=== PATIENT | male | born 1945 | race African-American/Black ===

== ENCOUNTER → 2016-12-20 | Outpatient (CLI) | payer MEDICARE, OTHER ==
[2016-12-20 14:48] LABS: HEMATOCRIT 40.3 % (37.9-51.0); HEMOGLOBIN 13.6 g/dL (13.5-17.0); HGB HCT DIFFERENCE 0.5; MEAN CORPUSCULAR HEMOGLOBIN 31.9 pg (27.0-33.4); MEAN CORPUSCULAR HGB CONC 33.6 g/dL (32.0-36.0); MEAN CORPUSCULAR VOLUME 95 fl (80-97); RED BLOOD COUNT 4.25 10^6/uL (4.35-5.55); WHITE BLOOD COUNT 4.2 10^3/uL (4.0-10.5)
[2016-12-20 15:02] LABS: APPEARANCE,URINE SLIGHTLY-CLOUDY; BILIRUBIN,URINE NEGATIVE (NEGATIVE); GLUCOSE, URINE >=500 mg/dL (NEGATIVE); KETONES,URINE NEGATIVE (NEGATIVE); LEUKOCYTE ESTERASE,URINE NEGATIVE (NEGATIVE); NITRITE,URINE NEGATIVE (NEGATIVE); PROTEIN,URINE 30 mg/dL (NEGATIVE); URINE SPECIFIC GRAVITY 1.016; UROBILINOGEN,URINE NEGATIVE mg/dL (<2.0)
[2016-12-20 15:08] LABS: URINE CREATININE 132.8 mg/dL (22-328); URINE PROTEIN 25.2 mg/dL (<12)
[2016-12-20 15:39] LABS: ANION GAP 11 (5-19); BLOOD UREA NITROGEN 21 mg/dL (7-20); CALCIUM 9.4 mg/dL (8.4-10.2); CARBON DIOXIDE 24 mmol/L (22-30); CHLORIDE 101 mmol/L (98-107); GLUCOSE 283 mg/dL (75-110); POTASSIUM 4.7 mmol/L (3.6-5.0); SODIUM 135.9 mmol/L (137-145)
== END ==
LOC: OD 14:06
PROVIDERS: ATTEND Internal Medicine Nephrology
DX: E11.22 Type 2 diabetes mellitus with diabetic chronic kidney disease (principal); I12.9 Hypertensive chronic kidney disease with stage 1 through stage 4 chronic kidney disease, or unspecified chronic kidney disease; N18.2 Chronic kidney disease, stage 2 (mild); E87.5 Hyperkalemia; R80.9 Proteinuria, unspecified
CPT/HCPCS: 36415; 80048; 81001; 82570; 84156; 85027

== ENCOUNTER → 2017-02-07 | Outpatient (CLI) | payer MEDICARE, OTHER ==
[2017-02-07 09:28] LABS: ABSOLUTE EOSINOPHILS # (AUTO) 0.2 10^3/uL (0.0-0.6); ABSOLUTE LYMPHOCYTES (AUTO) 0.8 10^3/uL (0.5-4.7); ABSOLUTE MONOCYTES (AUTO) 0.3 10^3/uL (0.1-1.4); ABSOLUTE NEUT (AUTO) 1.3 10^3/uL (1.7-8.2); BASOPHILS % (AUTO) 1.2 % (0-2); EOSINOPHILS % (AUTO) 7.6 % (0-6); HEMATOCRIT 39.8 % (37.9-51.0); HEMOGLOBIN 13.3 g/dL (13.5-17.0); HGB HCT DIFFERENCE 0.1; LYMPHOCYTES % (AUTO) 30.7 % (13-45); MEAN CORPUSCULAR HEMOGLOBIN 32.5 pg (27.0-33.4); MEAN CORPUSCULAR HGB CONC 33.4 g/dL (32.0-36.0); MEAN CORPUSCULAR VOLUME 98 fl (80-97); MONOCYTES % (AUTO) 10.3 % (3-13); RED BLOOD COUNT 4.08 10^6/uL (4.35-5.55); RED CELL DISTRIBUTION WIDTH 13.1 % (11.5-14.0); SEGMENTED NEUTROPHILS % (AUTO) 50.2 % (42-78); WHITE BLOOD COUNT 2.6 10^3/uL (4.0-10.5)
[2017-02-07 10:06] LABS: ALANINE AMINOTRANSFERASE 26 U/L (21-72); ALBUMIN 3.6 g/dL (3.5-5.0); ALKALINE PHOSPHATASE 97 U/L (38-126); ANION GAP 9 (5-19); ASPARTATE AMINO TRANSFERASE 20 U/L (17-59); BILIRUBIN,DIRECT 0.3 mg/dL (0.0-0.4); BILIRUBIN,TOTAL 0.7 mg/dL (0.2-1.3); BLOOD UREA NITROGEN 13 mg/dL (7-20); CALCIUM 8.8 mg/dL (8.4-10.2); CARBON DIOXIDE 23 mmol/L (22-30); CHLORIDE 107 mmol/L (98-107); CHOLESTEROL 129.28 mg/dL (0-200); CREATININE RESULT 1.32 mg/dL (0.52-1.25); Direct HDL 49 mg/dL (>40); GLUCOSE 171 mg/dL (75-110); POTASSIUM 4.6 mmol/L (3.6-5.0); SODIUM 139.1 mmol/L (137-145); TOTAL PROTEIN 6.9 g/dL (6.3-8.2); TRIGLYCERIDES 50 mg/dL (<150)
[2017-02-07 10:18] LABS: DIRECT LDL 61 mg/dL (<100)
== END ==
LOC: OD 08:40
PROVIDERS: ATTEND Internal Medicine
DX: E11.9 Type 2 diabetes mellitus without complications (principal); E78.5 Hyperlipidemia, unspecified; I25.10 Atherosclerotic heart disease of native coronary artery without angina pectoris; I10 Essential (primary) hypertension; R35.1 Nocturia
CPT/HCPCS: 36415; 80053; 80061; 82043; 83036; 84153; 84443; 85025

== ENCOUNTER → 2017-06-18 | Outpatient (CLI) | payer MEDICARE, OTHER ==
[2017-06-18 10:29] LABS: HEMATOCRIT 38.5 % (37.9-51.0); HEMOGLOBIN 13.2 g/dL (13.5-17.0); HGB HCT DIFFERENCE 1.1; MEAN CORPUSCULAR HEMOGLOBIN 32.6 pg (27.0-33.4); MEAN CORPUSCULAR HGB CONC 34.4 g/dL (32.0-36.0); MEAN CORPUSCULAR VOLUME 95 fl (80-97); RED BLOOD COUNT 4.06 10^6/uL (4.35-5.55); RED CELL DISTRIBUTION WIDTH 13.6 % (11.5-14.0); WHITE BLOOD COUNT 2.9 10^3/uL (4.0-10.5)
[2017-06-18 10:35] LABS: APPEARANCE,URINE CLEAR; BILIRUBIN,URINE NEGATIVE (NEGATIVE); GLUCOSE, URINE NEGATIVE (NEGATIVE); KETONES,URINE NEGATIVE (NEGATIVE); LEUKOCYTE ESTERASE,URINE NEGATIVE (NEGATIVE); NITRITE,URINE NEGATIVE (NEGATIVE); PROTEIN,URINE 30 mg/dL (NEGATIVE); URINE SPECIFIC GRAVITY 1.016; UROBILINOGEN,URINE NEGATIVE mg/dL (<2.0)
[2017-06-18 10:57] LABS: ANION GAP 9 (5-19); BLOOD UREA NITROGEN 15 mg/dL (7-20); CALCIUM 8.8 mg/dL (8.4-10.2); CARBON DIOXIDE 24 mmol/L (22-30); CHLORIDE 106 mmol/L (98-107); GLUCOSE 134 mg/dL (75-110); POTASSIUM 4.5 mmol/L (3.6-5.0); SODIUM 138.5 mmol/L (137-145)
[2017-06-18 11:01] LABS: BACTERIA,URINE TRACE /HPF; WBC,URINE RARE /HPF
== END ==
LOC: OD 09:07
PROVIDERS: ATTEND Internal Medicine Nephrology
DX: N18.2 Chronic kidney disease, stage 2 (mild) (principal); R80.9 Proteinuria, unspecified; E87.5 Hyperkalemia; E11.9 Type 2 diabetes mellitus without complications
CPT/HCPCS: 36415; 80048; 81001; 85027

== ENCOUNTER → 2017-08-30 | Outpatient (CLI) | payer MEDICARE, OTHER ==
[2017-08-30 10:48] LABS: ABSOLUTE BASOPHILS # (AUTO) 0.1 10^3/uL (0.0-0.2); ABSOLUTE EOSINOPHILS # (AUTO) 0.2 10^3/uL (0.0-0.6); ABSOLUTE LYMPHOCYTES (AUTO) 1.2 10^3/uL (0.5-4.7); ABSOLUTE MONOCYTES (AUTO) 0.3 10^3/uL (0.1-1.4); BASOPHILS % (AUTO) 1.8 % (0-2); EOSINOPHILS % (AUTO) 4.3 % (0-6); HEMATOCRIT 40.5 % (37.9-51.0); HEMOGLOBIN 13.7 g/dL (13.5-17.0); LYMPHOCYTES % (AUTO) 31.7 % (13-45); MEAN CORPUSCULAR HEMOGLOBIN 31.7 pg (27.0-33.4); MEAN CORPUSCULAR HGB CONC 33.8 g/dL (32.0-36.0); MEAN CORPUSCULAR VOLUME 94 fl (80-97); MONOCYTES % (AUTO) 8.3 % (3-13); PLATELET COUNT 196 10^3/uL (150-450); RED BLOOD COUNT 4.32 10^6/uL (4.35-5.55); RED CELL DISTRIBUTION WIDTH 13.7 % (11.5-14.0); SEGMENTED NEUTROPHILS % (AUTO) 53.9 % (42-78); TOTAL CELLS COUNTED % (AUTO) 100 %; WHITE BLOOD COUNT 3.7 10^3/uL (4.0-10.5)
[2017-08-30 11:20] LABS: ALANINE AMINOTRANSFERASE 24 U/L (21-72); ALKALINE PHOSPHATASE 99 U/L (38-126); ANION GAP 10 (5-19); ASPARTATE AMINO TRANSFERASE 21 U/L (17-59); BILIRUBIN,DIRECT 0.4 mg/dL (0.0-0.4); BILIRUBIN,TOTAL 0.4 mg/dL (0.2-1.3); BLOOD UREA NITROGEN 16 mg/dL (7-20); CALCIUM 9.5 mg/dL (8.4-10.2); CARBON DIOXIDE 25 mmol/L (22-30); CHLORIDE 101 mmol/L (98-107); CHOLESTEROL 143.04 mg/dL (0-200); GLUCOSE 243 mg/dL (75-110); POTASSIUM 4.9 mmol/L (3.6-5.0); SODIUM 135.9 mmol/L (137-145); TOTAL PROTEIN 7.3 g/dL (6.3-8.2); TRIGLYCERIDES 78 mg/dL (<150)
[2017-08-30 11:31] LABS: DIRECT LDL 71 mg/dL (<100)
== END ==
LOC: OD 09:12
PROVIDERS: ATTEND Internal Medicine
DX: E11.9 Type 2 diabetes mellitus without complications (principal); I25.10 Atherosclerotic heart disease of native coronary artery without angina pectoris; E78.5 Hyperlipidemia, unspecified
CPT/HCPCS: 36415; 80053; 80061; 83036; 85025

== ENCOUNTER → 2017-12-18 | Outpatient (CLI) | payer MEDICARE, OTHER ==
[2017-12-18 10:42] LABS: HEMATOCRIT 36.1 % (37.9-51.0); HEMOGLOBIN 12.3 g/dL (13.5-17.0); MEAN CORPUSCULAR HEMOGLOBIN 31.2 pg (27.0-33.4); MEAN CORPUSCULAR VOLUME 92 fl (80-97); PLATELET COUNT 198 10^3/uL (150-450); RED BLOOD COUNT 3.95 10^6/uL (4.35-5.55); RED CELL DISTRIBUTION WIDTH 14.8 % (11.5-14.0)
[2017-12-18 11:14] LABS: ANION GAP 11 (5-19); BLOOD UREA NITROGEN 14 mg/dL (7-20); CALCIUM 9.4 mg/dL (8.4-10.2); CARBON DIOXIDE 25 mmol/L (22-30); CHLORIDE 108 mmol/L (98-107); GLUCOSE 62 mg/dL (75-110); POTASSIUM 4.1 mmol/L (3.6-5.0); SODIUM 143.8 mmol/L (137-145)
[2017-12-18 13:09] LABS: APPEARANCE,URINE CLEAR; BILIRUBIN,URINE NEGATIVE (NEGATIVE); COLOR,URINE YELLOW; GLUCOSE, URINE NEGATIVE (NEGATIVE); KETONES,URINE NEGATIVE (NEGATIVE); LEUKOCYTE ESTERASE,URINE NEGATIVE (NEGATIVE); NITRITE,URINE NEGATIVE (NEGATIVE); PROTEIN,URINE 30 mg/dL (NEGATIVE)
[2017-12-18 13:25] LABS: UR PRO/CREAT RATIO RESULT 0.1 mg/mg (0.0-0.2); URINE CREATININE 246.8 mg/dL (22-328); URINE PROTEIN 36.2 mg/dL (<12)
== END ==
LOC: OD 09:42
PROVIDERS: ATTEND Internal Medicine Nephrology
DX: I12.9 Hypertensive chronic kidney disease with stage 1 through stage 4 chronic kidney disease, or unspecified chronic kidney disease (principal); E11.22 Type 2 diabetes mellitus with diabetic chronic kidney disease; N18.2 Chronic kidney disease, stage 2 (mild); E87.5 Hyperkalemia
CPT/HCPCS: 36415; 80048; 81001; 82570; 84156; 85027

== ENCOUNTER → 2018-06-01 | Outpatient (CLI) | payer MEDICARE, OTHER ==
--- NOTE | 2018-06-01 15:01 | RADIOLOGY REPORT (SQ) ---
EXAM DESCRIPTION: CHEST 2 VIEWS COMPLETED DATE/TIME: 06/01/2018 2:47 pm REASON FOR STUDY: ACUTE BRONCHIOLITIS, UNSPECIFIED COMPARISON: January 2010 EXAM PARAMETERS: NUMBER OF VIEWS: two views TECHNIQUE: Digital Frontal and Lateral radiographic views of the chest acquired. RADIATION DOSE: NA LIMITATIONS: none FINDINGS: LUNGS AND PLEURA: No opacities, masses or pneumothorax. No pleural effusion. There is a m ild nonspecific prominence of interstitial markings. MEDIASTINUM AND HILAR STRUCTURES: No masses or contour abnormalities. HEART AND VASCULAR STRUCTURES: Heart normal size. No evidence for failure. BONES: No acute findings. HARDWARE: Patient is status post median sternotomy with coronary bypass surgery. OTHER: No other significant finding. IMPRESSION: NO ACUTE RADIOGRAPHIC FINDING IN THE CHEST. TECHNICAL DOCUMENTATION: JOB ID: [id number] [employer]- All Rights Reserved Reading location - IP/workstation name: [email or web address]
== END ==
LOC: RAD 14:22
PROVIDERS: ATTEND Internal Medicine
DX: J21.9 Acute bronchiolitis, unspecified (principal)
CPT/HCPCS: 71046

== ENCOUNTER → 2018-07-04 | Outpatient (CLI) | payer MEDICARE, OTHER ==
[2018-07-04 10:10] LABS: APPEARANCE,URINE CLEAR; BILIRUBIN,URINE NEGATIVE (NEGATIVE); COLOR,URINE YELLOW; GLUCOSE, URINE NEGATIVE (NEGATIVE); KETONES,URINE NEGATIVE (NEGATIVE); LEUKOCYTE ESTERASE,URINE NEGATIVE (NEGATIVE); NITRITE,URINE NEGATIVE (NEGATIVE); PROTEIN,URINE 30 mg/dL (NEGATIVE); URINE SPECIFIC GRAVITY 1.015; UROBILINOGEN,URINE NEGATIVE mg/dL (<2.0)
[2018-07-04 10:10] LABS: ABSOLUTE EOSINOPHILS # (AUTO) 0.1 10^3/uL (0.0-0.6); ABSOLUTE MONOCYTES (AUTO) 0.3 10^3/uL (0.1-1.4); ABSOLUTE NEUT (AUTO) 1.4 10^3/uL (1.7-8.2); BASOPHILS % (AUTO) 0.8 % (0-2); EOSINOPHILS % (AUTO) 4.8 % (0-6); HEMATOCRIT 37.3 % (37.9-51.0); HEMOGLOBIN 12.6 g/dL (13.5-17.0); LYMPHOCYTES % (AUTO) 33.1 % (13-45); MEAN CORPUSCULAR HEMOGLOBIN 31.9 pg (27.0-33.4); MEAN CORPUSCULAR HGB CONC 33.9 g/dL (32.0-36.0); MEAN CORPUSCULAR VOLUME 94 fl (80-97); MONOCYTES % (AUTO) 11.6 % (3-13); PLATELET COUNT 187 10^3/uL (150-450); RED BLOOD COUNT 3.95 10^6/uL (4.35-5.55); RED CELL DISTRIBUTION WIDTH 14.6 % (11.5-14.0); SEGMENTED NEUTROPHILS % (AUTO) 49.7 % (42-78); TOTAL CELLS COUNTED % (AUTO) 100 %; WHITE BLOOD COUNT 2.9 10^3/uL (4.0-10.5)
[2018-07-04 10:14] LABS: ALANINE AMINOTRANSFERASE 14 U/L (21-72); ALBUMIN 3.6 g/dL (3.5-5.0); ALKALINE PHOSPHATASE 96 U/L (38-126); ANION GAP 8 (5-19); ASPARTATE AMINO TRANSFERASE 21 U/L (17-59); BILIRUBIN,DIRECT 0.3 mg/dL (0.0-0.4); BILIRUBIN,TOTAL 0.5 mg/dL (0.2-1.3); BLOOD UREA NITROGEN 20 mg/dL (7-20); CARBON DIOXIDE 26 mmol/L (22-30); CHLORIDE 105 mmol/L (98-107); CHOLESTEROL 211.35 mg/dL (0-200); GLUCOSE 161 mg/dL (75-110); POTASSIUM 4.8 mmol/L (3.6-5.0); SODIUM 139.3 mmol/L (137-145); TOTAL PROTEIN 7.1 g/dL (6.3-8.2); TRIGLYCERIDES 85 mg/dL (<150)
[2018-07-04 10:15] LABS: HEMATOCRIT 37.3 % (37.9-51.0); HEMOGLOBIN 12.6 g/dL (13.5-17.0); MEAN CORPUSCULAR HEMOGLOBIN 31.9 pg (27.0-33.4); MEAN CORPUSCULAR HGB CONC 33.9 g/dL (32.0-36.0); MEAN CORPUSCULAR VOLUME 94 fl (80-97); PLATELET COUNT 187 10^3/uL (150-450); RED BLOOD COUNT 3.95 10^6/uL (4.35-5.55); RED CELL DISTRIBUTION WIDTH 14.6 % (11.5-14.0); WHITE BLOOD COUNT 2.9 10^3/uL (4.0-10.5)
[2018-07-04 10:21] LABS: UR PRO/CREAT RATIO RESULT 0.4 mg/mg (0.0-0.2); URINE CREATININE 111.8 mg/dL (22-328)
[2018-07-04 10:25] LABS: DIRECT LDL 128 mg/dL (<100)
[2018-07-04 10:39] LABS: ANION GAP 8 (5-19); BLOOD UREA NITROGEN 20 mg/dL (7-20); CARBON DIOXIDE 26 mmol/L (22-30); CHLORIDE 105 mmol/L (98-107); GLUCOSE 161 mg/dL (75-110); POTASSIUM 4.8 mmol/L (3.6-5.0); SODIUM 139.3 mmol/L (137-145)
[2018-07-06 12:37] LABS: CREATININE URINE 112.2 mg/dL (Not Estab.); MICROALBUMIN URINE 177.3 ug/mL (Not Estab.)
== END ==
LOC: OD 08:25
PROVIDERS: ATTEND Internal Medicine Nephrology
DX: E11.22 Type 2 diabetes mellitus with diabetic chronic kidney disease (principal); I12.9 Hypertensive chronic kidney disease with stage 1 through stage 4 chronic kidney disease, or unspecified chronic kidney disease; N18.2 Chronic kidney disease, stage 2 (mild); E78.5 Hyperlipidemia, unspecified; Z79.899 Other long term (current) drug therapy
CPT/HCPCS: 36415; 80048; 80053; 80061; 81001; 82043; 82570; 83036; 83735; 84156; 85025; 85027

== ENCOUNTER 2018-10-20 16:52 | Inpatient (IN) | payer MEDICARE, OTHER ==
[2018-10-20 18:47] LABS: HEMATOCRIT 30.7 % (37.9-51.0); MEAN CORPUSCULAR HEMOGLOBIN 28.2 pg (27.0-33.4); MEAN CORPUSCULAR HGB CONC 32.5 g/dL (32.0-36.0); MEAN CORPUSCULAR VOLUME 87 fl (80-97); PLATELET COUNT 227 10^3/uL (150-450); RED BLOOD COUNT 3.54 10^6/uL (4.35-5.55); RED CELL DISTRIBUTION WIDTH 16.6 % (11.5-14.0); WHITE BLOOD COUNT 6.2 10^3/uL (4.0-10.5)
[2018-10-20 19:04] LABS: ALANINE AMINOTRANSFERASE 45 U/L (21-72); ALBUMIN 3.4 g/dL (3.5-5.0); ALKALINE PHOSPHATASE 128 U/L (38-126); ANION GAP 7 (5-19); ASPARTATE AMINO TRANSFERASE 39 U/L (17-59); BILIRUBIN,DIRECT 0.2 mg/dL (0.0-0.4); BILIRUBIN,TOTAL 0.4 mg/dL (0.2-1.3); BLOOD UREA NITROGEN 27 mg/dL (7-20); CALCIUM 9.2 mg/dL (8.4-10.2); CARBON DIOXIDE 25 mmol/L (22-30); CHLORIDE 107 mmol/L (98-107); CREATINE KINASE 160 U/L (55-170); GLUCOSE 162 mg/dL (75-110); POTASSIUM 4.5 mmol/L (3.6-5.0); SODIUM 139.1 mmol/L (137-145); TOTAL PROTEIN 6.8 g/dL (6.3-8.2)
[2018-10-20 19:15] LABS: CREATINE KINASE MB 2.07 ng/mL (<4.55)
[2018-10-20 19:18] LABS: TROPONIN I 0.539 ng/mL
[2018-10-20] MEDS ORDERED: NITROGLYCERIN/D5W 50 MG/250 ML RTUINJ IV PRN (19:25)
[2018-10-20] MEDS ORDERED: GLUCAGON,HUMAN RECOMB 1 MG INJ IM PRN (19:37)
[2018-10-20] MEDS ORDERED: DEXTROSE 50%-WATER 25 GM/50 ML DISP.SYRIN IV PRN ×2 (19:37)
[2018-10-20] MEDS ORDERED: DEXTROSE 40% GEL 15 GM TUBE PO PRN ×2 (19:37)
--- NOTE | 2018-10-20 19:54 | PDOC H&P ---
History of Present Illness Admission Date/PCP: 10/20/18 16:52 Denzel SANCHEZ MD Patient complains of: Shortness of breath. Weight gain. Leg swelling History of Present Illness: BUDDY TREJO is a 73 year old male Past Medical History Cardiac Medical History: Reports: Coronary Artery Disease, Hyperlipidema, Hypertension Pulmonary Medical History: Reports: Chronic Obstructive Pulmonary Disease (COPD) Endocrine Medical History: Reports: Diabetes Mellitus Type 2 Renal/ Medical History: Reports: Chronic Kidney Disease Musculoskeltal Medical History: Reports: Arthritis Past Surgical History Past Surgical History: Reports: None Social History Smoking Status: Current Every Day Smoker Cigarettes Packs Per Day: 2 Number of Years Smokin Last Time Smoked: 10/19/18 Frequency of Alcohol Use: None Hx Recreational Drug Use: No Drugs: None Hx Prescription Drug Abuse: No Family History Family History: CAD Parental Family History Reviewed: Yes Children Family History Reviewed: Yes Sibling(s) Family History Reviewed.: Yes Medication/Allergy Home Medications: Aspirin [Ecotrin 325 mg EC Tablet] 325 mg PO DAILY 10/20/18 Clopidogrel Bisulfate [Plavix 75 mg Tablet] 75 mg PO DAILY 10/20/18 Fluticasone Propionate [Flonase Nasal [place] 50 Mcg/[place] 16 gm] 1 spray NASL BID 10/20/18 Insulin Aspart [Novolog Flexpen] 20 units SQ MEALS 10/20/18 Insulin Glargine,Hum.rec.anlog [Lantus Insulin 100 Unit/1 ml 10 ml] 80 units SQ QHS 10/20/18 Nifedipine [Nifedipine ER] 60 mg PO Q12 10/20/18 Nitroglycerin [Nitromist] 1 spray SL Q5MP PRN 10/20/18 Temazepam [Restoril 15 mg Capsule] 15 mg PO QHS 10/20/18 Allergies/Adverse Reactions: No Known Allergies Allergy (Unverified 10/20/18 17:30) Review of Systems All systems: as per PMH Physical Exam Vital Signs: Temp Pulse Resp BP Pulse Ox 98.3 F 97 26 H 120/72 98 10/20/18 19:30 10/20/18 19:30 10/20/18 19:30 10/20/18 19:30 10/20/18 19:30 Intake & Output 10/19/18 10/20/18 10/21/18 06:59 06:59 06:59 Weight 90 kg General appearance: PRESENT: severe distress Eye exam: PRESENT: conjunctival injection Mouth exam: PRESENT: moist Neck exam: PRESENT: carotid bruit, JVD Respiratory exam: PRESENT: rales, rhonchi Cardiovascular exam: PRESENT: RRR, +S1, +S2 GI/Abdominal exam: PRESENT: normal bowel sounds, soft Extremities exam: PRESENT: full ROM, pedal edema Musculoskeletal exam: PRESENT: ambulatory Neurological exam: PRESENT: alert, awake Results Laboratory Results: 10/20/18 18:35 10/20/18 18:35 10/20/18 10/20/18 18:35 18:35 WBC 6.2 RBC 3.54 L Hgb 10.0 L Hct 30.7 L MCV 87 MCH 28.2 MCHC 32.5 RDW 16.6 H Plt Count 227 Sodium 139.1 Potassium 4.5 Chloride 107 Carbon Dioxide 25 Anion Gap 7 BUN 27 H Creatinine 1.77 H Est GFR ( Amer) 46 L Est GFR (Non-Af Amer) 38 L Glucose 162 H Calcium 9.2 Total Bilirubin 0.4 AST 39 ALT 45 Alkaline Phosphatase 128 H Total Protein 6.8 Albumin 3.4 L 10/20/18 10/20/18 18:35 18:35 Creatine Kinase 160 CK-MB (CK-2) 2.07 Troponin I 0.539 Assessment & Plan - Diagnosis (1) Acute on chronic systolic (congestive) heart failure Is this a current diagnosis for this admission?: Yes Plan: We will start diuretics IV nitroglycerin echocardiogram cardiology consultation and Lovenox and beta-blockers (2) Orthopnea Is this a current diagnosis for this admission?: Yes Plan: Bedrest with leg elevation and head elevation and diuretics (3) Coronary artery disease Qualifiers: Coronary Disease-Associated Artery/Lesion type: [place] artery Is this a current diagnosis for this admission?: Yes Plan: Will obtain EKG and cardiac enzymes (4) Hypertension Qualifiers: Hypertension type: essential hypertension Qualified Code(s): I10 - Essential (primary) hypertension Is this a current diagnosis for this admission?: Yes Plan: Continue current medications (5) COPD (chronic obstructive pulmonary disease) Qualifiers: COPD type: emphysema Is this a current diagnosis for this admission?: Yes Plan: Nebulization treatments (6) Diabetes mellitus Qualifiers: Diabetes mellitus type: type 2 Chronic kidney disease stage: stage 3 (moderate) Is this a current diagnosis for this admission?: Yes Plan: Continue with insulin and sliding scale (7) Chronic kidney disease, stage 3 (moderate) Is this a current diagnosis for this admission?: Yes Plan: Nephrology consultation
--- NOTE | 2018-10-20 20:30 | RADIOLOGY REPORT (SQ) ---
EXAM DESCRIPTION: [facility]: XR CHEST 2 VIEWS Views: 2 CLINICAL HISTORY: 73 years Male, chf COMPARISON: 06/01/2018 FINDINGS: There is moderate bilateral interstitial edema. No pneumothorax or pleural effusion. Sternal wires are again noted. Heart is slightly enlarged. Bony structures are unremarkable for age. IMPRESSION: 1. Moderate pulmonary edema 2. Previous sternotomy.
[2018-10-20] MEDS ORDERED: FUROSEMIDE INJ/PF 40 MG/4 ML SDV ONE (20:52)
[2018-10-20] MEDS: FUROSEMIDE INJ/PF 40 MG/4 ML SDV IV SCH (21:16)
[2018-10-20 22:00] LABS: ARTERIAL BLOOD BASE EXCESS -0.2 mmol/L; ARTERIAL BLOOD H2CO3 1.02 mmol/L (1.05-1.35); ARTERIAL BLOOD HCO3 23.3 mmol/L (20-24); ARTERIAL BLOOD O2 SATURATION 94.9 % (94-98); ARTERIAL BLOOD PCO2 33.9 mmHg (35-45); ARTERIAL BLOOD PH 7.46 (7.35-7.45); ARTERIAL BLOOD PO2 69.7 mmHg (80-100); ARTERIAL BLOOD TOTAL CO2 24.3 mmol/L (23-27)
[2018-10-20 22:01] LABS: ARTERIAL BLOOD FIO2 ROOM AIR
[2018-10-20] MEDS: ALBUTEROL SULFATE 0.042% NEB (1.25 MG/3 ML) AMPUL NEB SCH (22:21)
[2018-10-20] MEDS: METOPROLOL TARTRATE 50 MG TABLET PO SCH (22:40)
[2018-10-20] MEDS: INSULIN GLARGINE,HUM.REC.ANLOG 1,000 UNIT/10 ML VIAL SUBCUT SCH (22:41)
[2018-10-20] MEDS: ENOXAPARIN SODIUM INJ 100 MG/1 ML DISP.SYRIN SUBCUT SCH (22:42)
[2018-10-20] MEDS: DOCUSATE SODIUM 100 MG CAPSULE PO SCH (22:44)
--- NOTE | 2018-10-21 00:02 | EKG REPORT ---
SEVERITY:- ABNORMAL ECG - SINUS TACHYCARDIA PROBABLE LEFT ATRIAL ABNORMALITY PROBABLE LVH WITH SECONDARY REPOL ABNRM : Confirmed by: Alonzo Douglas 21-Oct-2018 00:01:35
[2018-10-21 00:36] LABS: CREATINE KINASE MB 1.6 ng/mL (<4.55); TROPONIN I 0.417 ng/mL
[2018-10-21 06:30] LABS: ABSOLUTE EOSINOPHILS # (AUTO) 0.1 10^3/uL (0.0-0.6); ABSOLUTE LYMPHOCYTES (AUTO) 1.2 10^3/uL (0.5-4.7); ABSOLUTE MONOCYTES (AUTO) 0.6 10^3/uL (0.1-1.4); BASOPHILS % (AUTO) 0.9 % (0-2); EOSINOPHILS % (AUTO) 2.7 % (0-6); HEMATOCRIT 29.1 % (37.9-51.0); HEMOGLOBIN 9.7 g/dL (13.5-17.0); LYMPHOCYTES % (AUTO) 23.7 % (13-45); MEAN CORPUSCULAR HEMOGLOBIN 28.8 pg (27.0-33.4); MEAN CORPUSCULAR HGB CONC 33.3 g/dL (32.0-36.0); MEAN CORPUSCULAR VOLUME 87 fl (80-97); MONOCYTES % (AUTO) 12.5 % (3-13); PLATELET COUNT 200 10^3/uL (150-450); RED BLOOD COUNT 3.35 10^6/uL (4.35-5.55); RED CELL DISTRIBUTION WIDTH 16.3 % (11.5-14.0); SEGMENTED NEUTROPHILS % (AUTO) 60.2 % (42-78); TOTAL CELLS COUNTED % (AUTO) 100 %
[2018-10-21 06:51] LABS: ANION GAP 6 (5-19); BLOOD UREA NITROGEN 27 mg/dL (7-20); CALCIUM 8.7 mg/dL (8.4-10.2); CARBON DIOXIDE 28 mmol/L (22-30); CHLORIDE 104 mmol/L (98-107); CREATINE KINASE 133 U/L (55-170); GLUCOSE 140 mg/dL (75-110); POTASSIUM 4.6 mmol/L (3.6-5.0); SODIUM 137.9 mmol/L (137-145)
[2018-10-21 07:07] LABS: CREATINE KINASE MB 1.32 ng/mL (<4.55); TROPONIN I 0.389 ng/mL
[2018-10-21] MEDS ORDERED: (PENDING PHARMACY ID) (Insulin Aspart [Novolog Flexpen] 20 UNITS) SQ SCH (08:00)
[2018-10-21] MEDS: ALBUTEROL SULFATE 0.042% NEB (1.25 MG/3 ML) AMPUL NEB SCH ×4 (08:35→21:02)
--- NOTE | 2018-10-21 08:53 | PDOC PROGRESS REPORT ---
Subjective Progress Note for:: 10/21/18 Subjective:: The patient states to feel much better. He had significant amount of diureses. He is still short of breath but it has improved. Reason For Visit: HEART FAILURE, CORONARY ARTERY DISEASE, RULE OUT Physical Exam Vital Signs: Temp Pulse Resp BP Pulse Ox 98.2 F 73 24 H 107/69 94 10/21/18 08:00 10/21/18 08:00 10/21/18 08:00 10/21/18 08:00 10/21/18 08:00 Intake & Output 10/20/18 10/21/18 10/22/18 06:59 06:59 06:59 Intake Total 355 Output Total 4 Balance 351 Weight 89.2 kg General appearance: PRESENT: mild distress Head exam: PRESENT: atraumatic Eye exam: PRESENT: conjunctiva pink Mouth exam: PRESENT: moist Respiratory exam: PRESENT: crackles, rhonchi Cardiovascular exam: PRESENT: RRR, +S1, +S2 GI/Abdominal exam: PRESENT: normal bowel sounds, soft Extremities exam: PRESENT: full ROM, pedal edema Musculoskeletal exam: PRESENT: ambulatory Neurological exam: PRESENT: alert, awake Results Laboratory Results: 10/21/18 05:52 10/21/18 05:52 10/20/18 10/20/18 10/20/18 18:35 18:35 21:45 WBC 6.2 RBC 3.54 L Hgb 10.0 L Hct 30.7 L MCV 87 MCH 28.2 MCHC 32.5 RDW 16.6 H Plt Count 227 Seg Neutrophils % Lymphocytes % Monocytes % Eosinophils % Basophils % Absolute Neutrophils Absolute Lymphocytes Absolute Monocytes Absolute Eosinophils Absolute Basophils Carbonic Acid 1.02 L HCO3/H2CO3 Ratio 22:1 ABG pH 7.46 H ABG pCO2 33.9 L ABG pO2 69.7 L ABG HCO3 23.3 ABG O2 Saturation 94.9 ABG Base Excess -0.2 FiO2 ROOM AIR Sodium 139.1 Potassium 4.5 Chloride 107 Carbon Dioxide 25 Anion Gap 7 BUN 27 H Creatinine 1.77 H Est GFR ( Amer) 46 L Est GFR (Non-Af Amer) 38 L Glucose 162 H Calcium 9.2 Total Bilirubin 0.4 AST 39 ALT 45 Alkaline Phosphatase 128 H Total Protein 6.8 Albumin 3.4 L TSH 10/21/18 10/21/18 10/21/18 05:52 05:52 05:52 WBC 5.0 RBC 3.35 L Hgb 9.7 L Hct 29.1 L MCV 87 MCH 28.8 MCHC 33.3 RDW 16.3 H Plt Count 200 Seg Neutrophils % 60.2 Lymphocytes % 23.7 Monocytes % 12.5 Eosinophils % 2.7 Basophils % 0.9 Absolute Neutrophils 3.0 Absolute Lymphocytes 1.2 Absolute Monocytes 0.6 Absolute Eosinophils 0.1 Absolute Basophils 0.0 Carbonic Acid HCO3/H2CO3 Ratio ABG pH ABG pCO2 ABG pO2 ABG HCO3 ABG O2 Saturation ABG Base Excess FiO2 Sodium 137.9 Potassium 4.6 Chloride 104 Carbon Dioxide 28 Anion Gap 6 BUN 27 H Creatinine 1.48 H Est GFR ( Amer) 57 L Est GFR (Non-Af Amer) 47 L Glucose 140 H Calcium 8.7 Total Bilirubin AST ALT Alkaline Phosphatase Total Protein Albumin TSH 1.73 10/20/18 10/20/18 10/20/18 18:35 18:35 23:50 Creatine Kinase 160 131 CK-MB (CK-2) 2.07 Troponin I 0.539 NT-Pro-B Natriuret Pep 10/20/18 10/21/18 10/21/18 23:50 05:52 05:52 Creatine Kinase 133 CK-MB (CK-2) 1.60 1.32 Troponin I 0.417 0.389 NT-Pro-B Natriuret Pep 2710 H Impressions: Chest X-Ray 10/20/18 19:31 IMPRESSION: 1. Moderate pulmonary edema 2. Previous sternotomy. Assessment & Plan - Diagnosis (1) Acute on chronic systolic (congestive) heart failure Is this a current diagnosis for this admission?: Yes Plan: Significant improvement with nitroglycerin and Lasix (2) Orthopnea Is this a current diagnosis for this admission?: Yes Plan: Improved continue current treatment (3) Coronary artery disease Qualifiers: Coronary Disease-Associated Artery/Lesion type: [place] artery Is this a current diagnosis for this admission?: Yes Plan: Positive troponins most probably a non-Q wave prior to hospitalization (4) Hypertension Qualifiers: Hypertension type: essential hypertension Qualified Code(s): I10 - Essential (primary) hypertension Is this a current diagnosis for this admission?: Yes Plan: Continue current medications (5) COPD (chronic obstructive pulmonary disease) Qualifiers: COPD type: emphysema Is this a current diagnosis for this admission?: Yes Plan: Improved we will add steroids and antibiotics (6) Diabetes mellitus Qualifiers: Diabetes mellitus type: type 2 Chronic kidney disease stage: stage 3 (moderate) Is this a current diagnosis for this admission?: Yes Plan: Continue with insulin and sliding scale (7) Chronic kidney disease, stage 3 (moderate) Is this a current diagnosis for this admission?: Yes Plan: Nephrology consultation (8) Non Q wave myocardial infarction Is this a current diagnosis for this admission?: Yes Plan: The patient's admission troponin was elevated without any EKG changes. He was started on nitroglycerin Lovenox aspirin and diuretics with metoprolol. His troponins are trending down. Awaiting cardiology consultation and an echocardiogram
[2018-10-21] MEDS: INSULIN LISPRO 100 UNIT/ML 3 ML VIAL SUBCUT SCH ×3 (09:05→17:59)
[2018-10-21] MEDS ORDERED: ENOXAPARIN SODIUM INJ 40 MG/0.4 ML DISP.SYRIN SUBCUT SCH (10:00)
[2018-10-21] MEDS ORDERED: ASPIRIN 325 MG TABLET, ENT COATED PO SCH (10:00)
[2018-10-21] MEDS: ACETAMINOPHEN 325 MG TABLET PO PRN ×2 (10:30→18:09)
[2018-10-21] MEDS: LEVOFLOXACIN 500 MG TABLET PO SCH (10:30)
[2018-10-21] MEDS: METOPROLOL TARTRATE 50 MG TABLET PO SCH ×2 (10:31→23:06)
[2018-10-21] MEDS: LISINOPRIL 5 MG TABLET PO SCH (10:31)
[2018-10-21] MEDS: CLOPIDOGREL BISULFATE 75 MG TABLET PO SCH (10:31)
[2018-10-21] MEDS: POLYETHYLENE GLYCOL 3350 POWDER 17 GM/1 PACKET PO SCH (10:32)
[2018-10-21] MEDS: FUROSEMIDE INJ/PF 40 MG/4 ML SDV IV SCH ×2 (10:32→23:06)
[2018-10-21] MEDS: DOCUSATE SODIUM 100 MG CAPSULE PO SCH ×2 (10:32→18:00)
[2018-10-21] MEDS: ASPIRIN 81 MG TABLET, ENT COATED PO SCH (10:32)
[2018-10-21] MEDS: ENOXAPARIN SODIUM INJ 100 MG/1 ML DISP.SYRIN SUBCUT SCH ×2 (10:32→23:07)
[2018-10-21 12:31] LABS: CREATINE KINASE MB 1.12 ng/mL (<4.55); TROPONIN I 0.347 ng/mL
[2018-10-21] MEDS: METHYLPREDNISOLONE INJ 40 MG/1 ML SDV IV SCH ×3 (13:30→23:16)
--- NOTE | 2018-10-21 16:37 | PDOC CONSULTATION ---
Consultation Consult Date: 10/21/18 Consult reason:: CKD stage III/IV. History of Present Illness Admission Date/PCP: 10/20/18 16:52 Denzel SANCHEZ MD History of Present Illness: BUDDY TREJO is a 73 year old male with a history of long-standing diabetes mellitus, hypertension, CKD stage III/IV with a base creatinine of around 1.5 was admitted with history of progressive shortness of breath and pedal edema. Admits to indiscretions with diet. He denies noncompliance. No history of being on any NSAIDs. Since he has been in the hospital he has been put on IV diuretics and nitroglycerin and currently feeling a whole lot better. His pedal edema is almost completely gone. Labs and medications were reviewed with the patient. Past Medical History Cardiac Medical History: Reports: Coronary Artery Disease, Hyperlipidemia, Hypertension-primary Pulmonary Medical History: Reports: Chronic Obstructive Pulmonary Disease (COPD) Endocrine Medical History: Reports: Diabetes Mellitus Type 2 Renal/ Medical History: Reports: Chronic Kidney Disease Stage III Musculoskeltal Medical History: Reports: Arthritis Past Surgical History Past Surgical History: Reports: None Social History Smoking Status: Current Every Day Smoker Cigarettes Packs Per Day: 2 Number of Years Smokin Last Time Smoked: 10/19/18 Frequency of Alcohol Use: None Hx Recreational Drug Use: No Drugs: None Hx Prescription Drug Abuse: No Family History Parental Family History Reviewed: Yes - Negative for ESRD. Children Family History Reviewed: No Sibling(s) Family History Reviewed.: No Medication/Allergy Home Medications: Aspirin [Ecotrin 325 mg EC Tablet] 325 mg PO DAILY 10/20/18 Clopidogrel Bisulfate [Plavix 75 mg Tablet] 75 mg PO DAILY 10/20/18 Fluticasone Propionate [Flonase Nasal [place] 50 Mcg/[place] 16 gm] 1 spray NASL BID 10/20/18 Insulin Aspart [Novolog Flexpen] 20 units SQ MEALS 10/20/18 Insulin Glargine,Hum.rec.anlog [Lantus Insulin 100 Unit/1 ml 10 ml] 80 units SQ QHS 10/20/18 Nifedipine [Nifedipine ER] 60 mg PO Q12 10/20/18 Nitroglycerin [Nitromist] 1 spray SL Q5MP PRN 10/20/18 Temazepam [Restoril 15 mg Capsule] 15 mg PO QHS 10/20/18 Allergies/Adverse Reactions: No Known Allergies Allergy (Unverified 10/20/18 17:30) Review of Systems Constitutional: PRESENT: weakness. ABSENT: fever(s), headache(s), night sweats Nose, Mouth, and Throat: ABSENT: mouth pain, sore throat Cardiovascular: PRESENT: chest pain - Vague., dyspnea on exertion, edema. ABSENT: orthropnea, palpitations Respiratory: PRESENT: dyspnea. ABSENT: cough, hemoptysis Gastrointestinal: ABSENT: abdominal pain, bloating, constipation, diarrhea, dysphagia, heartburn, hematemesis Genitourinary: ABSENT: difficulty urinating, dysuria, hematuria Neurological: ABSENT: abnormal speech, confusion, convulsions, focal weakness, frequent falls Hematologic/Lymphatic: ABSENT: easy bruising, lymphadenopathy Physical Exam Vital Signs: Temp Pulse Resp BP Pulse Ox 98.5 F 82 21 H 101/60 97 10/21/18 15:29 10/21/18 15:29 10/21/18 15:29 10/21/18 15:29 10/21/18 15:29 Intake & Output 10/20/18 10/21/18 10/22/18 06:59 06:59 06:59 Intake Total 355 15 Output Total 4 2 Balance 351 13 Weight 89.2 kg General appearance: PRESENT: no acute distress Eye exam: PRESENT: EOMI, PERRLA Ear exam: PRESENT: normal external ear exam Mouth exam: PRESENT: moist, neck supple Neck exam: ABSENT: lymphadenopathy, meningismus, tenderness, thyromegaly, trach eal deviation Respiratory exam: PRESENT: clear to auscultation tracey. ABSENT: crackles Cardiovascular exam: PRESENT: +S1, +S2 GI/Abdominal exam: PRESENT: normal bowel sounds, soft. ABSENT: organomegaly, tenderness Extremities exam: ABSENT: pedal edema Neurological exam: PRESENT: alert, awake, oriented to person, oriented to place Psychiatric exam: PRESENT: appropriate affect Skin exam: ABSENT: erythema, mottled, rash Results Laboratory Results: 10/21/18 05:52 10/21/18 05:52 10/20/18 10/20/18 10/20/18 18:35 18:35 21:45 WBC 6.2 RBC 3.54 L Hgb 10.0 L Hct 30.7 L MCV 87 MCH 28.2 MCHC 32.5 RDW 16.6 H Plt Count 227 Seg Neutrophils % Lymphocytes % Monocytes % Eosinophils % Basophils % Absolute Neutrophils Absolute Lymphocytes Absolute Monocytes Absolute Eosinophils Absolute Basophils Carbonic Acid 1.02 L HCO3/H2CO3 Ratio 22:1 ABG pH 7.46 H ABG pCO2 33.9 L ABG pO2 69.7 L ABG HCO3 23.3 ABG O2 Saturation 94.9 ABG Base Excess -0.2 FiO2 ROOM AIR Sodium 139.1 Potassium 4.5 Chloride 107 Carbon Dioxide 25 Anion Gap 7 BUN 27 H Creatinine 1.77 H Est GFR ( Amer) 46 L Est GFR (Non-Af Amer) 38 L Glucose 162 H Calcium 9.2 Total Bilirubin 0.4 AST 39 ALT 45 Alkaline Phosphatase 128 H Total Protein 6.8 Albumin 3.4 L TSH 10/21/18 10/21/18 10/21/18 05:52 05:52 05:52 WBC 5.0 RBC 3.35 L Hgb 9.7 L Hct 29.1 L MCV 87 MCH 28.8 MCHC 33.3 RDW 16.3 H Plt Count 200 Seg Neutrophils % 60.2 Lymphocytes % 23.7 Monocytes % 12.5 Eosinophils % 2.7 Basophils % 0.9 Absolute Neutrophils 3.0 Absolute Lymphocytes 1.2 Absolute Monocytes 0.6 Absolute Eosinophils 0.1 Absolute Basophils 0.0 Carbonic Acid HCO3/H2CO3 Ratio ABG pH ABG pCO2 ABG pO2 ABG HCO3 ABG O2 Saturation ABG Base Excess FiO2 Sodium 137.9 Potassium 4.6 Chloride 104 Carbon Dioxide 28 Anion Gap 6 BUN 27 H Creatinine 1.48 H Est GFR ( Amer) 57 L Est GFR (Non-Af Amer) 47 L Glucose 140 H Calcium 8.7 Total Bilirubin AST ALT Alkaline Phosphatase Total Protein Albumin TSH 1.73 10/20/18 10/20/18 10/20/18 18:35 18:35 23:50 Creatine Kinase 160 131 CK-MB (CK-2) 2.07 Troponin I 0.539 NT-Pro-B Natriuret Pep 10/20/18 10/21/18 10/21/18 23:50 05:52 05:52 Creatine Kinase 133 CK-MB (CK-2) 1.60 1.32 Troponin I 0.417 0.389 NT-Pro-B Natriuret Pep 2710 H 10/21/18 10/21/18 11:45 11:45 Creatine Kinase 131 CK-MB (CK-2) 1.12 Troponin I 0.347 NT-Pro-B Natriuret Pep Impressions: Chest X-Ray 10/20/18 19:31 IMPRESSION: 1. Moderate pulmonary edema 2. Previous sternotomy. Assessment & Plan - Diagnosis (1) Acute on chronic systolic (congestive) heart failure Is this a current diagnosis for this admission?: Yes Plan: Patient obviously had acute on chronic congestive heart failure that has now responded to current management in the hospital. Blood pressure is currently getting on the low side and therefore titrate medications accordingly. I would suggest a nitroglycerin drip to be tapered off as patient is asymptomatic. (2) Chronic kidney disease, stage 3 (moderate) Is this a current diagnosis for this admission?: Yes Plan: Patient is got underlying diabetic nephropathy with base creatinine of 1.5. Admission creatinine was 1.7 and presently down to 1.4 . Continue present lines of management. Down titrate antihypertensives given the fact that his nitroglycerin drip was dropping his blood pressures. Stable from a renal point of view. (3) Coronary artery disease Qualifiers: Coronary Disease-Associated Artery/Lesion type: [place] artery Is this a current diagnosis for this admission?: Yes Plan: As per Dr. Dwyer and cardiology. (4) Diabetes mellitus Qualifiers: Diabetes mellitus type: type 2 Chronic kidney disease stage: stage 3 (moderate) Is this a current diagnosis for this admission?: Yes Plan: Advised tight control. (5) Hypertension Qualifiers: Hypertension type: essential hypertension Qualified Code(s): I10 - [place] l (primary) hypertension Is this a current diagnosis for this admission?: Yes Plan: Presently well controlled to low normal. Down titrate antihypertensives until patient is off nitroglycerin and then possibly can be sent back on his regular m edications.
[2018-10-21] MEDS: NITROGLYCERIN 2% OINTMENT 1 GM PACKET TP SCH ×2 (18:48→23:16)
[2018-10-21] MEDS: TEMAZEPAM 15 MG CAPSULE PO SCH (23:06)
[2018-10-21] MEDS: INSULIN GLARGINE,HUM.REC.ANLOG 1,000 UNIT/10 ML VIAL SUBCUT SCH (23:08)
[2018-10-22] MEDS ORDERED: INSULIN LISPRO 100 UNIT/ML 3 ML VIAL ONE (01:35)
[2018-10-22] MEDS ORDERED: INSULIN LISPRO 100 UNIT/ML 3 ML VIAL SUBCUT ONE (02:00)
[2018-10-22] MEDS: METHYLPREDNISOLONE INJ 40 MG/1 ML SDV IV SCH (05:34)
[2018-10-22] MEDS: NITROGLYCERIN 2% OINTMENT 1 GM PACKET TP SCH ×3 (05:35→17:23)
[2018-10-22 06:19] LABS: ABSOLUTE LYMPHOCYTES (AUTO) 0.5 10^3/uL (0.5-4.7); ABSOLUTE MONOCYTES (AUTO) 0.2 10^3/uL (0.1-1.4); BASOPHILS % (AUTO) 0.4 % (0-2); HEMOGLOBIN 10.9 g/dL (13.5-17.0); LYMPHOCYTES % (AUTO) 8.3 % (13-45); MEAN CORPUSCULAR HEMOGLOBIN 28.7 pg (27.0-33.4); MEAN CORPUSCULAR VOLUME 87 fl (80-97); MONOCYTES % (AUTO) 4.2 % (3-13); PLATELET COUNT 230 10^3/uL (150-450); RED CELL DISTRIBUTION WIDTH 16.5 % (11.5-14.0); SEGMENTED NEUTROPHILS % (AUTO) 87.1 % (42-78); TOTAL CELLS COUNTED % (AUTO) 100 %; WHITE BLOOD COUNT 5.8 10^3/uL (4.0-10.5)
[2018-10-22 06:42] LABS: ANION GAP 10 (5-19); BLOOD UREA NITROGEN 28 mg/dL (7-20); CARBON DIOXIDE 26 mmol/L (22-30); CHLORIDE 102 mmol/L (98-107); GLUCOSE 158 mg/dL (75-110); SODIUM 137.7 mmol/L (137-145)
--- NOTE | 2018-10-22 08:34 | PDOC PROGRESS REPORT ---
Subjective Progress Note for:: 10/22/18 Subjective:: The patient states to feel much better. His breathing has improved. His blood sugars are better controlled. Cardiology and nephrology consultations appreciated. Reason For Visit: HEART FAILURE, CORONARY ARTERY DISEASE, RULE OUT Physical Exam Vital Signs: Temp Pulse Resp BP Pulse Ox 98.0 F 76 20 120/79 100 10/22/18 05:55 10/22/18 07:00 10/22/18 05:55 10/22/18 05:55 10/22/18 05:55 Intake & Output 10/21/18 10/22/18 10/23/18 06:59 06:59 06:59 Intake Total 389 1083 Output Total 4 2902 Balance 385 -1819 Weight 89.2 kg 89.7 kg General appearance: PRESENT: mild distress Head exam: PRESENT: atraumatic Eye exam: PRESENT: conjunctiva pink Mouth exam: PRESENT: moist Respiratory exam: PRESENT: crackles. ABSENT: rales, wheezes Cardiovascular exam: PRESENT: RRR, +S1, +S2 GI/Abdominal exam: PRESENT: normal bowel sounds, soft Extremities exam: ABSENT: pedal edema Musculoskeletal exam: PRESENT: ambulatory Neurological exam: PRESENT: alert, awake Results Laboratory Results: 10/22/18 05:48 10/22/18 05:48 10/22/18 10/22/18 05:48 05:48 WBC 5.8 RBC 3.80 L Hgb 10.9 L Hct 33.0 L MCV 87 MCH 28.7 MCHC 33.0 RDW 16.5 H Plt Count 230 Seg Neutrophils % 87.1 H Lymphocytes % 8.3 L Monocytes % 4.2 Eosinophils % 0.0 Basophils % 0.4 Absolute Neutrophils 5.0 Absolute Lymphocytes 0.5 Absolute Monocytes 0.2 Absolute Eosinophils 0.0 Absolute Basophils 0.0 Sodium 137.7 Potassium 5.0 Chloride 102 Carbon Dioxide 26 Anion Gap 10 BUN 28 H Creatinine 1.68 H Est GFR ( Amer) 49 L Est GFR (Non-Af Amer) 40 L Glucose 158 H Calcium 10.0 Magnesium 2.1 10/20/18 10/20/18 10/20/18 18:35 18:35 23:50 Creatine Kinase 160 131 CK-MB (CK-2) 2.07 Troponin I 0.539 NT-Pro-B Natriuret Pep 10/20/18 10/21/1819 23:50 05:52 05:52 Creatine Kinase 133 CK-MB (CK-2) 1.60 1.32 Troponin I 0.417 0.389 NT-Pro-B Natriuret Pep 2710 H 10/21/18 10/21/18 11:45 11:45 Creatine Kinase 131 CK-MB (CK-2) 1.12 Troponin I 0.347 NT-Pro-B Natriuret Pep Impressions: Chest X-Ray 10/20/18 19:31 IMPRESSION: 1. Moderate pulmonary edema 2. Previous sternotomy. Assessment & Plan - Diagnosis (1) Acute on chronic systolic (congestive) heart failure Is this a current diagnosis for this admission?: Yes Plan: Improved with diuresis. Negative balance of almost 2 L (2) Orthopnea Is this a current diagnosis for this admission?: Yes Plan: Resolved continue current treatment (3) Coronary artery disease Qualifiers: Coronary Disease-Associated Artery/Lesion type: [place] artery Is this a current diagnosis for this admission?: Yes Plan: Positive troponins most probably a non-Q wave prior to hospitalization (4) Hypertension Qualifiers: Hypertension type: essential hypertension Qualified Code(s): I10 - Essential (primary) hypertension Is this a current diagnosis for this admission?: Yes Plan: Continue current medications (5) COPD (chronic obstructive pulmonary disease) Qualifiers: COPD type: emphysema Is this a current diagnosis for this admission?: Yes Plan: Improved we will add steroids and antibiotics (6) Diabetes mellitus Qualifiers: Diabetes mellitus type: type 2 Chronic kidney disease stage: stage 3 (moderate) Is this a current diagnosis for this admission?: Yes Plan: Blood sugars are not well controlled due to noncompliance. We will add sliding scale insulin (7) Chronic kidney disease, stage 3 (moderate) Is this a current diagnosis for this admission?: Yes Plan: Creatinine increased so will stop the IV Lasix and place him on p.o. (8) Non Q wave myocardial infarction Is this a current diagnosis for this admission?: Yes Plan: Resolved continue current treatment
[2018-10-22] MEDS: ALBUTEROL SULFATE 0.042% NEB (1.25 MG/3 ML) AMPUL NEB SCH ×4 (08:36→20:34)
[2018-10-22] MEDS ORDERED: ENOXAPARIN SODIUM INJ 40 MG/0.4 ML DISP.SYRIN SUBCUT SCH (10:00)
[2018-10-22] MEDS: POLYETHYLENE GLYCOL 3350 POWDER 17 GM/1 PACKET PO SCH (10:54)
[2018-10-22] MEDS: DOCUSATE SODIUM 100 MG CAPSULE PO SCH ×2 (10:54→17:17)
[2018-10-22] MEDS: FUROSEMIDE 40 MG TABLET PO SCH (10:54)
[2018-10-22] MEDS: INSULIN LISPRO 100 UNIT/ML 3 ML VIAL SUBCUT SCH ×4 (10:54→22:34)
[2018-10-22] MEDS: ASPIRIN 81 MG TABLET, ENT COATED PO SCH (10:55)
[2018-10-22] MEDS: PREDNISONE 10 MG TABLET PO SCH ×2 (10:55→17:19)
[2018-10-22] MEDS: LEVOFLOXACIN 500 MG TABLET PO SCH (10:55)
[2018-10-22] MEDS: CLOPIDOGREL BISULFATE 75 MG TABLET PO SCH (10:55)
[2018-10-22] MEDS: LISINOPRIL 5 MG TABLET PO SCH (10:55)
[2018-10-22] MEDS: METOPROLOL TARTRATE 50 MG TABLET PO SCH ×2 (10:55→22:34)
--- NOTE | 2018-10-22 11:02 | EKG REPORT ---
SEVERITY:- ABNORMAL ECG - SINUS RHYTHM LEFT ATRIAL ABNORMALITY PROBABLE LVH WITH SECONDARY REPOL ABNRM : Confirmed by: Alonzo Douglas 22-Oct-2018 11:02:27
--- NOTE | 2018-10-22 11:02 | EKG REPORT ---
SEVERITY:- ABNORMAL ECG - SINUS RHYTHM PROBABLE LVH WITH SECONDARY REPOL ABNRM : Confirmed by: Alonzo Douglas 22-Oct-2018 11:02:35
--- NOTE | 2018-10-22 22:15 | XCELERA REPORT ---
[address] [address] Transthoracic Echocardiogram Report Name: BUDDY TREOJ Age: 73 yrs Gender: Male : 1945 Patient Status: Inpatient Patient Location: [address] [place] [address] Study Date: 10/20/2018 08:23 PM Height: 71 in Weight: 198 lb BSA: 2.1 m2 Procedure: A two-dimensional transthoracic echocardiogram with color flow and Doppler was performed. The study was technically limited with all images being suboptimal in quality. Reason For Study: HF History: CHF. Ordering Physician: KENDRA VARELA Performed By: Ynes Beatty Interpretation Summary CHF The left ventricle is mildly dilated. There is normal left ventricular wall thickness. LV EF is 45% t0 50% Left ventricular systolic function is mild to moderately reduced. There is mild to moderate global hypokinesis of the left ventricle. There is no thrombus. There is no ASD ,VSD ,or PFO seen. The right ventricle is normal in size and function. The right atrium is normal. The left atrium is mildly dilated. There is no evidence of mitral valve prolapse. There is no vegetation seen on the mitral valve. There is no mitral valve stenosis. There is a moderate amount of mitral regurgitation There is no aortic valvular vegetation. There is no aortic valve stenosis There is aortic sclerosis without aortic stenosis. There is no LVOT obstruction. No aortic regurgitation is present. There is no tricuspid stenosis. There is a moderate amount of tricuspid regurgitation There is moderate to severe pulmonary hypertension by echo RVSP is 58 to 63 mm of Hg , with RA mean of 15 to 20. There is no pulmonic valvular stenosis. There is a trace amount of pulmonic regurgitation The aortic root is normal size. The inferior vena cava appeared dilated and decreased < 50% with respiration (RAP 15-20 mmHg) There is no pericardial effusion. MMode/2D Measurements & Calculations RVDd: 2.5 cm LVIDd: 5.6 cm FS: 11.0 % Ao root diam: 2.9 cm IVSd: 1.1 cm LVIDs: 5.0 cm EDV(Teich): 156.0 ml Ao root area: 6.6 cm2 LVPWd: 0.92 cm ESV(Teich): 119.2 ml LA dimension: 4.0 cm EF(Teich): 23.6 % Doppler Measurements & Calculations MV E max june: MV P1/2t max june: Ao V2 max: LV V1 max P.8 cm/sec 173.4 cm/sec 170.4 cm/sec 4.6 mmHg MV A max june: MV P1/2t: 51.4 msec Ao max PG: LV V1 max: 54.9 cm/sec MVA(P1/2t): 4.3 cm2 11.6 mmHg 106.9 cm/sec MV E/A: 2.6 MV dec slope: 987.8 cm/sec2 MV dec time: 0.12 sec PA V2 max: PI end-d june: TR max june: MV P1/2t-pr_phl: 96.4 cm/sec 158.8 cm/sec 324.3 cm/sec 51.4 msec PA max P.7 mmHg TR max P.1 mmHg Left Ventricle The left ventricle is mildly dilated. There is normal left ventricular wall thickness. LV EF is 45% t0 50%. Left ventricular systolic function is mild to moderately reduced. There is mild to moderate global hypokinesis of the left ventricle. There is no thrombus. There is no ASD ,VSD ,or PFO seen. Right Ventricle The right ventricle is normal in size and function. Atria The right atrium is normal. The left atrium is mildly dilated. Mitral Valve There is no evidence of mitral valve prolapse. There is no vegetation seen on the mitral valve. There is no mitral valve stenosis. There is a moderate amount of mitral regurgitation. Aortic Valve There is no aortic valvular vegetation. There is no aortic valve stenosis. There is aortic sclerosis without aortic stenosis. There is no LVOT obstruction. No aortic regurgitation is present. Tricuspid Valve There is no tricuspid stenosis. There is a moderate amount of tricuspid regurgitation. There is moderate to severe pulmonary hypertension by echo. RVSP is 58 to 63 mm of Hg , with RA mean of 15 to 20. Pulmonic Valve There is no pulmonic valvular stenosis. There is a trace amount of pulmonic regurgitation. Great Vessels The aortic root is normal size. The inferior vena cava appeared dilated and decreased < 50% with respiration (RAP 15-20 mmHg). Effusions There is no pericardial effusion. : KENDRA VARELA > Jazmin Valencia
[2018-10-22] MEDS: INSULIN GLARGINE,HUM.REC.ANLOG 1,000 UNIT/10 ML VIAL SUBCUT SCH (22:34)
[2018-10-22] MEDS: TEMAZEPAM 15 MG CAPSULE PO SCH (22:34)
[2018-10-22] MEDS: ACETAMINOPHEN 325 MG TABLET PO PRN (22:44)
[2018-10-23] MEDS: NITROGLYCERIN 2% OINTMENT 1 GM PACKET TP SCH ×2 (00:14→05:38)
[2018-10-23 06:11] LABS: HEMATOCRIT 29.3 % (37.9-51.0); HEMOGLOBIN 9.6 g/dL (13.5-17.0); MEAN CORPUSCULAR HEMOGLOBIN 28.8 pg (27.0-33.4); MEAN CORPUSCULAR HGB CONC 32.8 g/dL (32.0-36.0); MEAN CORPUSCULAR VOLUME 88 fl (80-97); PLATELET COUNT 194 10^3/uL (150-450); RED BLOOD COUNT 3.33 10^6/uL (4.35-5.55); RED CELL DISTRIBUTION WIDTH 16.3 % (11.5-14.0); WHITE BLOOD COUNT 9.1 10^3/uL (4.0-10.5)
[2018-10-23] MEDS: INSULIN LISPRO 100 UNIT/ML 3 ML VIAL SUBCUT SCH (08:42)
[2018-10-23] MEDS: ALBUTEROL SULFATE 0.042% NEB (1.25 MG/3 ML) AMPUL NEB SCH (08:56)
--- NOTE | 2018-10-23 09:43 | PDOC DISCHARGE SUMMARY ---
General - Admit/Disc Date/PCP Admission Date/Primary Care Provider: 10/20/18 16:52 K Prashant SANCHEZ MD Discharge Date: 10/23/18 - Discharge Diagnosis (1) Acute on chronic systolic (congestive) heart failure Is this a current diagnosis for this admission?: Yes (2) COPD (chronic obstructive pulmonary disease) Is this a current diagnosis for this admission?: Yes (3) Non Q wave myocardial infarction Is this a current diagnosis for this admission?: Yes (4) Chronic kidney disease, stage 3 (moderate) Is this a current diagnosis for this admission?: Yes (5) Diabetes mellitus Is this a current diagnosis for this admission?: Yes - Additional Information Discharge Diet: Cardiac, Diabetic Discharge Activity: Activity As Tolerated, Balance Activity w/Rest, Weigh Daily Prescriptions: Furosemide [Lasix 40 mg Tablet] 40 mg PO DAILY #30 tablet Insulin Glargine,Hum.rec.anlog [Lantus Insulin 100 Unit/1 ml 10 ml] 80 unit SUBCUT QHS #90 unit Levofloxacin [Levaquin 500 mg Tablet] 500 mg PO DAILY #7 tablet Lisinopril [Prinivil 5 mg Tablet] 5 mg PO DAILY #30 tablet Metoprolol Tartrate [Lopressor 50 mg Tablet] 50 mg PO Q12 #60 tablet Nitroglycerin [Nitrol 2% Ointment 1Gm Packet] 1 gm TP Q6 #60 oint..gm. Prednisone [Deltasone 10 mg Tablet] 10 mg PO BID #30 tablet Home Medications: Clopidogrel Bisulfate [Plavix 75 mg Tablet] 75 mg PO DAILY 10/20/18 Fluticasone Propionate [Flonase Nasal [place] 50 Mcg/[place] 16 gm] 1 spray NASL BID 10/20/18 Insulin Aspart [Novolog Flexpen] 20 units SQ MEALS 10/20/18 Nitroglycerin [Nitromist] 1 spray SL Q5MP PRN 10/20/18 Temazepam [Restoril 15 mg Capsule] 15 mg PO QHS 10/20/18 Albuterol Sulfate [Ventolin 0.042% Neb 1.25 mg/3 mL Ampul] 1.25 mg NEB HHA3CQM vial.neb 10/23/18 Aspirin [Ecotrin 81 mg EC Tablet] 81 mg PO DAILY tabec 10/23/18 Clopidogrel Bisulfate [Plavix 75 mg Tablet] 75 mg PO DAILY tablet 10/23/18 Furosemide [Lasix 40 mg Tablet] 40 mg PO DAILY #30 tablet 10/23/18 Insulin Glargine,Hum.rec.anlog [Lantus Insulin 100 Unit/1 ml 10 ml] 80 unit SUBCUT QHS #90 unit 10/23/18 Levofloxacin [Levaquin 500 mg Tablet] 500 mg PO DAILY #7 tablet 10/23/18 Lisinopril [Prinivil 5 mg Tablet] 5 mg PO DAILY #30 tablet 10/23/18 Metoprolol Tartrate [Lopressor 50 mg Tablet] 50 mg PO Q12 #60 tablet 10/23/18 Nitroglycerin [Nitrol 2% Ointment 1Gm Packet] 1 gm TP Q6 #60 oint..gm. 10/23/18 Prednisone [Deltasone 10 mg Tablet] 10 mg PO BID #30 tablet 10/23/18 Temazepam [Restoril 15 mg Capsule] 15 mg PO QHS capsule 10/23/18 History of Present Illness History of Present Illness: BUDDY TREJO is a 73 year old male Hospital Course Hospital Course: Patient was admitted to the hospital serial cardiac enzymes showed a down trending intermediate troponin level with some mild EKG changes he was felt the patient had had a small non-Q wave NE is VANCE II score showed no evidence to require further intervention as he cardiac catheterization he was put on aspirin, statin, beta-jarrell, CHRISTEL inhibitor and nitroglycerin throughout his hospital course he denied any chest pain shortness any palpitations. With regards to his other clinical presentation he showed congestive heart failure he was started on Lasix 40 daily he diuresed well with achieving daily negative balance is. Prior to discharge he was able to walk over 200 feet without any shortness of breath chest pain cough orthopnea. Was also treated for his diabetes he is a poorly compliant patient while in the hospital his medications were adjusted prior to discharge he will be sent home on Lantus 80 and NovoLog FlexPen 20 prior to meals his blood sugars were running in the 180s-200 and that will be an ongoing project by his doctor Yuliya upon discharge in 1 week. Patient suffers from chronic kidney disease 3 A throughout his hospital course medications and fluid tests were adjusted and there was no significant deteri oration in kidney function prior to discharge. After acute care was given through his hospital course patient was totally asymptomatic fully ambulatory and he was felt stable for discharge he will follow-up with cardiology as an outpatient and his hris administrator as an outpatient. Physical Exam Vital Signs: Temp Pulse Resp BP Pulse Ox 98.2 F 66 18 112/82 98 10/23/18 07:47 10/23/18 07:47 10/23/18 07:47 10/23/18 07:47 10/23/18 07:47 Intake & Output 10/22/18 10/23/18 10/24/18 06:59 06:59 06:59 Intake Total 1083 2948 Output Total 2902 2900 Balance -1819 48 Weight 89.7 kg 88.5 kg General appearance: PRESENT: no acute distress Head exam: PRESENT: atraumatic, normocephalic Eye exam: PRESENT: conjunctiva pink, EOMI, PERRLA. ABSENT: scleral icterus Ear exam: PRESENT: normal external ear exam Mouth exam: PRESENT: moist, tongue midline Neck exam: PRESENT: full ROM. ABSENT: carotid bruit, JVD, lymphadenopathy, thyromegaly Respiratory exam: PRESENT: decreased breath sounds Cardiovascular exam: PRESENT: RRR. ABSENT: diastolic murmur, rubs, systolic murmur Pulses: PRESENT: normal dorsalis pedis pul, +2 pedal pulses bilateral Vascular exam: PRESENT: normal capillary refill GI/Abdominal exam: PRESENT: normal bowel sounds, soft. ABSENT: distended, guarding, mass, organolmegaly, rebound, tenderness Rectal exam: PRESENT: deferred Extremities exam: PRESENT: full ROM Musculoskeletal exam: PRESENT: ambulatory Neurological exam: PRESENT: alert, awake, oriented to person, oriented to place, oriented to time, oriented to situation, CN II-XII grossly intact. ABSENT: motor sensory deficit Psychiatric exam: PRESENT: appropriate affect, normal mood. ABSENT: homicidal ideation, suicidal ideation Results Laboratory Results: 10/23/18 05:33 10/22/18 05:48 10/22/18 10/23/18 16:30 05:33 WBC 9.1 RBC 3.33 L Hgb 9.6 L Hct 29.3 L MCV 88 MCH 28.8 MCHC 32.8 RDW 16.3 H Plt Count 194 Stool Occult Blood NEGATIVE 10/20/18 10/20/18 10/20/18 18:35 18:35 23:50 Creatine Kinase 160 131 CK-MB (CK-2) 2.07 Troponin I 0.539 NT-Pro-B Natriuret Pep 10/20/18 10/21/18 10/21/18 23:50 05:52 05:52 Creatine Kinase 133 CK-MB (CK-2) 1.60 1.32 Troponin I 0.417 0.389 NT-Pro-B Natriuret Pep 2710 H 10/21/18 10/21/18 11:45 11:45 Creatine Kinase 131 CK-MB (CK-2) 1.12 Troponin I 0.347 NT-Pro-B Natriuret Pep Impressions: Chest X-Ray 10/20/18 19:31 IMPRESSION: 1. Moderate pulmonary edema 2. Previous sternotomy. Qualifiers - * PATIENT BEING DISCHARGED WITH ANY OF THE FOLLOWING DIAGNOSIS: Heart Failure VTE patient discharged on overlapping Therapy?: Yes NE Pt being discharged on Aspirin therapy?: Yes NE Pt being discharged on Statins?: Yes NE Pt discharged ACEI/ARBS?: Yes HF Pt being discharged on ACEI for LVEF less than 40%?: Yes HF Pt being discharged on ARBS for LVEF less than 40%?: Yes HF Pt with Afib discharged with Warfarin?: Yes HF Pt discharged on evidence-based Beta Jarrell:: Yes
--- NOTE | 2018-10-23 09:50 | EKG REPORT ---
SEVERITY:- ABNORMAL ECG - SINUS RHYTHM PROBABLE LEFT ATRIAL ABNORMALITY PROBABLE LVH WITH SECONDARY REPOL ABNRM : Confirmed by: Alonzo Douglas 23-Oct-2018 09:50:16
[2018-10-23] MEDS: DOCUSATE SODIUM 100 MG CAPSULE PO SCH (10:36)
[2018-10-23] MEDS: LISINOPRIL 5 MG TABLET PO SCH (10:47)
[2018-10-23] MEDS: CLOPIDOGREL BISULFATE 75 MG TABLET PO SCH (10:47)
[2018-10-23] MEDS: METOPROLOL TARTRATE 50 MG TABLET PO SCH (10:47)
[2018-10-23] MEDS: ASPIRIN 81 MG TABLET, ENT COATED PO SCH (10:47)
[2018-10-23] MEDS: FUROSEMIDE 40 MG TABLET PO SCH (10:47)
[2018-10-23] MEDS: PREDNISONE 10 MG TABLET PO SCH (10:47)
[2018-10-23] MEDS: LEVOFLOXACIN 500 MG TABLET PO SCH (10:47)
[2018-10-23] MEDS: POLYETHYLENE GLYCOL 3350 POWDER 17 GM/1 PACKET PO SCH (10:48)
[2018-10-23 11:09] VITALS: BP 120/72
== END 2018-10-23 11:48 | disposition home or self-care (01) | DRG 280 ==
LOC: 3S 16:52
PROVIDERS: ADMIT Internal Medicine; ATTEND Internal Medicine
PROC: 3E0F73Z Introduction of Anti-inflammatory into Respiratory Tract, Via Natural or Artificial Opening (ICD-10-PCS; principal; 2018-10-20)
DX: I25.10 Atherosclerotic heart disease of native coronary artery without angina pectoris (principal); I50.23 Acute on chronic systolic (congestive) heart failure; I21.4 Non-ST elevation (NSTEMI) myocardial infarction; I13.0 Hypertensive heart and chronic kidney disease with heart failure and stage 1 through stage 4 chronic kidney disease, or unspecified chronic kidney disease; E11.22 Type 2 diabetes mellitus with diabetic chronic kidney disease; E78.5 Hyperlipidemia, unspecified; N18.3 Chronic kidney disease, stage 3 (moderate); F17.210 Nicotine dependence, cigarettes, uncomplicated; J43.9 Emphysema, unspecified; R06.01 Orthopnea; Z79.899 Other long term (current) drug therapy; Z79.4 Long term (current) use of insulin; Z79.82 Long term (current) use of aspirin; Z79.02 Long term (current) use of antithrombotics/antiplatelets; Z82.49 Family history of ischemic heart disease and other diseases of the circulatory system
CPT/HCPCS: 36415; 71046; 80048; 80053; 82272; 82550; 82553; 82803; 82962; 83735; 83880; 84443; 84484; 85025; 85027; 93005; 93010; 93306; 94640; J1650; J1815; J1940; J2920; J3490; J7512

== ENCOUNTER → 2018-11-12 | Outpatient (CLI) | payer MEDICARE, OTHER ==
[2018-11-12 16:10] LABS: HEMATOCRIT 35.7 % (37.9-51.0); HEMOGLOBIN 11.6 g/dL (13.5-17.0); MEAN CORPUSCULAR HEMOGLOBIN 27.8 pg (27.0-33.4); MEAN CORPUSCULAR HGB CONC 32.5 g/dL (32.0-36.0); MEAN CORPUSCULAR VOLUME 85 fl (80-97); PLATELET COUNT 217 10^3/uL (150-450); RED BLOOD COUNT 4.18 10^6/uL (4.35-5.55); RED CELL DISTRIBUTION WIDTH 18.2 % (11.5-14.0); WHITE BLOOD COUNT 5.1 10^3/uL (4.0-10.5)
[2018-11-12 16:31] LABS: ANION GAP 11 (5-19); BLOOD UREA NITROGEN 29 mg/dL (7-20); CALCIUM 9.4 mg/dL (8.4-10.2); CARBON DIOXIDE 27 mmol/L (22-30); CHLORIDE 96 mmol/L (98-107); GLUCOSE 368 mg/dL (75-110); POTASSIUM 4.8 mmol/L (3.6-5.0); SODIUM 134.4 mmol/L (137-145)
== END ==
LOC: OD 15:33
PROVIDERS: ATTEND Internal Medicine Nephrology
DX: N18.2 Chronic kidney disease, stage 2 (mild) (principal); I12.9 Hypertensive chronic kidney disease with stage 1 through stage 4 chronic kidney disease, or unspecified chronic kidney disease; E11.9 Type 2 diabetes mellitus without complications; R80.9 Proteinuria, unspecified; I50.9 Heart failure, unspecified
CPT/HCPCS: 36415; 80048; 85027

== ENCOUNTER → 2019-01-19 | Outpatient (CLI) | payer MEDICARE, OTHER ==
[2019-01-19 10:49] LABS: HEMATOCRIT 37.7 % (37.9-51.0); HEMOGLOBIN 12.4 g/dL (13.5-17.0); MEAN CORPUSCULAR HEMOGLOBIN 28.3 pg (27.0-33.4); MEAN CORPUSCULAR HGB CONC 32.8 g/dL (32.0-36.0); MEAN CORPUSCULAR VOLUME 86 fl (80-97); PLATELET COUNT 214 10^3/uL (150-450); RED BLOOD COUNT 4.37 10^6/uL (4.35-5.55); RED CELL DISTRIBUTION WIDTH 18.3 % (11.5-14.0); WHITE BLOOD COUNT 3.5 10^3/uL (4.0-10.5)
[2019-01-19 11:16] LABS: ANION GAP 9 (5-19); BLOOD UREA NITROGEN 14 mg/dL (7-20); CALCIUM 9.5 mg/dL (8.4-10.2); CARBON DIOXIDE 29 mmol/L (22-30); CHLORIDE 98 mmol/L (98-107); GLUCOSE 363 mg/dL (75-110); POTASSIUM 5.1 mmol/L (3.6-5.0); SODIUM 135.7 mmol/L (137-145)
[2019-01-19 11:26] LABS: APPEARANCE,URINE CLEAR; BILIRUBIN,URINE NEGATIVE (NEGATIVE); COLOR,URINE STRAW; GLUCOSE, URINE >=1000 mg/dL (NEGATIVE); KETONES,URINE NEGATIVE (NEGATIVE)
[2019-01-19 11:27] LABS: LEUKOCYTE ESTERASE,URINE NEGATIVE (NEGATIVE); NITRITE,URINE NEGATIVE (NEGATIVE); PROTEIN,URINE NEGATIVE (NEGATIVE); URINE SPECIFIC GRAVITY 1.012; UROBILINOGEN,URINE NEGATIVE mg/dL (<2.0)
[2019-01-19 11:41] LABS: UR PRO/CREAT RATIO RESULT 0.2 mg/mg (0.0-0.2); URINE CREATININE 82.1 mg/dL (22-328); URINE PROTEIN 20.3 mg/dL (<12)
== END ==
LOC: OD 09:50
PROVIDERS: ATTEND Internal Medicine Nephrology
DX: I12.9 Hypertensive chronic kidney disease with stage 1 through stage 4 chronic kidney disease, or unspecified chronic kidney disease (principal); N18.3 Chronic kidney disease, stage 3 (moderate); E11.22 Type 2 diabetes mellitus with diabetic chronic kidney disease; E87.5 Hyperkalemia
CPT/HCPCS: 36415; 80048; 81001; 82570; 84156; 85027

== ENCOUNTER → 2019-04-19 | Outpatient (CLI) | payer MEDICARE, OTHER ==
[2019-04-19 10:23] LABS: APPEARANCE,URINE CLEAR; BILIRUBIN,URINE NEGATIVE (NEGATIVE); COLOR,URINE YELLOW; GLUCOSE, URINE 150 mg/dL (NEGATIVE); KETONES,URINE NEGATIVE (NEGATIVE); LEUKOCYTE ESTERASE,URINE NEGATIVE (NEGATIVE); NITRITE,URINE NEGATIVE (NEGATIVE); PROTEIN,URINE 30 mg/dL (NEGATIVE); URINE SPECIFIC GRAVITY 1.019
[2019-04-19 10:28] LABS: HEMOGLOBIN 12.8 g/dL (13.5-17.0); MEAN CORPUSCULAR HEMOGLOBIN 29.8 pg (27.0-33.4); MEAN CORPUSCULAR HGB CONC 32.8 g/dL (32.0-36.0); MEAN CORPUSCULAR VOLUME 91 fl (80-97); PLATELET COUNT 197 10^3/uL (150-450); RED CELL DISTRIBUTION WIDTH 16.7 % (11.5-14.0); WHITE BLOOD COUNT 3.2 10^3/uL (4.0-10.5)
[2019-04-19 11:07] LABS: UR PRO/CREAT RATIO RESULT 0.2 mg/mg (0.0-0.2); URINE CREATININE 196.6 mg/dL (22-328); URINE PROTEIN 44.2 mg/dL (<12)
[2019-04-19 11:32] LABS: ANION GAP 10 (5-19); BLOOD UREA NITROGEN 16 mg/dL (7-20); CALCIUM 9.4 mg/dL (8.4-10.2); CARBON DIOXIDE 27 mmol/L (22-30); CHLORIDE 100 mmol/L (98-107); GLUCOSE 255 mg/dL (75-110)
== END ==
LOC: OD 09:10
PROVIDERS: ATTEND Internal Medicine Nephrology
DX: I13.0 Hypertensive heart and chronic kidney disease with heart failure and stage 1 through stage 4 chronic kidney disease, or unspecified chronic kidney disease (principal); N18.2 Chronic kidney disease, stage 2 (mild); E11.22 Type 2 diabetes mellitus with diabetic chronic kidney disease; R80.9 Proteinuria, unspecified
CPT/HCPCS: 36415; 80048; 81001; 82570; 84156; 85027

== ENCOUNTER → 2019-06-21 | Outpatient (CLI) | payer MEDICARE, OTHER ==
[2019-06-21 09:20] LABS: ABSOLUTE BASOPHILS # (AUTO) 0.1 10^3/uL (0.0-0.2); ABSOLUTE EOSINOPHILS # (AUTO) 0.1 10^3/uL (0.0-0.6); ABSOLUTE MONOCYTES (AUTO) 0.3 10^3/uL (0.1-1.4); ABSOLUTE NEUT (AUTO) 1.6 10^3/uL (1.7-8.2); BASOPHILS % (AUTO) 1.8 % (0-2); EOSINOPHILS % (AUTO) 4.4 % (0-6); HEMATOCRIT 35.8 % (37.9-51.0); LYMPHOCYTES % (AUTO) 32.3 % (13-45); MEAN CORPUSCULAR HEMOGLOBIN 30.8 pg (27.0-33.4); MEAN CORPUSCULAR HGB CONC 33.6 g/dL (32.0-36.0); MEAN CORPUSCULAR VOLUME 92 fl (80-97); MONOCYTES % (AUTO) 9.3 % (3-13); PLATELET COUNT 197 10^3/uL (150-450); RED BLOOD COUNT 3.91 10^6/uL (4.35-5.55); RED CELL DISTRIBUTION WIDTH 15.3 % (11.5-14.0); SEGMENTED NEUTROPHILS % (AUTO) 52.2 % (42-78); TOTAL CELLS COUNTED % (AUTO) 100 %
[2019-06-21 09:39] LABS: ALBUMIN 3.5 g/dL (3.5-5.0); ALKALINE PHOSPHATASE 92 U/L (38-126); ANION GAP 7 (5-19); ASPARTATE AMINO TRANSFERASE 20 U/L (17-59); BILIRUBIN,DIRECT 0.1 mg/dL (0.0-0.4); BILIRUBIN,TOTAL 0.4 mg/dL (0.2-1.3); BLOOD UREA NITROGEN 15 mg/dL (7-20); CALCIUM 8.9 mg/dL (8.4-10.2); CARBON DIOXIDE 27 mmol/L (22-30); CHLORIDE 103 mmol/L (98-107); GLUCOSE 225 mg/dL (75-110); POTASSIUM 4.9 mmol/L (3.6-5.0); TOTAL PROTEIN 6.7 g/dL (6.3-8.2); TRIGLYCERIDES 80 mg/dL (<150)
[2019-06-21 09:50] LABS: DIRECT LDL 125 mg/dL (<100)
== END ==
LOC: OD 08:17
PROVIDERS: ATTEND Internal Medicine
DX: E11.9 Type 2 diabetes mellitus without complications (principal); I10 Essential (primary) hypertension; I25.9 Chronic ischemic heart disease, unspecified; E78.5 Hyperlipidemia, unspecified; R35.1 Nocturia
CPT/HCPCS: 36415; 80053; 80061; 83036; 84153; 84443; 85025

== ENCOUNTER 2019-07-26 14:48 | Emergency (ER) | payer MEDICARE, OTHER ==
[2019-07-26 15:32] LABS: ALBUMIN 3.7 g/dL (3.5-5.0); ALKALINE PHOSPHATASE 119 U/L (38-126); ANION GAP 12 (5-19); ASPARTATE AMINO TRANSFERASE 56 U/L (17-59); BILIRUBIN,DIRECT 0.3 mg/dL (0.0-0.4); BILIRUBIN,TOTAL 0.6 mg/dL (0.2-1.3); BLOOD UREA NITROGEN 23 mg/dL (7-20); CALCIUM 9.3 mg/dL (8.4-10.2); CARBON DIOXIDE 24 mmol/L (22-30); CHLORIDE 96 mmol/L (98-107); CREATINE KINASE 150 U/L (55-170); POTASSIUM 4.9 mmol/L (3.6-5.0); TOTAL PROTEIN 7.1 g/dL (6.3-8.2)
[2019-07-26 15:38] LABS: ABSOLUTE EOSINOPHILS # (AUTO) 0.1 10^3/uL (0.0-0.6); ABSOLUTE LYMPHOCYTES (AUTO) 0.9 10^3/uL (0.5-4.7); ABSOLUTE MONOCYTES (AUTO) 0.5 10^3/uL (0.1-1.4); ABSOLUTE NEUT (AUTO) 3.4 10^3/uL (1.7-8.2); BASOPHILS % (AUTO) 0.8 % (0-2); EOSINOPHILS % (AUTO) 1.9 % (0-6); HEMATOCRIT 34.3 % (37.9-51.0); HEMOGLOBIN 11.3 g/dL (13.5-17.0); LYMPHOCYTES % (AUTO) 18.3 % (13-45); MEAN CORPUSCULAR HEMOGLOBIN 30.3 pg (27.0-33.4); MEAN CORPUSCULAR HGB CONC 32.8 g/dL (32.0-36.0); MEAN CORPUSCULAR VOLUME 92 fl (80-97); MONOCYTES % (AUTO) 9.5 % (3-13); PLATELET COUNT 195 10^3/uL (150-450); RED BLOOD COUNT 3.71 10^6/uL (4.35-5.55); RED CELL DISTRIBUTION WIDTH 15.8 % (11.5-14.0); SEGMENTED NEUTROPHILS % (AUTO) 69.5 % (42-78); TOTAL CELLS COUNTED % (AUTO) 100 %; WHITE BLOOD COUNT 4.9 10^3/uL (4.0-10.5)
[2019-07-26 15:41] LABS: INTERNATIONAL RATION (INR) 1.07; PROTHROMBIN TIME 13.9 SEC (11.4-15.4)
[2019-07-26 15:44] LABS: APPEARANCE,URINE CLEAR; BILIRUBIN,URINE NEGATIVE (NEGATIVE); COLOR,URINE YELLOW; GLUCOSE, URINE >=500 mg/dL (NEGATIVE); KETONES,URINE NEGATIVE (NEGATIVE); LEUKOCYTE ESTERASE,URINE NEGATIVE (NEGATIVE); NITRITE,URINE NEGATIVE (NEGATIVE); PROTEIN,URINE NEGATIVE (NEGATIVE); URINE SPECIFIC GRAVITY 1.012; UROBILINOGEN,URINE NEGATIVE mg/dL (<2.0)
[2019-07-26 15:55] LABS: GLUCOSE 476 mg/dL (75-110)
[2019-07-26 15:57] LABS: TROPONIN I 5.56 ng/mL
--- NOTE | 2019-07-26 16:01 | RADIOLOGY REPORT (SQ) ---
EXAM DESCRIPTION: CHEST SINGLE VIEW COMPLETED DATE/TIME: 07/26/2019 3:48 pm REASON FOR STUDY: SOB, CHF COMPARISON: 10/20/2018 EXAM PARAMETERS: NUMBER OF VIEWS: One view. TECHNIQUE: Single frontal radiographic view of the chest acquired. RADIATION DOSE: NA LIMITATIONS: None. FINDINGS: LUNGS AND PLEURA: There is bilateral interstitial airspace disease. Possible small effusi ons. MEDIASTINUM AND HILAR STRUCTURES: No masses. Contour normal. HEART AND VASCULAR STRUCTURES: Heart is enlarged with central vascular prominence. BONES: No acute findings. HARDWARE: Sternotomy wires are in place. OTHER: No other significant finding. IMPRESSION: Cardiomegaly and vascular congestion consistent with congestive heart failure. TECHNICAL DOCUMENTATION: JOB ID: [id number] [employer]- All Rights Reserved Reading location - IP/workstation name: [email or web address]
[2019-07-26] MEDS ORDERED: ASPIRIN 81 MG TABLET, CHEWABLE PO ONE (16:03)
[2019-07-26] MEDS ORDERED: ENOXAPARIN SODIUM INJ 100 MG/1 ML DISP.SYRIN SUBCUT ONE (16:09)
[2019-07-26] MEDS ORDERED: FUROSEMIDE INJ/PF 40 MG/4 ML SDV IV ONE (16:11)
[2019-07-26] MEDS ORDERED: INSULIN REG, HUMAN 100 UNIT/ML 3 ML VIAL (PYX) IV ONE (16:11)
[2019-07-26] MEDS ORDERED: ONDANSETRON HCL INJ/PF 4 MG/2 ML SDV IV ONE (16:15)
[2019-07-26] MEDS ORDERED: MORPHINE SULFATE 10 MG/ML INJ IV ONE ×3 (16:15→21:26)
[2019-07-26] MEDS ORDERED: NITROGLYCERIN 2% OINTMENT 1 GM PACKET TP ONE ×2 (16:41→19:14)
--- NOTE | 2019-07-26 17:18 | EKG REPORT ---
SEVERITY:- ABNORMAL ECG - SINUS RHYTHM PROBABLE LEFT ATRIAL ABNORMALITY NONSPECIFIC INTRAVENTRICULAR CONDUCTION DELAY ST DEPRESSION, CONSIDER ISCHEMIA, ANT-LAT LDS : Confirmed by: Jazmin Valencia MD 26-Jul-2019 17:17:57
--- NOTE | 2019-07-26 17:40 | ER Document Report ---
Entered by JOEL VIDAL SCRIBE 07/26/19 1507 Acting as scribe for:LEONARDA ROME MD ED Cardiac - General Chief Complaint: Chest Pain Stated Complaint: CHEST PAIN/HEART PROBLEMS Time Seen by Provider: 07/26/19 15:05 Primary Care Provider: KENDRA VARELA MD [Primary Care Provider] - Follow up as needed Mode of Arrival: Medic Information source: Patient Notes: This 73 year old male patient brought in by EMS presents to the ED today with complaints of intermittent shortness of breath for the past x1.5 weeks. Patient states that his symptoms worsened x4 days ago and is exacerbated by walking. Patient states that his current symptoms are similar to what he experienced in the past. The patient states that he has not been having any chest pain. He has not had any URI symptoms. Patient notes that he wears a NTG patch and that he took it off while in the doctor's office. Patient did go to his primary care provider's office today where he was found to be short of breath with an EKG showing new ST depression in the lateral leads. TRAVEL OUTSIDE OF THE [place] IN LAST 30 DAYS: No - Related Data Allergies/Adverse Reactions: No Known Allergies Allergy (Verified 07/26/19 15:26) Past Medical History - General Information source: Patient - Social History Smoking Status: Unknown if Ever Smoked Cigarette use (# per day): No Chew tobacco use (# tins/day): No Smoking Education Provided: No Family History: Reviewed & Not Pertinent, CAD - Past Medical History Cardiac Medical History: Reports: Hx Congestive Heart Failure, Hx Coronary Artery Disease, Hx Hypercholesterolemia, Hx Hypertension Pulmonary Medical History: Reports: Hx COPD Endocrine Medical History: Reports: Hx Diabetes Mellitus Type 2 Musculoskeletal Medical History: Reports Hx Arthritis Review of Systems - Review of Systems Constitutional: No symptoms reported EENT: No symptoms reported Cardiovascular: See HPI. denies: Chest pain Respiratory: See HPI, Short of breath. denies: Cough Gastrointestinal: No symptoms reported Genitourinary: No symptoms reported Male Genitourinary: No symptoms reported Musculoskeletal: No symptoms reported Skin: No symptoms reported Hematologic/Lymphatic: No symptoms reported Neurological/Psychological: No symptoms reported -: Yes All other systems reviewed and negative Physical Exam - Vital signs Vitals: Temp Resp Pulse Ox 98.0 F 16 98 07/26/19 14:54 07/26/19 14:54 07/26/19 14:54 - General General appearance: Alert - HEENT Head: Normocephalic, Atraumatic Eyes: Normal Pupils: PERRL - Respiratory Respiratory status: Tachypnea, Other - Dyspnea Chest status: Nontender Breath sounds: Rales. No: Rhonchi Chest palpation: Normal - Cardiovascular Rhythm: Regular Heart sounds: Normal auscultation Murmur: No - Abdominal Inspection: Normal Distension: No distension Bowel sounds: Normal Tenderness: Nontender - Abdomen soft Organomegaly: No organomegaly - Back Back: Normal, Nontender - Extremities General upper extremity: Normal inspection General lower extremity: Edema - Trace edema to LE - Neurological Neuro grossly intact: Yes - Psychological Associated symptoms: Normal affect, Normal mood - Skin Skin Temperature: Warm Skin Moisture: Dry Skin Color: Normal Course - Re-evaluation Re-evalutation: 07/26/19 16:40 Patient systolic blood pressure now at 124, he states the pain is gone after the morphine 2 mg IV. We will put nitroglycerin paste on him at this time as he has a better systolic pressure. 07/26/19 19:03 At this time the patient is laughing and joking with his brother. He would like to eat but we have asked him to hold off on that for now. He had been complaining of some chest pain earlier and an additional 2 mg morphine dose was ordered. It was being administered as I entered the room. He states that his breathing does feel much better now than when he first came in. He has urinated about 500 mL's so far. 07/26/19 19:15 The patient's blood pressure decreased to about 92/64, although he was sitting up, laughing, joking and quite animated. Decision was made to remove the 1 inch Nitropaste, and replace it with 1/2 inch for now. - Vital Signs Vital signs: Temp Pulse Resp BP Pulse Ox 98.0 F 33 H 92/60 L 98 07/26/19 14:54 07/26/19 19:04 07/26/19 19:04 07/26/19 19:04 - Laboratory Result Diagrams: 07/26/19 14:55 07/26/19 14:55 Laboratory results interpreted by me: 01/13/20 01/13/20 01/13/20 14:55 14:55 14:55 RBC 3.71 L Hgb 11.3 L Hct 34.3 L RDW 15.8 H Sodium 131.5 L Chloride 96 L BUN 23 H Creatinine 1.65 H Est GFR ( Amer) 50 L Est GFR (MDRD) Non-Af 41 L Glucose 476 H* NT-Pro-B Natriuret Pep 3530 H Urine Glucose (UA) 07/26/19 15:20 RBC Hgb Hct RDW Sodium Chloride BUN Creatinine Est GFR ( Amer) Est GFR (MDRD) Non-Af Glucose NT-Pro-B Natriuret Pep Urine Glucose (UA) >=500 H - Diagnostic Test Radiology reviewed: Image reviewed, Reports reviewed - Chest x-ray shows cardiomegaly with pulmonary vascular congestion. - EKG Interpretation by Wi EKG shows normal: Sinus rhythm, [place], Intervals, QRS Complexes. abnormal: ST-T Waves - Anterolateral ST depression Rate: Normal - 86 Rhythm: NSR [place]/QRS: IVCD P Waves: LAE When compared to previous EKG there are: Changes noted - Compared to an EKG in October of this year when the patient had a non-STEMI, the T wave inversions in the anterolateral leads are a little bit deeper, and there is some new ST depression noted. - Consults Dr. Henning Time consulted: 16:45 Consulted provider: other - Will accept at [facility] - Transfer of Care Care transferred to following provider: Dr. Hale Notes: 07/26/19 19:05 Patient is pending transfer to [facility]. Patient has had a non-STEMI with some anterolateral ischemic changes on the EKG. He is pain-free at this time and states his breathing is much better after some diuresis and morphine sulfate 2 mg IV. 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 I personally performed the services described in the documentation, reviewed and edited the documentation which was dictated to the scribe in my presence, and it accurately records my words and actions.
[2019-07-26 21:21] VITALS: BP 92/71
== END 2019-07-26 21:54 | disposition short-term general hospital (02) ==
LOC: ER 14:48
DX: I21.4 Non-ST elevation (NSTEMI) myocardial infarction (principal); I50.9 Heart failure, unspecified; I11.0 Hypertensive heart disease with heart failure; E11.65 Type 2 diabetes mellitus with hyperglycemia; Z79.4 Long term (current) use of insulin; R94.31 Abnormal electrocardiogram [ECG] [EKG]; R07.9 Chest pain, unspecified; I25.10 Atherosclerotic heart disease of native coronary artery without angina pectoris; R06.02 Shortness of breath; J44.9 Chronic obstructive pulmonary disease, unspecified
CPT/HCPCS: 93005; 96376; 99291; 96372; 96374; 96375; 36415; 82553; 82962; 82550; 83735; 85025; 85610; 80053; 81001; 84484; 83880; 71045; 93010; A9270 ×2; J1940; J2270; J2405; J1650; J1815

== ENCOUNTER 2019-08-07 14:28 | Emergency (ER) | payer MEDICARE, OTHER ==
[~2019-08-07 14:28] MED LIST: CALCIUM GLUCONATE 1000 MG/10 ML INJ IV ONE; EPINEPHRINE INJ 1 MG/10 ML DISP.SYRIN ONE; SODIUM BICARBONATE 8.4% INJ 50 MEQ/50 ML DISP.SYRIN ONE
[2019-08-07] MEDS ORDERED: NORMAL SALINE 1000 ML 1,000 ML IV PRN (14:34)
[2019-08-07] MEDS ORDERED: ALBUTEROL SULFATE 0.083% NEB 2.5 MG/3 ML AMPUL NEB ONE ×4 (14:39→15:33)
[2019-08-07] MEDS ORDERED: METHYLPREDNISOLONE INJ 125 MG/2 ML SDV IV ONE (14:46)
[2019-08-07] MEDS ORDERED: NOREPINEPHRINE BITARTRATE INJ/PF 4 MG/4 ML SDV IV ONE ×2 (14:52→16:38)
[2019-08-07] MEDS ORDERED: CALCIUM GLUCONATE 1000 MG/10 ML INJ IV ONE (14:52)
[2019-08-07] MEDS ORDERED: SODIUM BICARBONATE 8.4% INJ 50 MEQ/50 ML DISP.SYRIN ONE ×2 (14:52→17:58)
--- NOTE | 2019-08-07 15:03 | EKG REPORT ---
SEVERITY:- ABNORMAL ECG - SINUS RHYTHM NONSPECIFIC IVCD WITH LAD PROBABLE ANTEROSEPTAL INFARCT, AGE INDETERM LVH WITH SECONDARY ST-T CHANGES : Confirmed by: Omar Luu MD 07-Aug-2019 15:03:13
[2019-08-07 15:04] LABS: ABSOLUTE BASOPHILS # (AUTO) 0.1 10^3/uL (0.0-0.2); ABSOLUTE EOSINOPHILS # (AUTO) 0.1 10^3/uL (0.0-0.6); ABSOLUTE LYMPHOCYTES (AUTO) 0.9 10^3/uL (0.5-4.7); ABSOLUTE MONOCYTES (AUTO) 0.5 10^3/uL (0.1-1.4); ABSOLUTE NEUT (AUTO) 3.6 10^3/uL (1.7-8.2); EOSINOPHILS % (AUTO) 1.3 % (0-6); HEMATOCRIT 30.8 % (37.9-51.0); LYMPHOCYTES % (AUTO) 17.1 % (13-45); MEAN CORPUSCULAR HEMOGLOBIN 30.2 pg (27.0-33.4); MEAN CORPUSCULAR HGB CONC 32.5 g/dL (32.0-36.0); MEAN CORPUSCULAR VOLUME 93 fl (80-97); MONOCYTES % (AUTO) 9.3 % (3-13); PLATELET COUNT 209 10^3/uL (150-450); RED BLOOD COUNT 3.32 10^6/uL (4.35-5.55); RED CELL DISTRIBUTION WIDTH 16.5 % (11.5-14.0); SEGMENTED NEUTROPHILS % (AUTO) 71.3 % (42-78); TOTAL CELLS COUNTED % (AUTO) 100 %
--- NOTE | 2019-08-07 15:22 | RADIOLOGY REPORT (SQ) ---
EXAM DESCRIPTION: CHEST SINGLE VIEW COMPLETED DATE/TIME: 08/07/2019 3:07 pm REASON FOR STUDY: SOB, wheezing, syncope COMPARISON: 06/01/2018, 07/16/2019 chest films EXAM PARAMETERS: NUMBER OF VIEWS: One view. TECHNIQUE: Single frontal radiographic view of the chest acquired. RADIATION DOSE: NA LIMITATIONS: Lordotic portable film FINDINGS: LUNGS AND PLEURA: No opacities, masses or pneumothorax. No pleural effusion. MEDIASTINUM AND HILAR STRUCTURES: No masses. Contour normal. HEART AND VASCULAR STRUCTURES: Marked cardiomegaly BONES: No acute findings. HARDWARE: Old sternotomy for CABG. Left-sided single lead pacemaker OTHER: No other significant finding. IMPRESSION: Marked cardiomegaly. 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 No acute infiltrates TECHNICAL DOCUMENTATION: JOB ID: [id number] [employer]- All Rights Reserved Reading location - IP/workstation name: BC
[2019-08-07 15:35] LABS: ALBUMIN 3.1 g/dL (3.5-5.0); ALKALINE PHOSPHATASE 325 U/L (38-126); ANION GAP 9 (5-19); ASPARTATE AMINO TRANSFERASE 91 U/L (17-59); BILIRUBIN,DIRECT 0.1 mg/dL (0.0-0.4); BILIRUBIN,TOTAL 0.8 mg/dL (0.2-1.3); BLOOD UREA NITROGEN 25 mg/dL (7-20); CALCIUM 8.6 mg/dL (8.4-10.2); CARBON DIOXIDE 22 mmol/L (22-30); CHLORIDE 102 mmol/L (98-107); CREATINE KINASE 106 U/L (55-170); GLUCOSE 345 mg/dL (75-110); TOTAL PROTEIN 6.2 g/dL (6.3-8.2)
[2019-08-07 15:43] LABS: CREATINE KINASE MB 0.93 ng/mL (<4.55)
[2019-08-07 15:49] LABS: INTERNATIONAL RATION (INR) 1.17
[2019-08-07] MEDS ORDERED: RINGERS SOLUTION,LACTATED 1,000 ML IV ONE (15:52)
--- NOTE | 2019-08-07 15:56 | RADIOLOGY REPORT (SQ) ---
EXAM DESCRIPTION: CT HEAD WITHOUT COMPLETED DATE/TIME: 08/07/2019 3:38 pm REASON FOR STUDY: syncope, s/p stroke with TPA within past week COMPARISON: No prior brain imaging TECHNIQUE: Axial images acquired through the brain without intravenous contrast. Images reviewed wi th bone, brain and subdural windows. Additional sagittal and coronal reconstructions were generated. Images stored on PACS. All CT scanners at this facility use dose modulation, iterative reconstruction, and/or weight based d osing when appropriate to reduce radiation dose to as low as reasonably achievable (ALARA). [facility]: Dose Right [facility]: CareDose [facility]: Dose Right [facility]: Teradose 4D [facility]: [employer] RADIATION DOSE: CT Rad equipment meets quality standard of care and radiation dose reduction techniq ues were employed. CTDIvol: 53.2 mGy. DLP: 1981 mGy-cm. mGy. LIMITATIONS: Motion artifact, patient scanned twice FINDINGS: VENTRICLES: Normal size and contour. CEREBRUM: There is low attenuation in the left frontal perisylvian brain which could represent an ear ly subacute infarct on axial images 19-24. No CT evidence of acute large territory ischemic change, acute intracranial hemorrhage, mass effect, or midline shift. CEREBELLUM: No masses. No hemorrhage. No alteration of density. No evidence for acute infarction. EXTRAAXIAL SPACES: No fluid collections. No masses. ORBITS AND GLOBE: No intra- or extraconal masses. Normal contour of globe without masses. CALVARIUM: No fracture. PARANASAL SINUSES: There is hyperdense material in the left maxillary sinus which could be hemorrhage . Air-fluid level is present. No displaced left facial fractures are identified. SOFT TISSUES: No mass or hematoma. OTHER: No other significant finding. IMPRESSION: Low attenuation in the left frontal perisylvian brain which could represent an early sub acute infarct. Probable blood in the left maxillary sinus with air-fluid level. No displaced orbital floor or maxil pepito sinus wall fracture is identified on these limited images EVIDENCE OF ACUTE STROKE: NO. COMMENT: Quality ID # [id number]: Final reports with documentation of one or more dose reduction techniques (e.g., Automated exposure control, adjustment of the mA and/or kV according to patient size, use of iterative reconstruction technique) TECHNICAL DOCUMENTATION: JOB ID: [id number] [employer]- All Rights Reserved Reading location - IP/workstation name: [facility]
[2019-08-07 15:59] LABS: TROPONIN I 0.542 ng/mL
[2019-08-07] MEDS ORDERED: CEFTRIAXONE 1 GM/D5W RTU 1 GM/50 ML RTUPB IV ONE (16:21)
--- NOTE | 2019-08-07 16:23 | ER Document Report ---
ED General - General Chief Complaint: Syncope Stated Complaint: POSSIBLE SYNCOPE Time Seen by Provider: 08/07/19 14:44 Primary Care Provider: KENDRA VARELA MD [Primary Care Provider] - Follow up as needed Notes: 73-year-old male brought to the emergency department by EMS for syncopal episode in the driveway. Patient was apparently discharged from [facility] yesterday. Per EMS he was supposed to be having a heart catheterization for a non-STEMI when he had a stroke while he was laying on the table so he was treated with TPA. Patient and significant other state that he actually had a stroke on Friday or Friday, was not treated with TPA, had residual expressive aphasia but no other deficits, had a pacemaker inserted on Friday and was discharged from [facility] on Friday. Patient states that his last heart attack was a year ago. Girlfriend confirms this. Today while getting out of the car he had a syncopal episode. No seizure activity was reported during this time. Denies any headac he. Denies any new neurologic symptoms since waking up. Girlfriend states that the patient has been feeling a little bit woozy since this morning and was slightly confused after he fell to the ground. She states he did not hit his head and she does not think he truly lost consciousness. Takes a daily aspirin. TRAVEL OUTSIDE OF THE [place] IN LAST 30 DAYS: No - Related Data Allergies/Adverse Reactions: No Known Allergies Allergy (Verified 08/07/19 15:05) Past Medical History - General Information source: Patient, Friend, Emergency Med Personnel - Social History Smoking Status: Current Every Day Smoker Frequency of alcohol use: None Drug Abuse: Cocaine - Girlfriend states he last used prior to his hospitalization. Family History: CAD Patient has suicidal ideation: No Patient has homicidal ideation: No - Past Medical History Cardiac Medical History: Reports: Hx Congestive Heart Failure, Hx Coronary Artery Disease, Hx Heart Attack, Hx Hypercholesterolemia, Hx Hypertension Pulmonary Medical History: Reports: Hx COPD Endocrine Medical History: Reports: Hx Diabetes Mellitus Type 2 Musculoskeletal Medical History: Reports Hx Arthritis Past Surgical History: Reports: Hx Cardiac Surgery Review of Systems - Review of Systems Constitutional: See HPI, Weakness. denies: Chills, Diaphoresis, Fever EENT: No symptoms reported Cardiovascular: Syncope, Dizziness, Lightheaded. denies: Chest pain, Palpitations, Heart racing Respiratory: No symptoms reported. denies: Cough, Short of breath Gastrointestinal: No symptoms reported Musculoskeletal: No symptoms reported Neurological/Psychological: See HPI, Loss of power, Speech impairment. denies: Numbness, Tingling -: Yes All other systems reviewed and negative Physical Exam - Vital signs Vitals: Resp BP Pulse Ox 27 H 72/48 L 98 08/07/19 14:35 08/07/19 14:35 08/07/19 14:35 Interpretation: Hypotensive, Tachypneic - Notes Notes: GENERAL: Alert, interacts well. Somewhat fidgety. HEAD: Normocephalic, atraumatic EYES: Pupils equal, round and reactive to light, extraocular movements intact. ENT: Oral mucosa moist, tongue midline. NECK: Full range of motion, supple, trachea midline. LUNGS: Hypoxic, tachypneic, diffuse expiratory wheezing, no crackles. HEART: Regular rate and rhythm, no murmurs, gallops, rubs. ABDOMEN: Soft, nontender, nondistended, bowel sounds present in all 4 quadrants. EXTREMITIES: Moves all 4 extremities spontaneously, no edema, radial and dorsalis pedis pulses 2/4 bilaterally. No cyanosis. NEUROLOGICAL: Alert, knows he is in the hospital, cannot tell me the date, knows who his family member is, speech is mildly slurred, no facial droop, biceps and patellar DTRs 2+ bilaterally. PSYCH: Appears slightly agitated. SKIN: Warm, Dry, normal turgor, no rashes or lesions noted. Course - Re-evaluation Re-evalutation: 08/07/19 19:39 Given his recent stroke he was sent for CT scan of the head to rule out acute bleed causing syncope. CT scan did not show any bleeding. It did show the subacute stroke that he appears to have had several days ago. EKG shows T wave inversions but is actually improved from prior EKG. Patient had wheezes and was hypoxic and tachypneic so he was given an albuterol breathing treatment, this improved his wheezes but he now had some crackles and rails, he was still hypoxic so we did give him 2 more breathing treatments and started him on BiPAP. Initially patient improved on BiPAP but then he became more hypotensive and appeared more uncomfortable and fidgety. CBC shows anemia with hemoglobin 10.0, no leukocytosis, no shift, INR slightly prolonged at 1.17, CMP shows pseudohyponatremia with a sodium of 133.0 but a glucose of 345, potassium elevated at 6.0. No widening of the QRS on EKG so this was not initially treated. BUN and creatinine are both acutely elevated on top of his chronic renal failure, lactic acid initially mildly elevated at 3.0, given the hypotension I did go ahead and start empiric antibiotics in the form of Rocephin. Troponin is positive at 0.542, proBNP elevated at 8440. Given the patient's hypoxia that did not improve with breathing treatments and his hypotension as well as syncopal episode I am actually concerned for possibility of a pulmonary embolism that had caused him to pass out. Patient was sent for CT angiogram of the chest while nursing was getting his Levophed drip prepared. Patient suffered a cardiac arrest while in the CT scanner. CPR was initially added and ACLS protocols were followed, after 4 mg of epinephrine the patient had Kemi. It was an asystolic arrest. Of note his pacemaker did not turn on as far as we can tell from the strips. We then intubated the patient using a glide scope and a 7.5 ET tube without any complications. We then attempted to repeat the CT angiogram of the chest because the bolus was not distributed through his lungs appropriately, just as the IV dye was about to be injected the patient again arrested. Patient has no signs of anaphylactic reaction to the IV dye as he was already hypotensive before we gave this and he did not develop any skin changes, no vomiting, no diarrhea, no return of wheezing to his breath sounds. After 1 round of CPR with epinephrine as well as bicarb patient had [place]. Again this was an asystolic arrest without the pacemaker turning on. At this point Levophed had been started, we increased it from 2-10, patient was placed on a bicarb drip after getting a bolus of sodium bicarb, patient was also given an insulin bolus, an amp of D50 and an amp of calcium gluconate. Patient continued to be hypotensive and his hypotension worsened, we eventually titrated the Levophed drip from 10-30 and started an epinephrine drip, this was titrated up to 10. Patient was given Versed for sedation, initially on the vent the patient had continuing hypoxic episodes as it was difficult to synchronize the ventilator to his breaths. Patient was given another dose of vecuronium as well as increasing his Versed, since giving that vecuronium almost 2 hours ago patient has remained relatively stable, no further titration of the pressors has been required. He is no longer hypoxic. I did start a heparin drip in order to empirically treat a suspected PE. I cannot use TPA in this patient due to recent surgery and recent stroke. Discussed the case with Dr. Lee the commercial floor covering installer at [facility], he agrees to accept the patient to his service. 08/07/19 20:01 Helicopter crew was at bedside at this time. Patient has been transitioned over to their ventilator and is being transitioned to their pumps. Patient is stable for transport to [facility] via helicopter at this time. Family is aware that he could rearrest in route, family has indicated that he is to remain a full code. 08/07/19 20:04 See nursing notes for exact times and quantities of medications that were given. 08/07/19 20:09 The pacer rep did come and interrogate the patient's pacemaker. She tells me that the pacemaker is working the way it should, it has not turned on and he has not had any episodes of asystole. I did discuss with the patient that I alicia escamilla was in the room when the patient's monitor was reading asystole, he stopped breathing, stopped moving and had no pulse. We did look at strips together that showed asystole and she agreed that she did not see any pacemaker spikes but states that the device that she interrogated was working well. - Vital Signs Vital signs: Temp Pulse Resp BP Pulse Ox 97.6 F 55 L 16 122/58 L 98 08/07/19 15:06 08/07/19 14:57 08/07/19 19:46 08/07/19 19:46 08/07/19 19:46 - Laboratory Result Diagrams: 08/07/19 18:35 08/07/19 15:35 Laboratory results interpreted by me: 08/07/19 08/07/19 08/07/19 14:43 14:43 14:43 RBC 3.32 L Hgb 10.0 L Hct 30.8 L MCHC RDW 16.5 H Plt Count Seg Neuts % (Manual) Band Neutrophils % Lymphocytes % (Manual) ABG pH ABG pO2 ABG HCO3 ABG Total CO2 ABG O2 Saturation Sodium 133.0 L Potassium 6.0 H* Carbon Dioxide BUN 25 H Creatinine 2.19 H Est GFR ( Amer) 36 L Est GFR (MDRD) Non-Af 30 L Glucose 345 H POC Glucose Lactic Acid 3.0 H Calcium AST 91 H Alkaline Phosphatase 325 H NT-Pro-B Natriuret Pep Total Protein 6.2 L Albumin 3.1 L Urine Protein Urine Glucose (UA) Urine Ascorbic Acid 08/07/19 08/07/19 08/07/19 14:43 15:35 15:35 RBC Hgb Hct MCHC RDW Plt Count Seg Neuts % (Manual) Band Neutrophils % Lymphocytes % (Manual) ABG pH ABG pO2 ABG HCO3 ABG Total CO2 ABG O2 Saturation Sodium 134.7 L Potassium 5.3 H Carbon Dioxide 19 L BUN 24 H Creatinine 2.28 H Est GFR ( Amer) 34 L Est GFR (MDRD) Non-Af 28 L Glucose 317 H POC Glucose Lactic Acid 7.2 H Calcium 8.1 L AST 159 H Alkaline Phosphatase 319 H NT-Pro-B Natriuret Pep 8440 H Total Protein 6.0 L Albumin 2.8 L Urine Protein Urine Glucose (UA) Urine Ascorbic Acid 08/07/19 08/07/19 08/07/19 17:43 18:03 18:35 RBC 3.29 L Hgb 9.9 L Hct 31.2 L MCHC 31.9 L RDW 17.1 H Plt Count 141 L Seg Neuts % (Manual) 80 H Band Neutrophils % 2 L Lymphocytes % (Manual) 12 L ABG pH ABG pO2 ABG HCO3 ABG Total CO2 ABG O2 Saturation Sodium Potassium Carbon Dioxide BUN Creatinine Est GFR ( Amer) Est GFR (MDRD) Non-Af Glucose POC Glucose 398 H Lactic Acid Calcium AST Alkaline Phosphatase NT-Pro-B Natriuret Pep Total Protein Albumin Urine Protein >=500 H Urine Glucose (UA) >=500 H Urine Ascorbic Acid 20 H 08/07/19 18:35 RBC Hgb Hct MCHC RDW Plt Count Seg Neuts % (Manual) Band Neutrophils % Lymphocytes % (Manual) ABG pH 7.18 L* ABG pO2 42.0 L ABG HCO3 16.2 L ABG Total CO2 17.6 L ABG O2 Saturation 65.2 L Sodium Potassium Carbon Dioxide BUN Creatinine Est GFR ( Amer) Est GFR (MDRD) Non-Af Glucose POC Glucose Lactic Acid Calcium AST Alkaline Phosphatase NT-Pro-B Natriuret Pep Total Protein Albumin Urine Protein Urine Glucose (UA) Urine Ascorbic Acid - EKG Interpretation by Me Additional EKG results interpreted by me: 08/07/19 20:07 Initial EKG shows sinus bradycardia at a rate of 55, first-degree A-V block, left axis deviation, interventricular conduction delay, T wave inversions noted in 1, aVL, V2 2 through V6, actually not as depressed as they were on his prior EKG per my interpretation. Repeat EKG after ROSC shows sinus rhythm at a rate of 63, left axis deviation, T wave inversions in 1 and aVL, T wave inversions in V2, persistent T wave inversions in V3 through V6 but significantly worsened ST segment depressions V3 through V6 per my interpretation. Given the far lateral ST segment depressions I did order a posterior EKG on this patient, posterior EKG shows sinus rhythm at a rate of 77, first-degree AV block, no ST segment elevations in the posterior leads, 1 PVC per my interpretation. Procedures - Intubation Orotracheal Airway evaluation: Copious secretions, Large tongue Mallampati Classification: Class 2 Medications: Ketamine, Vecuronium Intubation method: Orotracheal Blade type: Matthew Blade size: 3 Equipment used: Glidescope ETT size: 7.5 ETT secured at: Teeth ETT secured at (cm): 22 Breath Sounds after Intubation: Equal End tidal CO2 confirmed: Yes Ventilator settings: SIMV Tidal volume: 500 FiO2: 100 Respirations: 16 Pressure support: 10 PEEP: 5 Post Intubation Xray: Yes - ET tube in good position. Intubation Complications: Oral-unsuccessful attempt - Initial unsuccessful attempt with direct laryngoscopy. Critical Care Note - Critical Care Note Total time excluding time spent on procedures (mins): 89 Discharge - Discharge Clinical Impression: Syncope and collapse, Cardiac arrest, Non-STEMI (non-ST elevated myocardial infarction), Acute kidney injury superimposed on chronic kidney disease, Hyperkalemia, diminished renal excretion, SIRS (systemic inflammatory response syndrome), Acute respiratory failure with hypoxia, Cocaine use CVA (cerebral vascular accident) Qualifiers: CVA mechanism: unspecified Qualified Code(s): I63.9 - Cerebral infarction, unspecified Congestive heart failure Qualifiers: Heart failure type: unspecified Heart failure chronicity: acute on chronic Qualified Code(s): I50.9 - Heart failure, unspecified Condition: Critical [facility]: [facility] Referrals: KENDRA VARELA MD [Primary Care Provider] - Follow up as needed
[2019-08-07] MEDS ORDERED: DEXTROSE 5%-WATER 250 ML with NOREPINEPHRINE BITARTRATE 4 MG IV PRN ×2 (16:37)
[2019-08-07] MEDS ORDERED: ETOMIDATE INJ/PF 20 MG/10 ML SDV IV ONE (16:56)
[2019-08-07] MEDS ORDERED: VECURONIUM BROMIDE INJ 10 MG VIAL IV ONE (17:00)
[2019-08-07] MEDS ORDERED: KETAMINE HCL INJ 500 MG/10 ML VIAL ONE (17:00)
[2019-08-07] MEDS ORDERED: MIDAZOLAM HCL 50 MG/100 ML RTUINJ IV PRN (17:04)
[2019-08-07] MEDS ORDERED: KETAMINE HCL INJ 500 MG/10 ML VIAL IV ONE (17:17)
--- NOTE | 2019-08-07 17:25 | RADIOLOGY REPORT (SQ) ---
EXAM DESCRIPTION: CTA CHEST COMPLETED DATE/TIME: 08/07/2019 5:01 pm REASON FOR STUDY: syncope, hypoxia, r/o PE COMPARISON: Earlier radiograph TECHNIQUE: CT scan of the chest performed using helical scanning technique with dynamic intravenous contrast injection. Images reviewed with lung, soft tissue and bone windows. Reconstructed coronal and sagittal MPR images reviewed. Additional 3 dimensional post-processing performed to develop Maximal Intensity Projection images (ND P). All images stored on PACS. All CT scanners at this facility use dose modulation, iterative reconstruction, and/or weight based d osing when appropriate to reduce radiation dose to as low as reasonably achievable (ALARA). [facility]: Dose Right [facility]: CareDose [facility]: Dose Right [facility]: Teradose 4D [facility]: L[employer]Invest CONTRAST TYPE AND DOSE: contrast/concentration: Isovue 350.00 mg/ml; Total Contrast Delivered: 63.0 ml; Total Saline Delivered: 66.0 ml Contrast bolus not diagnostic for the pulmonary arteries. RENAL FUNCTION: BUN 25 creatinine 2.19 RADIATION DOSE: CT Rad equipment meets quality standard of care and radiation dose reduction techniq ues were employed. CTDIvol: 6.6 - 105.8 mGy. DLP: 514 mGy-cm. . LIMITATIONS: None. FINDINGS: LUNGS AND PLEURA: No pneumothorax. Bilateral pleural effusions, moderate right and small er on the left. Scattered parenchymal atelectasis-airspace opacities in the right lower lobe. Inter stitial thickening bilaterally. Scattered areas of emphysema and subpleural fibrosis. AORTA AND GREAT VESSELS: No aneurysm. Contrast bolus not optimized for the aorta. HEART: No pericardial effusion. Prior CABG. PULMONARY ARTERIES: Contrast bolus not diagnostic for the pulmonary arteries. HILAR AND MEDIASTINAL STRUCTURES: Multiple abnormal nodes, largest in the AP window measuring 2.8 cm. HARDWARE: CABG. Cardiac defibrillator. UPPER ABDOMEN: No significant findings. Limited exam. THYROID AND OTHER SOFT TISSUES: No masses. No adenopathy. BONES: No acute or significant finding. 3D MIPS: Confirm above findings. OTHER: No other significant finding. IMPRESSION: Contrast bolus not diagnostic for the pulmonary arteries. Bilateral pleural effusions, moderate right and smaller on the left. Scattered parenchymal atelectas is-airspace opacities in the right lower lobe. Interstitial thickening bilaterally. Scattered areas of emphysema and subpleural fibrosis. Mediastinal lymphadenopathy. COMMENT: Quality ID # [id number]: Final reports with documentation of one or more dose reduction techniques (e.g., Automated exposure control, adjustment of the mA and/or kV according to patient size, use of iterative reconstruction technique) TECHNICAL DOCUMENTATION: JOB ID: [id number] [place]-72 2010 [employer]- All Rights Reserved Reading location - IP/workstation name: [email or web address]
--- NOTE | 2019-08-07 17:28 | RADIOLOGY REPORT (SQ) ---
EXAM DESCRIPTION: CHEST SINGLE VIEW COMPLETED DATE/TIME: 08/07/2019 5:13 pm REASON FOR STUDY: POST INTUBATION COMPARISON: Earlier exam at 1500 hours NUMBER OF VIEWS: One view. TECHNIQUE: Single frontal radiographic image of the chest acquired. LIMITATIONS: None. FINDINGS: ENDOTRACHEAL TUBE: Endotracheal tube Tip overlies the lower trachea approximately 2 cm abo ve the level of the jaylen. OTHER SUPPORT DEVICES: Cardiac defibrillator. CHANGES IN RADIOGRAPHIC FINDINGS: Increased interstitial and alveolar opacities throughout both lungs . HARDWARE: CABG. OTHER: No other significant finding. IMPRESSION: Endotracheal tube Tip overlies the lower trachea approximately 2 cm above the level of t he jaylen.Increased interstitial and alveolar opacities throughout both lungs. TECHNICAL DOCUMENTATION: JOB ID: [id number] [place]-72 2010 [employer]- All Rights Reserved Reading location - IP/workstation name: [email or web address]
[2019-08-07] MEDS ORDERED: DEXTROSE 50%-WATER 25 GM/50 ML DISP.SYRIN IV ONE (17:32)
[2019-08-07] MEDS ORDERED: INSULIN REG, HUMAN 100 UNIT/ML 3 ML VIAL (PYX) ONE (17:33)
[2019-08-07] MEDS ORDERED: EPINEPHRINE INJ/PF 1 MG/1 ML AMPULE ONE (17:39)
[2019-08-07] MEDS ORDERED: DEXTROSE 5%-WATER 1000 ML 1,000 ML with SODIUM BICARBONATE 150 MEQ IV PRN ×2 (17:52)
[2019-08-07] MEDS ORDERED: DEXTROSE 5%-WATER 250 ML with EPINEPHRINE/PF 1 MG IV PRN ×2 (17:55)
[2019-08-07 18:03] LABS: ALBUMIN 2.8 g/dL (3.5-5.0); ALKALINE PHOSPHATASE 319 U/L (38-126); ANION GAP 15 (5-19); ASPARTATE AMINO TRANSFERASE 159 U/L (17-59); BILIRUBIN,DIRECT 0.4 mg/dL (0.0-0.4); BLOOD UREA NITROGEN 24 mg/dL (7-20); CALCIUM 8.1 mg/dL (8.4-10.2); CARBON DIOXIDE 19 mmol/L (22-30); CHLORIDE 101 mmol/L (98-107); GLUCOSE 317 mg/dL (75-110); POTASSIUM 5.3 mmol/L (3.6-5.0)
[2019-08-07] MEDS ORDERED: FUROSEMIDE INJ/PF 40 MG/4 ML SDV ONE (18:05)
[2019-08-07 18:44] LABS: HEMATOCRIT 31.2 % (37.9-51.0); HEMOGLOBIN 9.9 g/dL (13.5-17.0); MEAN CORPUSCULAR HEMOGLOBIN 30.3 pg (27.0-33.4); MEAN CORPUSCULAR HGB CONC 31.9 g/dL (32.0-36.0); MEAN CORPUSCULAR VOLUME 95 fl (80-97); PLATELET COUNT 141 10^3/uL (150-450); RED BLOOD COUNT 3.29 10^6/uL (4.35-5.55); RED CELL DISTRIBUTION WIDTH 17.1 % (11.5-14.0); WHITE BLOOD COUNT 5.9 10^3/uL (4.0-10.5)
[2019-08-07 18:59] LABS: APPEARANCE,URINE SLIGHTLY-CLOUDY; BILIRUBIN,URINE NEGATIVE (NEGATIVE); COLOR,URINE YELLOW; GLUCOSE, URINE >=500 mg/dL (NEGATIVE); KETONES,URINE NEGATIVE (NEGATIVE); PROTEIN,URINE >=500 mg/dL (NEGATIVE); URINE SPECIFIC GRAVITY 1.015; UROBILINOGEN,URINE NEGATIVE mg/dL (<2.0)
[2019-08-07 19:00] LABS: ARTERIAL BLOOD BASE EXCESS -11.6 mmol/L; ARTERIAL BLOOD H2CO3 1.35 mmol/L (1.05-1.35); ARTERIAL BLOOD HCO3 16.2 mmol/L (20-24); ARTERIAL BLOOD O2 SATURATION 65.2 % (94-98); ARTERIAL BLOOD TOTAL CO2 17.6 mmol/L (23-27)
[2019-08-07 19:15] LABS: ABSOLUTE LYMPHOCYTES# (MANUAL) 0.7 10^3/uL (0.5-4.7); ABSOLUTE MONOCYTES # (MANUAL) 0.3 10^3/uL (0.1-1.4); ANISOCYTOSIS 1+; BAND NEUTROPHILS % (MANUAL) 2 % (3-5); BASOPHILS % (MANUAL) 0 % (0-2); EOSINOPHILS % (MANUAL) 1 % (0-6); LYMPHOCYTES % (MANUAL) 12 % (13-45); MONOCYTES % (MANUAL) 5 % (3-13); PLATELET COMMENT DECREASED; SEGMENTED NEUTROPHILS % (MAN) 80 % (42-78); TOTAL CELLS COUNTED 100
[2019-08-07 19:31] LABS: ARTERIAL BLOOD FIO2 100%; ARTERIAL BLOOD PH 7.18 (7.35-7.45)
[2019-08-07 20:38] VITALS: BP 93/66
--- NOTE | 2019-08-07 22:56 | EKG REPORT ---
SEVERITY:- ABNORMAL ECG - SINUS RHYTHM RIGHT BUNDLE BRANCH BLOCK NONSPECIFIC ST-T CHANGES- INFERIOR LEADS : Confirmed by: Omar Luu MD 07-Aug-2019 22:55:37
--- NOTE | 2019-08-07 22:58 | EKG REPORT ---
SEVERITY:- ABNORMAL ECG - SINUS RHYTHM PROBABLE LEFT ATRIAL ABNORMALITY NONSPECIFIC IVCD WITH LAD SEVERE ST-T INVERSION IN ANTEROLATERAL LEADS, CLINICAL CORRELATION NEEDED : Confirmed by: Omar Luu MD 07-Aug-2019 22:57:20
== END 2019-08-07 20:19 | disposition short-term general hospital (02) ==
LOC: ER 14:28
DX: I21.4 Non-ST elevation (NSTEMI) myocardial infarction (principal); I46.9 Cardiac arrest, cause unspecified; N17.9 Acute kidney failure, unspecified; J96.01 Acute respiratory failure with hypoxia; R65.11 Systemic inflammatory response syndrome (SIRS) of non-infectious origin with acute organ dysfunction; I63.9 Cerebral infarction, unspecified; E87.5 Hyperkalemia; F14.90 Cocaine use, unspecified, uncomplicated; Z98.890 Other specified postprocedural states; R55 Syncope and collapse; R42 Dizziness and giddiness; R53.1 Weakness; F17.200 Nicotine dependence, unspecified, uncomplicated; I50.9 Heart failure, unspecified; I25.10 Atherosclerotic heart disease of native coronary artery without angina pectoris; E78.00 Pure hypercholesterolemia, unspecified; I11.0 Hypertensive heart disease with heart failure; E11.9 Type 2 diabetes mellitus without complications; J44.9 Chronic obstructive pulmonary disease, unspecified; Z86.73 Personal history of transient ischemic attack (TIA), and cerebral infarction without residual deficits; Z95.0 Presence of cardiac pacemaker; I25.2 Old myocardial infarction
CPT/HCPCS: 93005; 96376; 94640 ×2; 99291; 99292; 96361; 96375; 96365; 96366; 96367; 36415; 87040; 82553; 82962; 82803; 82550; 83605; 85025; 85610; 87070; 80053; 81001; 84484; 83880; 71045; 70450; 71275; 94660; 93010; 31500; J0610; J0171; J3490 ×3; J2930; J7060; J7030; J7120; J0696; A9270

== ENCOUNTER 2019-08-26 11:46 | Emergency (ER) | payer MEDICARE, OTHER ==
[2019-08-26 12:44] LABS: ABSOLUTE BASOPHILS # (AUTO) 0.1 10^3/uL (0.0-0.2); ABSOLUTE EOSINOPHILS # (AUTO) 0.1 10^3/uL (0.0-0.6); ABSOLUTE MONOCYTES (AUTO) 0.4 10^3/uL (0.1-1.4); ABSOLUTE NEUT (AUTO) 2.7 10^3/uL (1.7-8.2); BASOPHILS % (AUTO) 2.1 % (0-2); EOSINOPHILS % (AUTO) 2.9 % (0-6); HEMATOCRIT 28.3 % (37.9-51.0); HEMOGLOBIN 9.3 g/dL (13.5-17.0); LYMPHOCYTES % (AUTO) 23.1 % (13-45); MEAN CORPUSCULAR HEMOGLOBIN 29.4 pg (27.0-33.4); MEAN CORPUSCULAR HGB CONC 32.7 g/dL (32.0-36.0); MONOCYTES % (AUTO) 9.9 % (3-13); PLATELET COUNT 258 10^3/uL (150-450); RED BLOOD COUNT 3.16 10^6/uL (4.35-5.55); RED CELL DISTRIBUTION WIDTH 17.5 % (11.5-14.0); TOTAL CELLS COUNTED % (AUTO) 100 %; WHITE BLOOD COUNT 4.4 10^3/uL (4.0-10.5)
[2019-08-26 13:05] LABS: ALBUMIN 3.4 g/dL (3.5-5.0); ALKALINE PHOSPHATASE 207 U/L (38-126); ANION GAP 9 (5-19); ASPARTATE AMINO TRANSFERASE 23 U/L (17-59); BILIRUBIN,DIRECT 0.1 mg/dL (0.0-0.4); BILIRUBIN,TOTAL 0.5 mg/dL (0.2-1.3); BLOOD UREA NITROGEN 16 mg/dL (7-20); CARBON DIOXIDE 27 mmol/L (22-30); CHLORIDE 97 mmol/L (98-107); CREATINE KINASE 35 U/L (55-170); GLUCOSE 370 mg/dL (75-110); TOTAL PROTEIN 6.6 g/dL (6.3-8.2)
[2019-08-26 13:17] LABS: CREATINE KINASE MB 0.36 ng/mL (<4.55); TROPONIN I 0.018 ng/mL
--- NOTE | 2019-08-26 13:30 | EKG REPORT ---
SEVERITY:- ABNORMAL ECG - SINUS RHYTHM PROBABLE LEFT ATRIAL ABNORMALITY NONSPECIFIC INTRAVENTRICULAR CONDUCTION DELAY MINIMAL ST DEPRESSION, ANTEROLATERAL LEADS : Confirmed by: Omar Luu MD 26-Aug-2019 13:30:20
[2019-08-26 13:39] LABS: MEAN CORPUSCULAR VOLUME 90 fl (80-97)
[2019-08-26] MEDS ORDERED: FUROSEMIDE INJ/PF 20 MG/2 ML SDV IV ONE (13:47)
--- NOTE | 2019-08-26 14:31 | RADIOLOGY REPORT (SQ) ---
EXAM DESCRIPTION: CHEST SINGLE VIEW COMPLETED DATE/TIME: 08/26/2019 2:05 pm REASON FOR STUDY: chest pain COMPARISON: 08/07/2019. NUMBER OF VIEWS: One view. TECHNIQUE: Single frontal radiographic view of the chest acquired. LIMITATIONS: None. FINDINGS: LUNGS AND PLEURA: No opacities, masses or pneumothorax. No pleural effusion. MEDIASTINUM AND HILAR STRUCTURES: No masses or contour abnormality. HEART AND VASCULATURE: Cardiac enlargement. Vascular congestion. BONES: No acute findings. HARDWARE: Defibrillator. Sternotomy wires and coronary bypass markers. OTHER: No other significant finding. IMPRESSION: CARDIAC ENLARGEMENT. VASCULAR CONGESTION. TECHNICAL DOCUMENTATION: JOB ID: [id number] 2010 [employer]- All Rights Reserved Reading location - IP/workstation name: [email or web address]
[2019-08-26 16:41] LABS: TROPONIN I 0.017 ng/mL
--- NOTE | 2019-08-26 18:26 | ER Document Report ---
ED General - General Chief Complaint: Chest Pain Stated Complaint: CHEST PAIN Time Seen by Provider: 08/26/19 13:30 Primary Care Provider: KENDRA VARELA MD [Primary Care Provider] - Follow up as needed TRAVEL OUTSIDE OF THE [place] IN LAST 30 DAYS: No - HPI Notes: 73-year-old male with a chief complaint of dyspnea, bilateral ankle swelling and intermittent chest pain. This gentleman has a history of known multivessel CAD and was previously treated at [facility] within the last 3 weeks for an acute CVA and a non-STEMI. Presents today via EMS with hypoxemia, increased peripheral edema and some intermittent tightness in his chest. He is currently free of any chest pain. - Related Data Allergies/Adverse Reactions: No Known Allergies Allergy (Verified 08/07/19 15:05) Home Medications: Tramadol, Glucose, Albuterol, Lisinopril, Metoprolol, Aspirin, Pipitos, Plavix Past Medical History - General Information source: Patient - Social History Smoking Status: Unknown if Ever Smoked Family History: CAD Patient has suicidal ideation: No Patient has homicidal ideation: No - Past Medical History Cardiac Medical History: Reports: Hx Congestive Heart Failure, Hx Coronary Artery Disease, Hx Heart Attack, Hx Hypercholesterolemia, Hx Hypertension Pulmonary Medical History: Reports: Hx COPD Neurological Medical History: Reports: Hx Cerebrovascular Accident Endocrine Medical History: Reports: Hx Diabetes Mellitus Type 2 Musculoskeletal Medical History: Reports Hx Arthritis Past Surgical History: Reports: Hx Cardiac Surgery Review of Systems - Review of Systems Notes: Constitutional: Negative for fever. HENT: Negative for sore throat. Eyes: Negative for visual changes. Cardiovascular: As per HPI. Respiratory: As per HPI. Gastrointestinal: Negative for abdominal pain, vomiting or diarrhea. Genitourinary: Negative for dysuria. Musculoskeletal: Negative for back pain. Skin: Negative for rash. Neurological: Negative for headaches, weakness or numbness. 10 point ROS negative except as marked above and in HPI. Physical Exam - Vital signs Vitals: BP 102/72 08/26/19 11:56 - Notes Notes: GENERAL: Elderly man who appears mildly dyspneic on nasal O2. SKIN: Good turgor no rashes. HEAD: Normocephalic atraumatic. EYES: PERRLA. EOMI. Conjunctivae and sclerae clear. EARS: CANALS AND TMS CLEAR. NOSE: CLEAR. MOUTH: Moist mucosa. Good dentition. No stridor or edema. No drooling. NECK: Supple. No masses or thyromegaly. No adenopathy. Carotids 2+ without bruits. No JVD. BACK: Symmetrical without tenderness. CHEST: Mild tachypnea. Scattered rales both bases. HEART: Regular rhythm. No murmur gallop or rub. ABDOMEN: Soft nontender without masses, organomegaly or rebound. Bowel sounds normally active. No bruits. GENITALIA: Deferred. EXTREMITIES: 2+ pedal edema bilaterally. No calf tenderness. Cap refill less than 1.5 seconds. Dorsalis pedis and posterior tibial pulses 3+ and symmetrical. NEUROLOGICAL: GCS 15. Alert and oriented x3. Fluent speech. Cranial nerves II through XII intact. Sensorimotor and cerebellar normal. Normal tone. PSYCHIATRIC: Appropriate affect. Course - Re-evaluation Re-evalutation: 08/26/19 18:26 Elevated BNP. Normal troponin. Patient has been stabilized with IV Lasix administration and supplemental O2. I have spoken with the family practitioner at [facility] where this man was recently treated. They have accepted him for transfer noting that he will probably require cardiac catheterization after his heart papo lure has been stabilized. EMTALA form completed. 08/26/19 18:27 - Vital Signs Vital signs: Temp Pulse Resp BP Pulse Ox 71 17 122/84 99 08/26/19 11:59 08/26/19 17:01 08/26/19 17:00 08/26/19 17:01 - Laboratory Result Diagrams: 08/26/19 12:24 08/26/19 12:24 Laboratory results interpreted by me: 08/26/19 08/26/19 08/26/19 12:24 12:24 15:55 RBC 3.16 L Hgb 9.3 L Hct 28.3 L RDW 17.5 H Baso % (Auto) 2.1 H Sodium 132.5 L Chloride 97 L Est GFR (MDRD) Non-Af 57 L Glucose 370 H Alkaline Phosphatase 207 H Creatine Kinase 35 L NT-Pro-B Natriuret Pep 5340 H Albumin 3.4 L Discharge - Discharge Clinical Impression: Acute decompensated heart failure Condition: Fair Disposition: [facility] Referrals: KENDRA VARELA MD [Primary Care Provider] - Follow up as needed
[2019-08-26] MEDS: FUROSEMIDE INJ/PF 20 MG/2 ML SDV IV SCH (18:58)
[2019-08-27] MEDS ORDERED: METRONIDAZOLE 250 MG TABLET PO ONE (00:14)
[2019-08-27] MEDS: FUROSEMIDE INJ/PF 20 MG/2 ML SDV IV SCH (00:19)
--- NOTE | 2019-08-27 01:52 | ER Document Report ---
Doctor's Note Notes: 08/27/19 01:51 Transport has arrived to take patient to [facility]. This MD went to the room and saw the patient prior to transport. Patient is awake and alert, pleasant and in no acute distress at time of transfer.
[2019-08-27 02:01] VITALS: BP 115/75
== END 2019-08-27 02:01 | disposition short-term general hospital (02) ==
LOC: ER 11:46
DX: I11.0 Hypertensive heart disease with heart failure (principal); I50.9 Heart failure, unspecified; I25.10 Atherosclerotic heart disease of native coronary artery without angina pectoris; R07.89 Other chest pain; R09.02 Hypoxemia; I25.2 Old myocardial infarction; E11.9 Type 2 diabetes mellitus without complications; Z79.899 Other long term (current) drug therapy; Z79.82 Long term (current) use of aspirin; Z79.02 Long term (current) use of antithrombotics/antiplatelets; Z86.73 Personal history of transient ischemic attack (TIA), and cerebral infarction without residual deficits
CPT/HCPCS: 36415; 71045; 80053; 82550; 82553; 83880; 84484; 85025; 93005; 93010; 96374; 96376; 99285; J1940

== ENCOUNTER 2019-10-08 11:18 | Inpatient (IN) | payer MEDICARE, OTHER ==
[2019-10-08 11:36] LABS: ABSOLUTE BASOPHILS # (AUTO) 0.1 10^3/uL (0.0-0.2); ABSOLUTE LYMPHOCYTES (AUTO) 0.6 10^3/uL (0.5-4.7); ABSOLUTE MONOCYTES (AUTO) 0.3 10^3/uL (0.1-1.4); ABSOLUTE NEUT (AUTO) 3.4 10^3/uL (1.7-8.2); BASOPHILS % (AUTO) 1.3 % (0-2); EOSINOPHILS % (AUTO) 0.4 % (0-6); HEMATOCRIT 42.8 % (37.9-51.0); HEMOGLOBIN 14.2 g/dL (13.5-17.0); LYMPHOCYTES % (AUTO) 14.6 % (13-45); MEAN CORPUSCULAR HEMOGLOBIN 30.9 pg (27.0-33.4); MEAN CORPUSCULAR HGB CONC 33.2 g/dL (32.0-36.0); MEAN CORPUSCULAR VOLUME 93 fl (80-97); MONOCYTES % (AUTO) 6.7 % (3-13); PLATELET COUNT 185 10^3/uL (150-450); RED BLOOD COUNT 4.59 10^6/uL (4.35-5.55); RED CELL DISTRIBUTION WIDTH 18.4 % (11.5-14.0); TOTAL CELLS COUNTED % (AUTO) 100 %; WHITE BLOOD COUNT 4.4 10^3/uL (4.0-10.5)
[2019-10-08 11:56] LABS: ALBUMIN 4.1 g/dL (3.5-5.0); ALKALINE PHOSPHATASE 131 U/L (38-126); ANION GAP 15 (5-19); ASPARTATE AMINO TRANSFERASE 20 U/L (17-59); BILIRUBIN,DIRECT 0.3 mg/dL (0.0-0.4); BILIRUBIN,TOTAL 0.8 mg/dL (0.2-1.3); BLOOD UREA NITROGEN 50 mg/dL (7-20); CALCIUM 9.6 mg/dL (8.4-10.2); CARBON DIOXIDE 26 mmol/L (22-30); CHLORIDE 85 mmol/L (98-107); CREATINE KINASE 38 U/L (55-170); TOTAL PROTEIN 7.9 g/dL (6.3-8.2)
--- NOTE | 2019-10-08 12:04 | ER Document Report ---
ED Medical Screen (RME) - General Chief Complaint: Syncope Stated Complaint: POSSIBLE SYNCOPE Time Seen by Provider: 10/08/19 11:57 Primary Care Provider: KENDRA VARELA MD [Primary Care Provider] - Follow up as needed Information source: Patient Notes: Patient presents complaining of multiple falls over the past week. Patient states that he had 3 falls today. Patient states 1 of the episodes was a result of a syncopal episode. Patient denies any injuries with the falls. Patient denies any chest discomfort or shortness of breath. Patient states that he did vomit one time although denies any nausea. hx: Hypertension, diabetes, CVA, ID, CHF I have greeted and performed a rapid initial assessment of this patient. A comprehensive ED assessment and evaluation of the patient, analysis of test results and completion of the medical decision making process will be conducted by additional ED providers. TRAVEL OUTSIDE OF THE [place] IN LAST 30 DAYS: No - Related Data Allergies/Adverse Reactions: No Known Allergies Allergy (Verified 10/08/19 11:45) Home Medications: acetaminophen, aspirin, atorovastatin, carvidilol, diovan, famotidine, ferrous sulfate, fish oil, flluoxetine, gabapentin, nitro, plavix, ranexa, tramadol, B-12, fluticasone, furosemide, lantus, novolog, temazepam. Past Medical History - Social History Chew tobacco use (# tins/day): No Frequency of alcohol use: None Drug Abuse: None - Past Medical History Cardiac Medical History: Reports: Hx Congestive Heart Failure, Hx Coronary Artery Disease, Hx Heart Attack, Hx Hypercholesterolemia, Hx Hypertension Pulmonary Medical History: Reports: Hx COPD Neurological Medical History: Reports: Hx Cerebrovascular Accident Endocrine Medical History: Reports: Hx Diabetes Mellitus Type 2 Musculoskeltal Medical History: Reports Hx Arthritis Past Surgical History: Reports: Hx Cardiac Surgery Physical Exam - Vital signs Vitals: Resp Pulse Ox 20 100 10/08/19 11:22 10/08/19 11:22 - General General appearance: Appears well, Alert - Cardiovascular Rhythm: Regular Heart sounds: S1 appreciated, S2 appreciated Course - Vital Signs Vital signs: Temp Pulse Resp BP Pulse Ox 98.2 F 23 H 102/72 100 10/08/19 11:26 10/08/19 11:26 10/08/19 11:26 10/08/19 11:25 - Laboratory Result Diagrams: 10/08/19 11:26 10/08/19 11:26 Laboratory results interpreted by me: 10/08/19 11:26 RDW 18.4 H Doctor's Discharge - Discharge Referrals: KENDRA VARELA MD [Primary Care Provider] - Follow up as needed
[2019-10-08 12:08] LABS: CREATINE KINASE MB 1.1 ng/mL (<4.55); TROPONIN I 0.02 ng/mL
--- NOTE | 2019-10-08 12:09 | EKG REPORT ---
SEVERITY:- ABNORMAL ECG - SINUS RHYTHM LEFT ATRIAL ABNORMALITY NONSPECIFIC INTRAVENTRICULAR CONDUCTION DELAY LVH WITH SECONDARY REPOLARIZATION ABNORMALITY FIRST DEGREE AVB QTC PROLONGATION. : Confirmed by: Omar Luu MD 08-Oct-2019 12:09:10
[2019-10-08 12:17] LABS: GLUCOSE 674 mg/dL (75-110)
[2019-10-08 12:18] LABS: POTASSIUM 6.2 mmol/L (3.6-5.0)
[2019-10-08] MEDS ORDERED: INSULIN REG, HUMAN 100 UNIT/ML 3 ML VIAL (PYX) IV ONE (12:23)
[2019-10-08] MEDS ORDERED: CALCIUM GLUC IN NACL, ISO-OSM 1 GM/50 ML RTUPB IV ONE (12:23)
[2019-10-08] MEDS ORDERED: SODIUM POLYSTYRENE SULFONATE 15 GM/60 ML PO ONE (12:24)
[2019-10-08] MEDS ORDERED: NORMAL SALINE 1000 ML 1,000 ML IV ONE ×2 (12:25→15:24)
--- NOTE | 2019-10-08 12:34 | RADIOLOGY REPORT (SQ) ---
EXAM DESCRIPTION: CHEST 2 VIEWS COMPLETED DATE/TIME: 10/08/2019 12:23 pm REASON FOR STUDY: fall COMPARISON: 08/26/2019 EXAM PARAMETERS: NUMBER OF VIEWS: two views TECHNIQUE: Digital Frontal and Lateral radiographic views of the chest acquired. RADIATION DOSE: NA LIMITATIONS: none FINDINGS: LUNGS AND PLEURA: No opacities, masses or pneumothorax. No pleural effusion. MEDIASTINUM AND HILAR STRUCTURES: No masses or contour abnormalities. HEART AND VASCULAR STRUCTURES: Heart remains enlarged. No failure. BONES: No acute findings. HARDWARE: Unchanged. Battery pack and leads are in place along with sternotomy wires. OTHER: No other significant finding. IMPRESSION: Cardiomegaly. No failure. No acute findings. TECHNICAL DOCUMENTATION: JOB ID: [id number] 2010 [employer]- All Rights Reserved Reading location - IP/workstation name: [email or web address]
--- NOTE | 2019-10-08 12:37 | ER Document Report ---
ED General - General Chief Complaint: Syncope Stated Complaint: POSSIBLE SYNCOPE Time Seen by Provider: 10/08/19 11:57 Primary Care Provider: KENDRA VARELA MD [Primary Care Provider] - Follow up as needed Notes: Patient is a 74-year-old -[place] male with a past medical history of diabetes, CAD, prior PA, CVA who presents to the emergency department the chief complaint of syncopal episode today. He states since Friday he has had several falls. He states today preceding his fall was a syncopal episode. He is somewhat of a poor historian. He admits to a type of prolongation with urination and states that every time he falls he has a bowel movement. He states the bowel movements are mostly normal sometimes loose. He denies any abdominal pain chest pain shortness of breath scrotal pain or swelling dysuria fevers or nausea or vomiting or diarrhea. He states he feels like his sugar is high. TRAVEL OUTSIDE OF THE [place] IN LAST 30 DAYS: No - Related Data Allergies/Adverse Reactions: No Known Allergies Allergy (Verified 10/08/19 11:45) Home Medications: acetaminophen, aspirin, atorovastatin, carvidilol, diovan, famotidine, ferrous sulfate, fish oil, flluoxetine, gabapentin, nitro, plavix, ranexa, tramadol, B-12, fluticasone, furosemide, lantus, novolog, temazepam. Past Medical History - General Information source: Patient - Social History Smoking Status: Former Smoker Chew tobacco use (# tins/day): No Frequency of alcohol use: None Drug Abuse: None Family History: CAD Patient has suicidal ideation: No Patient has homicidal ideation: No - Past Medical History Cardiac Medical History: Reports: Hx Congestive Heart Failure, Hx Coronary Artery Disease, Hx Heart Attack, Hx Hypercholesterolemia, Hx Hypertension Pulmonary Medical History: Reports: Hx COPD Neurological Medical History: Reports: Hx Cerebrovascular Accident Endocrine Medical History: Reports: Hx Diabetes Mellitus Type 2 Musculoskeletal Medical History: Reports Hx Arthritis Past Surgical History: Reports: Hx Cardiac Surgery Review of Systems - Review of Systems Cardiovascular: Syncope -: Yes All other systems reviewed and negative Physical Exam - Vital signs Vitals: Resp Pulse Ox 20 100 10/08/19 11:22 10/08/19 11:22 - General General appearance: Appears well, Alert In distress: None - HEENT Head: Normocephalic, Atraumatic Eyes: Normal Extraocular movements intact: Yes Eyelashes: Normal Pupils: PERRL Ears: Normal External canal: Normal Tympanic membrane: Normal Sinus: Normal Nasal: Normal Mouth/Lips: Normal Mucous membranes: Normal Pharynx: Normal Neck: Normal - Respiratory Respiratory status: No respiratory distress Chest status: Nontender Breath sounds: Normal Chest palpation: Normal - Cardiovascular Rhythm: Regular Heart sounds: Normal auscultation - Abdominal Inspection: Normal Distension: No distension Bowel sounds: Normal Tenderness: Nontender Organomegaly: No organomegaly - Extremities General upper extremity: Normal inspection, Nontender, Normal color, Normal ROM, Normal temperature General lower extremity: Normal inspection, Nontender, Normal color, Normal ROM, Normal temperature, Normal weight bearing. No: Robbie's sign - Neurological Neuro grossly intact: Yes Cognition: Normal Orientation: AAOx4 [place] Coma Scale Eye Opening: Spontaneous Erica Coma Scale Verbal: Oriented Erica Coma Scale Motor: Obeys Commands Erica Coma Scale Total: 15 Speech: Normal Motor strength normal: LUE, RUE, LLE, RLE Sensory: Normal - Psychological Associated symptoms: Normal affect, Normal mood - Skin Skin Temperature: Warm Skin Moisture: Dry Skin Color: Normal Course - Re-evaluation Re-evalutation: 10/08/19 14:13 EKG at 1124: Sinus rhythm at 67 bpm. Prolonged ID interval, otherwise normal intervals. LVH criteria. Worsening T wave inversion in the lateral leads as compared with prior EKG from August 26, 2019. No STEMI. 10/08/19 16:47 Spoke with the hospitalist Dr. Kevin who advised this patient requires ICU care. I called the mantel craftsman Dr. Bowen who agreed to evaluate the patient for ICU admission. Patient blood pressure has improved. He is stable at this time - Vital Signs Vital signs: Temp Pulse Resp BP Pulse Ox 98.2 F 21 H 94/66 L 100 10/08/19 11:26 10/08/19 14:01 10/08/19 14:00 10/08/19 14:01 - Laboratory Result Diagrams: 10/08/19 11:26 10/08/19 11:26 Laboratory results interpreted by me: 10/08/19 10/08/19 10/08/19 11:26 11:26 11:26 RDW 18.4 H Sodium 125.8 L Potassium 6.2 H* Chloride 85 L BUN 50 H Creatinine 2.09 H Est GFR ( Amer) 38 L Est GFR (MDRD) Non-Af 31 L Glucose 674 H* Magnesium 2.5 H Alkaline Phosphatase 131 H Creatine Kinase 38 L Urine Glucose (UA) Urine Ketones 10/08/19 14:49 RDW Sodium Potassium Chloride BUN Creatinine Est GFR ( Amer) Est GFR (MDRD) Non-Af Glucose Magnesium Alkaline Phosphatase Creatine Kinase Urine Glucose (UA) >=500 H Urine Ketones TRACE H Discharge - Discharge Clinical Impression: Frequent falls, Hyperkalemia, CHANELL (acute kidney injury), Elevated troponin Episode of syncope Qualifiers: Syncope type: unspecified Qualified Code(s): R55 - Syncope and collapse Hyperglycemia due to type 2 diabetes mellitus Qualifiers: Diabetes mellitus shelter insulin use: unspecified predatory animal exterminator insulin use status Qualified Code(s): E11.65 - Type 2 diabetes mellitus with hyperglycemia Condition: Serious Disposition: ADMITTED INPATIENT Admitting Provider: Jessi (Director [employer]) Unit Admitted: ICU Referrals: KENDRA VARELA MD [Primary Care Provider] - Follow up as needed
--- NOTE | 2019-10-08 12:42 | RADIOLOGY REPORT (SQ) ---
EXAM DESCRIPTION: CT HEAD WITHOUT COMPLETED DATE/TIME: 10/08/2019 12:32 pm REASON FOR STUDY: fall COMPARISON: None. TECHNIQUE: Axial images acquired through the brain without intravenous contrast. Images reviewed wi th bone, brain and subdural windows. Additional sagittal and coronal reconstructions were generated. Images stored on PACS. All CT scanners at this facility use dose modulation, iterative reconstruction, and/or weight based d osing when appropriate to reduce radiation dose to as low as reasonably achievable (ALARA). [facility]: Dose Right [facility]: CareDose [facility]: Dose Right [facility]: Teradose 4D [facility]: MyLife RADIATION DOSE: CT Rad equipment meets quality standard of care and radiation dose reduction techniq ues were employed. CTDIvol: 53.2 mGy. DLP: 991 mGy-cm. mGy. LIMITATIONS: None. FINDINGS: VENTRICLES: Normal size and contour. CEREBRUM: No masses. No hemorrhage. No midline shift. No evidence for acute infarction. Normal gra y/white matter differentiation. No areas of low density in the white matter. CEREBELLUM: No masses. No hemorrhage. No alteration of density. No evidence for acute infarction. EXTRAAXIAL SPACES: No fluid collections. No masses. ORBITS AND GLOBE: No intra- or extraconal masses. Normal contour of globe without masses. CALVARIUM: No fracture. PARANASAL SINUSES: Chronic left maxillary sinusitis. Small retention cyst or polyp in the right maxi llary sinus. SOFT TISSUES: No mass or hematoma. OTHER: No other significant finding. IMPRESSION: No acute intracranial event. Chronic left-sided maxillary sinusitis. EVIDENCE OF ACUTE STROKE: NO. COMMENT: Quality ID # [id number]: Final reports with documentation of one or more dose reduction techniques (e.g., Automated exposure control, adjustment of the mA and/or kV according to patient size, use of iterative reconstruction technique) TECHNICAL DOCUMENTATION: JOB ID: [id number] 2010 [employer]- All Rights Reserved Reading location - IP/workstation name: [email or web address]
[2019-10-08 16:34] LABS: APPEARANCE,URINE CLEAR; BILIRUBIN,URINE NEGATIVE (NEGATIVE); COLOR,URINE YELLOW; GLUCOSE, URINE >=500 mg/dL (NEGATIVE); KETONES,URINE TRACE mg/dL (NEGATIVE); LEUKOCYTE ESTERASE,URINE NEGATIVE (NEGATIVE); NITRITE,URINE NEGATIVE (NEGATIVE); PROTEIN,URINE NEGATIVE (NEGATIVE); URINE SPECIFIC GRAVITY 1.024; UROBILINOGEN,URINE NEGATIVE mg/dL (<2.0)
[2019-10-08] MEDS ORDERED: GLUCAGON,HUMAN RECOMB 1 MG INJ IM PRN (17:59)
[2019-10-08] MEDS ORDERED: DEXTROSE 40% GEL 15 GM TUBE PO PRN ×2 (17:59)
[2019-10-08] MEDS ORDERED: DEXTROSE 50%-WATER 25 GM/50 ML DISP.SYRIN IV PRN ×2 (17:59)
--- NOTE | 2019-10-08 18:12 | PDOC H&P ---
History of Present Illness Admission Date/PCP: 10/08/19 17:00 KENDRA VARELA MD Patient complains of: falls History of Present Illness: BUDDY TREJO is a 74 year old male who has history of hypertension, diabetes insulin-dependent, systolic CHF, coronary artery disease, chronic kidney disease stage III. Patient presents the emergency room due to multiple falls at home. The emergency room he was severely hyperglycemic with blood glucose on 700. He was also hyperkalemic. His EF is last known to be 45-50%. He received fluid boluses in the ER and he feels better. He denies dizziness or lightheadedness. He does start breath or chest pain. Past Medical History Cardiac Medical History: Reports: Congestive Heart Failure, Coronary Artery Disease, Myocardial Infarction, Hyperlipidema, Hypertension Pulmonary Medical History: Reports: Chronic Obstructive Pulmonary Disease (COPD) Endocrine Medical History: Reports: Diabetes Mellitus Type 2 Musculoskeltal Medical History: Reports: Arthritis Social History Smoking Status: Former Smoker Electronic Cigarette use?: No Frequency of Alcohol Use: None Hx Recreational Drug Use: No Drugs: None Hx Prescription Drug Abuse: No Family History Family History: CAD Parental Family History Reviewed: Yes Children Family History Reviewed: Yes Sibling(s) Family History Reviewed.: Yes Medication/Allergy Home Medications: Clopidogrel Bisulfate [Plavix 75 mg Tablet] 75 mg PO DAILY 10/20/18 Fluticasone Propionate [Flonase Nasal [place] 50 Mcg/[place] 16 gm] 1 spray NASL BID 10/20/18 Insulin Aspart [Novolog Flexpen] 20 units SQ MEALS 10/20/18 Nitroglycerin [Nitromist] 1 spray SL Q5MP PRN 10/20/18 Temazepam [Restoril 15 mg Capsule] 15 mg PO QHS 10/20/18 Albuterol Sulfate [Ventolin 0.042% Neb 1.25 mg/3 mL Ampul] 1.25 mg NEB [id number] vial.neb 10/23/18 Aspirin [Ecotrin 81 mg EC Tablet] 81 mg PO DAILY tabec 10/23/18 Clopidogrel Bisulfate [Plavix 75 mg Tablet] 75 mg PO DAILY tablet 10/23/18 Furosemide [Lasix 40 mg Tablet] 40 mg PO DAILY #30 tablet 10/23/18 Insulin Glargine,Hum.rec.anlog [Lantus Insulin 100 Unit/1 ml 10 ml] 80 unit SUBCUT QHS #90 unit 10/23/18 Levofloxacin [Levaquin 500 mg Tablet] 500 mg PO DAILY #7 tablet 10/23/18 Lisinopril [Prinivil 5 mg Tablet] 5 mg PO DAILY #30 tablet 10/23/18 Metoprolol Tartrate [Lopressor 50 mg Tablet] 50 mg PO Q12 #60 tablet 10/23/18 Nitroglycerin [Nitrol 2% Ointment 1Gm Packet] 1 gm TP Q6 #60 oint..gm. 10/23/18 Prednisone [Deltasone 10 mg Tablet] 10 mg PO BID #30 tablet 10/23/18 Temazepam [Restoril 15 mg Capsule] 15 mg PO QHS capsule 10/23/18 Allergies/Adverse Reactions: No Known Allergies Allergy (Verified 10/08/19 11:45) Review of Systems All systems: reviewed and no additional remarkable complaints except as stated Physical Exam Vital Signs: Temp Pulse Resp BP Pulse Ox 98.2 F 21 H 94/66 L 100 10/08/19 11:26 10/08/19 14:01 10/08/19 14:00 10/08/19 14:01 Intake & Output 10/07/19 10/08/19 10/09/19 06:59 06:59 06:59 Intake Total 1999 Balance 1999 Weight 44 lb 1.479 oz General appearance: PRESENT: no acute distress, cooperative Head exam: PRESENT: atraumatic, normocephalic Eye exam: PRESENT: EOMI, PERRLA Ear exam: ABSENT: bleeding, drainage Mouth exam: PRESENT: moist, neck supple Neck exam: ABSENT: carotid bruit, meningismus, tenderness Respiratory exam: PRESENT: clear to auscultation tracey. ABSENT: accessory muscle use, tachypnea Cardiovascular exam: PRESENT: RRR. ABSENT: diastolic murmur, systolic murmur Pulses: PRESENT: normal carotid pulses, normal radial pulses GI/Abdominal exam: PRESENT: normal bowel sounds, soft. ABSENT: distended Rectal exam: PRESENT: deferred Extremities exam: ABSENT: joint swelling, pedal edema Musculoskeletal exam: PRESENT: ambulatory. ABSENT: deformity Neurological exam: PRESENT: alert, awake, oriented to person, oriented to place, oriented to time, oriented to situation, CN II-XII grossly intact. ABSENT: mot or sensory deficit Psychiatric exam: PRESENT: appropriate affect, normal mood. ABSENT: homicidal ideation, suicidal ideation Results Laboratory Results: 10/08/19 11:26 10/08/19 11:26 10/08/19 10/08/19 10/08/19 11:26 11:26 11:26 WBC 4.4 RBC 4.59 Hgb 14.2 Hct 42.8 MCV 93 MCH 30.9 MCHC 33.2 RDW 18.4 H Plt Count 185 Seg Neutrophils % 77.0 Sodium 125.8 L Potassium 6.2 H* Chloride 85 L Carbon Dioxide 26 Anion Gap 15 BUN 50 H Creatinine 2.09 H Est GFR ( Amer) 38 L Glucose 674 H* Calcium 9.6 Magnesium 2.5 H Total Bilirubin 0.8 AST 20 Alkaline Phosphatase 131 H Total Protein 7.9 Albumin 4.1 Urine Color Urine Appearance Urine pH Ur Specific [place] Urine Protein Urine Glucose (UA) Urine Ketones Urine Blood Urine Nitrite Ur Leukocyte Esterase Urine WBC (Auto) Urine RBC (Auto) 10/08/19 14:49 WBC RBC Hgb Hct MCV MCH MCHC RDW Plt Count Seg Neutrophils % Sodium Potassium Chloride Carbon Dioxide Anion Gap BUN Creatinine Est GFR ( Amer) Glucose Calcium Magnesium Total Bilirubin AST Alkaline Phosphatase Total Protein Albumin Urine Color YELLOW Urine Appearance CLEAR Urine pH 6.0 Ur Specific [place] 1.024 Urine Protein NEGATIVE Urine Glucose (UA) >=500 H Urine Ketones TRACE H Urine Blood NEGATIVE Urine Nitrite NEGATIVE Ur Leukocyte Esterase NEGATIVE Urine WBC (Auto) 0 Urine RBC (Auto) 1 10/08/19 10/08/19 11:26 11:26 Creatine Kinase 38 L CK-MB (CK-2) 1.10 Troponin I 0.020 Impressions: Chest X-Ray 10/08/19 12:02 IMPRESSION: Cardiomegaly. No failure. No acute findings. Head CT 10/08/19 12:02 IMPRESSION: No acute intracranial event. Chronic left-sided maxillary sinusitis. EVIDENCE OF ACUTE STROKE: NO. Assessment and Plan - Diagnosis (1) Frequent falls Is this a current diagnosis for this admission?: Yes Plan: Fall precautions. Check MRI. PT and OT evaluation. (2) Hyperglycemia due to type 2 diabetes mellitus Qualifiers: Diabetes mellitus correction insulin use: unspecified correction insulin use status Qualified Code(s): E11.65 - Type 2 diabetes mellitus with hyperglycemia Is this a current diagnosis for this admission?: Yes Plan: Patient is volume depleted. Check hemoglobin A1c. Start normal saline. Monitor volume status very closely since he has history of CHF. Monitor glucose levels. Start insulin sliding scale. (3) Chronic systolic CHF (congestive heart failure) Is this a current diagnosis for this admission?: Yes Plan: Currently volume depleted. Received fluid boluses in the ER. Start IV fluids as above. Monitor volume status very carefully. (4) Hyperkalemia Is this a current diagnosis for this admission?: Yes Plan: Due to insulin deficiency and dehydration. IV fluids and insulin as above. Monitor on telemetry. Monitor potassium levels. (5) Chronic kidney disease, stage 3 (moderate) Is this a current diagnosis for this admission?: Yes Plan: Continue to monitor renal function. (6) Coronary artery disease Qualifiers: Coronary Disease-Associated Artery/Lesion type: redding artery Is this a current diagnosis for this admission?: Yes Plan: No chest pain or shortness of breath. Continue cardiac home medications.
[2019-10-08 18:37] LABS: ALBUMIN 3.6 g/dL (3.5-5.0); ALKALINE PHOSPHATASE 118 U/L (38-126); ANION GAP 9 (5-19); ASPARTATE AMINO TRANSFERASE 21 U/L (17-59); BILIRUBIN,TOTAL 0.7 mg/dL (0.2-1.3); BLOOD UREA NITROGEN 45 mg/dL (7-20); CARBON DIOXIDE 26 mmol/L (22-30); CHLORIDE 93 mmol/L (98-107); POTASSIUM 5.3 mmol/L (3.6-5.0)
[2019-10-08 18:50] LABS: GLUCOSE 632 mg/dL (75-110)
[2019-10-08] MEDS: INSULIN LISPRO 100 UNIT/ML 3 ML VIAL SUBCUT SCH (22:11)
[2019-10-08] MEDS ORDERED: INSULIN REG, HUMAN 100 UNIT/ML 3 ML VIAL (PYX) ONE (22:59)
[2019-10-09] MEDS ORDERED: INSULIN REG, HUMAN 100 UNIT/ML 3 ML VIAL (PYX) IV ONE (00:15)
[2019-10-09] MEDS: NORMAL SALINE 1000 ML 1,000 ML IV PRN ×3 (02:57→21:51)
[2019-10-09 06:25] LABS: ABSOLUTE EOSINOPHILS # (AUTO) 0.1 10^3/uL (0.0-0.6); ABSOLUTE LYMPHOCYTES (AUTO) 1.1 10^3/uL (0.5-4.7); ABSOLUTE MONOCYTES (AUTO) 0.4 10^3/uL (0.1-1.4); ABSOLUTE NEUT (AUTO) 3.3 10^3/uL (1.7-8.2); BASOPHILS % (AUTO) 0.7 % (0-2); EOSINOPHILS % (AUTO) 1.5 % (0-6); HEMOGLOBIN 12.3 g/dL (13.5-17.0); LYMPHOCYTES % (AUTO) 23.2 % (13-45); MEAN CORPUSCULAR HEMOGLOBIN 31.1 pg (27.0-33.4); MEAN CORPUSCULAR HGB CONC 34.1 g/dL (32.0-36.0); MEAN CORPUSCULAR VOLUME 91 fl (80-97); PLATELET COUNT 156 10^3/uL (150-450); RED BLOOD COUNT 3.95 10^6/uL (4.35-5.55); SEGMENTED NEUTROPHILS % (AUTO) 65.6 % (42-78); TOTAL CELLS COUNTED % (AUTO) 100 %
[2019-10-09 06:43] LABS: ALBUMIN 3.2 g/dL (3.5-5.0); ALKALINE PHOSPHATASE 104 U/L (38-126); ANION GAP 10 (5-19); ASPARTATE AMINO TRANSFERASE 18 U/L (17-59); BILIRUBIN,TOTAL 0.3 mg/dL (0.2-1.3); BLOOD UREA NITROGEN 42 mg/dL (7-20); CALCIUM 8.8 mg/dL (8.4-10.2); CARBON DIOXIDE 21 mmol/L (22-30); CHLORIDE 98 mmol/L (98-107); GLUCOSE 373 mg/dL (75-110); POTASSIUM 4.7 mmol/L (3.6-5.0); TOTAL PROTEIN 6.2 g/dL (6.3-8.2)
[2019-10-09] MEDS ORDERED: TRAMADOL HCL 50 MG TABLET PO PRN (07:44)
[2019-10-09] MEDS ORDERED: TEMAZEPAM 15 MG CAPSULE PO PRN (07:44)
[2019-10-09] MEDS: INSULIN LISPRO 100 UNIT/ML 3 ML VIAL SUBCUT SCH ×7 (07:45→21:44)
[2019-10-09] MEDS: CYANOCOBALAMIN (VITAMIN B-12) 1,000 MCG TABLET PO SCH (09:44)
[2019-10-09] MEDS: CLOPIDOGREL BISULFATE 75 MG TABLET PO SCH (09:45)
[2019-10-09] MEDS: RANOLAZINE 500 MG TAB.SR.12H PO SCH ×2 (09:45→21:44)
[2019-10-09] MEDS: FERROUS SULFATE 325 MG TABLET PO SCH (09:45)
[2019-10-09] MEDS: ASPIRIN 81 MG TABLET, ENT COATED PO SCH (09:45)
[2019-10-09] MEDS: OMEGA-3 ACID ETHYL ESTERS 1 GM CAPSULE PO SCH (09:45)
[2019-10-09] MEDS: METOPROLOL TARTRATE 50 MG TABLET PO SCH ×2 (09:45→21:47)
[2019-10-09] MEDS: AMIODARONE HCL 200 MG TABLET PO SCH (09:46)
[2019-10-09] MEDS: CHOLECALCIFEROL (D3) 1,000 UNIT (25 MCG) TABLET PO SCH (09:46)
[2019-10-09] MEDS: FUROSEMIDE 40 MG TABLET PO SCH (09:47)
[2019-10-09] MEDS: FLUOXETINE HCL 20 MG CAPSULE PO SCH (09:47)
[2019-10-09] MEDS ORDERED: (PENDING PHARMACY ID) (Omega-3/Dha/Epa/Fish Oil [Fish Oil 1,000 Mg Softgel] 1,000 MG) PO SCH (10:00)
--- NOTE | 2019-10-09 11:38 | PDOC PROGRESS REPORT ---
Subjective Progress Note for:: 10/09/19 Subjective:: Patient complains of: falls History of Present Illness: BUDDY TREJO is a 74 year old male who has history of hypertension, diabetes insulin-dependent, systolic CHF, coronary artery disease, chronic kidney disease stage III. Patient presents the emergency room due to multiple falls at home. The emergency room he was severely hyperglycemic with blood glucose on 700. He was also hyperkalemic. His EF is last known to be 45-50%. He received fluid boluses in the ER and he feels better. He denies dizziness or lightheadedness. He does start breath or chest pain. Interval history: 10/01/2019: Patient seen and examined. I spoke with Dr. Mccall last night and his updated EF is about 20%. Patient is feeling much better today. His glucose levels are improved. His A1c is more than 14. No signs of chest pain or shortness of breath. Review of Systems All systems: reviewed and no additional remarkable complaints except as stated Reason For Visit: FALLS Physical Exam Vital Signs: Temp Pulse Resp BP Pulse Ox 98.2 F 78 16 139/85 H 98 10/09/19 07:41 10/09/19 07:41 10/09/19 07:41 10/09/19 07:41 10/09/19 07:41 Intake & Output 10/08/19 10/09/19 10/10/19 06:59 06:59 06:59 Intake Total 2972 Output Total 850 Balance 2122 Weight 169 lb 1.513 oz Exam: Physical Exam General appearance: PRESENT: no acute distress, cooperative Head exam: PRESENT: atraumatic, normocephalic Eye exam: PRESENT: EOMI, PERRLA Ear exam: ABSENT: bleeding, drainage Mouth exam: PRESENT: moist, neck supple Neck exam: ABSENT: carotid bruit, meningismus, tenderness Respiratory exam: PRESENT: clear to auscultation rtacey. ABSENT: accessory muscle use, tachypnea Cardiovascular exam: PRESENT: RRR. ABSENT: diastolic murmur, systolic murmur Pulses: PRESENT: normal carotid pulses, normal radial pulses GI/Abdominal exam: PRESENT: normal bowel sounds, soft. ABSENT: distended Rectal exam: PRESENT: deferred Extremities exam: ABSENT: joint swelling, pedal edema Musculoskeletal exam: PRESENT: ambulatory. ABSENT: deformity Neurological exam: PRESENT: alert, awake, oriented to person, oriented to place, oriented to time, oriented to situation, CN II-XII grossly intact. ABSENT: motor sensory deficit Psychiatric exam: PRESENT: appropriate affect, normal mood. ABSENT: homicidal ideation, suicidal ideation Results Laboratory Results: 10/09/19 05:22 10/09/19 05:22 10/08/19 10/08/19 10/08/19 11:26 11:26 11:26 WBC 4.4 RBC 4.59 Hgb 14.2 Hct 42.8 MCV 93 MCH 30.9 MCHC 33.2 RDW 18.4 H Plt Count 185 Seg Neutrophils % 77.0 Sodium 125.8 L Potassium 6.2 H* Chloride 85 L Carbon Dioxide 26 Anion Gap 15 BUN 50 H Creatinine 2.09 H Est GFR ( Amer) 38 L Glucose 674 H* Calcium 9.6 Magnesium 2.5 H Total Bilirubin 0.8 AST 20 Alkaline Phosphatase 131 H Total Protein 7.9 Albumin 4.1 Urine Color Urine Appearance Urine pH Ur Specific [place] Urine Protein Urine Glucose (UA) Urine Ketones Urine Blood Urine Nitrite Ur Leukocyte Esterase Urine WBC (Auto) Urine RBC (Auto) 10/08/19 10/08/19 10/09/19 14:49 17:54 05:22 WBC 5.0 RBC 3.95 L Hgb 12.3 L Hct 36.0 L MCV 91 MCH 31.1 MCHC 34.1 RDW 18.0 H Plt Count 156 Seg Neutrophils % 65.6 Sodium 128.0 L Potassium 5.3 H Chloride 93 L Carbon Dioxide 26 Anion Gap 9 BUN 45 H Creatinine 1.80 H Est GFR ( Amer) 45 L Glucose 632 H* Calcium 9.0 Magnesium Total Bilirubin 0.7 AST 21 Alkaline Phosphatase 118 Total Protein 7.0 Albumin 3.6 Urine Color YELLOW Urine Appearance CLEAR Urine pH 6.0 Ur Specific [place] 1.024 Urine Protein NEGATIVE Urine Glucose (UA) >=500 H Urine Ketones TRACE H Urine Blood NEGATIVE Urine Nitrite NEGATIVE Ur Leukocyte Esterase NEGATIVE Urine WBC (Auto) 0 Urine RBC (Auto) 1 10/09/19 05:22 WBC RBC Hgb Hct MCV MCH MCHC RDW Plt Count Seg Neutrophils % Sodium 128.6 L Potassium 4.7 Chloride 98 Carbon Dioxide 21 L Anion Gap 10 BUN 42 H Creatinine 1.50 H Est GFR ( Amer) 56 L Glucose 373 H Calcium 8.8 Magnesium 2.1 Total Bilirubin 0.3 AST 18 Alkaline Phosphatase 104 Total Protein 6.2 L Albumin 3.2 L Urine Color Urine Appearance Urine pH Ur Specific [place] Urine Protein Urine Glucose (UA) Urine Ketones Urine Blood Urine Nitrite Ur Leukocyte Esterase Urine WBC (Auto) Urine RBC (Auto) 10/08/19 10/08/19 11:26 11:26 Creatine Kinase 38 L CK-MB (CK-2) 1.10 Troponin I 0.020 Impressions: Chest X-Ray 10/08/19 12:02 IMPRESSION: Cardiomegaly. No failure. No acute findings. Head CT 10/08/19 12:02 IMPRESSION: No acute intracranial event. Chronic left-sided maxillary sinus itis. EVIDENCE OF ACUTE STROKE: NO. Assessment and Plan - Diagnosis (1) Frequent falls Is this a current diagnosis for this admission?: Yes (2) Hyperglycemia due to type 2 diabetes mellitus Qualifiers: Diabetes mellitus exterminator helper insulin use: unspecified exterminator helper insulin use status Qualified Code(s): E11.65 - Type 2 diabetes mellitus with hyperglycemia Is this a current diagnosis for this admission?: Yes (3) Chronic systolic CHF (congestive heart failure) Is this a current diagnosis for this admission?: Yes (4) Hyperkalemia Is this a current diagnosis for this admission?: Yes (5) Chronic kidney disease, stage 3 (moderate) Is this a current diagnosis for this admission?: Yes (6) Coronary artery disease Qualifiers: Coronary Disease-Associated Artery/Lesion type: burns [place] artery Is this a current diagnosis for this admission?: Yes - Plan Summary Summary: Assessment and Plan (1) Frequent falls Is this a current diagnosis for this admission?: Yes Plan: Continue fall precautions. We could not get MRI with the patient has pacemaker. PT and OT evaluation. (2) Hyperglycemia due to type 2 diabetes mellitus Qualifiers: Diabetes mellitus exterminator helper insulin use: unspecified care home insulin use status Qualified Code(s): E11.65 - Type 2 diabetes mellitus with hyperglycemia Is this a current diagnosis for this admission?: Yes Plan: Patient is volume depleted. A1c >14. Continue current rate of normal saline. Monitor volume status very closely since he has history of CHF. Monitor glucose levels. Continue insulin sliding scale. Continue long-acting insulin. (3) Chronic systolic CHF (congestive heart failure) Is this a current diagnosis for this admission?: Yes Plan: Currently volume depleted. Received fluid boluses in the ER. Continue IV fluids as above. Monitor volume status very carefully. (4) Hyperkalemia Is this a current diagnosis for this admission?: Yes Plan: Due to insulin deficiency and dehydration. Continue IV fluids and insulin as above. Monitor on telemetry. Currently resolved. (5) Chronic kidney disease, stage 3 (moderate) Is this a current diagnosis for this admission?: Yes Plan: Continue to monitor renal function. Improved. (6) Coronary artery disease Qualifiers: Coronary Disease-Associated Artery/Lesion type: burns [place] artery Is this a current diagnosis for this admission?: Yes Plan: No chest pain or shortness of breath. Continue cardiac home medications.
[2019-10-09] MEDS: FUROSEMIDE 20 MG TABLET PO SCH (13:50)
[2019-10-09] MEDS: FAMOTIDINE 20 MG TABLET PO SCH (14:17)
[2019-10-09 14:32] LABS: ANION GAP 11 (5-19); BLOOD UREA NITROGEN 35 mg/dL (7-20); CALCIUM 8.6 mg/dL (8.4-10.2); CARBON DIOXIDE 25 mmol/L (22-30); CHLORIDE 95 mmol/L (98-107); GLUCOSE 336 mg/dL (75-110); POTASSIUM 4.6 mmol/L (3.6-5.0)
[2019-10-09] MEDS: ATORVASTATIN CALCIUM 40 MG TABLET PO SCH (21:44)
[2019-10-09] MEDS: GABAPENTIN 100 MG CAPSULE PO SCH (21:45)
[2019-10-09] MEDS ORDERED: INSULIN GLARGINE,HUM.REC.ANLOG 1,000 UNIT/10 ML VIAL SUBCUT SCH (22:00)
--- NOTE | 2019-10-09 22:47 | PDOC CONSULTATION ---
Consultation-Blank Consultation: CARDIOLOGY CONSULTATION by Dr. Jazmin Valencia on 10/09/2019. Patient seen at 11 AM. 60 minutes spent on this patient with more than 50% of time spent direct direct patient care. REASON FOR CONSULTATION: Patient with multiple cysts falls and multiple syncopal episodes. CONSULT REQUESTING PHYSICIAN: Dr. Reece [address] [place], [place] [id number] physician group. HISTORY OF PRESENT ILLNESS: Patient is 74-year-old Afro-Grenadian male with known history of coronary artery disease, ischemic and dilated cardiomyopathy, history of AICD placement admitted with at least 2-week history of frequent falls and with some episodes of syncope. There is no chest pain palpitations or shortness of breath prior to or after the falls or syncope. He has had some episodes of dizziness when he suddenly gets up. And some other episodes of falls are preceded by symptoms of dizziness. There is no firing of his AICD. He states t hat with some episodes of syncope he has had a bowel movement. There is no witnessed seizure activity. He denies any chest pain or discomfort. There is no PND orthopnea. There is no palpitations. There is no leg edema. The patient has no anginal symptoms. He is blood sugar was very high and his potassium was high. The patient actually was seen by me in my office lobby but a full examination was not done due to the patient's complaints of syncope and frequent falls. Initial blood pressure was 80 systolic and with the patient leg propped up in the chair blood pressure did come up to 100. In spite of his complaints he looks clinically stable without any symptoms of unstable angina or congestive heart failure or in any distress. EMT was called via 911 and the patient was transported to the ER. Where he was found to have a hyperosmolar state with hyperglycemia which is severe and hyperkalemia and these be treated in the ER. He was also found to be very dehydrated although there is no documentation of postural blood pressure changes. His initial troponin I was elevated at 0.542. This is secondary to type II myocardial infarction due to supply demand mismatch. No evidence of non-ST elevation [place]. Troponins have trended down. Initial elevated troponin I secondary to hypotension, dehydration, hyperglycemia and also acute on chronic renal failure. He has been hydrated with saline and at present seems to be well compensated. In view of the patient's severe LV dysfunction I would recommend that the patient's IV be decreased to 50 mL/h. PAST MEDICAL HISTORY: History of coronary artery disease. Prior history of [place]. History of ischemic and dilated cardiomyopathy. Prior history of congestive heart failure none recently. History of AICD placement no firing of the AICD. History of coronary artery bypass Surgery. Prior history of ventricular tachycardia. No recurrence. Patient on amiodarone. History of COPD. Patient is ex-smoker. History of CVA with almost fully recovered with very minimal residual subtle weakness. History of diabetes mellitus. No history of thyroid disease. There is a history of hyperlipidemia. History of chronic kidney disease. No history of anxiety, but has a history of depression. Past SURGICAL HISTORY: Cardiac catheterization. History of coronary bypass graft surgery. History of AICD placement. FAMILY HISTORY: Positive for coronary artery disease. And hypertension. ALLERGY: Patient has no known allergies. Clopidogrel Bisulfate [Plavix 75 mg Tablet] 75 mg PO DAILY 10/20/18 Temazepam [Restoril 15 mg Capsule] 15 mg PO HSP PRN 10/20/18 Amiodarone HCl [Cordarone 200 mg Tablet] 400 mg PO DAILY 10/08/19 Atorvastatin Calcium [Lipitor 40 mg Tablet] 40 mg PO QHS 10/08/19 Carvedilol [Coreg 6.25 mg Tablet] 6.25 mg PO Q12 10/08/19 Cholecalciferol (Vitamin D3) [Vitamin D3 1000 Unit Tablet] 2,000 unit PO DAILY 10/08/19 Cyanocobalamin (Vitamin B-12) [Vitamin B-12 1000 Mcg Tablet] 1,000 mcg PO DAILY 10/08/19 Famotidine [Pepcid 20 mg Tablet] 20 mg PO QAM 10/08/19 Ferrous Sulfate [Feosol 325 mg Tablet] 325 mg PO DAILY 10/08/19 Fluoxetine HCl 20 mg PO DAILY 10/08/19 Furosemide [Lasix 20 mg Tablet] 20 mg PO Q2PM 10/08/19 Gabapentin [Neurontin 100 mg Capsule] 100 mg PO QHS 10/08/19 Insulin Glargine,Hum.rec.anlog [Lantus Insulin 100 Unit/1 ml 10 ml] 10 unit SUBCUT QHS 10/08/19 Insulin Lispro [Humalog Insulin 100 Unit/1 ml 3 ml Vial] 5 unit SUBCUT MEALS 10/08/19 Nitroglycerin [Nitro-Dur 5 mg (0.2 mg/Hr) Transdermal Patch] 1 patch TD QAM 10/08/19 [place]-3/Dha/Epa/Fish Oil [Fish Oil 1,000 mg Softgel] 1,000 mg PO DAILY 10/08/19 Ranolazine [Ranexa 500 mg Tab.sr] 500 mg PO Q12 10/08/19 Tramadol HCl [Ultram 50 mg Tablet] 50 mg PO Q6HP PRN 10/08/19 Valsartan 20 mg PO Q12 10/08/19 RESUSCITATION STATUS: The patient is a full code. His son is a surrogate healthcare decision maker. Current Medications Generic Name Dose Route Start Last Admin Trade Name Freq PRN Reason Stop Dose Admin Amiodarone HCl 400 mg 10/09/19 10:00 10/09/19 09:46 Cordarone 200 Mg Tablet PO 11/08/19 09:59 400 mg DAILY [place] Administration Aspirin 81 mg 10/09/19 10:00 10/09/19 09:45 Ecotrin 81 Mg Ec Tablet PO 11/08/19 09:59 81 mg DAILY [place] Administration Atorvastatin Calcium 40 mg 10/09/19 22:00 10/09/19 21:44 Lipitor 40 Mg Tablet PO 11/08/19 21:59 40 mg QHS [place] Administration Cholecalciferol 2,000 unit 10/09/19 10:00 10/09/19 09:46 Vitamin D3 1000 Unit Tablet PO 11/08/19 09:59 2,000 unit DAILY [place] Administration Clopidogrel Bisulfate 75 mg 10/09/19 10:00 10/09/19 09:45 Plavix 75 Mg Tablet PO 11/08/19 09:59 75 mg DAILY [place] Administration Cyanocobalamin 1,000 mcg 10/09/19 10:00 10/09/19 09:44 Vitamin B-12 1000 Mcg Tablet PO 11/08/19 09:59 1,000 mcg DAILY [place] Administration Dextrose 12.5 gm 10/08/19 17:59 Dextrose Inj 50% Syringe (25 Gm/50 Ml) IV 11/07/19 17:58 PRN PRN FOR BG 50-69 IN ALERT PATIENT Protocol Dextrose 25 gm 10/08/19 17:59 Dextrose Inj 50% Syringe (25 Gm/50 Ml) IV 11/07/19 17:58 PRN PRN PER PROTOCOL Protocol Famotidine 20 mg 10/09/19 08:00 10/09/19 14:17 Pepcid 20 Mg Tablet PO 11/08/19 07:59 Not Given QAM PARIS Ferrous Sulfate 325 mg 10/09/19 10:00 10/09/19 09:45 Feosol 325 Mg Tablet PO 11/08/19 09:59 325 mg DAILY [place] Administration Fluoxetine HCl 20 mg 10/09/19 10:00 10/09/19 09:47 Prozac 20 Mg Capsule PO 11/08/19 09:59 20 mg DAILY [place] Administration Furosemide 40 mg 10/09/19 10:00 10/09/19 09:47 Lasix 40 Mg Tablet PO 11/08/19 09:59 40 mg DAILY [place] Administration Furosemide 20 mg 10/09/19 14:00 10/09/19 13:50 Lasix 20 Mg Tablet PO 11/08/19 13:59 20 mg Q2PM [place] Administration Gabapentin 100 mg 10/09/19 22:00 10/09/19 21:45 Neurontin 100 Mg Capsule PO 11/08/19 21:59 100 mg QHS [place]IS Administration Glucagon 1 mg 10/08/19 17:59 Glucagen Inj 1 Mg Vial IM 11/07/19 17:58 PRN PRN Evaluate for BG < 70 Protocol Glucose 15 gm 10/08/19 17:59 Glutose 40% Gel 15 Gm Tube PO 11/07/19 17:58 PRN PRN FOR BG 50-69 IN ALERT PATIENT Protocol Glucose 30 gm 10/08/19 17:59 Glutose 40% Gel 15 Gm Tube PO 11/07/19 17:58 PRN PRN FOR BG < 50 IN ALERT PATIENT Protocol Sodium Chloride 1,000 mls @ 50 mls/hr 10/09/19 15:09 10/09/19 21:51 Nacl 0.9% 1000 Ml Iv Soln IV 11/08/19 15:08 50 mls/hr CONTINUOUS PRN Administration THIS MED IS NOT "PRN" Insulin Glargine 10 unit 10/09/19 22:00 10/09/19 21:42 Lantus Insulin 100 Unit/1 Ml 10 Ml SUBCUT 11/08/19 21:59 10 unit QHS PARIS Administration Insulin Human Lispro 0 - 12 unit 10/08/19 22:00 10/09/19 21:44 Humalog Insulin 100 Unit/1 Ml 3 Ml Vial SUBCUT 11/07/19 21:59 2 unit ACHS [place] Administration Protocol Insulin Human Lispro 5 unit 10/09/19 08:00 10/09/19 16:08 Humalog Insulin 100 Unit/1 Ml 3 Ml Vial SUBCUT 11/08/19 07:59 5 unit MEALS [place] Administration Metoprolol Tartrate 50 mg 10/09/19 10:00 10/09/19 21:47 Lopressor 50 Mg Tablet PO 11/08/19 09:59 50 mg Q12 [place]IS Administration [id number]-[id number] Ethyl Esters 1 gm 10/09/19 10:00 10/09/19 09:45 Lovaza 1 Gm Capsule PO 11/08/19 09:59 1 gm DAILY [place] Administration Ranolazine 500 mg 10/09/19 10:00 10/09/19 21:44 Ranexa 500 Mg Tab.Sr PO 11/08/19 09:59 500 mg Q12 [place]IS Administration Temazepam 15 mg 10/09/19 07:44 Restoril 15 Mg Capsule PO 10/16/19 07:43 HSP PRN SLEEP OR INSOMNIA Tramadol HCl 50 mg 10/09/19 07:44 Ultram 50 Mg Tablet PO 10/16/19 07:43 Q6HP PRN FOR PAIN Discontinued Medications Generic Name Dose Route Start Last Admin Trade Name Freq PRN Reason Stop Dose Admin Calcium Gluconate 1 gm in 50 mls @ 50 mls/hr 10/08/19 12:23 10/08/19 12:43 Calcium Gluconate Rtu 1 Gm/50 Ml IV 10/08/19 13:22 50 mls/hr NOW ONE Administration Sodium Chloride 1,000 mls @ 0 mls/hr 10/08/19 12:25 10/08/19 13:48 Nacl 0.9% 1000 Ml Iv Soln IV 10/08/19 12:26 Infused BOLUS ONE Infusion Wide Open Sodium Chloride 1,000 mls @ 0 mls/hr 10/08/19 15:24 10/08/19 16:54 Nacl 0.9% 1000 Ml Iv Soln IV 10/08/19 15:25 Infused BOLUS ONE Infusion Wide Open Sodium Chloride 1,000 mls @ 100 mls/hr 10/08/19 17:52 10/09/19 14:33 Nacl 0.9% 1000 Ml Iv Soln IV 11/07/19 17:51 50 mls/hr CONTINUOUS PRN Infusion THIS MED IS NOT "PRN" Insulin Human Regular 10 unit 10/08/19 12:23 10/08/19 12:42 Humulin R (Pyxis) Insulin 100 Unit/Ml 3ml IV 10/08/19 12:24 10 unit NOW ONE Administration Insulin Human Regular Confirm 10/08/19 22:59 10/09/19 00:35 Humulin R (Pyxis) Insulin 100 Unit/Ml 3ml Administered 10/08/19 23:00 Not Given Dose 1 unit .ROUTE .STK-MED ONE Insulin Human Regular 6 unit 10/09/19 00:15 10/08/19 23:13 Humulin R (Pyxis) Insulin 100 Unit/Ml 3ml IV 10/09/19 00:16 6 unit NOW ONE Administration Sodium Polystyrene Sulfonate 15 gm 10/08/19 12:24 10/08/19 12:42 Kayexalate 15 Gm/60 Ml Susp 60 Ml PO 10/08/19 12:25 15 gm NOW ONE Administration REVIEW of SYSTEMS: CONSTITUTIONAL: Complains of generalized fatigue. No history of fever chills or Reiger's. HEAD: No severe headaches or head injury. EYES: Pupils with no history of amblyopia diplopia. No history of amaurosis fugax. EARS: No severe hearing loss. No tinnitus. NOSE: No history of hayfever. No history of nosebleeds. MOUTH: No altered taste sensation. No bleeding from the gums. THROAT: No history of odynophagia dysphagia no recurrent sore throats. SKIN: No pruritus. No yellowish discoloration of the skin. NECK: No history of neck pain. No swelling in the neck. LUNGS: History of COPD the patient is a smoker no symptoms of acute exacerbation COPD. No history of normal embolism. No history of sleep apnea. No history of symptoms suggestive of upper or lower respiratory tract infections. CARDIAC: History of coronary artery disease. Hi story of [place]. History of coronary artery bypass graft surgery. History of dilated and ischemic cardiomyopathy with severely reduced LV ejection fraction. History of AICD. No recent firing of the AICD. Denies any palpitations. Denies shortness of breath PND orthopnea or chest pain suggestive of angina. History of syncope most likely secondary to the patient's dehydrated state due to hyper osmolar state with hyperglycemia. ABDOMEN: Denies abdominal pain. No history of GI bleed. No history of altered bowel movements, but the patient states with his syncope he has a bowel movement which is loose. There is no GI bleed. There is no history hematemesis or HEMATOCHEZIA OR MELENA. NO HISTORY OF FATTY FOOD INTOLERANCE. Endocrine: History of diabetes mellitus. No history of thyroid disease. No history the patient does have recent polydipsia and polyuria. The patient is very noncompliant with his diet and medication for his diabetes. No heat or cold intolerance. Patient admitted with a hyperosmolar state with hyperglycemia. METABOLIC: Denies obesity. No history of gout. History of hyperlipidemia. RENAL: History of chronic kidney disease stage III. Patient recently with hyper kalemia. Also musculoskeletal: No history of arthritis or collagen vascular disease. 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 With no recurrence. No history of headaches migraines or seizures. Denies gait imbal ance. History of frequent falls and syncopal episodes. PSYCHIATRIC: No history of suicidal ideation or homicidal ideation. No history of anxiety or depression. HEMATOLOGICAL: No history of bleeding diathesis or blood dyscrasias. NO HISTORY OF CLOTTING DISORDERS. VASCULAR: No history of DVT. No calf or buttock claudication. PHYSICAL EXAMINATION: The patient is well-built and well-nourished. At present no acute distress. Selected Entries 10/09/19 10/09/19 11:37 12:00 Temperature 98.0 F Temperature Oral Source Pulse Rate 65 Respiratory 16 Rate Blood Pressure 112/66 Blood Pressure 81 Mean BP Location Right Arm BP Position Sitting O2 Sat by Pulse 98 Oximetry Oxygen Delivery Room Air Method Premature 16 Ventricular Counted Beats HEAD: Is atraumatic normocephalic. EYES: Pupils are equal round regular reactive to light accommodation. External ocular movements are normal. There is no conjunctival pallor. There is no scleral icterus. EARS: Tympanic membranes are intact. External auditory canals are clear. NOSE: There is no deviated nasal septum. There is no inflammation of the nasal mucous membrane. MOUTH: Mucous membranes of the mouth are moist. Tongue is moist. There is no ulcers. There is no bleeding from the gums. THROAT: There is no redness of the oropharynx. There is no exudates. SKIN: There is no skin rashes. There is no skin lesions. There is no petechia or ecchymosis. NECK: Supple. There is no JVD. Carotids are equal there is no bruits. There is no lymphadenopathy. There is no goiter. There is no accessory muscle respiration use. Trachea central. LUNGS: Clear to auscultation percussion. There is no rhonchi rales or wheezing. There is no chest wall tenderness. HEART: S1-S2 is heard. There is no S3 gallop. There is no S4 gallop. Systolic murmur left sternal border and the apex there is no rub. ABDOMEN: Is soft. There is no hepatosplenomegaly. Bowel sounds well heard. There is no tender areas masses. EXTREMITIES: There is no femoral bruits. Femorals are well felt. Leg pulses are well felt. There is no pedal edema. There is no DVT or cellulitis. There is no cyanosis or clubbing. CONTACT LENS BLOCKER AND CUTTER: The patient is conscious he does have problems with memory and his speech suggest slow mentation. There is mild subtle weakness of the right side. PSYCHIATRIC. The patient judgment and insight appear to be normal. Labs- Entire Visit 10/08/19 10/08/19 10/08/19 11:26 11:26 11:26 WBC 4.4 RBC 4.59 Hgb 14.2 Hct 42.8 MCV 93 MCH 30.9 MCHC 33.2 RDW 18.4 H Plt Count 185 Lymph % (Auto) 14.6 Coos % (Auto) 6.7 Eos % (Auto) 0.4 Baso % (Auto) 1.3 Absolute Neuts (auto) 3.4 Absolute Lymphs (auto) 0.6 Absolute Monos (auto) 0.3 Absolute Eos (auto) 0.0 Absolute Basos (auto) 0.1 Seg Neutrophils % 77.0 Sodium 125.8 L Potassium 6.2 H* Chloride 85 L Carbon Dioxide 26 Anion Gap 15 BUN 50 H Creatinine 2.09 H Est GFR ( Amer) 38 L Est GFR (MDRD) Non-Af 31 L Glucose 674 H* POC Glucose Hemoglobin A1c % Calcium 9.6 Magnesium Total Bilirubin 0.8 Direct Bilirubin 0.3 Neonat Total Bilirubin Not Reportable Neonat Direct Bilirubin Not Reportable Neonat Indirect Bili Not Reportable AST 20 ALT 14 Alkaline Phosphatase 131 H Creatine Kinase 38 L CK-MB (CK-2) 1.10 Troponin I 0.020 Total Protein 7.9 Albumin 4.1 Urine Color Urine Appearance Urine pH Ur Specific [place] Urine Protein Urine Glucose (UA) Urine Ketones Urine Blood Urine Nitrite Urine Bilirubin Urine Urobilinogen Ur Leukocyte Esterase Urine WBC (Auto) Urine RBC (Auto) U Hyaline Cast (Auto) Urine Mucus (Auto) Urine Ascorbic Acid 10/08/19 10/08/19 10/08/19 11:26 11:26 14:49 WBC RBC Hgb Hct MCV MCH MCHC RDW Plt Count Lymph % (Auto) [place] % (Auto) Eos % (Auto) Baso % (Auto) Absolute Neuts (auto) Absolute Lymphs (auto) Absolute Monos (auto) Absolute Eos (auto) Absolute Basos (auto) Seg Neutrophils % Sodium Potassium Chloride Carbon Dioxide Anion Gap BUN Creatinine Est GFR ( Amer) Est GFR (MDRD) Non-Af Glucose POC Glucose Hemoglobin A1c % > 14.0 H Calcium Magnesium 2.5 H Total Bilirubin Direct Bilirubin Neonat Total Bilirubin Neonat Direct Bilirubin Neonat Indirect Bili AST ALT Alkaline Phosphatase Creatine Kinase CK-MB (CK-2) Troponin I Total Protein Albumin Urine Color YELLOW Urine Appearance CLEAR Urine pH 6.0 Ur Specific [place] 1.024 Urine Protein NEGATIVE Urine Glucose (UA) >=500 H Urine Ketones TRACE H Urine Blood NEGATIVE Urine Nitrite NEGATIVE Urine Bilirubin NEGATIVE Urine Urobilinogen NEGATIVE Ur Leukocyte Esterase NEGATIVE Urine WBC (Auto) 0 Urine RBC (Auto) 1 U Hyaline Cast (Auto) 1 Urine Mucus (Auto) RARE Urine Ascorbic Acid NEGATIVE 10/08/19 10/08/19 10/09/19 17:54 21:34 00:06 WBC RBC Hgb Hct MCV MCH MCHC RDW Plt Count Lymph % (Auto) Co[place] % (Auto) Eos % (Auto) Baso % (Auto) Absolute Neuts (auto) Absolute Lymphs (auto) Absolute Monos (auto) Absolute Eos (auto) Absolute Basos (auto) Seg Neutrophils % Sodium 128.0 L Potassium 5.3 H Chloride 93 L Carbon Dioxide 26 Anion Gap 9 BUN 45 H Creatinine 1.80 H Est GFR ( Amer) 45 L Est GFR (MDRD) Non-Af 37 L Glucose 632 H* POC Glucose > 550 H* 421 H* Hemoglobin A1c % Calcium 9.0 Magnesium Total Bilirubin 0.7 Direct Bilirubin 0.0 Neonat Total Bilirubin Not Reportable Neonat Direct Bilirubin Not Reportable Neonat Indirect Bili Not Reportable AST 21 ALT 12 Alkaline Phosphatase 118 Creatine Kinase CK-MB (CK-2) Troponin I Total Protein 7.0 Albumin 3.6 Urine Color Urine Appearance Urine pH Ur Specific [place] Urine Protein Urine Glucose (UA) Urine Ketones Urine Blood Urine Nitrite Urine Bilirubin Urine Urobilinogen Ur Leukocyte Esterase Urine WBC (Auto) Urine RBC (Auto) U Hyaline Cast (Auto) Urine Mucus (Auto) Urine Ascorbic Acid 10/09/19 10/09/19 10/09/19 05:22 05:22 07:42 WBC 5.0 RBC 3.95 L Hgb 12.3 L Hct 36.0 L MCV 91 MCH 31.1 MCHC 34.1 RDW 18.0 H Plt Count 156 Lymph % (Auto) 23.2 Co[place] % (Auto) 9.0 Eos % (Auto) 1.5 Baso % (Auto) 0.7 Absolute Neuts (auto) 3.3 Absolute Lymphs (auto) 1.1 Absolute Monos (auto) 0.4 Absolute Eos (auto) 0.1 Absolute Basos (auto) 0.0 Seg Neutrophils % 65.6 Sodium 128.6 L Potassium 4.7 Chloride 98 Carbon Dioxide 21 L Anion Gap 10 BUN 42 H Creatinine 1.50 H Est GFR ( Amer) 56 L Est GFR (MDRD) Non-Af 46 L Glucose 373 H POC Glucose 383 H Hemoglobin A1c % Calcium 8.8 Magnesium 2.1 Total Bilirubin 0.3 Direct Bilirubin 0.0 Neonat Total Bilirubin Not Reportable Neonat Direct Bilirubin Not Reportable Neonat Indirect Bili Not Reportable AST 18 ALT 11 Alkaline Phosphatase 104 Creatine Kinase CK-MB (CK-2) Troponin I Total Protein 6.2 L Albumin 3.2 L Urine Color Urine Appearance Urine pH Ur Specific [place] Urine Protein Urine Glucose (UA) Urine Ketones Urine Blood Urine Nitrite Urine Bilirubin Urine Urobilinogen Ur Leukocyte Esterase Urine WBC (Auto) Urine RBC (Auto) U Hyaline Cast (Auto) Urine Mucus (Auto) Urine Ascorbic Acid 10/09/19 10/09/19 10/09/19 11:38 13:12 15:56 WBC RBC Hgb Hct MCV MCH MCHC RDW Plt Count Lymph % (Auto) Co[place] % (Auto) Eos % (Auto) Baso % (Auto) Absolute Neuts (auto) Absolute Lymphs (auto) Absolute Monos (auto) Absolute Eos (auto) Absolute Basos (auto) Seg Neutrophils % Sodium 131.4 L Potassium 4.6 Chloride 95 L Carbon Dioxide 25 Anion Gap 11 BUN 35 H Creatinine 1.35 H Est GFR ( Amer) > 60 Est GFR (MDRD) Non-Af 52 L Glucose 336 H POC Glucose 285 H 193 H Hemoglobin A1c % Calcium 8.6 Magnesium Total Bilirubin Direct Bilirubin Neonat Total Bilirubin Neonat Direct Bilirubin Neonat Indirect Bili AST ALT Alkaline Phosphatase Creatine Kinase CK-MB (CK-2) Troponin I Total Protein Albumin Urine Color Urine Appearance Urine pH Ur Specific [place] Urine Protein Urine Glucose (UA) Urine Ketones Urine Blood Urine Nitrite Urine Bilirubin Urine Urobilinogen Ur Leukocyte Esterase Urine WBC (Auto) Urine RBC (Auto) U Hyaline Cast (Auto) Urine Mucus (Auto) Urine Ascorbic Acid 10/09/19 21:12 WBC RBC Hgb Hct MCV MCH MCHC RDW Plt Count Lymph % (Auto) [place] % (Auto) Eos % (Auto) Baso % (Auto) Absolute Neuts (auto) Absolute Lymphs (auto) Absolute Monos (auto) Absolute Eos (auto) Absolute Basos (auto) Seg Neutrophils % Sodium Potassium Chloride Carbon Dioxide Anion Gap BUN Creatinine Est GFR ( Amer) Est GFR (MDRD) Non-Af Glucose POC Glucose 199 H Hemoglobin A1c % Calcium Magnesium Total Bilirubin Direct Bilirubin Neonat Total Bilirubin Neonat Direct Bilirubin Neonat Indirect Bili AST ALT Alkaline Phosphatase Creatine Kinase CK-MB (CK-2) Troponin I Total Protein Albumin Urine Color Urine Appearance Urine pH Ur Specific [place] Urine Protein Urine Glucose (UA) Urine Ketones Urine Blood Urine Nitrite Urine Bilirubin Urine Urobilinogen Ur Leukocyte Esterase Urine WBC (Auto) Urine RBC (Auto) U Hyaline Cast (Auto) Urine Mucus (Auto) Urine Ascorbic Acid Chest X-Ray 10/08/19 12:02 IMPRESSION: Cardiomegaly. No failure. No acute findings. Head CT 10/08/19 12:02 IMPRESSION: No acute intracranial event. Chronic left-sided maxillary sinusitis. EVIDENCE OF ACUTE STROKE: NO. EKG:. SINUS RHYTHM [NATHAN] . LEFT ATRIAL ABNORMALITY [NIVCD] . NONSPECIFIC INTRAVENTRICULAR CONDUCTION DELAY [LVHREP] . LVH WITH SECONDARY REPOLARIZATION ABNORMALITY - STMT - * FIRST DEGREE AVB - STMT - * QTC PROLONGATION. IMPRESSION/RECOMMENDATION: 1. FREQUENT FALLS AND SYNCOPE THIS IS MOST LIKELY SECONDARY TO HYPEROSMOLAR STATE, WITH HYPERGLYCEMIA AND DEHYDRATION. NO FIRING OF AICD. NO PALPITATIONS OR SYMPTOMS SUGGESTIVE OF CARDIAC ARRHYTHMIA. 2. Hyperosmolar state with hyperglycemia continue insulin and slow IV fluid replacement as being done. The patient appears to be well rehydrated. With no further falls or syncope. Hence in view of the patient's LV dysfunction will decrease IV fluids to 50 mL/h for another liter and then discontinue. 3. Coronary artery disease: History of coronary bypass Surgery patient with no anginal symptoms. 4. Ischemic and dilated cardiomyopathy with severely reduced ejection fraction of 15 to 20% as per echocardiogram done in [facility] in July 2019. 5. Hyperkalemia: Treated with Kayexalate. This is symptoms resolved. 6. Chronic kidney disease stage III: Avoid nephrotoxic drugs with hydration his GFR is improved. 7. Diabetes mellitus: Patient noncompliant with diet and medications. 8. COPD: No evidence of acute exacerbation. 9. AICD placement: No firing of AICD. Would recommend getting the AICD checked. 10. History of hypertension: Blood pressure well controlled 11. Prior history of CVA with no recurrence. The patient almost fully recovered from his CVA except his speech is slightly slurred and he does have a slow mentation. 12. Prior history of polysubstance abuse. The patient is a ex-smoker. The patient in the past has had a history of street drug abuse. But none recently. 13. Elevated troponin I most likely secondary to type II myocardial supply demand mismatch in the patient with dehydration acute on chronic renal failure hyperglycemia and hypotension. No evidence of non-ST elevation [place]. Troponins have trended back down to normal limits. Medications reviewed. IV fluids adjusted. Medical decision making is of high complexity. 60 minutes spent as patient with more than 50% of time spent in direct patient care. The patient appears to be stable. Most likely can be discharged home tomorrow. He will follow-up with me in the office.
[2019-10-10 06:37] LABS: HEMATOCRIT 35.6 % (37.9-51.0); HEMOGLOBIN 12.3 g/dL (13.5-17.0); MEAN CORPUSCULAR HEMOGLOBIN 31.4 pg (27.0-33.4); MEAN CORPUSCULAR HGB CONC 34.4 g/dL (32.0-36.0); MEAN CORPUSCULAR VOLUME 91 fl (80-97); PLATELET COUNT 161 10^3/uL (150-450); RED BLOOD COUNT 3.91 10^6/uL (4.35-5.55); RED CELL DISTRIBUTION WIDTH 18.2 % (11.5-14.0)
[2019-10-10 08:17] LABS: ANION GAP 8 (5-19); BLOOD UREA NITROGEN 30 mg/dL (7-20); CALCIUM 8.7 mg/dL (8.4-10.2); CARBON DIOXIDE 25 mmol/L (22-30); CHLORIDE 98 mmol/L (98-107); GLUCOSE 256 mg/dL (75-110); POTASSIUM 4.5 mmol/L (3.6-5.0)
[2019-10-10] MEDS: INSULIN LISPRO 100 UNIT/ML 3 ML VIAL SUBCUT SCH ×3 (08:41→16:39)
[2019-10-10] MEDS: FAMOTIDINE 20 MG TABLET PO SCH (09:30)
[2019-10-10] MEDS: AMIODARONE HCL 200 MG TABLET PO SCH (09:32)
[2019-10-10] MEDS: CHOLECALCIFEROL (D3) 1,000 UNIT (25 MCG) TABLET PO SCH (09:32)
[2019-10-10] MEDS: FERROUS SULFATE 325 MG TABLET PO SCH (09:33)
[2019-10-10] MEDS: CYANOCOBALAMIN (VITAMIN B-12) 1,000 MCG TABLET PO SCH (09:33)
[2019-10-10] MEDS: METOPROLOL TARTRATE 50 MG TABLET PO SCH ×2 (09:33→21:46)
[2019-10-10] MEDS: RANOLAZINE 500 MG TAB.SR.12H PO SCH ×2 (09:33→21:46)
[2019-10-10] MEDS: OMEGA-3 ACID ETHYL ESTERS 1 GM CAPSULE PO SCH (09:33)
[2019-10-10] MEDS: CLOPIDOGREL BISULFATE 75 MG TABLET PO SCH (09:33)
[2019-10-10] MEDS: FUROSEMIDE 40 MG TABLET PO SCH (09:33)
[2019-10-10] MEDS: FLUOXETINE HCL 20 MG CAPSULE PO SCH (09:33)
[2019-10-10] MEDS: ASPIRIN 81 MG TABLET, ENT COATED PO SCH (09:33)
--- NOTE | 2019-10-10 10:06 | PDOC PROGRESS REPORT ---
Subjective Progress Note for:: 10/10/19 Subjective:: Patient complains of: falls History of Present Illness: BUDDY TREJO is a 74 year old male who has history of hypertension, diabetes insulin-dependent, systolic CHF, coronary artery disease, chronic kidney disease stage III. Patient presents the emergency room due to multiple falls at home. The emergency room he was severely hyperglycemic with blood glucose on 700. He was also hyperkalemic. His EF is last known to be 45-50%. He received fluid boluses in the ER and he feels better. He denies dizziness or lightheadedness. He does start breath or chest pain. Interval history: 10/09/2019: Patient seen and examined. I spoke with Dr. Mccall last night and his updated EF is about 20%. Patient is feeling much better today. His glucose levels are improved. His A1c is more than 14. No signs of chest pain or shortness of breath. 10/10/2019: Patient was seen and examined. He feels a lot better. Glucose levels still elevated. Pending PT evaluation. Review of Systems All systems: reviewed and no additional remarkable complaints except as stated Reason For Visit: FALLS Physical Exam Vital Signs: Temp Pulse Resp BP Pulse Ox 97.9 F 61 16 122/82 96 10/10/19 08:02 10/10/19 08:02 10/10/19 08:02 10/10/19 08:02 10/10/19 08:02 Intake & Output 10/09/19 10/10/19 10/11/19 06:59 06:59 06:59 Intake Total 2972 2940 Output Total 850 2525 Balance 2122 415 Weight 169 lb 1.513 oz 168 lb 13.985 oz Exam: Physical Exam General appearance: PRESENT: no acute distress, cooperative Head exam: PRESENT: atraumatic, normocephalic Eye exam: PRESENT: EOMI, PERRLA Ear exam: ABSENT: bleeding, drainage Mouth exam: PRESENT: moist, neck supple Neck exam: ABSENT: carotid bruit, meningismus, tenderness Respiratory exam: PRESENT: clear to auscultation tracey. ABSENT: accessory muscle use, tachypnea Cardiovascular exam: PRESENT: RRR. ABSENT: diastolic murmur, systolic murmur Pulses: PRESENT: normal carotid pulses, normal radial pulses GI/Abdominal exam: PRESENT: normal bowel sounds, soft. ABSENT: distended Rectal exam: PRESENT: deferred Extremities exam: ABSENT: joint swelling, pedal edema Musculoskeletal exam: PRESENT: ambulatory. ABSENT: deformity Neurological exam: PRESENT: alert, awake, oriented to person, oriented to place, oriented to time, oriented to situation, CN II-XII grossly intact. ABSENT: motor sensory deficit Psychiatric exam: PRESENT: appropriate affect, normal mood. ABSENT: homicidal ideation, suicidal ideation Results Laboratory Results: 10/10/19 05:22 10/10/19 05:22 10/09/19 10/10/19 10/10/19 13:12 05:22 05:22 WBC 5.0 RBC 3.91 L Hgb 12.3 L Hct 35.6 L MCV 91 MCH 31.4 MCHC 34.4 RDW 18.2 H Plt Count 161 Sodium 131.4 L 130.5 L Potassium 4.6 4.5 Chloride 95 L 98 Carbon Dioxide 25 25 Anion Gap 11 8 BUN 35 H 30 H Creatinine 1.35 H 1.44 H Est GFR ( Amer) > 60 58 L Glucose 336 H 256 H Calcium 8.6 8.7 10/08/19 10/08/19 11:26 11:26 Creatine Kinase 38 L CK-MB (CK-2) 1.10 Troponin I 0.020 Impressions: Chest X-Ray 10/08/19 12:02 IMPRESSION: Cardiomegaly. No failure. No acute findings. Head CT 10/08/19 12:02 IMPRESSION: No acute intracranial event. Chronic left-sided maxillary sinusitis. EVIDENCE OF ACUTE STROKE: NO. Assessment and Plan - Diagnosis (1) Frequent falls Is this a current diagnosis for this admission?: Yes (2) Hyperglycemia due to type 2 diabetes mellitus Qualifiers: Diabetes mellitus termite inspector insulin use: unspecified senior living insulin use status Qualified Code(s): E11.65 - Type 2 diabetes mellitus with hyperglycemia Is this a current diagnosis for this admission?: Yes (3) Chronic systolic CHF (congestive heart failure) Is this a current diagnosis for this admission?: Yes (4) Hyperkalemia Is this a current diagnosis for this admission?: Yes (5) Chronic kidney disease, stage 3 (moderate) Is this a current diagnosis for this admission?: Yes (6) Coronary artery disease Qualifiers: Coronary Disease-Associated Artery/Lesion type: [place] artery Is this a current diagnosis for this admission?: Yes - Plan Summary Summary: Assessment and Plan (1) Frequent falls Is this a current diagnosis for this admission?: Yes Plan: Continue fall precautions. We could not get MRI with the patient has pacemaker. PT and OT evaluation. (2) Hyperglycemia due to type 2 diabetes mellitus Qualifiers: Diabetes mellitus senior living insulin use: unspecified senior living insulin use status Qualified Code(s): E11.65 - Type 2 diabetes mellitus with hyperglycemia Is this a current diagnosis for this admission?: Yes Plan: Patient is volume depleted. A1c >14. Continue current rate of normal saline. Monitor volume status very closely since he has history of CHF. Monitor glucose levels. Increase Lantus to 20 units at bedtime and Humalog to 10 units before meals. (3) Chronic systolic CHF (congestive heart failure) Is this a current diagnosis for this admission?: Yes Plan: Currently volume depleted. Received fluid boluses in the ER. Continue IV fluids as above. Monitor volume status very carefully. (4) Hyperkalemia Is this a current diagnosis for this admission?: Yes Plan: Due to insulin deficiency and dehydration. Continue IV fluids and insulin as above. Monitor on telemetry. Currently resolved. (5) Chronic kidney disease, stage 3 (moderate) Is this a current diagnosis for this admission?: Yes Plan: Continue to monitor renal function. Improved. (6) Coronary artery disease Qualifiers: Coronary Disease-Associated Artery/Lesion type: [place] artery Is this a current diagnosis for this admission?: Yes Plan: No chest pain or shortness of breath. Continue cardiac home medications.
[2019-10-10] MEDS ORDERED: ONDANSETRON HCL INJ/PF 4 MG/2 ML SDV ONE (11:36)
[2019-10-10] MEDS ORDERED: ONDANSETRON HCL INJ/PF 4 MG/2 ML SDV IV PRN (11:41)
[2019-10-10] MEDS: MIDODRINE HCL 5 MG TABLET PO SCH ×2 (11:58→18:35)
[2019-10-10 15:05] LABS: POTASSIUM 4.6 mmol/L (3.6-5.0)
[2019-10-10] MEDS: FUROSEMIDE 20 MG TABLET PO SCH (15:27)
[2019-10-10] MEDS: NORMAL SALINE 1000 ML 1,000 ML IV PRN (18:36)
--- NOTE | 2019-10-10 18:57 | EKG REPORT ---
SEVERITY:- ABNORMAL ECG - VENTRICULAR-PACED COMPLEXES FIRST DEGREE AV BLOCK PROBABLE LEFT ATRIAL ABNORMALITY NONSPECIFIC INTRAVENTRICULAR CONDUCTION DELAY BORDERLINE ST DEPRESSION, LATERAL LEADS OLD ANTEROSEPTAL UT : Confirmed by: Omar Luu MD 10-Oct-2019 18:56:12
[2019-10-10] MEDS: GABAPENTIN 100 MG CAPSULE PO SCH (21:46)
[2019-10-10] MEDS: ATORVASTATIN CALCIUM 40 MG TABLET PO SCH (21:46)
[2019-10-10] MEDS ORDERED: INSULIN GLARGINE,HUM.REC.ANLOG 1,000 UNIT/10 ML VIAL SUBCUT SCH (22:00)
[2019-10-11 06:01] LABS: HEMATOCRIT 36.7 % (37.9-51.0); HEMOGLOBIN 12.3 g/dL (13.5-17.0); MEAN CORPUSCULAR HEMOGLOBIN 30.8 pg (27.0-33.4); MEAN CORPUSCULAR HGB CONC 33.4 g/dL (32.0-36.0); MEAN CORPUSCULAR VOLUME 92 fl (80-97); PLATELET COUNT 157 10^3/uL (150-450); RED BLOOD COUNT 3.98 10^6/uL (4.35-5.55); RED CELL DISTRIBUTION WIDTH 18.7 % (11.5-14.0); WHITE BLOOD COUNT 5.1 10^3/uL (4.0-10.5)
[2019-10-11 06:23] LABS: ANION GAP 9 (5-19); BLOOD UREA NITROGEN 24 mg/dL (7-20); CALCIUM 8.6 mg/dL (8.4-10.2); CARBON DIOXIDE 25 mmol/L (22-30); CHLORIDE 96 mmol/L (98-107); GLUCOSE 306 mg/dL (75-110); POTASSIUM 4.8 mmol/L (3.6-5.0)
[2019-10-11] MEDS: FAMOTIDINE 20 MG TABLET PO SCH (09:17)
[2019-10-11] MEDS: FLUOXETINE HCL 20 MG CAPSULE PO SCH (09:18)
[2019-10-11] MEDS: OMEGA-3 ACID ETHYL ESTERS 1 GM CAPSULE PO SCH (09:19)
[2019-10-11] MEDS: RANOLAZINE 500 MG TAB.SR.12H PO SCH ×2 (09:19→22:09)
[2019-10-11] MEDS: CYANOCOBALAMIN (VITAMIN B-12) 1,000 MCG TABLET PO SCH (09:19)
[2019-10-11] MEDS: CLOPIDOGREL BISULFATE 75 MG TABLET PO SCH (09:19)
[2019-10-11] MEDS: CHOLECALCIFEROL (D3) 1,000 UNIT (25 MCG) TABLET PO SCH (09:20)
[2019-10-11] MEDS: ASPIRIN 81 MG TABLET, ENT COATED PO SCH (09:20)
[2019-10-11] MEDS: FERROUS SULFATE 325 MG TABLET PO SCH (09:20)
[2019-10-11] MEDS: INSULIN LISPRO 100 UNIT/ML 3 ML VIAL SUBCUT SCH ×3 (09:20→18:11)
[2019-10-11] MEDS ORDERED: MIDODRINE HCL 5 MG TABLET PO ONE (10:30)
[2019-10-11] MEDS: MIDODRINE HCL 5 MG TABLET PO SCH ×4 (11:08→18:03)
[2019-10-11] MEDS: METOPROLOL TARTRATE 50 MG TABLET PO SCH ×2 (11:45→22:09)
[2019-10-11] MEDS: FUROSEMIDE 40 MG TABLET PO SCH (11:45)
[2019-10-11] MEDS: AMIODARONE HCL 200 MG TABLET PO SCH (11:45)
[2019-10-11] MEDS ORDERED: INSULIN LISPRO 100 UNIT/ML 3 ML VIAL SUBCUT ONE ×2 (11:56→12:00)
--- NOTE | 2019-10-11 13:58 | PDOC PROGRESS REPORT ---
Subjective Progress Note for:: 10/11/19 Subjective:: BUDDY TREJO is a 74 year old male who has history of hypertension, diabetes insulin-dependent, systolic CHF, coronary artery disease, chronic kidney disease stage III who was admitted 10/08/19 for frequent falls. Patient was seen on morning rounds. He was found to be resting comfortably on room air. He states that he is feeling well today and is asking to be d ischarged to home; however, BP is rather low and blood sugars remain relatively uncontrolled. He denies dizziness, chest pain, palpitations, dyspnea, orthopnea, abdominal pain, nausea and vomiting. He has no other questions or concerns today. No concerns per nursing. Reason For Visit: FALLS Physical Exam Vital Signs: Temp Pulse Resp BP Pulse Ox 98.1 F 61 16 98/52 L 99 10/11/19 03:28 10/11/19 07:00 10/11/19 03:28 10/11/19 04:00 10/11/19 03:28 Intake & Output 10/10/19 10/11/19 10/12/19 06:59 06:59 06:59 Intake Total 2940 3229 Output Total 2525 1950 Balance 415 1279 Weight 76.6 kg 79.2 kg General appearance: PRESENT: no acute distress, cooperative, well-developed, well-nourished Head exam: PRESENT: atraumatic, normocephalic Eye exam: PRESENT: conjunctiva pink, EOMI, PERRLA. ABSENT: scleral icterus Mouth exam: PRESENT: moist, tongue midline Neck exam: ABSENT: carotid bruit, JVD, lymphadenopathy, thyromegaly Respiratory exam: PRESENT: clear to auscultation tracey, symmetrical, unlabored. ABSENT: rales, rhonchi, wheezes Cardiovascular exam: PRESENT: RRR, +S1, +S2. ABSENT: diastolic murmur, rubs, systolic murmur Pulses: PRESENT: normal dorsalis pedis pul Vascular exam: PRESENT: normal capillary refill Extremities exam: PRESENT: full ROM, pedal edema - trace bilaterally. ABSENT: calf tenderness, clubbing Musculoskeletal exam: PRESENT: ambulatory Neurological exam: PRESENT: alert, awake, oriented to person, oriented to place, oriented to time, oriented to situation, CN II-XII grossly intact. ABSENT: motor sensory deficit Psychiatric exam: PRESENT: appropriate affect, normal mood. ABSENT: homicidal ideation, suicidal ideation Skin exam: PRESENT: dry, intact, warm. ABSENT: cyanosis, rash Results Laboratory Results: 10/11/19 05:05 10/11/19 05:05 10/10/19 10/11/19 10/11/19 14:25 05:05 05:05 WBC 5.1 RBC 3.98 L Hgb 12.3 L Hct 36.7 L MCV 92 MCH 30.8 MCHC 33.4 RDW 18.7 H Plt Count 157 Sodium 129.5 L Potassium 4.6 4.8 Chloride 96 L Carbon Dioxide 25 Anion Gap 9 BUN 24 H Creatinine 1.33 H Est GFR ( Amer) > 60 Glucose 306 H Calcium 8.6 Magnesium 1.7 10/08/19 10/08/19 11:26 11:26 Creatine Kinase 38 L CK-MB (CK-2) 1.10 Troponin I 0.020 Impressions: Chest X-Ray 10/08/19 12:02 IMPRESSION: Cardiomegaly. No failure. No acute findings. Head CT 10/08/19 12:02 IMPRESSION: No acute intracranial event. Chronic left-sided maxillary sinusitis. EVIDENCE OF ACUTE STROKE: NO. Assessment and Plan - Diagnosis (1) Hyperglycemia due to type 2 diabetes mellitus Qualifiers: Diabetes mellitus long-term insulin use: unspecified long-term insulin use s tatus Qualified Code(s): E11.65 - Type 2 diabetes mellitus with hyperglycemia Is this a current diagnosis for this admission?: Yes Plan: Holding oral medications while admitted. Hemoglobin A1c >14 Patient is placed on a consistent carb diet. Patient continues to have blood sugars mid 300s to 400s. Will increase Lantus from 20 to 24 units nightly Continue Humalog 10 units before meals. Accu-Cheks before meals and at bedtime Hypoglycemia protocol in place. Registered dietitian assistant health educator consulted. (2) Chronic systolic CHF (congestive heart failure) Is this a current diagnosis for this admission?: Yes Plan: Cardiology is consulted. Medication management per Dr. vang. Currently on Midodrine for blood pressure support. Receiving Toprol, furosemide, ASA and Statin therapy. Cardiac diet. Daily weights, string I&Os (3) Hyperkalemia Is this a current diagnosis for this admission?: Yes Plan: Resolved. Due to insulin deficiency and dehydration. Monitored on telemetry. Follow up chemistry (4) Chronic kidney disease, stage 3 (moderate) Is this a current diagnosis for this admission?: Yes Plan: Stable, at baseline. Cr 1.33 Avoid nephrotoxic medications. Continue to monitor renal function. (5) Coronary artery disease Qualifiers: Coronary Disease-Associated Artery/Lesion type: [place] artery Is this a current diagnosis for this admission?: Yes Plan: No chest pain or shortness of breath. Continue antihypertensives per cardiology. Continue home dose Ranexa Continue Aspirin, Plavix, and Statin therapy. (6) Frequent falls Is this a current diagnosis for this admission?: Yes Plan: Fall precautions. PT and OT evaluation; have signed off. - Time Time Spent with patient: 25-34 minutes Medications reviewed and adjusted accordingly: Yes Anticipated discharge: Home Within: within 24 hours - pending improved glucose control and cardiology clearance.
[2019-10-11] MEDS: FUROSEMIDE 20 MG TABLET PO SCH (14:33)
--- NOTE | 2019-10-11 18:27 | CDI QUERY ---
CDI Query CDI Review: Dear Provider: To better reflect your patients severity of illness, morbidity, and resource utilization Please specify and document in the Progress Notes and Discharge Summary if you are monitoring / treating / evaluating any of the following conditions: Query Clinical indicators Please include in your documentation in the Progress Note and Discharge summary if you agree with this diagnosis. Ischemic and dilated cardiomyopathy with severely reduced ejection fraction of 15 to 20% Hyponatremia due to dehydration Hyponatremia Hypo-osmolality Unable to determine Other Per Cardiology Note: Ischemic and dilated cardiomyopathy with severely reduced ejection fraction of 15 to 20% as per echocardiogram done in [facility] in July 2019. Per Progress Note: Currently volume depleted. Received fluid boluses in the ER. Continue IV fluids as above. Monitor volume status very carefully. Labs: Sodium 125.8 The terms probable, suspected, likely, possible or still to be ruled out may be used if you are unable to determine the exact nature of a condition. Thank you for your consideration, Clinical Documentation Physician Advisors EDDA Fernando RN, BSN RN Office [phone] Office [phone]
--- NOTE | 2019-10-11 20:18 | Progress Note ---
Provider Note Provider Note: CARDIOLOGY PROGRESS NOTE by Dr. Jazmin Valencia on 10/11/2019. SUBJECTIVE: The patient denies any chest pain or discomfort. There is no shortness of breath. There is no PND orthopnea. There is no leg edema. The patient is has asymptomatic blood pressure in the low 80s. With me during the blood pressure did come up to 101 systolic. He is asymptomatic from his low blood pressure. His blood sugar is still high. His hydration will be continued and there is no signs of heart failure. There is no firing of his AICD. There is no arrhythmia seen on the monitor. PHYSICAL EXAMINATION: The patient appears to be chronically ill. In no acute distress. Selected Entries 10/11/19 10/11/19 10/11/19 03:28 04:00 08:00 Temperature 98.1 F 98.3 F Temperature Oral Source Pulse Rate 63 Respiratory 18 Rate Blood Pressure 98/52 L [Left Upper Arm ] Blood Pressure 86/50 L [Right Upper Arm] Blood Pressure 67 Mean [Left Upper Arm] Blood Pressure 62 Mean [Right Upper Arm] BP Location BP Position O2 Sat by Pulse 99 98 Oximetry Oxygen Delivery Room Air Method ( includes room air) Oxygen Delivery Room Air Method 10/11/19 11:40 Temperature 98.1 F Temperature Oral Source Pulse Rate 61 Respiratory Rate Blood Pressure [Left Upper Arm ] Blood Pressure [Right Upper Arm] Blood Pressure Mean [Left Upper Arm] Blood Pressure Mean [Right Upper Arm] BP Location Right Arm BP Position Supine O2 Sat by Pulse Oximetry Oxygen Delivery Method ( includes room air) Oxygen Delivery Method HEAD: Is atraumatic normocephalic. EYES: Pupils are equal round regular reactive to light accommodation. External ocular movements are normal. There is no conjunctival pallor. There is no scleral icterus. EARS: Tympanic membranes are intact. External auditory canals are clear. NOSE: There is no deviated nasal septum. There is no inflammation of the nasal mucous membrane. MOUTH: Mucous membranes of the mouth are moist. Tongue is moist. There is no ulcers. There is no bleeding from the gums. THROAT: There is no redness of the oropharynx. There is no exudates. SKIN: There is no skin rashes. There is no skin lesions. There is no petechia or ecchymosis. NECK: Supple. There is no JVD. Carotids are equal there is no bruits. There is no lymphadenopathy. There is no goiter. There is no accessory muscle respiration use. Trachea central. LUNGS: Clear to auscultation percussion. There is no rhonchi rales or wheezing. There is no chest wall tenderness. HEART: S1-S2 is heard. There is no S3 gallop. There is no S4 gallop. Systolic murmur left sternal border and the apex there is no rub. ABDOMEN: Is soft. There is no hepatosplenomegaly. Bowel sounds well heard. There is no tender areas masses. EXTREMITIES: There is no femoral bruits. Femorals are well felt. Leg pulses are well felt. There is no pedal edema. There is no DVT or cellulitis. There is no cyanosis or clubbing. RAIL WASHER: The patient is conscious he does have problems with memory and his speech suggest slow mentation. There is mild subtle weakness of the right side. PSYCHIATRIC. The patient judgment and insight appear to be normal. Chest X-Ray 10/08/19 12:02 IMPRESSION: Cardiomegaly. No failure. No acute findings. Head CT 10/08/19 12:02 IMPRESSION: No acute intracranial event. Chronic left-sided maxillary sinusitis. EVIDENCE OF ACUTE STROKE: NO. Labs- All tests 24 hr 10/08/19 10/08/19 10/10/19 21:40 23:04 21:02 WBC RBC Hgb Hct MCV MCH MCHC RDW Plt Count Sodium Potassium Chloride Carbon Dioxide Anion Gap BUN Creatinine Est GFR ( Amer) Est GFR (MDRD) Non-Af Glucose POC Glucose > 550 H* > 550 H* 256 H Calcium 10/11/19 10/11/19 10/11/19 05:05 05:05 07:55 WBC 5.1 RBC 3.98 L Hgb 12.3 L Hct 36.7 L MCV 92 MCH 30.8 MCHC 33.4 RDW 18.7 H Plt Count 157 Sodium 129.5 L Potassium 4.8 Chloride 96 L Carbon Dioxide 25 Anion Gap 9 BUN 24 H Creatinine 1.33 H Est GFR ( Amer) > 60 Est GFR (MDRD) Non-Af 53 L Glucose 306 H POC Glucose 313 H Calcium 8.6 10/11/19 10/11/19 11:42 16:55 WBC RBC Hgb Hct MCV MCH MCHC RDW Plt Count Sodium Potassium Chloride Carbon Dioxide Anion Gap BUN Creatinine Est GFR ( Amer) Est GFR (MDRD) Non-Af Glucose POC Glucose 431 H* 213 H Calcium IMPRESSION/RECOMMENDATION: 1. FREQUENT FALLS AND SYNCOPE THIS IS MOST LIKELY SECONDARY TO HYPEROSMOLAR STATE, WITH HYPERGLYCEMIA AND DEHYDRATION. NO FIRING OF AICD. NO PALPITATIONS OR SYMPTOMS SUGGESTIVE OF CARDIAC ARRHYTHMIA. 2. Hyperosmolar state with hyperglycemia continue insulin and slow IV fluid replacement as being done. The patient appears to be well rehydrated. With no further falls or syncope. Hence in view of the patient's LV dysfunction will decrease IV fluids to 50 mL/h for another liter and then discontinue. 3. Coronary artery disease: History of coronary bypass Surgery patient with no anginal symptoms. 4. Ischemic and dilated cardiomyopathy with severely reduced ejection fraction of 15 to 20% as per echocardiogram done in [facility] in July 2019. 5. Hyperkalemia: Treated with Kayexalate. This is symptoms resolved. 6. Chronic kidney disease stage III: Avoid nephrotoxic drugs with hydration his GFR is improved. 7. Diabetes mellitus: Patient noncompliant with diet and medications. 8. COPD: No evidence of acute exacerbation. 9. AICD placement: No firing of AICD. Would recommend getting the AICD checked. 10. History of hypertension: Blood pressure well controlled 11. Prior history of CVA with no recurrence. The patient almost fully r ecovered from his CVA except his speech is slightly slurred and he does have a slow mentation. 12. Prior history of polysubstance abuse. The patient is a ex-smoker. The patient in the past has had a history of street drug abuse. But none recently. 13. Elevated troponin I most likely secondary to type II myocardial supply demand mismatch in the patient with dehydration acute on chronic renal failure hyperglycemia and hypotension. No evidence of non-ST elevation IN. Troponins have trended back down to normal limits. Medications reviewed. Medical regimen management plan discussed with the attending physician on the case. Medical decision making is of moderate complexity. 40 minutes spent on this patient with more than 50% time spent in direct patient care.
[2019-10-11] MEDS ORDERED: INSULIN GLARGINE,HUM.REC.ANLOG 1,000 UNIT/10 ML VIAL SUBCUT SCH (22:00)
[2019-10-11] MEDS: GABAPENTIN 100 MG CAPSULE PO SCH (22:09)
[2019-10-11] MEDS: ATORVASTATIN CALCIUM 40 MG TABLET PO SCH (22:09)
[2019-10-12 05:36] LABS: ANION GAP 7 (5-19); BLOOD UREA NITROGEN 23 mg/dL (7-20); CALCIUM 8.5 mg/dL (8.4-10.2); CARBON DIOXIDE 25 mmol/L (22-30); CHLORIDE 97 mmol/L (98-107); GLUCOSE 312 mg/dL (75-110); POTASSIUM 4.8 mmol/L (3.6-5.0)
[2019-10-12] MEDS: INSULIN LISPRO 100 UNIT/ML 3 ML VIAL SUBCUT SCH ×2 (08:03→11:25)
[2019-10-12] MEDS: FAMOTIDINE 20 MG TABLET PO SCH (08:05)
[2019-10-12] MEDS: FLUOXETINE HCL 20 MG CAPSULE PO SCH (09:05)
[2019-10-12] MEDS: OMEGA-3 ACID ETHYL ESTERS 1 GM CAPSULE PO SCH (09:05)
[2019-10-12] MEDS: CHOLECALCIFEROL (D3) 1,000 UNIT (25 MCG) TABLET PO SCH (09:05)
[2019-10-12] MEDS: FERROUS SULFATE 325 MG TABLET PO SCH (09:05)
[2019-10-12] MEDS: CLOPIDOGREL BISULFATE 75 MG TABLET PO SCH (09:05)
[2019-10-12] MEDS: CYANOCOBALAMIN (VITAMIN B-12) 1,000 MCG TABLET PO SCH (09:05)
[2019-10-12] MEDS: FUROSEMIDE 40 MG TABLET PO SCH (09:05)
[2019-10-12] MEDS: MIDODRINE HCL 5 MG TABLET PO SCH ×2 (09:06→13:03)
[2019-10-12] MEDS: AMIODARONE HCL 200 MG TABLET PO SCH (09:06)
[2019-10-12] MEDS: ASPIRIN 81 MG TABLET, ENT COATED PO SCH (09:06)
[2019-10-12] MEDS: RANOLAZINE 500 MG TAB.SR.12H PO SCH (09:06)
[2019-10-12] MEDS: METOPROLOL TARTRATE 50 MG TABLET PO SCH (09:06)
--- NOTE | 2019-10-12 12:03 | PDOC PROGRESS REPORT ---
Subjective Progress Note for:: 10/12/19 Reason For Visit: FALLS 10/12/2019 Patient was admitted for falls secondary to hyperglycemia. Ejection fraction less than 20%. AICD interrogation Physical Exam Vital Signs: Temp Pulse Resp BP Pulse Ox 97.3 F 61 16 114/66 97 10/12/19 08:28 10/12/19 08:28 10/12/19 08:28 10/12/19 08:28 10/12/19 08:28 Intake & Output 10/11/19 10/12/19 10/13/19 06:59 06:59 06:59 Intake Total 3229 2323 Output Total 1950 2460 Balance 1279 -137 Weight 79.2 kg 79.4 kg General appearance: PRESENT: no acute distress Respiratory exam: PRESENT: clear to auscultation tracey. ABSENT: rales, rhonchi, wheezes Cardiovascular exam: PRESENT: RRR. ABSENT: diastolic murmur, rubs, systolic murmur Neurological exam: PRESENT: alert, awake, oriented to person, oriented to place, oriented to time, oriented to situation, CN II-XII grossly intact. ABSENT: motor sensory deficit Psychiatric exam: PRESENT: appropriate affect, normal mood. ABSENT: homicidal ideation, suicidal ideation Results Laboratory Results: 10/11/19 05:05 10/12/19 04:44 10/12/19 04:44 Sodium 128.7 L Potassium 4.8 Chloride 97 L Carbon Dioxide 25 Anion Gap 7 BUN 23 H Creatinine 1.25 Est GFR ( Amer) > 60 Glucose 312 H Calcium 8.5 10/08/19 10/08/19 11:26 11:26 Creatine Kinase 38 L CK-MB (CK-2) 1.10 Troponin I 0.020 Impressions: Chest X-Ray 10/08/19 12:02 IMPRESSION: Cardiomegaly. No failure. No acute findings. Head CT 10/08/19 12:02 IMPRESSION: No acute intracranial event. Chronic left-sided maxillary s inusitis. EVIDENCE OF ACUTE STROKE: NO. Assessment and Plan - Diagnosis (1) CHANELL (acute kidney injury) Is this a current diagnosis for this admission?: Yes (2) Frequent falls Is this a current diagnosis for this admission?: Yes (3) Hyperglycemia due to type 2 diabetes mellitus Qualifiers: Diabetes mellitus halfway insulin use: unspecified exterminator helper insulin use status Qualified Code(s): E11.65 - Type 2 diabetes mellitus with hyperglycemia Is this a current diagnosis for this admission?: Yes (4) Acute on chronic systolic (congestive) heart failure Is this a current diagnosis for this admission?: Yes (5) Coronary artery disease Qualifiers: Coronary Disease-Associated Artery/Lesion type: [place] artery Is this a current diagnosis for this admission?: Yes (6) Diabetes mellitus Qualifiers: Diabetes mellitus type: type 2 Chronic kidney disease stage: stage 3 (moderate) Is this a current diagnosis for this admission?: Yes - Plan Summary Summary: 10/12/2019 Today we tried to have the patient's AICD interrogated but were unsuccessful. Nursing staff has called [facility] they will send his medical records so that we can know who to contact to interrogate his pacemaker, per cardiology's recommendations Today's vital signs temperature 98.7, pulse 65 and irregular Fingerstick blood sugars are improving earlier today is as high as 431 in the last 12 hours it is in the low to mid 200s Lantus was increased to 24 units daily, Humalog 10 units with meals 3 times a day States he was taking insulin prior to admission. Patient is medically stable. Fully we can discharge him once his AICD has been interrogated Patient is taking amiodarone 400 mg daily, Lasix 40 mg a.m. and 20 mg in the early afternoon, Plavix 75 mg daily Patient also on midodrine 10 mg 3 times daily - Time Time Spent with patient: 25-34 minutes
[2019-10-12] MEDS: FUROSEMIDE 20 MG TABLET PO SCH (13:01)
[2019-10-12 14:25] VITALS: BP 98/52
--- NOTE | 2019-10-12 17:23 | PDOC DISCHARGE SUMMARY ---
Impression - Admit/DC Date/PCP Admission Date/Primary Care Provider: 10/08/19 17:00 KENDRA VARELA MD Discharge Date: 10/12/19 - Discharge Diagnosis (1) CHANELL (acute kidney injury) Is this a current diagnosis for this admission?: Yes (2) Frequent falls Is this a current diagnosis for this admission?: Yes (3) Hyperglycemia due to type 2 diabetes mellitus Is this a current diagnosis for this admission?: Yes (4) Acute on chronic systolic (congestive) heart failure Is this a current diagnosis for this admission?: No (5) Coronary artery disease Is this a current diagnosis for this admission?: Yes (6) Diabetes mellitus Is this a current diagnosis for this admission?: Yes - Assessment Summary: 10/12/2019 Today we tried to have the patient's AICD interrogated but were unsuccessful. Nursing staff has called [facility] they will send his medical records so that we can know who to contact to interrogate his pacemaker, per cardiology's recommendations Today's vital signs temperature 98.7, pulse 65 and irregular Fingerstick blood sugars are improving earlier today is as high as 431 in the last 12 hours it is in the low to mid 200s Lantus was increased to 24 units daily, Humalog 10 units with meals 3 times a day States he was taking insulin prior to admission. Patient is medically stable. Therefore we can discharge him once his AICD has been interrogated Patient is taking amiodarone 400 mg daily, Lasix 40 mg a.m. and 20 mg in the early afternoon, Plavix 75 mg daily Patient also on midodrine 10 mg 3 times daily In discussing this with Dr. Mixon later today the patient has recently had his AICD interrogated and found to be fully functional, therefor he was discharged home. Changes in his medication include decreasing his Lasix to 20 mg at 1400 hrs., continuing his Lopressor, 50 mg every 12 hours, increasing his Lantus to 24 units daily. Also to continue his amiodarone 400 mg daily Discontinuing his midodrine. Patient was originally admitted on the due to multiple falls at home. Patient was found to have a blood glucose of 700 and he was hyperkalemic. Patient was admitted to the hospital for IV fluids volume depletion, placed on a sliding scale of insulin While in the hospital patient was seen by cardiology felt at the time of discharge patient was stable, no signs of heart failure. No firing of his AICD. No arrhythmias seen on the monitor. Etiology felt that his ejection fraction of 15 to 20% was validated by echocardiogram done in July 2019. Patient was told he needs to follow-up with his primary care provider by the end of the week Diagnosis is #1 fall #2 hyperglycemia #3 AICD #4 EF less than 45-50% #5 diabetes #6 coronary artery disease #7 cardiomyopathy - Additional Information Resuscitation Status: Full Code Discharge Diet: Cardiac, Diabetic Discharge Activity: Balance Activity w/Rest Referrals: KENDRA VARELA MD [Primary Care Provider] - 10/20/19 9:45 am ZHEN MIXON MD [ACTIVE STAFF] - 10/18/19 12:15 pm Prescriptions: Furosemide [Lasix 20 mg Tablet] 20 mg PO Q2PM 30 Days #30 Home Medications: Clopidogrel Bisulfate [Plavix 75 mg Tablet] 75 mg PO DAILY 10/20/18 Temazepam [Restoril 15 mg Capsule] 15 mg PO HSP PRN 10/20/18 Aspirin [Ecotrin 81 mg EC Tablet] 81 mg PO DAILY tabec 10/23/18 Metoprolol Tartrate [Lopressor 50 mg Tablet] 50 mg PO Q12 #60 tablet 10/23/18 Amiodarone HCl [Cordarone 200 mg Tablet] 400 mg PO DAILY 10/08/19 Atorvastatin Calcium [Lipitor 40 mg Tablet] 40 mg PO QHS 10/08/19 Cholecalciferol (Vitamin D3) [Vitamin D3 1000 Unit Tablet] 2,000 unit PO DAILY 10/08/19 Cyanocobalamin (Vitamin B-12) [Vitamin B-12 1000 mcg Tablet] 1,000 mcg PO DAILY 10/08/19 Famotidine [Pepcid 20 mg Tablet] 20 mg PO QAM 10/08/19 Ferrous Sulfate [Feosol 325 mg Tablet] 325 mg PO DAILY 10/08/19 Fluoxetine HCl 20 mg PO DAILY 10/08/19 Gabapentin [Neurontin 100 mg Capsule] 100 mg PO QHS 10/08/19 Insulin Lispro [Humalog Insulin (Lispro) 100 unit/mL] 5 unit SUBCUT MEALS 10/08/19 Nitroglycerin [Nitro-Dur 5 mg (0.2 mg/Hr) Transdermal Patch] 1 patch TD QAM 10/08/19 Smoot-3/Dha/Epa/Fish Oil [Fish Oil 1,000 mg Softgel] 1,000 mg PO DAILY 10/08/19 Ranolazine [Ranexa 500 mg Tab.sr] 500 mg PO Q12 10/08/19 Tramadol HCl [Ultram 50 mg Tablet] 50 mg PO Q6HP PRN 10/08/19 Furosemide [Lasix 20 mg Tablet] 20 mg PO Q2PM 30 Days #30 10/12/19 Insulin Glargine,Hum.rec.anlog [Lantus Insulin 100 Unit/1 ml 10 ml] 24 unit SUBCUT QHS unit 10/12/19 Midodrine HCl [Proamatine 5 mg Tablet] 10 mg PO TID tablet 10/12/19 Tramadol HCl [Ultram 50 mg Tablet] 50 mg PO Q6HP PRN tablet 10/12/19 History of Present Illiness History of Present Illness: BUDDY TREJO is a 74 year old male Physical Exam Vital Signs: Temp Pulse Resp BP Pulse Ox 98.4 F 60 18 98/52 L 98 10/12/19 14:13 10/12/19 14:13 10/12/19 14:13 10/12/19 14:13 10/12/19 14:13 Intake & Output 10/11/19 10/12/19 10/13/19 06:59 06:59 06:59 Intake Total 2102 2323 678 Output Total 7228 0830 750 Balance 1279 -137 -72 Weight 79.2 kg 79.4 kg Results Laboratory Results: WBC 5.1 10^3/uL (4.0-10.5) 10/11/19 05:05 RBC 3.98 10^6/uL (4.35-5.55) L 10/11/19 05:05 Hgb 12.3 g/dL (13.5-17.0) L 10/11/19 05:05 Hct 36.7 % (37.9-51.0) L 10/11/19 05:05 MCV 92 fl (80-97) 10/11/19 05:05 MCH 30.8 pg (27.0-33.4) 10/11/19 05:05 MCHC 33.4 g/dL (32.0-36.0) 10/11/19 05:05 RDW 18.7 % (11.5-14.0) H 10/11/19 05:05 Plt Count 157 10^3/uL (150-450) 10/11/19 05:05 Lymph % (Auto) 23.2 % (13-45) 10/09/19 05:22 Baker % (Auto) 9.0 % (3-13) 10/09/19 05:22 Eos % (Auto) 1.5 % (0-6) 10/09/19 05:22 Baso % (Auto) 0.7 % (0-2) 10/09/19 05:22 Absolute Neuts (auto) 3.3 10^3/uL (1.7-8.2) 10/09/19 05:22 Absolute Lymphs (auto) 1.1 10^3/uL (0.5-4.7) 10/09/19 05:22 Absolute Monos (auto) 0.4 10^3/uL (0.1-1.4) 10/09/19 05:22 Absolute Eos (auto) 0.1 10^3/uL (0.0-0.6) 10/09/19 05:22 Absolute Basos (auto) 0.0 10^3/uL (0.0-0.2) 10/09/19 05:22 Seg Neutrophils % 65.6 % (42-78) 10/09/19 05:22 Sodium 128.7 mmol/L (137-145) L 10/12/19 04:44 Potassium 4.8 mmol/L (3.6-5.0) 10/12/19 04:44 Chloride 97 mmol/L (98-107) L 10/12/19 04:44 Carbon Dioxide 25 mmol/L (22-30) 10/12/19 04:44 Anion Gap 7 (5-19) 10/12/19 04:44 BUN 23 mg/dL (7-20) H 10/12/19 04:44 Creatinine 1.25 mg/dL (0.52-1.25) 10/12/19 04:44 Est GFR ( Amer) > 60 (>60) 10/12/19 04:44 Est GFR (MDRD) Non-Af 57 (>60) L 10/12/19 04:44 Glucose 312 mg/dL (75-110) H 10/12/19 04:44 POC Glucose 210 mg/dL (70-110) H 10/12/19 11:03 Hemoglobin A1c % > 14.0 % (4.7-6.0) H 10/08/19 11:26 Calcium 8.5 mg/dL (8.4-10.2) 10/12/19 04:44 Magnesium 1.7 mg/dL (1.6-2.3) 10/10/19 14:25 Total Bilirubin 0.3 mg/dL (0.2-1.3) 10/09/19 05:22 Direct Bilirubin 0.0 mg/dL (0.0-0.4) 10/09/19 05:22 Neonat Total Bilirubin Not Reportable 10/09/19 05:22 Neonat Direct Bilirubin Not Reportable 10/09/19 05:22 Neonat Indirect Bili Not Reportable 10/09/19 05:22 AST 18 U/L (17-59) 10/09/19 05:22 ALT 11 U/L (<50) 10/09/19 05:22 Alkaline Phosphatase 104 U/L (38-126) 10/09/19 05:22 Creatine Kinase 38 U/L (55-170) L 10/08/19 11:26 CK-MB (CK-2) 1.10 ng/mL (<4.55) 10/08/19 11:26 Troponin I 0.020 ng/mL 10/08/19 11:26 Total Protein 6.2 g/dL (6.3-8.2) L 10/09/19 05:22 Albumin 3.2 g/dL (3.5-5.0) L 10/09/19 05:22 Urine Color YELLOW 10/08/19 14:49 Urine Appearance CLEAR 10/08/19 14:49 Urine pH 6.0 (5.0-9.0) 10/08/19 14:49 Ur Specific [place] 1.024 10/08/19 14:49 Urine Protein NEGATIVE mg/dL (NEGATIVE) 10/08/19 14:49 Urine Glucose (UA) >=500 mg/dL (NEGATIVE) H 10/08/19 14:49 Urine Ketones TRACE mg/dL (NEGATIVE) H 10/08/19 14:49 Urine Blood NEGATIVE (NEGATIVE) 10/08/19 14:49 Urine Nitrite NEGATIVE (NEGATIVE) 10/08/19 14:49 Urine Bilirubin NEGATIVE (NEGATIVE) 10/08/19 14:49 Urine Urobilinogen NEGATIVE mg/dL (<2.0) 10/08/19 14:49 Ur Leukocyte Esterase NEGATIVE (NEGATIVE) 10/08/19 14:49 Urine WBC (Auto) 0 /HPF 10/08/19 14:49 Urine RBC (Auto) 1 /HPF 10/08/19 14:49 U Hyaline Cast (Auto) 1 /LPF 10/08/19 14:49 Urine Mucus (Auto) RARE /LPF 10/08/19 14:49 Urine Ascorbic Acid NEGATIVE (NEGATIVE) 10/08/19 14:49 10/08/19 11:26 CK-MB (CK-2) 1.10 Troponin I 0.020 Impressions: Chest X-Ray 10/08/19 12:02 IMPRESSION: Cardiomegaly. No failure. No acute findings. Head CT 10/08/19 12:02 IMPRESSION: No acute intracranial event. Chronic left-sided maxillary sinusitis. EVIDENCE OF ACUTE STROKE: NO. Stroke Is this a Stroke Patient?: No Acute Heart Failure - Is this a Heart Failure Patient?: No
== END 2019-10-12 15:43 | disposition home or self-care (01) | DRG 638 ==
LOC: ER 11:18 → EH 17:00 → 3W 21:23
PROVIDERS: ADMIT Family Medicine; ATTEND Physician Assistant
DX: E11.65 Type 2 diabetes mellitus with hyperglycemia (principal); N17.9 Acute kidney failure, unspecified; I13.0 Hypertensive heart and chronic kidney disease with heart failure and stage 1 through stage 4 chronic kidney disease, or unspecified chronic kidney disease; I50.22 Chronic systolic (congestive) heart failure; I42.0 Dilated cardiomyopathy; R55 Syncope and collapse; E87.5 Hyperkalemia; E11.22 Type 2 diabetes mellitus with diabetic chronic kidney disease; N18.3 Chronic kidney disease, stage 3 (moderate); I25.10 Atherosclerotic heart disease of native coronary artery without angina pectoris; E78.5 Hyperlipidemia, unspecified; J44.9 Chronic obstructive pulmonary disease, unspecified; R79.89 Other specified abnormal findings of blood chemistry; M19.90 Unspecified osteoarthritis, unspecified site; Z87.891 Personal history of nicotine dependence; Z82.49 Family history of ischemic heart disease and other diseases of the circulatory system; Z79.4 Long term (current) use of insulin; Z79.899 Other long term (current) drug therapy; Z91.81 History of falling; Z86.73 Personal history of transient ischemic attack (TIA), and cerebral infarction without residual deficits; Z95.810 Presence of automatic (implantable) cardiac defibrillator; Z79.82 Long term (current) use of aspirin; I25.5 Ischemic cardiomyopathy; I95.9 Hypotension, unspecified; Z95.1 Presence of aortocoronary bypass graft
CPT/HCPCS: 36415; 70450; 71046; 80048; 80053; 81001; 82550; 82553; 82962; 83036; 83735; 84132; 84484; 85025; 85027; 87070; 93005; 93010; 96361; 96374; 99285; J0610; J1815; J2405; J7030

== ENCOUNTER 2019-11-28 17:36 | Emergency (ER) | payer MEDICARE, OTHER ==
--- NOTE | 2019-11-28 17:57 | ER Document Report ---
ED Medical Screen (RME) - General Chief Complaint: Feet Swelling Stated Complaint: FEET SWELLING Time Seen by Provider: 11/28/19 17:52 Primary Care Provider: KENDRA VARELA MD [Primary Care Provider] - Follow up as needed Mode of Arrival: Ambulatory Information source: Patient Notes: 74-year-old male presented to ED for complaint of shortness of breath and pedal edema. He states he has had a three-way bypass and in August he had a stroke and a heart attack. He states at that time he was diagnosed with congestive heart failure. He states he also got a defibrillator placed at that time. He does have a history of diabetes type 2. He does have 3+ pedal edema and respirations are about 28. Still has swelling to the right upper lip. He states this is been going on for about a month and a half and has been to see his doctor multiple times for this and has been given antibiotics a couple times but the swelling is still there but much better than it was before. I have greeted and performed a rapid initial assessment of this patient. A comprehensive ED assessment and evaluation of the patient, analysis of test results and completion of medical decision making process will be conducted by an additional ED providers. TRAVEL OUTSIDE OF THE [place] IN LAST 30 DAYS: No - Related Data Allergies/Adverse Reactions: iv dye Allergy (Uncoded 11/28/19 17:45) Past Medical History - Social History Chew tobacco use (# tins/day): No Frequency of alcohol use: None Drug Abuse: None - Past Medical History Cardiac Medical History: Reports: Hx Congestive Heart Failure, Hx Coronary Artery Disease, Hx Heart Attack, Hx Hypercholesterolemia, Hx Hypertension Pulmonary Medical History: Reports: Hx COPD Neurological Medical History: Reports: Hx Cerebrovascular Accident Endocrine Medical History: Reports: Hx Diabetes Mellitus Type 2 Musculoskeltal Medical History: Reports Hx Arthritis Past Surgical History: Reports: Hx Cardiac Surgery Physical Exam - Vital signs Vitals: Temp Pulse Resp BP Pulse Ox 98.4 F 75 28 H 137/82 H 100 11/28/19 17:41 11/28/19 17:41 11/28/19 17:41 11/28/19 17:41 11/28/19 17:41 Course - Vital Signs Vital signs: Temp Pulse Resp BP Pulse Ox 98.4 F 75 28 H 137/82 H 100 11/28/19 17:45 11/28/19 17:41 11/28/19 17:41 11/28/19 17:41 11/28/19 17:41 Doctor's Discharge - Discharge Referrals: KENDRA VARELA MD [Primary Care Provider] - Follow up as needed
[2019-11-28 18:39] LABS: ABSOLUTE BASOPHILS # (AUTO) 0.1 10^3/uL (0.0-0.2); ABSOLUTE EOSINOPHILS # (AUTO) 0.1 10^3/uL (0.0-0.6); ABSOLUTE LYMPHOCYTES (AUTO) 1.1 10^3/uL (0.5-4.7); ABSOLUTE MONOCYTES (AUTO) 0.5 10^3/uL (0.1-1.4); ABSOLUTE NEUT (AUTO) 2.6 10^3/uL (1.7-8.2); EOSINOPHILS % (AUTO) 3.2 % (0-6); HEMATOCRIT 29.1 % (37.9-51.0); HEMOGLOBIN 9.9 g/dL (13.5-17.0); LYMPHOCYTES % (AUTO) 24.2 % (13-45); MEAN CORPUSCULAR HEMOGLOBIN 32.6 pg (27.0-33.4); MEAN CORPUSCULAR HGB CONC 34.1 g/dL (32.0-36.0); MEAN CORPUSCULAR VOLUME 96 fl (80-97); MONOCYTES % (AUTO) 11.4 % (3-13); PLATELET COUNT 243 10^3/uL (150-450); RED BLOOD COUNT 3.05 10^6/uL (4.35-5.55); RED CELL DISTRIBUTION WIDTH 18.6 % (11.5-14.0); SEGMENTED NEUTROPHILS % (AUTO) 59.2 % (42-78); TOTAL CELLS COUNTED % (AUTO) 100 %; WHITE BLOOD COUNT 4.5 10^3/uL (4.0-10.5)
--- NOTE | 2019-11-28 18:57 | RADIOLOGY REPORT (SQ) ---
EXAM DESCRIPTION: CHEST 2 VIEWS IMAGES COMPLETED DATE/TIME: 11/28/2019 5:23 pm REASON FOR STUDY: Short of breath weakness pedal edema CHF defibrill COMPARISON: 10/08/2019 EXAM PARAMETERS: NUMBER OF VIEWS: two views TECHNIQUE: Digital Frontal and Lateral radiographic views of the chest acquired. RADIATION DOSE: NA LIMITATIONS: none FINDINGS: LUNGS AND PLEURA: There is been worsening of patchy perihilar and alveolar opacities in july th lungs. More confluent consolidation in the right lower lobe adjacent to the fissure. No pleural effusion. No pneumothorax. MEDIASTINUM AND HILAR STRUCTURES: No masses or contour abnormalities. HEART AND VASCULAR STRUCTURES: Moderate cardiomegaly with postoperative changes of prior CABG. There is indistinctness of the pulmonary vasculature with cephalization of vessels and peribronchial cuffi ng new since prior. BONES: No acute findings. HARDWARE: Left infraclavicular AICD with intact lead wire unchanged. OTHER: No other significant finding. IMPRESSION: Moderate to severe pulmonary edema. More confluent consolidation in the right lower lob e may represent superimposed infectious/ inflammatory process. TECHNICAL DOCUMENTATION: JOB ID: [id number] [employer]- All Rights Reserved Reading location - IP/workstation name: [email or web address]
[2019-11-28] MEDS ORDERED: FUROSEMIDE INJ/PF 20 MG/2 ML SDV IV ONE (19:19)
--- NOTE | 2019-11-28 20:11 | ER Document Report ---
ED General - General Mode of Arrival: Ambulatory TRAVEL OUTSIDE OF THE [place] IN LAST 30 DAYS: No <JASMIN FOX - Last Filed: 11/28/19 20:18> <EMANUEL CHE IV - Last Filed: 11/28/19 22:23> - General Chief Complaint: Feet Swelling Stated Complaint: FEET SWELLING Time Seen by Provider: 11/28/19 17:52 Primary Care Provider: KENDRA VARELA MD [Primary Care Provider] - Follow up as needed - HPI Notes: Chief complaint: Feet swelling and shortness of breath. History of present illness: 74-year-old man with coronary artery disease and severe ischemic cardiomyopathy with ejection fraction less than 30% and AICD in situ presents now with increasing shortness of breath and swelling of both feet over the last 3 to 4 days. He denies chest pain. He denies syncope. He denies fever, chills or sputum production. Patient is on a large number of medications. He says he is fully compliant taking everything as prescribed. (JASMIN FOX) - Related Data Allergies/Adverse Reactions: iv dye Allergy (Uncoded 11/28/19 17:45) Past Medical History - General Information source: Patient, [facility] Records - Social History Smoking Status: Former Smoker Chew tobacco use (# tins/day): No Frequency of alcohol use: None Drug Abuse: None Family History: CAD Patient has homicidal ideation: No - Past Medical History Cardiac Medical History: Reports: Hx Congestive Heart Failure, Hx Coronary Artery Disease, Hx Heart Attack, Hx Hypercholesterolemia, Hx Hypertension Pulmonary Medical History: Reports: Hx COPD Neurological Medical History: Reports: Hx Cerebrovascular Accident Endocrine Medical History: Reports: Hx Diabetes Mellitus Type 2 Musculoskeletal Medical History: Reports Hx Arthritis Past Surgical History: Reports: Hx Cardiac Surgery <JASMIN FOX - Last Filed: 11/28/19 20:18> Review of Systems <JASMIN FOX - Last Filed: 11/28/19 20:18> - Review of Systems Notes: Constitutional: Negative for fever. HENT: Negative for sore throat. Eyes: Negative for visual changes. Cardiovascular: As per HPI. Respiratory: As per HPI. Gastrointestinal: Negative for abdominal pain, vomiting or diarrhea. Genitourinary: Negative for dysuria. Musculoskeletal: Negative for back pain. Skin: Negative for rash. Neurological: Negative for headaches, weakness or numbness. 10 point ROS negative except as marked above and in HPI. (JASMIN FOX) Physical Exam <JASMIN FOX - Last Filed: 11/28/19 20:18> - Vital signs Vitals: Temp Pulse Resp BP Pulse Ox 98.4 F 75 28 H 137/82 H 100 11/28/19 17:41 11/28/19 17:41 11/28/19 17:41 11/28/19 17:41 11/28/19 17:41 - Notes Notes: GENERAL: Elderly man who appears visibly dyspneic although he is showing an O2 saturation 96% by pulse oximetry on room air. SKIN: Good turgor no rashes. HEAD: Normocephalic atraumatic. EYES: PERRLA. EOMI. Conjunctivae and sclerae clear. EARS: CANALS AND TMS CLEAR. NOSE: CLEAR. MOUTH: Moist mucosa. Good dentition. No stridor or edema. No drooling. NECK: Supple. No masses or thyromegaly. No adenopathy. Carotids 2+ without bruits. No JVD. BACK: Symmetrical without tenderness. CHEST: Respirations moderately. Breath sounds diminished both bases. HEART: AICD/defibrillator left anterior chest wall. Regular rhythm. No murmur gallop or rub. ABDOMEN: Soft nontender without masses, organomegaly or rebound. Bowel sounds normally active. No bruits. GENITALIA: Deferred. EXTREMITIES: Bilateral 3+ pretibial edema. No calf tenderness. Cap refill less than 1.5 seconds. Dorsalis pedis and posterior tibial pulses 3+ and symmetrical. NEUROLOGICAL: GCS 15. Alert and oriented x3. Normal gait. Fluent speech. Cranial nerves II through XII intact. Sensorimotor and cerebellar normal. Normal tone. PSYCHIATRIC: Appropriate affect. (JASMIN FOX) Course - Laboratory Result Diagrams: 11/28/19 18:00 11/28/19 18:00 <JASMIN FOX - Last Filed: 11/28/19 20:18> - Laboratory Result Diagrams: 11/28/19 18:00 11/28/19 20:07 <EMANUEL CHE IV - Last Filed: 11/28/19 22:23> - Re-evaluation Re-evalutation: 11/28/19 20:15 Patient appears clinically to be in decompensated CHF. X-ray findings per radiologist are consistent with this. His EKG shows pre-existing left bundle branch block with no new acute ST changes. He has no chest pain. I will place him on 2 L of nasal O2 and give him a dose of IV Lasix. Pending labs include CBC and comprehensive metabolic profile as well as a troponin and BNP level. Care of this patient is been turned over to Dr. Emanuel Che at 2000 hours with labs still pending. Anticipate he will need admission for decompensated heart failure. (JASMIN FOX) 11/28/19 22:15 Patient has had approximately 1200 mL's of urine output after receiving IV Lasi x. Patient states he feels better. Patient states his legs are not swollen and his shoes are fitting more easily. Patient was able to ambulate to the bathroom with a pulse ox and kept his oxygen saturations at 98% on room air. Patient reportedly came slightly more tachypneic but he said this is typical for him. Admission was offered to the patient but the patient declined, stating that he feels better and he has a "dog at home to feed." Patient was encouraged to call 911 at any time if he decides he is feeling worse instead of better and feels the need for further medical care. All questions were answered prior to discharge. Emergency signs and symptoms, reasons to return to the emergency department discussed with patient. (EMANUEL CHE IV) - Vital Signs Vital signs: Temp Pulse Resp BP Pulse Ox 98.4 F 75 16 133/92 H 97 11/28/19 17:45 11/28/19 17:41 11/28/19 21:01 11/28/19 21:01 11/28/19 21:01 - Laboratory Laboratory results interpreted by me: 11/28/19 11/28/19 11/28/19 18:00 20:07 20:07 RBC 3.05 L Hgb 9.9 L Hct 29.1 L RDW 18.6 H Sodium 132.2 L BUN 28 H Creatinine 1.59 H Est GFR ( Amer) 52 L Est GFR (MDRD) Non-Af 43 L Glucose 200 H AST 99 H ALT 100 H Alkaline Phosphatase 390 H NT-Pro-B Natriuret Pep 4750 H Albumin 3.4 L Discharge <RUDDYJASMIN E - Last Filed: 11/28/19 20:18> <TONGEMANUEL POZO IV - Last Filed: 11/28/19 22:23> - Discharge Clinical Impression: Chronic systolic CHF (congestive heart failure) Condition: Good Disposition: HOME, SELF-CARE Additional Instructions: Return to the Emergency Department without delay if any worse. Congestive Heart Failure You have been diagnosed as having congestive heart failure (CHF). CHF occurs when the heart is unable to pump blood efficiently, leading to fluid buildup in the veins and lungs. Typical symptoms are swelling of the legs, shortness of breath on minor exertion, and fatigue. CHF is treated with salt restriction, medicine to eliminate excess water and salt from the body, and medication to help the heart contract more efficiently. Eliminate added salt and salty foods in your diet. Decrease your activity until excess fluid has been eliminated. It will also be helpful to raise the head of your bed so you can sleep more easily. Keep a daily record of your weight. This will help your physician monitor your progress. Once extra water has been eliminated, light aerobic exercise daily -- such as walking -- will be helpful (unless your physician has told you to restrict activity for other reasons). Be sure to follow up with the physician as instructed. Contact the doctor at once if you worsen in any way. HOME CARE INSTRUCTIONS & INFORMATION: Thank you for choosing us for your medical needs. We hope you're satisfied with the care you received. After you leave, you must properly care for your problem and, at the same time, observe its progress. Any condition can change. Some illnesses can change rapidly over hours or days. If your condition worsens, return to the Emergency Department or see your physician promptly. ABOUT YOUR X-RAYS AND EKG'S: If you had an EKG or X-rays taken, they have been read by the Emergency Physician. The X-rays and EKG's will also be read by a Radiologist or [employer] within 24 hours. If discrepancies are noted, you will be notified by telephone. Please be certain the ED has a correct telephone number & address where you can be reached. Also, realize that some fractures or abnormalities do not show up on initial X-rays. If your symptoms continue, see your physician. ABOUT YOUR LABORATORY TEST: If you had laboratory tests, the results have been reviewed by the Emergency Physician. Some test results (for example cultures) may not be available for several days. You will be contacted if any test result shows you need additional treatment. Please be certain the ED has a correct telephone number and address where you can be reached. ABOUT YOUR MEDICATIONS: You will receive instructions on how to take your medicine on the prescription label you receive. Additional information may be provided by the Pharmacy. If you have questions afterwards, call the ED for clarification or further instructions. Some prescribed medications may cause drowsiness. Do not perform tasks such as driving a car or operating machinery without consulting your Pharmacist. If you feel you need a refill of pain medication, your condition will need re-evaluation. Please do not call for a refill of any medication. ABOUT YOUR SIGNATURE: Signature of this document acknowledges to followin. Understanding that you received emergency treatment and that you may be released before al medical problems are known or treated. Please be certain the ED has a correct phone number & address where you can be reached. 2. Acknowledgement that you will arrange for follow-up care as recommended. 3. Authorization for the Emergency Physician to provide information to your follow-up Physician in order to maximize your care. AT ANY TIME, IF YOUR SYMPTOMS CHANGE SIGNIFICANTLY OR WORSEN OR YOU DEVELOP NEW SYMPTOMS, RETURN TO THE EMERGENCY DEPARTMENT IMMEDIATELY FOR RE-EVALUATION. OUR GOAL IS TO PROVIDE EXCELLENT MEDICAL CARE! WE HOPE THAT WE HAVE MET YOUR EXPECTATIONS DURING YOUR EMERGENCY DEPARTMENT VISIT AND THAT YOU FEEL YOU HAVE RECEIVED EXCELLENT CARE! Referrals: KENDRA VARELA MD [Primary Care Provider] - 11/29/19
[2019-11-28 20:37] LABS: ALBUMIN 3.4 g/dL (3.5-5.0); ALKALINE PHOSPHATASE 390 U/L (38-126); ANION GAP 9 (5-19); ASPARTATE AMINO TRANSFERASE 99 U/L (17-59); BILIRUBIN,TOTAL 0.4 mg/dL (0.2-1.3); BLOOD UREA NITROGEN 28 mg/dL (7-20); CALCIUM 8.8 mg/dL (8.4-10.2); CARBON DIOXIDE 22 mmol/L (22-30); CHLORIDE 101 mmol/L (98-107); POTASSIUM 4.8 mmol/L (3.6-5.0); TOTAL PROTEIN 6.8 g/dL (6.3-8.2)
[2019-11-28 20:39] LABS: GLUCOSE 200 mg/dL (75-110)
[2019-11-28 20:55] LABS: TROPONIN I 0.018 ng/mL
--- NOTE | 2019-11-28 22:17 | EKG REPORT ---
SEVERITY:- ABNORMAL ECG - SINUS RHYTHM PROBABLE LEFT ATRIAL ABNORMALITY LEFT BUNDLE BRANCH BLOCK : Confirmed by: Alonzo Douglas 28-Nov-2019 22:16:45
[2019-11-28 22:18] VITALS: BP 117/80
== END 2019-11-28 22:45 | disposition home or self-care (01) ==
LOC: ER 17:36
DX: I11.0 Hypertensive heart disease with heart failure (principal); I50.22 Chronic systolic (congestive) heart failure; M79.89 Other specified soft tissue disorders; R06.02 Shortness of breath; I25.10 Atherosclerotic heart disease of native coronary artery without angina pectoris; I25.5 Ischemic cardiomyopathy; Z79.899 Other long term (current) drug therapy; Z87.891 Personal history of nicotine dependence; I25.2 Old myocardial infarction; J44.9 Chronic obstructive pulmonary disease, unspecified; E11.9 Type 2 diabetes mellitus without complications
CPT/HCPCS: 93005; 99284; 96374; 86900; 86901; 36415; 86850; 85025; 80053; 84484; 83880; 71046; 93010; J1940

== ENCOUNTER → 2019-12-27 | Outpatient (CLI) | payer MEDICARE, OTHER ==
[2019-12-27 10:14] LABS: ANION GAP 7 (5-19); BLOOD UREA NITROGEN 26 mg/dL (7-20); CALCIUM 9.3 mg/dL (8.4-10.2); CARBON DIOXIDE 25 mmol/L (22-30); CHLORIDE 101 mmol/L (98-107); GLUCOSE 196 mg/dL (75-110); POTASSIUM 5.3 mmol/L (3.6-5.0)
== END ==
LOC: OD 09:15
PROVIDERS: ATTEND Internal Medicine Nephrology
DX: N17.9 Acute kidney failure, unspecified (principal); I12.9 Hypertensive chronic kidney disease with stage 1 through stage 4 chronic kidney disease, or unspecified chronic kidney disease; N18.2 Chronic kidney disease, stage 2 (mild); E11.22 Type 2 diabetes mellitus with diabetic chronic kidney disease; R80.9 Proteinuria, unspecified; D64.9 Anemia, unspecified
CPT/HCPCS: 36415; 80048

== ENCOUNTER 2020-02-04 20:34 | Emergency (ER) | payer MEDICARE, OTHER ==
[2020-02-04] MEDS ORDERED: ASPIRIN 81 MG TABLET, CHEWABLE PO ONE (20:59)
--- NOTE | 2020-02-04 21:03 | ER Document Report ---
ED Medical Screen (RME) - General Chief Complaint: Chest Pain Stated Complaint: CHEST PAIN Time Seen by Provider: 02/04/20 20:59 Primary Care Provider: Denzel PHELAN MD [Primary Care Provider] - Follow up as needed Mode of Arrival: Wheelchair Information source: Patient Notes: 74-year-old male presented to ED for chest pain off and on for the last month. He states it is been multiple times today and it will come and go and then will come and go. He states he had several pains on the way to the hospital and has had several since he has been at the hospital. He is a former smoker former drinker has never done drugs. He is alert oriented respirations regular and unlabored speaking in full sentences at this time. He states he does see Dr. Phelan for kidney problems but he has no problems urinating he just sometimes has problems with his lab levels on his kidney. I have greeted and performed a rapid initial assessment of this patient. A comprehensive ED assessment and evaluation of the patient, analysis of test results and completion of medical decision making process will be conducted by an additional ED providers. TRAVEL OUTSIDE OF THE [place] IN LAST 30 DAYS: No - Related Data Allergies/Adverse Reactions: iv dye Allergy (Uncoded 02/04/20 20:57) site burning Past Medical History - Past Medical History Cardiac Medical History: Reports: Hx Congestive Heart Failure, Hx Coronary Artery Disease, Hx Heart Attack, Hx Hypercholesterolemia, Hx Hypertension Pulmonary Medical History: Reports: Hx COPD Neurological Medical History: Reports: Hx Cerebrovascular Accident Endocrine Medical History: Reports: Hx Diabetes Mellitus Type 2 Musculoskeltal Medical History: Reports Hx Arthritis Past Surgical History: Reports: Hx Cardiac Surgery Physical Exam - Vital signs Vitals: Temp Pulse Resp BP Pulse Ox 98.5 F 70 24 H 107/75 100 02/04/20 20:47 02/04/20 20:47 02/04/20 20:47 02/04/20 20:47 02/04/20 20:47 Course - Vital Signs Vital signs: Temp Pulse Resp BP Pulse Ox 98.5 F 70 24 H 107/75 100 02/04/20 20:47 02/04/20 20:47 02/04/20 20:47 02/04/20 20:47 02/04/20 20:47 Doctor's Discharge - Discharge Referrals: LAURA,K V MATI, MD [Primary Care Provider] - Follow up as needed
--- NOTE | 2020-02-04 22:00 | RADIOLOGY REPORT (SQ) ---
Chest 2 view on 02/04/2020 at 9:24 PM CLINICAL INDICATION: Chest pain COMPARISON: 11/28/2019 FINDINGS: The patient is status post median sternotomy and CABG. Single lead left subclavian AICD device tip is in the right ventricle. Cardiomegaly is noted. There are continued increased interstitial opacities that may all be chronic in nature but cannot exclude component of edema or atypical pneumonia. Favor a component of edema. Trace pleural effusions may be present. Vascular calcification is noted in the aorta. IMPRESSION: No significant change in the appearance of the chest.
[2020-02-04 22:09] LABS: ABSOLUTE EOSINOPHILS # (AUTO) 0.1 10^3/uL (0.0-0.6); ABSOLUTE LYMPHOCYTES (AUTO) 0.8 10^3/uL (0.5-4.7); ABSOLUTE MONOCYTES (AUTO) 0.4 10^3/uL (0.1-1.4); ABSOLUTE NEUT (AUTO) 1.9 10^3/uL (1.7-8.2); BASOPHILS % (AUTO) 1.1 % (0-2); EOSINOPHILS % (AUTO) 3.2 % (0-6); HEMATOCRIT 29.8 % (37.9-51.0); LYMPHOCYTES % (AUTO) 26.2 % (13-45); MEAN CORPUSCULAR HEMOGLOBIN 31.9 pg (27.0-33.4); MEAN CORPUSCULAR HGB CONC 33.6 g/dL (32.0-36.0); MEAN CORPUSCULAR VOLUME 95 fl (80-97); MONOCYTES % (AUTO) 11.4 % (3-13); PLATELET COUNT 210 10^3/uL (150-450); RED BLOOD COUNT 3.13 10^6/uL (4.35-5.55); RED CELL DISTRIBUTION WIDTH 16.3 % (11.5-14.0); SEGMENTED NEUTROPHILS % (AUTO) 58.1 % (42-78); TOTAL CELLS COUNTED % (AUTO) 100 %; WHITE BLOOD COUNT 3.2 10^3/uL (4.0-10.5)
[2020-02-04 22:25] LABS: INTERNATIONAL RATION (INR) 1.22; PROTHROMBIN TIME 15.5 SEC (11.4-15.4)
[2020-02-04 22:26] LABS: PARTIAL THROMBOPLASTIN TIME 28.3 SEC (23.5-35.8)
[2020-02-04 22:32] LABS: ALBUMIN 3.4 g/dL (3.5-5.0); ALKALINE PHOSPHATASE 190 U/L (38-126); ANION GAP 5 (5-19); ASPARTATE AMINO TRANSFERASE 28 U/L (17-59); BILIRUBIN,DIRECT 0.1 mg/dL (0.0-0.4); BILIRUBIN,TOTAL 0.5 mg/dL (0.2-1.3); BLOOD UREA NITROGEN 19 mg/dL (7-20); CALCIUM 8.6 mg/dL (8.4-10.2); CARBON DIOXIDE 29 mmol/L (22-30); CHLORIDE 102 mmol/L (98-107); CREATINE KINASE 93 U/L (55-170); GLUCOSE 74 mg/dL (75-110); POTASSIUM 3.2 mmol/L (3.6-5.0); TOTAL PROTEIN 7.3 g/dL (6.3-8.2)
--- NOTE | 2020-02-05 02:20 | ER Document Report ---
ED Cardiac - General Chief Complaint: Chest Pain Stated Complaint: CHEST PAIN Time Seen by Provider: 02/04/20 20:59 Primary Care Provider: ZHEN MIXON MD [ACTIVE STAFF] - 02/07/20 Mode of Arrival: Wheelchair Notes: Patient is a 74-year-old male that comes emergency department for chief complaint of intermittent chest pains for the past 3 days. He states the pain feels like a discomfort sensation in the left side of his chest and then is shortly gone afterwards. There are no improving or exacerbating factors. He denies any current symptoms. He denies shortness of breath, nausea, vomiting, fever, cough beyond his normal baseline with COPD. He is a former smoker, he reports a history of VA without intervention in August, CABG, and cardiac cath with stents in 2003. He has a history of chronic kidney disease, type 2 diabetes, hypertension. He states he follows with a local sanitation supervisor Dr. Mixon. TRAVEL OUTSIDE OF THE [place] IN LAST 30 DAYS: No - Related Data Allergies/Adverse Reactions: iv dye Allergy (Uncoded 02/04/20 20:57) site burning Home Medications: tramadol 50mg, [id number], temazepam 15mg, lasix 40mg, clopidogrel, nitro patch 0.2mg Atorvastatin 40mg, fluoxetine 20mg, [id number],Amiodarone 200mg, Tylenol 325mg, B12 500mcg, D3 400iu, iron Ranolazine er 500mg, Famotidine 20mg, Past Medical History - General Information source: Patient - Social History Smoking Status: Former Smoker Chew tobacco use (# tins/day): No Frequency of alcohol use: None Drug Abuse: None Lives with: Family Family History: CAD Patient has homicidal ideation: No - Past Medical History Cardiac Medical History: Reports: Hx Congestive Heart Failure, Hx Coronary Artery Disease, Hx Heart Attack - 2003, Hx Hypercholesterolemia, Hx Hypertension Pulmonary Medical History: Reports: Hx COPD Neurological Medical History: Reports: Hx Cerebrovascular Accident Endocrine Medical History: Reports: Hx Diabetes Mellitus Type 2 Musculoskeletal Medical History: Reports Hx Arthritis Past Surgical History: Reports: Hx Cardiac Surgery - triple bypass Review of Systems - Review of Systems Constitutional: No symptoms reported EENT: No symptoms reported Cardiovascular: See HPI Respiratory: No symptoms reported Gastrointestinal: No symptoms reported Genitourinary: No symptoms reported Male Genitourinary: No symptoms reported Musculoskeletal: No symptoms reported Skin: No symptoms reported Hematologic/Lymphatic: No symptoms reported Neurological/Psychological: No symptoms reported Physical Exam - Vital signs Vitals: Temp Pulse Resp BP Pulse Ox 98.5 F 70 24 H 107/75 100 02/04/20 20:47 02/04/20 20:47 02/04/20 20:47 02/04/20 20:47 02/04/20 20:47 - Notes Notes: GENERAL: Alert, interacts well. No acute distress. HEAD: Normocephalic, atraumatic. EYES: Pupils equal, round, and reactive to light. Extraocular movements intact. ENT: Oral mucosa moist, tongue midline. Oropharynx unremarkable. Airway patent. Nares patent, sinuses non-tender, ear canals unremarkable, TM's intact. NECK: Full range of motion. Supple. Trachea midline. No lymphadenopathy. LUNGS: Slightly decreased bilaterally but no wheezes, rales, or rhonchi. No respiratory distress. Non-tender chest wall. HEART: Regular rate and rhythm. No murmur ABDOMEN: Soft, non-tender. Non-distended. EXTREMITIES: Moves all 4 extremities spontaneously. No edema, normal radial and dorsalis pedis pulses bilaterally. No cyanosis. BACK: no cervical, thoracic, lumbar midline tenderness. No saddle anesthesia, normal distal neurovascular exam. Moves all extremities in full range of motion. NEUROLOGICAL: Alert and oriented x3. Normal speech. Cranial nerves II through XII grossly intact. Strength 5/5 in all extremities. PSYCH: Normal affect, normal mood. SKIN: Warm, dry, normal turgor. No rashes or lesions noted. Talkative and well- appearing. Course - Re-evaluation Re-evalutation: Patient asymptomatic on my evaluation and during his time here that I evaluated him. Symptoms reported are atypical and have been going on for about 3 days. EKG baseline, CBC nonspecific, chemistry with borderline potassium, slightly elevated renal functioning which is baseline, negative troponin at 0.018. Troponin cycled and is 0.028. Chest x-ray unremarkable. Patient does have multiple risk factors. He does have history of cardiac cath within the past 6 months. Because of his atypical symptoms, multiple risk factors, recent work- up, I discussed with patient's sanitation supervisor Dr. Mixon. I discussed patient's history, presentation, work-up. He states patient can be discharged at this time to follow-up with him in the office in 2 days, patient is to return if he has returned chest pain or any other concerning symptoms. Patient states very full agreement and satisfaction with this plan. Stable, well-appearing, asymptomatic at time of discharge. - Vital Signs Vital signs: Temp Pulse Resp BP Pulse Ox 97.7 F 70 17 127/83 H 95 02/05/20 01:39 02/04/20 20:47 02/05/20 04:01 02/05/20 04:01 02/05/20 04:01 - Laboratory Result Diagrams: 02/04/20 21:55 02/04/20 21:55 Laboratory results interpreted by me: 02/04/20 02/04/20 02/04/20 21:55 21:55 21:55 WBC 3.2 L RBC 3.13 L Hgb 10.0 L Hct 29.8 L RDW 16.3 H PT 15.5 H Sodium 136.4 L Potassium 3.2 L Creatinine 1.39 H Est GFR (MDRD) Non-Af 50 L Glucose 74 L Alkaline Phosphatase 190 H Albumin 3.4 L - EKG Interpretation by Me Additional EKG results interpreted by me: EKG shows sinus rhythm at a rate of 72. First-degree AV block with AK interval 220. QTC of 46. Normal axis. Left bundle branch block noted. No T wave inversions or ST segment changes in consecutive leads. No significant change from prior. Discharge - Discharge Clinical Impression: Atypical chest pain Chest pain Qualifiers: Chest pain type: unspecified Qualified Code(s): R07.9 - Chest pain, unspecified Condition: Stable Disposition: HOME, SELF-CARE Additional Instructions: Your work-up does not show any concerning findings at this time. The exact cause of your pain is not certain. I spoke with Dr. Mixon, your sanitation supervisor, please see him on Friday in the office. Please return to the emergency department for any concerning symptoms including returned pain, passing out, difficulty breathing, fever, or any other concerning symptoms. Referrals: ZHEN MIXON MD [ACTIVE STAFF] - 02/07/20
[2020-02-05 04:20] VITALS: BP 127/83
--- NOTE | 2020-02-05 10:24 | EKG REPORT ---
SEVERITY:- ABNORMAL ECG - SINUS RHYTHM FIRST DEGREE AV BLOCK LEFT ATRIAL ABNORMALITY LEFT BUNDLE BRANCH BLOCK : Confirmed by: Alonzo Douglas 05-Feb-2020 10:23:46
== END 2020-02-05 04:21 | disposition home or self-care (01) ==
LOC: ER 20:34
DX: R07.89 Other chest pain (principal); R07.9 Chest pain, unspecified; Z87.891 Personal history of nicotine dependence; I25.2 Old myocardial infarction; I13.0 Hypertensive heart and chronic kidney disease with heart failure and stage 1 through stage 4 chronic kidney disease, or unspecified chronic kidney disease; E11.22 Type 2 diabetes mellitus with diabetic chronic kidney disease; N18.9 Chronic kidney disease, unspecified; I50.9 Heart failure, unspecified; I25.10 Atherosclerotic heart disease of native coronary artery without angina pectoris; J44.9 Chronic obstructive pulmonary disease, unspecified
CPT/HCPCS: 93005; 99285; 36415; 82550; 83735; 85025; 85610; 85730; 80053; 84484; 71046; 93010; A9270

== ENCOUNTER 2020-02-17 11:15 | Emergency (ER) | payer MEDICARE ==
--- NOTE | 2020-02-17 12:29 | EKG REPORT ---
SEVERITY:- ABNORMAL ECG - SINUS RHYTHM FIRST DEGREE AV BLOCK LEFT ATRIAL ABNORMALITY NONSPECIFIC INTRAVENTRICULAR CONDUCTION DELAY LVH WITH SECONDARY REPOLARIZATION ABNORMALITY : Confirmed by: Omar Luu MD 17-Feb-2020 12:28:20
[2020-02-17 13:02] LABS: ALBUMIN 3.4 g/dL (3.5-5.0); ALKALINE PHOSPHATASE 200 U/L (38-126); ANION GAP 7 (5-19); ASPARTATE AMINO TRANSFERASE 55 U/L (17-59); BILIRUBIN,TOTAL 0.6 mg/dL (0.2-1.3); BLOOD UREA NITROGEN 21 mg/dL (7-20); CALCIUM 8.8 mg/dL (8.4-10.2); CARBON DIOXIDE 30 mmol/L (22-30); CHLORIDE 100 mmol/L (98-107); GLUCOSE 78 mg/dL (75-110); POTASSIUM 4.3 mmol/L (3.6-5.0); TOTAL PROTEIN 7.3 g/dL (6.3-8.2)
[2020-02-17 13:11] LABS: ABSOLUTE EOSINOPHILS # (AUTO) 0.2 10^3/uL (0.0-0.6); ABSOLUTE LYMPHOCYTES (AUTO) 0.8 10^3/uL (0.5-4.7); ABSOLUTE MONOCYTES (AUTO) 0.4 10^3/uL (0.1-1.4); ABSOLUTE NEUT (AUTO) 2.6 10^3/uL (1.7-8.2); BASOPHILS % (AUTO) 1.2 % (0-2); EOSINOPHILS % (AUTO) 3.9 % (0-6); HEMATOCRIT 33.7 % (37.9-51.0); HEMOGLOBIN 11.1 g/dL (13.5-17.0); LYMPHOCYTES % (AUTO) 19.8 % (13-45); MEAN CORPUSCULAR HEMOGLOBIN 31.6 pg (27.0-33.4); MEAN CORPUSCULAR HGB CONC 32.8 g/dL (32.0-36.0); MEAN CORPUSCULAR VOLUME 96 fl (80-97); MONOCYTES % (AUTO) 10.1 % (3-13); TOTAL CELLS COUNTED % (AUTO) 100 %
--- NOTE | 2020-02-17 13:15 | RADIOLOGY REPORT (SQ) ---
EXAM DESCRIPTION: CHEST SINGLE VIEW IMAGES COMPLETED DATE/TIME: 02/17/2020 12:02 pm REASON FOR STUDY: SOB COMPARISON: 08/26/2019 EXAM PARAMETERS: NUMBER OF VIEWS: One view. TECHNIQUE: Single frontal radiographic view of the chest acquired. RADIATION DOSE: NA LIMITATIONS: None. FINDINGS: LUNGS AND PLEURA: The lungs are hyperinflated. Patchy areas of pleural and parenchymal sc arring are stable from previous. No pleural effusion or pneumothorax. MEDIASTINUM AND HILAR STRUCTURES: No masses. Contour normal. HEART AND VASCULAR STRUCTURES: Postoperative changes of prior CABG. Moderate cardiomegaly. No pulmo nary vascular congestion. BONES: No acute findings. HARDWARE: Left infraclavicular AICD with intact lead wires, unchanged. OTHER: No other significant finding. IMPRESSION: Patchy bilateral opacities in both lungs not significantly changed, probably chronic ple ural and parenchymal scarring. Lungs are hyperinflated. TECHNICAL DOCUMENTATION: JOB ID: [id number] 2010 [employer]- All Rights Reserved Reading location - IP/workstation name: [email or web address]
[2020-02-17 13:35] LABS: PLATELET COUNT 189 10^3/uL (150-450)
[2020-02-17 14:20] LABS: TROPONIN I 0.035 ng/mL
[2020-02-17 15:43] LABS: APPEARANCE,URINE CLEAR; BILIRUBIN,URINE NEGATIVE (NEGATIVE); COLOR,URINE YELLOW; GLUCOSE, URINE NEGATIVE (NEGATIVE); KETONES,URINE NEGATIVE (NEGATIVE); LEUKOCYTE ESTERASE,URINE NEGATIVE (NEGATIVE); NITRITE,URINE NEGATIVE (NEGATIVE); PROTEIN,URINE 100 mg/dL (NEGATIVE); URINE SPECIFIC GRAVITY 1.012
[2020-02-17] MEDS ORDERED: NITROGLYCERIN 2% OINTMENT 1 GM PACKET TP ONE ×2 (16:45→16:48)
[2020-02-17] MEDS ORDERED: FUROSEMIDE INJ/PF 20 MG/2 ML SDV IV ONE (16:47)
[2020-02-17] MEDS ORDERED: ASPIRIN 81 MG TABLET, CHEWABLE PO ONE (17:12)
[2020-02-17 18:56] LABS: URINE AMPHETAMINES SCREEN NEGATIVE; URINE BARBITURATES SCREEN NEGATIVE; URINE BENZODIAZEPINES SCREEN NEGATIVE; URINE COCAINE SCREEN NEGATIVE; URINE MARIJUANA (THC) SCREEN NEGATIVE; URINE METHADONE SCREEN NEGATIVE; URINE PHENCYCLIDINE SCREEN NEGATIVE
--- NOTE | 2020-02-17 19:45 | ER Document Report ---
Entered by JIE MERCER SCRIBE 02/17/20 1417 Acting as scribe for:JACKLYN ALLEN MD ED General - General Stated Complaint: SHORTNESS OF BREATH Primary Care Provider: KENDRA VARELA MD [Primary Care Provider] - Follow up as needed Mode of Arrival: Ambulatory Information source: Patient Notes: This 74 year old male patient presents to the emergency department today from [facility] for difficulty breathing. Patient was at [facility] for pre-op lab work to have an upper lip mass removed [facility] thought he seemed short of breath. Patient states that he did not feel any different than his baseline and does not understand why he was sent he re. Patient has leg swelling which he states has been present for a few months. TRAVEL OUTSIDE OF THE [place] IN LAST 30 DAYS: No - Related Data Allergies/Adverse Reactions: iv dye Allergy (Uncoded 02/04/20 20:57) site burning Past Medical History - General Information source: Patient - Social History Smoking Status: Current Some Day Smoker Cigarette use (# per day): Yes Chew tobacco use (# tins/day): No Frequency of alcohol use: None Drug Abuse: None Lives with: Family Family History: Reviewed & Not Pertinent, CAD - Past Medical History Cardiac Medical History: Reports: Hx Congestive Heart Failure, Hx Coronary Artery Disease, Hx Heart Attack - 2003, Hx Hypercholesterolemia, Hx Hypertension Pulmonary Medical History: Reports: Hx COPD Neurological Medical History: Reports: Hx Cerebrovascular Accident Endocrine Medical History: Reports: Hx Diabetes Mellitus Type 2 Musculoskeletal Medical History: Reports Hx Arthritis Past Surgical History: Reports: Hx Coronary Artery Bypass Graft - triple Review of Systems - Review of Systems Constitutional: No symptoms reported EENT: No symptoms reported Cardiovascular: No symptoms reported Respiratory: See HPI, Short of breath Gastrointestinal: No symptoms reported Genitourinary: No symptoms reported Male Genitourinary: No symptoms reported Musculoskeletal: See HPI, Leg swelling, Ankle swelling Skin: No symptoms reported Hematologic/Lymphatic: No symptoms reported Neurological/Psychological: No symptoms reported -: Yes All other systems reviewed and negative Physical Exam - Vital signs Vitals: Temp Resp Pulse Ox 98.2 F 17 100 02/17/20 12:17 02/17/20 12:17 02/17/20 12:17 - Notes Notes: Physical Exam: General: Alert. HEENT: Normocephalic. Atraumatic. PERRL. Extraocular movements intact. Oropharynx clear. Neck: Supple. Non-tender. Respiratory: No respiratory distress. Clear breath sounds bilaterally, decreased at the bases bilaterally. Cardiovascular: Regular rate and rhythm. Abdominal: Normal Inspection. Non-tender. No distension. Normal Bowel Sounds. Back: No gross abnormalities. Extremities: Moves all four extremities. Upper extremities: Normal inspection. Normal ROM. Lower extremities: 2-3+ pitting edema bilaterally both extending approximately [address] leg. Normal ROM. Neurological: Normal cognition. AAOx4. Normal speech. Psychological: Normal affect. Normal Mood. Skin: Warm. Dry. Normal color. Course - Re-evaluation Re-evalutation: 02/17/20 18:59 Patient has remained showing a saturation of 100% throughout the course of today. Patient denies any chest pain to us; however I spoke with his girlfriend who stated that last night patient complained of chest pain and put 2 nitro patches to his skin over the night escorts. Patient was noted to be short of breath when he went to his clinic appointment in preparation for surgery on his upper lip because of some type of cyst present. They noted he was short of breath and sent him to the emergency department. On closer evaluation patient's laboratories show an increase in his BNP up to 6500 and a mildly elevated troponin at 0.035. Second troponin is pending at this time. Patient was given nitroglycerin to skin IV Lasix to diurese and repeated troponin level.. 02/17/20 19:02 02/17/20 19:38 Case discussed with the contracting manager cardiologis. Discussed care and management of patient in the ED today with his congestive heart failure which has improved and patient is hemodynamically stable not showing any signs of distress at this time. Patient sats are 100%, and patient's troponin x2 were indeterminate and declining in the number, 0.035 down to 0.027. Patient's edema in lower extremities have improved and patient eating comfortably with not showing any signs of distress. The plan is for patient to discharge home with nitroglycerin as needed. Follow-up with Dr. Tellez in the office in 1 week and explained to patient that if he has any chest pain he is to return to the emergency department immediately and call 911. - Vital Signs Vital signs: Temp Pulse Resp BP Pulse Ox 98.2 F 36 H 110/68 96 02/17/20 12:17 02/17/20 18:01 02/17/20 18:01 02/17/20 18:01 02/17/20 19:02 Patient shows an elevated respiratory rate of 36 blood pressure 110/69 and pulse oximetry 96% at this time. - Laboratory Result Diagrams: 02/17/20 12:18 02/17/20 12:18 Laboratory results interpreted by me: 02/17/20 02/17/20 02/17/20 12:18 12:18 12:18 RBC 3.50 L Hgb 11.1 L Hct 33.7 L RDW 17.0 H D-Dimer BUN 21 H Creatinine 1.41 H Est GFR (MDRD) Non-Af 49 L Alkaline Phosphatase 200 H NT-Pro-B Natriuret Pep 5660 H Albumin 3.4 L Urine Protein Urine Urobilinogen 02/17/20 02/17/20 12:18 15:27 RBC Hgb Hct RDW D-Dimer 0.76 H BUN Creatinine Est GFR (MDRD) Non-Af Alkaline Phosphatase NT-Pro-B Natriuret Pep Albumin Urine Protein 100 H Urine Urobilinogen 2.0 H 02/17/20 19:03 Patient labs shows an elevated d-dimer 0.76. However patient is reports allowed allergy to contrast material and therefore CT angiogram will not be performed. Patient has a normal sinus rhythm without tachycardia; also has no palpable tenderness in his lower extremities although there is bilateral leg edema. And also patient has maintained a saturation of 95 to 100% entire time in the ED. - EKG Interpretation by Me Additional EKG results interpreted by me: 02/17/20 18:42 Twelve-lead EKG done at 1829 shows normal sinus rhythm rate of 67 left atrial abnormality nonspecific intraventricular conduction delay and minimal ST depression in anterior lateral leads. Twelve-lead EKG done at 1214 today 02/17/2020 shows normal sinus rhythm first- degree AV block left atrial abnormality nonspecific intraventricular conduction delay left ventricular hypertrophy with secondary repolarization abnormalities. There is no significant difference between the first and second EKG. Discharge - Discharge Clinical Impression: Congestive heart failure, Elevated troponin level not due to acute coronary syndrome, Coronary artery disease, COPD (chronic obstructive pulmonary disease), Chronic kidney disease, stage 3 (moderate) Condition: Stable Disposition: HOME, SELF-CARE Prescriptions: Nitroglycerin 0.4 mg SL ASDIR PRN #[id number] tab.subl PRN Reason: Referrals: KENDRA VARELA MD [Primary Care Provider] - Follow up as needed ISIDRA TELLEZ MD [ACTIVE PROVISIONAL STAFF] - Follow up in 3-5 days I personally performed the services described in the documentation, reviewed and edited the documentation which was dictated to the scribe in my presence, and it accurately records my words and actions.
--- NOTE | 2020-02-17 20:02 | EKG REPORT ---
SEVERITY:- ABNORMAL ECG - SINUS RHYTHM LEFT ATRIAL ABNORMALITY NONSPECIFIC INTRAVENTRICULAR CONDUCTION DELAY MINIMAL ST DEPRESSION, ANTEROLATERAL LEADS : Confirmed by: Omar Luu MD 17-Feb-2020 20:00:39
[2020-02-17 20:21] VITALS: BP 114/75
== END 2020-02-17 20:36 | disposition home or self-care (01) ==
LOC: ER 11:15
DX: I13.0 Hypertensive heart and chronic kidney disease with heart failure and stage 1 through stage 4 chronic kidney disease, or unspecified chronic kidney disease (principal); E11.22 Type 2 diabetes mellitus with diabetic chronic kidney disease; N18.3 Chronic kidney disease, stage 3 (moderate); I50.9 Heart failure, unspecified; I24.9 Acute ischemic heart disease, unspecified; I25.10 Atherosclerotic heart disease of native coronary artery without angina pectoris; J44.9 Chronic obstructive pulmonary disease, unspecified; Z20.828 Contact with and (suspected) exposure to other viral communicable diseases
CPT/HCPCS: 93005; 99284; 96374; 36415; 85025; 80053; 81001; 84484; 80307; 85379; 83880; 71045; 93010; U0003; A9270 ×2; J1940; C9803; 87635

== ENCOUNTER 2020-03-02 12:48 | Inpatient (IN) | payer MEDICARE, OTHER ==
[2020-03-02 13:50] LABS: ABSOLUTE LYMPHOCYTES (AUTO) 0.5 10^3/uL (0.5-4.7); ABSOLUTE MONOCYTES (AUTO) 0.4 10^3/uL (0.1-1.4); ABSOLUTE NEUT (AUTO) 3.4 10^3/uL (1.7-8.2); BASOPHILS % (AUTO) 0.7 % (0-2); EOSINOPHILS % (AUTO) 0.8 % (0-6); HEMATOCRIT 34.5 % (37.9-51.0); HEMOGLOBIN 11.3 g/dL (13.5-17.0); MEAN CORPUSCULAR HEMOGLOBIN 31.8 pg (27.0-33.4); MEAN CORPUSCULAR HGB CONC 32.8 g/dL (32.0-36.0); MEAN CORPUSCULAR VOLUME 97 fl (80-97); PLATELET COUNT 189 10^3/uL (150-450); RED BLOOD COUNT 3.57 10^6/uL (4.35-5.55); RED CELL DISTRIBUTION WIDTH 18.3 % (11.5-14.0); SEGMENTED NEUTROPHILS % (AUTO) 78.5 % (42-78); TOTAL CELLS COUNTED % (AUTO) 100 %; WHITE BLOOD COUNT 4.3 10^3/uL (4.0-10.5)
[2020-03-02 14:00] LABS: ALBUMIN 3.6 g/dL (3.5-5.0); ALKALINE PHOSPHATASE 475 U/L (38-126); ANION GAP 8 (5-19); ASPARTATE AMINO TRANSFERASE 47 U/L (17-59); BILIRUBIN,DIRECT 0.4 mg/dL (0.0-0.4); BILIRUBIN,TOTAL 1.3 mg/dL (0.2-1.3); BLOOD UREA NITROGEN 19 mg/dL (7-20); CALCIUM 8.9 mg/dL (8.4-10.2); CARBON DIOXIDE 27 mmol/L (22-30); CHLORIDE 101 mmol/L (98-107); GLUCOSE 317 mg/dL (75-110); POTASSIUM 4.7 mmol/L (3.6-5.0); TOTAL PROTEIN 7.9 g/dL (6.3-8.2)
--- NOTE | 2020-03-02 14:45 | ER Document Report ---
ED General - General Chief Complaint: Shortness Of Breath Stated Complaint: SHORTNESS OF BREATH Mode of Arrival: Medic Information source: Patient, Office, [facility] Records Notes: Patient is a 74-year-old male presenting to the emergency department chief complaint of worsening shortness of breath. Patient states that this is been ongoing for about a week and worsening. He states that he saw his human resource advisor today and was given Lasix orally and 1 sublingual nitroglycerin. He states that there is tobacco use at home. Patient denies smoking. Patient states he has been nauseous but has not vomited he does report a slightly productive cough and generalized aches and pains from coughing so much and breathing so forcefully. Patient denies any other complaints at this time. TRAVEL OUTSIDE OF THE [place] IN LAST 30 DAYS: No - HPI Onset: Last week Onset/Duration: Gradual, Worse Quality of pain: Achy Severity: Mild Pain Level: 1 Associated symptoms: Productive cough, Nausea, Shortness of breath, Weakness. denies: Diarrhea, Vomiting Exacerbated by: Movement, Walking, Coughing, Deep breathing Relieved by: Denies Similar symptoms previously: Yes Recently seen / treated by doctor: Yes - Related Data Allergies/Adverse Reactions: iv dye Allergy (Uncoded 02/04/20 20:57) site burning Past Medical History - General Information source: Patient, Office - Social History Smoking Status: Former Smoker Chew tobacco use (# tins/day): No Frequency of alcohol use: None Drug Abuse: None Lives with: Family Family History: Reviewed & Not Pertinent, CAD Patient has suicidal ideation: No Patient has homicidal ideation: No - Past Medical History Cardiac Medical History: Reports: Hx Congestive Heart Failure, Hx Coronary Artery Disease, Hx Heart Attack - 2003, Hx Hypercholesterolemia, Hx Hypertension Pulmonary Medical History: Reports: Hx COPD Neurological Medical History: Reports: Hx Cerebrovascular Accident Endocrine Medical History: Reports: Hx Diabetes Mellitus Type 2 Musculoskeletal Medical History: Reports Hx Arthritis Past Surgical History: Reports: Hx Cardiac Surgery - triple bypass, Hx Coronary Artery Bypass Graft - triple Review of Systems - Review of Systems Constitutional: See HPI EENT: No symptoms reported Cardiovascular: See HPI Respiratory: See HPI Gastrointestinal: No symptoms reported Genitourinary: No symptoms reported Male Genitourinary: No symptoms reported Musculoskeletal: No symptoms reported Skin: No symptoms reported Hematologic/Lymphatic: No symptoms reported Neurological/Psychological: No symptoms reported Physical Exam - Vital signs Vitals: Pulse Ox 97 03/02/20 12:48 - Notes Notes: PHYSICAL EXAMINATION: GENERAL: Patient is a 74-year-old -[place] male in obvious respiratory distress HEAD: Atraumatic, normocephalic. EYES: Pupils equal round and reactive to light, extraocular movements intact, sclera anicteric, conjunctiva are normal. ENT: nares patent, oropharynx clear without exudates. Dry mucous membranes. NECK: Normal range of motion, supple without lymphadenopathy, no appreciable JVD LUNGS: Patient exhibits bilateral diffuse rhonchi and end expiratory wheezing HEART: Tachycardic rate and rhythm without murmurs ABDOMEN: Soft, nontender, normal bowel sounds. No guarding, no rebound. No masses appreciated. EXTREMITIES: Active full range of motion. No cyanosis. 2+ pulses x4 patient has 1+ edema to the ankles NEUROLOGICAL: No focal neurological deficits. Moves all extremities spontaneously and on command. SKIN: Warm, Dry, and intact. Normal turgor, no rashes or lesions noted. Course - Re-evaluation Re-evalutation: 03/02/20 14:44 I was contacted by the patient's human resource advisor Dr. Valencia who states the patient has a prior history of COPD and he believes CHF his ejection fraction is between 20 and 25%. He also reports that the patient did have a fever last evening. COVID 19 test has been ordered. 03/02/20 18:04 Patient has been reevaluated multiple times while in emergency department patient has remained at baseline. 03/02/20 18:05 Patient was consulted to the hospitalist who had already spoken with Dr. Valencia. He is agreeable with admission to the hospitalist service for CHF and COPD exacerbation. - Vital Signs Vital signs: Temp Pulse Resp BP Pulse Ox 97 03/02/20 12:48 - Laboratory Result Diagrams: 03/02/20 13:08 03/02/20 13:08 Laboratory results interpreted by me: 03/02/20 03/02/20 03/02/20 13:08 13:08 13:08 RBC 3.57 L Hgb 11.3 L Hct 34.5 L RDW 18.3 H Lymph % (Auto) 11.0 L Seg Neutrophils % 78.5 H Sodium 135.6 L Est GFR (MDRD) Non-Af 59 L Glucose 317 H ALT 69 H Alkaline Phosphatase 475 H NT-Pro-B Natriuret Pep 8000 H Urine Protein Urine Glucose (UA) Urine Urobilinogen 03/02/20 15:00 RBC Hgb Hct RDW Lymph % (Auto) Seg Neutrophils % Sodium Est GFR (MDRD) Non-Af Glucose ALT Alkaline Phosphatase NT-Pro-B Natriuret Pep Urine Protein >=500 H Urine Glucose (UA) >=500 H Urine Urobilinogen 2.0 H - Diagnostic Test Radiology reviewed: Reports reviewed - EKG Interpretation by Me EKG shows normal: Sinus rhythm Rate: Normal Rhythm: NSR When compared to previous EKG there are: No significant change Discharge - Discharge Clinical Impression: COPD exacerbation, CHF exacerbation Hyperglycemia due to type 2 diabetes mellitus Qualifiers: Diabetes mellitus senior care insulin use: with ferry terminal agent use Qualified Code(s): E11.65 - Type 2 diabetes mellitus with hyperglycemia Condition: Fair Disposition: ADMITTED INPATIENT Admitting Provider: Pool (Hospitalist) Unit Admitted: Telemetry
--- NOTE | 2020-03-02 14:50 | RADIOLOGY REPORT (SQ) ---
EXAM DESCRIPTION: CHEST SINGLE VIEW IMAGES COMPLETED DATE/TIME: 03/02/2020 1:30 pm REASON FOR STUDY: SOB. CT chest, 08/07/2019. COMPARISON: 02/17/2020 EXAM PARAMETERS: NUMBER OF VIEWS: One view. TECHNIQUE: Single frontal radiographic view of the chest acquired. RADIATION DOSE: NA LIMITATIONS: None. FINDINGS: LUNGS AND PLEURA: The lungs are hyperinflated. There are persistent patchy opacities in b oth lungs, with increasing consolidation in the left upper lobe since previous. No definite pleural effusion. No pneumothorax. MEDIASTINUM AND HILAR STRUCTURES: No masses. Contour normal. HEART AND VASCULAR STRUCTURES: Moderate cardiomegaly. Postoperative changes of prior CABG. Indistin ctness of the pulmonary vasculature with cephalization of vessels and peribronchial cuffing consisten t with mild pulmonary edema. BONES: No acute findings. HARDWARE: Left infraclavicular AICD unchanged. OTHER: No other significant finding. IMPRESSION: 1. Increasing consolidation in the left upper lobe consistent with a pneumonia. 2. At least mild pulmonary edema. TECHNICAL DOCUMENTATION: JOB ID: [id number] [employer]- All Rights Reserved Reading location - IP/workstation name: [email or web address]
--- NOTE | 2020-03-02 15:58 | PDOC H&P ---
History of Present Illness Admission Date/PCP: KENDRA VARELA MD Patient complains of: Dyspnea severe History of Present Illness: BUDDY TREJO is a 74 year old male Past Medical History Cardiac Medical History: Reports: Congestive Heart Failure - Systolic, Coronary Artery Disease, Myocardial Infarction - 2003, Hyperlipidema, Hypertension Pulmonary Medical History: Reports: Chronic Obstructive Pulmonary Disease (COPD) EENT Medical History: Denies: Cataracts, Eyes, Ears, Nose, Throat Endocrine Medical History: Reports: Diabetes Mellitus Type 2 Renal/ Medical History: Denies: Chronic Kidney Disease Malignancy Medical History: Reports: None GI Medical History: Reports: Gastroesophageal Reflux Disease Musculoskeltal Medical History: Reports: Arthritis Psychiatric Medical History: Reports: Tobacco Dependency Denies: Alcohol Dependency, General Anxiety Disorder Hematology: Reports: Anemia Past Surgical History Past Surgical History: Reports: Coronary Artery Bypass Graft - triple Social History Information Source: Patient Lives with: Alone Smoking Status: Former Smoker Electronic Cigarette use?: No Frequency of Alcohol Use: None Hx Recreational Drug Use: No Drugs: None Hx Prescription Drug Abuse: No - Advance Directive Resuscitation Status: Do Not Resuscitate Surrogate healthcare decision maker:: Alpesh Trejo Family History Family History: CAD Parental Family History Reviewed: Yes Children Family History Reviewed: Yes Sibling(s) Family History Reviewed.: Yes Medication/Allergy Home Medications: Clopidogrel Bisulfate [Plavix 75 mg Tablet] 75 mg PO DAILY 10/20/18 Aspirin [Ecotrin 81 mg EC Tablet] 81 mg PO DAILY tabec 10/23/18 Amiodarone HCl [Cordarone 200 mg Tablet] 200 mg PO DAILY 10/08/19 Atorvastatin Calcium [Lipitor 40 mg Tablet] 40 mg PO QHS 10/08/19 Cholecalciferol (Vitamin D3) [Vitamin D3 1000 Unit Tablet] 2,000 unit PO DAILY 10/08/19 Cyanocobalamin (Vitamin B-12) [Vitamin B-12 1000 mcg Tablet] 1,000 mcg PO DAILY 10/08/19 Ferrous Sulfate [Feosol 325 mg Tablet] 325 mg PO DAILY 10/08/19 Fluoxetine HCl 20 mg PO DAILY 10/08/19 Insulin Lispro [Humalog Insulin (Lispro) 100 unit/mL] 5 unit SUBCUT MEALS 10/08/19 Portal-3/Dha/Epa/Fish Oil [Fish Oil 1,000 mg Softgel] 1,000 mg PO DAILY 10/08/19 Ranolazine [Ranexa 500 mg Tab.sr] 500 mg PO Q12 10/08/19 Insulin Glargine,Hum.rec.anlog [Lantus Insulin 100 Unit/1 ml 10 ml] 24 unit SUBCUT QHS unit 10/12/19 Furosemide [Lasix 20 mg Tablet] 20 mg PO QAM 11/28/19 Nitroglycerin 0.4 mg SL Q5MP PRN 03/02/20 Allergies/Adverse Reactions: iv dye Allergy (Uncoded 02/04/20 20:57) site burning Review of Systems Cardiovascular: PRESENT: dyspnea on exertion, edema Respiratory: PRESENT: dyspnea Gastrointestinal: PRESENT: heartburn Psychiatric: PRESENT: depression Physical Exam Vital Signs: Temp Pulse Resp BP Pulse Ox 97 03/02/20 12:48 Intake & Output 03/01/20 03/02/20 03/03/20 06:59 06:59 06:59 Weight 87.9 kg General appearance: PRESENT: cooperative, severe distress, well-developed Head exam: PRESENT: atraumatic, normocephalic Eye exam: PRESENT: conjunctiva pink, EOMI. ABSENT: scleral icterus Ear exam: PRESENT: normal external ear exam. ABSENT: bleeding, drainage Mouth exam: PRESENT: moist, tongue midline Neck exam: PRESENT: JVD. ABSENT: carotid bruit, lymphadenopathy Respiratory exam: PRESENT: rales - Bilateral, symmetrical, tachypnea - With labored breathing. ABSENT: rhonchi, wheezes Cardiovascular exam: PRESENT: RRR, +S1, +S2. ABSENT: bradycardia, diastolic murmur, irregular rhythm, systolic murmur, tachycardia GI/Abdominal exam: PRESENT: hypoactive bowel sounds, soft. ABSENT: distended, guarding, tenderness Rectal exam: PRESENT: deferred Gentrourinary exam: ABSENT: indwelling catheter Extremities exam: PRESENT: +1 edema Musculoskeletal exam: PRESENT: ambulatory, normal inspection - Except for the edema. ABSENT: deformity, dislocation Neurological exam: PRESENT: alert, awake, oriented to person, oriented to place, oriented to time, oriented to situation, CN II-XII grossly intact. ABSENT: altered, motor sensory deficit Psychiatric exam: PRESENT: anxious - Secondary to tachypnea, appropriate affect. ABSENT: agitated Focused psych exam: ABSENT: delusional, paranoid, restlessness Skin exam: PRESENT: dry, normal color, warm. ABSENT: mottled, rash Results Laboratory Results: 03/02/20 13:08 03/02/20 13:08 03/02/20 03/02/20 13:08 13:08 WBC 4.3 RBC 3.57 L Hgb 11.3 L Hct 34.5 L MCV 97 MCH 31.8 MCHC 32.8 RDW 18.3 H Plt Count 189 Seg Neutrophils % 78.5 H Sodium 135.6 L Potassium 4.7 Chloride 101 Carbon Dioxide 27 Anion Gap 8 BUN 19 Creatinine 1.21 Est GFR ( Amer) > 60 Glucose 317 H Calcium 8.9 Total Bilirubin 1.3 AST 47 Alkaline Phosphatase 475 H Total Protein 7.9 Albumin 3.6 03/02/20 13:08 Troponin I 0.023 Impressions: Chest X-Ray 03/02/20 13:30 IMPRESSION: 1. Increasing consolidation in the left upper lobe consistent with a pneumonia. 2. At least mild pulmonary edema. Assessment and Plan - Diagnosis (1) Acute on chronic systolic (congestive) heart failure Is this a current diagnosis for this admission?: Yes Plan: The patient is sent from Dr. Mccall's office. He has exhibited increased shortness of breath for the last 5 to 6 days. He had a recent echocardiogram in Dr. Mccall's office several weeks ago. Depressed ejection fraction in the 25 to 30% range. The patient states that in addition to difficulty breathing he has noticed increased swelling in his legs. We are going to change to IV Lasix. We will need to monitor his electrolytes and renal function. He is also on amiodarone. I have also ordered morphine to help with his dyspnea. (2) Coronary artery disease Qualifiers: Coronary Disease-Associated Artery/Lesion type: [place] artery [place] vs. transplanted heart: [place] heart Associated angina: without angina Qualified Code(s): I25.10 - Atherosclerotic heart disease of [place] coronary artery without angina pectoris Is this a current diagnosis for this admission?: Yes Plan: Because of acute on chronic episode of heart failure I will obtain serial tr oponin studies. His EKG looks unchanged from previous studies. We will continue his Plavix, Ranexa, aspirin and atorvastatin. He will have as needed sublingual nitroglycerin available as well (3) COPD (chronic obstructive pulmonary disease) Qualifiers: COPD type: unspecified COPD Qualified Code(s): J44.9 - Chronic obstructive pulmonary disease, unspecified Is this a current diagnosis for this admission?: Yes Plan: He was difficult to ascertain how much of this shortness of breath is related to his COPD. He does not appear to be on chronic inhaler therapy. I have ordered a stat Xopenex treatment and he will have a pro-air inhaler available as needed. No systemic steroids at this point. (4) Hypertension Qualifiers: Hypertension type: essential hypertension Qualified Code(s): I10 - Essen tial (primary) hypertension Is this a current diagnosis for this admission?: Yes Plan: Currently on furosemide. We will discuss the use of CHRISTEL inhibitor versus ARB with Dr. Valencia. Will monitor blood pressure with serial vital signs. (5) Hyperglycemia due to type 2 diabetes mellitus Qualifiers: Diabetes mellitus half-way insulin use: with middle or intermediate school principal use Qualified Code(s): E11.65 - Type 2 diabetes mellitus with hyperglycemia; Z79.4 - intermediate designer (current) use of insulin Is this a current diagnosis for this admission?: Yes Plan: The patient's serum glucose was markedly elevated today. I will initiate his Lantus 24 units at night with 5 units of Humalog before meals. In addition he will have sliding scale available with Accu-Cheks before meals and at bedtime (6) Gastroesophageal reflux Qualifiers: Esophagitis presence: without esophagitis Qualified Code(s): K21.9 - Gastro-esophageal reflux disease without esophagitis Is this a current diagnosis for this admission?: Yes Plan: Continue Pepcid 20 mg daily (7) Hyperlipidemia Qualifiers: Hyperlipidemia type: unspecified Qualified Code(s): E78.5 - Hyperlipidemia, unspecified Is this a current diagnosis for this admission?: Yes Plan: Continue atorvastatin 40 mg daily (8) Iron deficiency anemia Qualifiers: Iron deficiency anemia type: unspecified iron deficiency Qualified Code(s): D50.9 - Iron deficiency anemia, unspecified Is this a current diagnosis for this admission?: Yes Plan: He does have history of chronic stage III kidney failure. The anemia could be r elated to this. We will continue his ferrous sulfate 325 mg daily. (9) Chronic kidney disease, stage 3 (moderate) Is this a current diagnosis for this admission?: Yes Plan: The patient serum creatinine is only 1.21. This is the lowest it this that is been recently. This could be due to increased volume. His GFR is [address] ill qualifies for stage III chronic kidney disease. We will continue to monitor renal function and try and avoid nephrotoxic medications. - Time Time Spent with patient: 35 or more minutes Medications reviewed and adjusted accordingly: Yes Anticipated Discharge Disposition: Home, Self Care Anticipated Discharge Timeframe: 3 to 4 days
[2020-03-02] MEDS ORDERED: MORPHINE SULFATE 10 MG/ML INJ IV ONE (16:15)
[2020-03-02] MEDS ORDERED: FUROSEMIDE INJ/PF 40 MG/4 ML SDV IV ONE (16:15)
[2020-03-02] MEDS ORDERED: LEVALBUTEROL HCL NEB 1.25 MG/3 ML AMPUL NEB ONE (16:15)
[2020-03-02] MEDS ORDERED: NITROGLYCERIN 0.4 MG/TAB 25 TAB/BOTTLE SL PRN (16:18)
[2020-03-02 16:19] LABS: INTERNATIONAL RATION (INR) 1.17; PROTHROMBIN TIME 15.1 SEC (11.4-15.4)
[2020-03-02] MEDS ORDERED: TEMAZEPAM 15 MG CAPSULE PO PRN (16:32)
[2020-03-02 16:39] LABS: APPEARANCE,URINE CLEAR; BILIRUBIN,URINE NEGATIVE (NEGATIVE); COLOR,URINE YELLOW; GLUCOSE, URINE >=500 mg/dL (NEGATIVE); KETONES,URINE NEGATIVE (NEGATIVE); LEUKOCYTE ESTERASE,URINE NEGATIVE (NEGATIVE); NITRITE,URINE NEGATIVE (NEGATIVE); PROTEIN,URINE >=500 mg/dL (NEGATIVE); URINE SPECIFIC GRAVITY 1.018
[2020-03-02] MEDS ORDERED: DEXTROSE 40% GEL 15 GM TUBE PO PRN ×2 (16:43)
[2020-03-02] MEDS ORDERED: GLUCAGON,HUMAN RECOMB 1 MG INJ IM PRN (16:43)
[2020-03-02] MEDS ORDERED: DEXTROSE 50%-WATER 25 GM/50 ML DISP.SYRIN IV PRN ×2 (16:43)
[2020-03-02] MEDS ORDERED: ALBUTEROL SULFATE HFA (90 MCG/PUFF) 8 GM MDI IH PRN (16:57)
--- NOTE | 2020-03-02 18:39 | EKG REPORT ---
SEVERITY:- ABNORMAL ECG - SINUS RHYTHM LEFT ATRIAL ABNORMALITY NONSPECIFIC INTRAVENTRICULAR CONDUCTION DELAY : Confirmed by: Alonzo Douglas 02-Mar-2020 18:38:19
[2020-03-02 18:44] LABS: CREATINE KINASE MB 1.21 ng/mL (<4.55); TROPONIN I 0.03 ng/mL
[2020-03-02] MEDS: INSULIN LISPRO 100 UNIT/ML 3 ML VIAL SUBCUT SCH (21:43)
[2020-03-02] MEDS: RANOLAZINE 500 MG TAB.SR.12H PO SCH (21:43)
[2020-03-02] MEDS: ATORVASTATIN CALCIUM 40 MG TABLET PO SCH (21:43)
[2020-03-02] MEDS: INSULIN GLARGINE,HUM.REC.ANLOG 1,000 UNIT/10 ML VIAL SUBCUT SCH (21:43)
[2020-03-02] MEDS: FAMOTIDINE 20 MG TABLET PO SCH (21:43)
[2020-03-02] MEDS: ASPIRIN 81 MG TABLET, ENT COATED PO SCH (21:43)
[2020-03-02] MEDS: HEPARIN SOD (PORCINE) 5,000 UNIT/ML 1 ML VIAL SUBCUT SCH (21:44)
[2020-03-02] MEDS: GABAPENTIN 100 MG CAPSULE PO SCH (21:44)
[2020-03-02 23:23] LABS: CREATINE KINASE MB 0.97 ng/mL (<4.55); TROPONIN I 0.032 ng/mL
[2020-03-02] MEDS: ALBUTEROL SULFATE HFA (90 MCG/PUFF) 200 PUFF/8.5 GM MDI IH PRN (23:27)
[2020-03-02 23:57] LABS: ARTERIAL BLOOD BASE EXCESS 1.5 mmol/L; ARTERIAL BLOOD H2CO3 1.04 mmol/L (1.05-1.35); ARTERIAL BLOOD HCO3 24.8 mmol/L (20-24); ARTERIAL BLOOD O2 SATURATION 92.7 % (94-98); ARTERIAL BLOOD PCO2 34.4 mmHg (35-45); ARTERIAL BLOOD PH 7.48 (7.35-7.45); ARTERIAL BLOOD PO2 59.8 mmHg (80-100); ARTERIAL BLOOD TOTAL CO2 25.8 mmol/L (23-27)
[2020-03-02 23:58] LABS: ARTERIAL BLOOD FIO2 ROOM AIR
[2020-03-03] MEDS: ALBUTEROL SULFATE HFA (90 MCG/PUFF) 200 PUFF/8.5 GM MDI IH PRN ×2 (03:24→10:11)
[2020-03-03] MEDS: FUROSEMIDE INJ/PF 40 MG/4 ML SDV IV SCH ×3 (05:18→21:36)
[2020-03-03] MEDS: HEPARIN SOD (PORCINE) 5,000 UNIT/ML 1 ML VIAL SUBCUT SCH ×3 (05:22→21:35)
[2020-03-03 05:55] LABS: ANION GAP 10 (5-19); BLOOD UREA NITROGEN 21 mg/dL (7-20); CALCIUM 8.9 mg/dL (8.4-10.2); CARBON DIOXIDE 27 mmol/L (22-30); CHLORIDE 102 mmol/L (98-107); CREATINE KINASE 72 U/L (55-170); GLUCOSE 135 mg/dL (75-110); POTASSIUM 4.2 mmol/L (3.6-5.0)
[2020-03-03 06:14] LABS: CREATINE KINASE MB 0.87 ng/mL (<4.55); TROPONIN I 0.043 ng/mL
[2020-03-03] MEDS: INSULIN LISPRO 100 UNIT/ML 3 ML VIAL SUBCUT SCH ×8 (09:43→21:34)
[2020-03-03] MEDS: CHOLECALCIFEROL (D3) 1,000 UNIT (25 MCG) TABLET PO SCH (09:49)
[2020-03-03] MEDS: CYANOCOBALAMIN (VITAMIN B-12) 1,000 MCG TABLET PO SCH (09:49)
[2020-03-03] MEDS: FERROUS SULFATE 325 MG TABLET PO SCH (09:49)
[2020-03-03] MEDS: FLUOXETINE HCL 20 MG CAPSULE PO SCH (09:49)
[2020-03-03] MEDS: CLOPIDOGREL BISULFATE 75 MG TABLET PO SCH (09:50)
[2020-03-03] MEDS: FAMOTIDINE 20 MG TABLET PO SCH ×2 (09:50→21:32)
[2020-03-03] MEDS: RANOLAZINE 500 MG TAB.SR.12H PO SCH ×2 (09:58→21:32)
[2020-03-03] MEDS ORDERED: AMIODARONE HCL 200 MG TABLET PO SCH (10:00)
[2020-03-03] MEDS: MORPHINE SULFATE 10 MG/ML INJ IV PRN (10:11)
--- NOTE | 2020-03-03 11:55 | PDOC PROGRESS REPORT ---
Subjective Progress Note for:: 03/03/20 Subjective:: The patient feels much better today. He is clearly less tachypneic. Reason For Visit: HEART FAILURE Physical Exam Vital Signs: Temp Pulse Resp BP Pulse Ox 98.0 F 76 20 115/91 H 96 03/03/20 11:00 03/03/20 11:00 03/03/20 11:00 03/03/20 03:18 03/03/20 11:00 Intake & Output 03/02/20 03/03/20 03/04/20 06:59 06:59 06:59 Weight 85.4 kg General appearance: PRESENT: no acute distress, cooperative, well-developed Head exam: PRESENT: atraumatic, normocephalic Ear exam: PRESENT: normal external ear exam. ABSENT: bleeding, drainage Mouth exam: PRESENT: moist, tongue midline Respiratory exam: PRESENT: rales, symmetrical, unlabored. ABSENT: prolonged expiratory phas, rhonchi, tachypnea, wheezes Cardiovascular exam: PRESENT: RRR, +S1, +S2. ABSENT: bradycardia, diastolic murmur, irregular rhythm, systolic murmur, tachycardia GI/Abdominal exam: PRESENT: normal bowel sounds, soft. ABSENT: distended, tenderness Rectal exam: PRESENT: deferred Gentrourinary exam: ABSENT: indwelling catheter Extremities exam: PRESENT: pedal edema Musculoskeletal exam: PRESENT: ambulatory, normal inspection Neurological exam: PRESENT: alert, awake, oriented to person, oriented to place, oriented to time, oriented to situation, CN II-XII grossly intact. ABSENT: altered Psychiatric exam: PRESENT: appropriate affect. ABSENT: agitated, anxious Focused psych exam: ABSENT: delusional, paranoid, restlessness Results Laboratory Results: 03/02/20 13:08 03/03/20 04:38 03/02/20 03/02/20 03/02/20 13:08 13:08 15:00 WBC 4.3 RBC 3.57 L Hgb 11.3 L Hct 34.5 L MCV 97 MCH 31.8 MCHC 32.8 RDW 18.3 H Plt Count 189 Seg Neutrophils % 78.5 H Carbonic Acid HCO3/H2CO3 Ratio ABG pH ABG pCO2 ABG pO2 ABG HCO3 ABG O2 Saturation ABG Base Excess FiO2 Sodium 135.6 L Potassium 4.7 Chloride 101 Carbon Dioxide 27 Anion Gap 8 BUN 19 Creatinine 1.21 Est GFR ( Amer) > 60 Glucose 317 H Calcium 8.9 Magnesium Total Bilirubin 1.3 AST 47 Alkaline Phosphatase 475 H Total Protein 7.9 Albumin 3.6 Urine Color YELLOW Urine Appearance CLEAR Urine pH 5.0 Ur Specific [place] 1.018 Urine Protein >=500 H Urine Glucose (UA) >=500 H Urine Ketones NEGATIVE Urine Blood NEGATIVE Urine Nitrite NEGATIVE Ur Leukocyte Esterase NEGATIVE Urine WBC (Auto) 1 Urine RBC (Auto) 0 03/02/20 03/02/20 03/03/20 18:48 23:45 04:38 WBC RBC Hgb Hct MCV MCH MCHC RDW Plt Count Seg Neutrophils % Carbonic Acid Cancelled 1.04 L HCO3/H2CO3 Ratio Cancelled 23:1 ABG pH Cancelled 7.48 H ABG pCO2 Cancelled 34.4 L ABG pO2 Cancelled 59.8 L ABG HCO3 Cancelled 24.8 H ABG O2 Saturation Cancelled 92.7 L ABG Base Excess Cancelled 1.5 FiO2 Cancelled ROOM AIR Sodium 139.2 Potassium 4.2 Chloride 102 Carbon Dioxide 27 Anion Gap 10 BUN 21 H Creatinine 1.23 Est GFR ( Amer) > 60 Glucose 135 H Calcium 8.9 Magnesium 2.0 Total Bilirubin AST Alkaline Phosphatase Total Protein Albumin Urine Color Urine Appearance Urine pH Ur Specific [place] Urine Protein Urine Glucose (UA) Urine Ketones Urine Blood Urine Nitrite Ur Leukocyte Esterase Urine WBC (Auto) Urine RBC (Auto) 03/02/20 03/02/20 03/02/20 13:08 13:08 13:08 Creatine Kinase 78 CK-MB (CK-2) Troponin I 0.023 NT-Pro-B Natriuret Pep 8000 H 03/02/20 03/02/20 03/02/20 17:57 17:57 22:38 Creatine Kinase 76 71 CK-MB (CK-2) 1.21 Troponin I 0.030 NT-Pro-B Natriuret Pep 03/02/20 03/03/20 03/03/20 22:38 04:38 04:38 Creatine Kinase 72 CK-MB (CK-2) 0.97 0.87 Troponin I 0.032 0.043 NT-Pro-B Natriuret Pep 24288 H Impressions: Chest X-Ray 03/02/20 13:30 IMPRESSION: 1. Increasing consolidation in the left upper lobe consistent with a pneumonia. 2. At least mild pulmonary edema. Assessment and Plan - Diagnosis (1) Acute on chronic systolic (congestive) heart failure Is this a current diagnosis for this admission?: Yes Plan: He is much improved. Dr. Mccall will be seeing the patient. Continue increased furosemide dosing. (2) Coronary artery disease Qualifiers: Coronary Disease-Associated Artery/Lesion type: [place] artery [place] vs. transplanted heart: [place] heart Associated angina: without angina Qualified Code(s): I25.10 - Atherosclerotic heart disease of [place] coronary artery without angina pectoris Is this a current diagnosis for this admission?: Yes Plan: Continue current medications at this time. Cardiology will be seeing the [place] ent. There may be medication changes. (3) COPD (chronic obstructive pulmonary disease) Qualifiers: COPD type: unspecified COPD Qualified Code(s): J44.9 - Chronic obstructive pulmonary disease, unspecified Is this a current diagnosis for this admission?: Yes Plan: Currently stable. This is more likely congestive failure with possible community-acquired pneumonia. (4) Hypertension Qualifiers: Hypertension type: essential hypertension Qualified Code(s): I10 - Essential (primary) hypertension Is this a current diagnosis for this admission?: Yes Plan: Excellent blood pressure control. Continue current medications (5) Hyperglycemia due to type 2 diabetes mellitus Qualifiers: Diabetes mellitus senior care insulin use: with senior care use Qualified Code(s): E11.65 - Type 2 diabetes mellitus with hyperglycemia; Z79.4 - ad terminal makeup operator (current) use of insulin Is this a current diagnosis for this admission?: Yes Plan: The patient's sugars are trending down. We will continue Accu-Cheks and sliding scale and adjust treatment based on the glucose readings. (6) Gastroesophageal reflux Qualifiers: Esophagitis presence: without esophagitis Qualified Code(s): K21.9 - Gastro-esophageal reflux disease without esophagitis Is this a current diagnosis for this admission?: Yes Plan: Continue Pepcid (7) Hyperlipidemia Qualifiers: Hyperlipidemia type: unspecified Qualified Code(s): E78.5 - Hyperlipidemia, unspecified Is this a current diagnosis for this admission?: Yes Plan: Continue statin therapy (8) Iron deficiency anemia Qualifiers: Iron deficiency anemia type: unspecified iron deficiency Qualified Code(s): D50.9 - Iron deficiency anemia, unspecified Is this a current diagnosis for this admission?: Yes Plan: Hemoglobin was 11.3 on admission. Continue iron supplement (9) Chronic kidney disease, stage 3 (moderate) Is this a current diagnosis for this admission?: Yes Plan: Stable at stage III kidney failure. Will monitor closely with aggressive diuresis. (10) Community acquired pneumonia Qualifiers: Laterality: left Lung location: upper lobe of lung Qualified Code(s): J18.9 - Pneumonia, unspecified organism Is this a current diagnosis for this admission?: Yes Plan: Being tested for COVID. Rocephin and doxycycline. - Time Time Spent with patient: 15-24 minutes Medications reviewed and adjusted accordingly: Yes Anticipated Discharge Disposition: Home, Self Care Anticipated Discharge Timeframe: within 72 hours
--- NOTE | 2020-03-03 19:43 | PDOC CONSULTATION ---
Consultation-Blank Consultation: CARDIOLOGY CONSULTATION by Dr. Jazmin Valencia on 03/03/2020. Patient seen at 11:30 AM. 60 minutes spent as patient more than 50% of time spent in direct patient care. CONSULT REQUESTING PHYSICIAN: Requested to see this patient by , since the patient is regularly followed up with me for his cardiology problems in my office. REASON FOR CONSULTATION: Patient with symptoms and signs of acute on chronic systolic heart failure and acute exacerbation of COPD. HISTORY OF PRESENT ILLNESS: The patient came to my office to be seen yesterday [03/02/2020]. In follow-up and to get results of his stress test and echocardiogram which he had done as an outpatient. On examination he was seen to be acutely short of breath with rhonchi and wheezing and also PND and orthopnea with mild leg edema. Since we do not have IV Lasix in the office the patient was given oxygen sublingual nitroglycerin and also sublingual 40 mg of Lasix. EMT was called and they came in and the place the patient on facial mask with oxygen and transported the patient to the emergency room. His EKG showed no acute changes. The patient states that since about a week he was having progressively increasing shortness of breath with PND orthopnea and leg edema. There is no palpitations or firing of his AICD. He has no anginal symptoms. He also states that he has been having intermittent wheezing with orthopnea and cough productive of whitish sputum. He denies any fever chills or rigors. In the office his examination was consistent with acute congestive heart failure and acute exacerbation of COPD. Later I was consulted and hence saw the patient formally in consult today in the hospital. The patient states his shortness of breath is better his leg edema is better improved. There is no recurrence of ventricular tachycardia. He has no anginal symptoms. He has a history of CAD old HI history of coronary artery bypass graft surgery, history of hypertension, history of diabetes mellitus, history of COPD, history of dilated ischemic cardiomyopathy s/p AICD placement. He has a history of CVA with almost full recovery except for minimal/subtle right-sided weakness and a little slurred speech. There is no recurrence of his CVA. PAST MEDICAL HISTORY: History of coronary artery disease. Prior history of HI. History of ischemic and dilated cardiomyopathy. Prior history of congestive heart failure none recently. History of AICD placement no firing of the AICD. History of coronary artery bypass Surgery. Prior history of ventricular tachycardia. No recurrence. Patient on amiodarone. History of COPD. Patient is ex-smoker. History of CVA with almost fully recovered with very minimal residual subtle weakness. History of diabetes mellitus. No history of thyroid disease. There is a history of hyperlipidemia. History of chronic kidney disease. No history of anxiety, but has a history of depression. Past SURGICAL HISTORY: Cardiac catheterization. History of coronary bypass graft surgery. History of AICD placement. FAMILY HISTORY: Positive for coronary artery disease. And hypertension. Clopidogrel Bisulfate [Plavix 75 mg Tablet] 75 mg PO DAILY 10/20/18 Amiodarone HCl [Cordarone 200 mg Tablet] 200 mg PO DAILY 10/08/19 Atorvastatin Calcium [Lipitor 40 mg Tablet] 40 mg PO QHS 10/08/19 Cholecalciferol (Vitamin D3) [Vitamin D3 1000 Unit Tablet] 2,000 unit PO DAILY 10/08/19 Cyanocobalamin (Vitamin B-12) [Vitamin B-12 1000 mcg Tablet] 1,000 mcg PO DAILY 10/08/19 Ferrous Sulfate [Feosol 325 mg Tablet] 325 mg PO DAILY 10/08/19 Fluoxetine HCl 20 mg PO DAILY 10/08/19 Insulin Lispro [Humalog Insulin (Lispro) 100 unit/mL] 5 unit SUBCUT MEALS 10/08/19 [place]-3/Dha/Epa/Fish Oil [Fish Oil 1,000 mg Softgel] 1,000 mg PO DAILY 10/08/19 Ranolazine [Ranexa 500 mg Tab.sr] 500 mg PO Q12 10/08/19 Furosemide [Lasix 20 mg Tablet] 20 mg PO QAM 11/28/19 Nitroglycerin 0.4 mg SL Q5MP PRN 03/02/20 RESUSCITATION STATUS: The patient is a DNR. His brother Mr. Alpesh Campbell is a surrogate healthcare decision maker. Current Medications Generic Name Dose Route Start Last Admin Trade Name Freq PRN Reason Stop Dose Admin Albuterol 2 puff 03/02/20 17:00 03/03/20 10:11 Proair Hfa Inhalation Aerosol 8.5 Gm Mdi IH 04/01/20 16:59 2 puff Q4HP PRN Administration FOR WHEEZING Amiodarone HCl 400 mg 03/03/20 10:00 03/03/20 09:49 Cordarone 200 Mg Tablet PO 04/02/20 09:59 400 mg DAILY [place] Administration Aspirin 81 mg 03/02/20 22:00 03/03/20 21:32 Ecotrin 81 Mg Ec Tablet PO 04/01/20 21:59 81 mg QHS [place] Administration Atorvastatin Calcium 40 mg 03/02/20 22:00 03/03/20 21:32 Lipitor 40 Mg Tablet PO 04/01/20 21:59 40 mg QHS [place] Administration Cholecalciferol 2,000 unit 03/03/20 10:00 03/03/20 09:49 Vitamin D3 1000 Unit Tablet PO 04/02/20 09:59 2,000 unit DAILY [place] Administration Clopidogrel Bisulfate 75 mg 03/03/20 10:00 03/03/20 09:50 Plavix 75 Mg Tablet PO 04/02/20 09:59 75 mg DAILY [place] Administration Cyanocobalamin 1,000 mcg 03/03/20 10:00 03/03/20 09:49 Vitamin B-12 1000 Mcg Tablet PO 04/02/20 09:59 1,000 mcg DAILY [place] Administration Dextrose 12.5 gm 03/02/20 16:43 Dextrose Inj 50% Syringe (25 Gm/50 Ml) IV 04/01/20 16:42 PRN PRN FOR BG 50-69 IN ALERT PATIENT Protocol Dextrose 25 gm 03/02/20 16:43 Dextrose Inj 50% Syringe (25 Gm/50 Ml) IV 04/01/20 16:42 PRN PRN PER PROTOCOL Protocol Famotidine 20 mg 03/02/20 22:00 03/03/20 21:32 Pepcid 20 Mg Tablet PO 04/01/20 21:59 20 mg Q12 [place] Administration Ferrous Sulfate 325 mg 03/03/20 10:00 03/03/20 09:49 Feosol 325 Mg Tablet PO 04/02/20 09:59 325 mg DAILY [place] Administration Fluoxetine HCl 20 mg 03/03/20 10:00 03/03/20 09:49 Prozac 20 Mg Capsule PO 04/02/20 09:59 20 mg DAILY [place] Administration Furosemide 40 mg 03/02/20 18:00 03/03/20 21:36 Lasix Inj/Pf 40 Mg/4 Ml Sdv IV 04/01/20 17:59 40 mg BID [place] Administration Gabapentin 100 mg 03/02/20 22:00 03/03/20 21:32 Neurontin 100 Mg Capsule PO 04/01/20 21:59 100 mg QHS [place] Administration Glucagon 1 mg 03/02/20 16:43 Glucagen Inj 1 Mg Vial IM 04/01/20 16:42 PRN PRN Evaluate for BG < 70 Protocol Glucose 15 gm 03/02/20 16:43 Glutose 40% Gel 15 Gm Tube PO 04/01/20 16:42 PRN PRN FOR BG 50-69 IN ALERT PATIENT Protocol Glucose 30 gm 03/02/20 16:43 Glutose 40% Gel 15 Gm Tube PO 04/01/20 16:42 PRN PRN FOR BG < 50 IN ALERT PATIENT Protocol Heparin Sodium (Porcine) 5,000 unit 03/02/20 22:00 03/03/20 21:35 Heparin Inj 5,000 Units/Ml 1 Ml Vial SUBCUT 04/01/20 21:59 Not Given Q8 [facility] Insulin Glargine 24 unit 03/02/20 22:00 03/03/20 21:33 Lantus Insulin 100 Unit/1 Ml 10 Ml SUBCUT 04/01/20 21:59 Not Given QHS [facility] Insulin Human Lispro 0 - 12 unit 03/02/20 22:00 03/03/20 21:34 Humalog Insulin 100 Unit/1 Ml 3 Ml Vial SUBCUT 04/01/20 21:59 Not Given ACHS [facility] Protocol Insulin Human Lispro 5 unit 03/03/20 08:00 03/03/20 17:53 Humalog Insulin 100 Unit/1 Ml 3 Ml Vial SUBCUT 04/02/20 07:59 Not Given AC [facility] Morphine Sulfate 4 mg 03/02/20 16:32 03/03/20 10:11 Morphine 10 Mg/Ml Inj IV 03/09/20 16:31 4 mg Q4HP PRN Administration FOR PAIN Nitroglycerin 1 tab 03/02/20 16:18 Nitrostat 0.4 Mg (1/150 Gr) Tabs 25/Bottle SL 04/01/20 16:17 Q5MP PRN FOR CHEST PAIN Ranolazine 500 mg 03/02/20 22:00 03/03/20 21:32 Ranexa 500 Mg Tab.Sr PO 04/01/20 21:59 500 mg Q12 [place] Administration Sodium Chloride 2.5 ml 03/02/20 22:00 03/03/20 21:32 Saline Flush 2.5 Ml Monoject Prefil Syrin IV 04/01/20 21:59 2.5 ml Q8 [place] Administration Temazepam 15 mg 03/02/20 16:32 Restoril 15 Mg Capsule PO 03/09/20 16:31 HSP PRN SLEEP OR INSOMNIA Discontinued Medications Generic Name Dose Route Start Last Admin Trade Name Giat PRN Reason Stop Dose Admin Diazepam Confirm 03/03/20 22:34 Valium Inj 10 Mg/2 Ml Disp.Syrin Administered 03/03/20 22:35 Dose 10 mg .ROUTE .STK-MED ONE Furosemide 40 mg 03/02/20 16:15 03/02/20 16:11 Lasix Inj/Pf 40 Mg/4 Ml Sdv IV 03/02/20 16:16 40 mg NOW ONE Administration Levalbuterol HCl 1.25 mg 03/02/20 16:15 03/02/20 16:13 Xopenex Neb 1.25 Mg/3 Ml Ampul NEB 03/02/20 16:16 1.25 mg NOW ONE Administration Morphine Sulfate 4 mg 03/02/20 16:15 03/02/20 16:15 Morphine 10 Mg/Ml Inj IV 03/02/20 16:16 4 mg NOW ONE Administration ALLERGY: Patient has no known allergies. REVIEW of SYSTEMS: CONSTITUTIONAL: Complains of generalized fatigue. No history of fever chills or Reiger's. HEAD: No severe headaches or head injury. EYES: Pupils with no history of amblyopia diplopia. No history of amaurosis fugax. EARS: No severe hearing loss. No tinnitus. NOSE: No history of hayfever. No history of nosebleeds. MOUTH: No altered taste sensation. No bleeding from the gums. THROAT: No history of odynophagia dysphagia no recurrent sore throats. SKIN: No pruritus. No yellowish discoloration of the skin. NECK: No history of neck pain. No swelling in the neck. LUNGS: History of COPD the patient is an ex-smoker. He has cough productive of whitish sputum and shortness of breath orthopnea and wheezing. He denies any fever no chest pain or discomfort no hemoptysis. . No history of normal embolism. No history of sleep apnea. No history of symptoms suggestive of upper or lower respiratory tract infections. CARDIAC: History of coronary artery disease. History of HI. History of coronary artery bypass graft surgery. History of dilated and ischemic cardiomyopathy with severely reduced LV ejection fraction. History of AICD. No recent firing of the AICD. He has a history of ventricular tachycardia, but denies any palpitations. He has shortness of breath PND orthopnea but no chest pain suggestive of angina. Denies syncope. ABDOMEN: Denies abdominal pain. No history of GI bleed. No history of altered bowel movements, but the patient states with his syncope he has a bowel movement which is loose. There is no GI bleed. There is no history hematemesis or HEMATOCHEZIA OR MELENA. NO HISTORY OF FATTY FOOD INTOLERANCE. Endocrine: History of diabetes mellitus. No history of thyroid disease. No history the patient does have recent polydipsia and polyuria. The patient is very noncompliant with his diet and medication for his diabetes. No heat or cold intolerance. Patient admitted with a hyperosmolar state with hyperglycemia. METABOLIC: Denies obesity. No history of gout. History of hyperlipidemia. RENAL: History of chronic kidney disease stage III. Patient recently with hyper kalemia. Also musculoskeletal: No history of arthritis or collagen vascular disease. PROP AND SCENERY MAKER: History of CVA. With no recurrence. No history of headaches migraines or seizures. Denies gait imbalance. History of frequent falls and syncopal episodes. PSYCHIATRIC: No history of suicidal ideation or homicidal ideation. No history of anxiety or depression. HEMATOLOGICAL: No history of bleeding diathesis or blood dyscrasias. NO HISTORY OF CLOTTING DISORDERS. VASCULAR: No history of DVT. No calf or buttock claudication. PHYSICAL EXAMINATION: The patient well-built. He is well-groomed. Selected Entries 03/03/20 03/03/20 03/03/20 10:37 11:00 15:20 Temperature 98.0 F 98.0 F 98.0 F Temperature Oral Oral Source Pulse Rate 76 76 72 Respiratory 20 24 H Rate Blood Pressure 116/69 Blood Pressure 84 Mean O2 Sat by Pulse 96 95 Oximetry Oxygen Delivery Room Air Room Air Method ( includes room air) HEAD: Is atraumatic normocephalic. EYES: Pupils are equal round regular reactive to light accommodation. External ocular movements are normal. There is no conjunctival pallor. There is no scleral icterus. EARS: Tympanic membranes are intact. External auditory canals are clear. NOSE: There is no deviated nasal septum. There is no inflammation of the nasal mucous membrane. MOUTH: Mucous membranes of the mouth are moist. Tongue is moist. There is no ulcers. There is no bleeding from the gums. THROAT: There is no redness of the oropharynx. There is no exudates. SKIN: There is no skin rashes. There is no skin lesions. There is no petechia or ecchymosis. NECK: Supple. There is mild JVD. Carotids are equal there is no bruits. There is no lymphadenopathy. There is no goiter. There is no accessory muscle respiration use. Trachea central. LUNGS: Clear to auscultation percussion. There is bilateral rhonchi but no wheezing. There is diminished air entry and prolonged expiration. On percussion there is hyperresonance. There is bibasilar rales of CHF.. There is no chest wall tenderness. HEART: S1-S2 is heard. There is no S3 gallop. There is no S4 gallop. Systolic murmur left sternal border and the apex there is no rub. ABDOMEN: Is soft. There is no hepatosplenomegaly. Bowel sounds well heard. There is no tender areas masses. EXTREMITIES: There is no femoral bruits. Femorals are well felt. Leg pulses are well felt. There is trace to mild pedal edema. There is no DVT or cellulitis. There is no cyanosis or clubbing. PROP AND SCENERY MAKER: The patient is conscious he does have problems with memory and his speech suggest slow mentation. There is mild subtle weakness of the right side. PSYCHIATRIC. The patient judgment and insight appear to be normal. Labs- Entire Visit 03/02/20 03/02/20 03/02/20 13:08 13:08 13:08 WBC 4.3 RBC 3.57 L Hgb 11.3 L Hct 34.5 L MCV 97 MCH 31.8 MCHC 32.8 RDW 18.3 H Plt Count 189 Lymph % (Auto) 11.0 L [place] % (Auto) 9.0 Eos % (Auto) 0.8 Baso % (Auto) 0.7 Absolute Neuts (auto) 3.4 Absolute Lymphs (auto) 0.5 Absolute Monos (auto) 0.4 Absolute Eos (auto) 0.0 Absolute Basos (auto) 0.0 Seg Neutrophils % 78.5 H PT INR Carbonic Acid HCO3/H2CO3 Ratio ABG pH ABG pCO2 ABG pO2 ABG HCO3 ABG Total CO2 ABG O2 Saturation ABG Base Excess FiO2 Sodium 135.6 L Potassium 4.7 Chloride 101 Carbon Dioxide 27 Anion Gap 8 BUN 19 Creatinine 1.21 Est GFR ( Amer) > 60 Est GFR (MDRD) Non-Af 59 L Glucose 317 H POC Glucose Calcium 8.9 Magnesium Total Bilirubin 1.3 Direct Bilirubin 0.4 Neonat Total Bilirubin Not Reportable Neonat Direct Bilirubin Not Reportable Neonat Indirect Bili Not Reportable AST 47 ALT 69 H Alkaline Phosphatase 475 H Creatine Kinase CK-MB (CK-2) Troponin I 0.023 NT-Pro-B Natriuret Pep Total Protein 7.9 Albumin 3.6 Urine Color Urine Appearance Urine pH Ur Specific [place] Urine Protein Urine Glucose (UA) Urine Ketones Urine Blood Urine Nitrite Urine Bilirubin Urine Urobilinogen Ur Leukocyte Esterase Urine WBC (Auto) Urine RBC (Auto) U Hyaline Cast (Auto) Squamous Epi Cells Auto Urine Mucus (Auto) Urine Ascorbic Acid 03/02/20 03/02/20 03/02/20 13:08 13:08 13:08 WBC RBC Hgb Hct MCV MCH MCHC RDW Plt Count Lymph % (Auto) [place] % (Auto) Eos % (Auto) Baso % (Auto) Absolute Neuts (auto) Absolute Lymphs (auto) Absolute Monos (auto) Absolute Eos (auto) Absolute Basos (auto) Seg Neutrophils % PT 15.1 INR 1.17 Carbonic Acid HCO3/H2CO3 Ratio ABG pH ABG pCO2 ABG pO2 ABG HCO3 ABG Total CO2 ABG O2 Saturation ABG Base Excess FiO2 Sodium Potassium Chloride Carbon Dioxide Anion Gap BUN Creatinine Est GFR ( Amer) Est GFR (MDRD) Non-Af Glucose POC Glucose Calcium Magnesium Total Bilirubin Direct Bilirubin Neonat Total Bilirubin Neonat Direct Bilirubin Neonat Indirect Bili AST ALT Alkaline Phosphatase Creatine Kinase 78 CK-MB (CK-2) Troponin I NT-Pro-B Natriuret Pep 8000 H Total Protein Albumin Urine Color Urine Appearance Urine pH Ur Specific [place] Urine Protein Urine Glucose (UA) Urine Ketones Urine Blood Urine Nitrite Urine Bilirubin Urine Urobilinogen Ur Leukocyte Esterase Urine WBC (Auto) Urine RBC (Auto) U Hyaline Cast (Auto) Squamous Epi Cells Auto Urine Mucus (Auto) Urine Ascorbic Acid 03/02/20 03/02/20 03/02/20 15:00 17:57 17:57 WBC RBC Hgb Hct MCV MCH MCHC RDW Plt Count Lymph % (Auto) [place] % (Auto) Eos % (Auto) Baso % (Auto) Absolute Neuts (auto) Absolute Lymphs (auto) Absolute Monos (auto) Absolute Eos (auto) Absolute Basos (auto) Seg Neutrophils % PT INR Carbonic Acid HCO3/H2CO3 Ratio ABG pH ABG pCO2 ABG pO2 ABG HCO3 ABG Total CO2 ABG O2 Saturation ABG Base Excess FiO2 Sodium Potassium Chloride Carbon Dioxide Anion Gap BUN Creatinine Est GFR ( Amer) Est GFR (MDRD) Non-Af Glucose POC Glucose Calcium Magnesium Total Bilirubin Direct Bilirubin Neonat Total Bilirubin Neonat Direct Bilirubin Neonat Indirect Bili AST ALT Alkaline Phosphatase Creatine Kinase 76 CK-MB (CK-2) 1.21 Troponin I 0.030 NT-Pro-B Natriuret Pep Total Protein Albumin Urine Color YELLOW Urine Appearance CLEAR Urine pH 5.0 Ur Specific [place] 1.018 Urine Protein >=500 H Urine Glucose (UA) >=500 H Urine Ketones NEGATIVE Urine Blood NEGATIVE Urine Nitrite NEGATIVE Urine Bilirubin NEGATIVE Urine Urobilinogen 2.0 H Ur Leukocyte Esterase NEGATIVE Urine WBC (Auto) 1 Urine RBC (Auto) 0 U Hyaline Cast (Auto) 4 Squamous Epi Cells Auto <1 Urine Mucus (Auto) RARE Urine Ascorbic Acid NEGATIVE 03/02/20 03/02/20 03/02/20 18:25 18:48 21:00 WBC RBC Hgb Hct MCV MCH MCHC RDW Plt Count Lymph % (Auto) [place] % (Auto) Eos % (Auto) Baso % (Auto) Absolute Neuts (auto) Absolute Lymphs (auto) Absolute Monos (auto) Absolute Eos (auto) Absolute Basos (auto) Seg Neutrophils % PT INR Carbonic Acid Cancelled HCO3/H2CO3 Ratio Cancelled ABG pH Cancelled ABG pCO2 Cancelled ABG pO2 Cancelled ABG HCO3 Cancelled ABG Total CO2 Cancelled ABG O2 Saturation Cancelled ABG Base Excess Cancelled FiO2 Cancelled Sodium Potassium Chloride Carbon Dioxide Anion Gap BUN Creatinine Est GFR ( Amer) Est GFR (MDRD) Non-Af Glucose POC Glucose 256 H 221 H Calcium Magnesium Total Bilirubin Direct Bilirubin Neonat Total Bilirubin Neonat Direct Bilirubin Neonat Indirect Bili AST ALT Alkaline Phosphatase Creatine Kinase CK-MB (CK-2) Troponin I NT-Pro-B Natriuret Pep Total Protein Albumin Urine Color Urine Appearance Urine pH Ur Specific [place] Urine Protein Urine Glucose (UA) Urine Ketones Urine Blood Urine Nitrite Urine Bilirubin Urine Urobilinogen Ur Leukocyte Esterase Urine WBC (Auto) Urine RBC (Auto) U Hyaline Cast (Auto) Squamous Epi Cells Auto Urine Mucus (Auto) Urine Ascorbic Acid 03/02/20 03/02/20 03/02/20 22:38 22:38 23:45 WBC RBC Hgb Hct MCV MCH MCHC RDW Plt Count Lymph % (Auto) [place] % (Auto) Eos % (Auto) Baso % (Auto) Absolute Neuts (auto) Absolute Lymphs (auto) Absolute Monos (auto) Absolute Eos (auto) Absolute Basos (auto) Seg Neutrophils % PT INR Carbonic Acid 1.04 L HCO3/H2CO3 Ratio 23:1 ABG pH 7.48 H ABG pCO2 34.4 L ABG pO2 59.8 L ABG HCO3 24.8 H ABG Total CO2 25.8 ABG O2 Saturation 92.7 L ABG Base Excess 1.5 FiO2 ROOM AIR Sodium Potassium Chloride Carbon Dioxide Anion Gap BUN Creatinine Est GFR ( Amer) Est GFR (MDRD) Non-Af Glucose POC Glucose Calcium Magnesium Total Bilirubin Direct Bilirubin Neonat Total Bilirubin Neonat Direct Bilirubin Neonat Indirect Bili AST ALT Alkaline Phosphatase Creatine Kinase 71 CK-MB (CK-2) 0.97 Troponin I 0.032 NT-Pro-B Natriuret Pep Total Protein Albumin Urine Color Urine Appearance Urine pH Ur Specific [place] Urine Protein Urine Glucose (UA) Urine Ketones Urine Blood Urine Nitrite Urine Bilirubin Urine Urobilinogen Ur Leukocyte Esterase Urine WBC (Auto) Urine RBC (Auto) U Hyaline Cast (Auto) Squamous Epi Cells Auto Urine Mucus (Auto) Urine Ascorbic Acid 03/03/20 03/03/20 03/03/20 04:38 04:38 07:39 WBC RBC Hgb Hct MCV MCH MCHC RDW Plt Count Lymph % (Auto) [place] % (Auto) Eos % (Auto) Baso % (Auto) Absolute Neuts (auto) Absolute Lymphs (auto) Absolute Monos (auto) Absolute Eos (auto) Absolute Basos (auto) Seg Neutrophils % PT INR Carbonic Acid HCO3/H2CO3 Ratio ABG pH ABG pCO2 ABG pO2 ABG HCO3 ABG Total CO2 ABG O2 Saturation ABG Base Excess FiO2 Sodium 139.2 Potassium 4.2 Chloride 102 Carbon Dioxide 27 Anion Gap 10 BUN 21 H Creatinine 1.23 Est GFR ( Amer) > 60 Est GFR (MDRD) Non-Af 58 L Glucose 135 H POC Glucose 98 Calcium 8.9 Magnesium 2.0 Total Bilirubin Direct Bilirubin Neonat Total Bilirubin Neonat Direct Bilirubin Neonat Indirect Bili AST ALT Alkaline Phosphatase Creatine Kinase 72 CK-MB (CK-2) 0.87 Troponin I 0.043 NT-Pro-B Natriuret Pep 26305 H Total Protein Albumin Urine Color Urine Appearance Urine pH Ur Specific [place] Urine Protein Urine Glucose (UA) Urine Ketones Urine Blood Urine Nitrite Urine Bilirubin Urine Urobilinogen Ur Leukocyte Esterase Urine WBC (Auto) Urine RBC (Auto) U Hyaline Cast (Auto) Squamous Epi Cells Auto Urine Mucus (Auto) Urine Ascorbic Acid 03/03/20 03/03/20 03/03/20 10:39 15:00 20:48 WBC RBC Hgb Hct MCV MCH MCHC RDW Plt Count Lymph % (Auto) [place] % (Auto) Eos % (Auto) Baso % (Auto) Absolute Neuts (auto) Absolute Lymphs (auto) Absolute Monos (auto) Absolute Eos (auto) Absolute Basos (auto) Seg Neutrophils % PT INR Carbonic Acid HCO3/H2CO3 Ratio ABG pH ABG pCO2 ABG pO2 ABG HCO3 ABG Total CO2 ABG O2 Saturation ABG Base Excess FiO2 Sodium Potassium Chloride Carbon Dioxide Anion Gap BUN Creatinine Est GFR ( Amer) Est GFR (MDRD) Non-Af Glucose POC Glucose 146 H 167 H 68 L Calcium Magnesium Total Bilirubin Direct Bilirubin Neonat Total Bilirubin Neonat Direct Bilirubin Neonat Indirect Bili AST ALT Alkaline Phosphatase Creatine Kinase CK-MB (CK-2) Troponin I NT-Pro-B Natriuret Pep Total Protein Albumin Urine Color Urine Appearance Urine pH Ur Specific [place] Urine Protein Urine Glucose (UA) Urine Ketones Urine Blood Urine Nitrite Urine Bilirubin Urine Urobilinogen Ur Leukocyte Esterase Urine WBC (Auto) Urine RBC (Auto) U Hyaline Cast (Auto) Squamous Epi Cells Auto Urine Mucus (Auto) Urine Ascorbic Acid 03/03/20 21:54 WBC RBC Hgb Hct MCV MCH MCHC RDW Plt Count Lymph % (Auto) [place] % (Auto) Eos % (Auto) Baso % (Auto) Absolute Neuts (auto) Absolute Lymphs (auto) Absolute Monos (auto) Absolute Eos (auto) Absolute Basos (auto) Seg Neutrophils % PT INR Carbonic Acid HCO3/H2CO3 Ratio ABG pH ABG pCO2 ABG pO2 ABG HCO3 ABG Total CO2 ABG O2 Saturation ABG Base Excess FiO2 Sodium Potassium Chloride Carbon Dioxide Anion Gap BUN Creatinine Est GFR ( Amer) Est GFR (MDRD) Non-Af Glucose POC Glucose 143 H Calcium Magnesium Total Bilirubin Direct Bilirubin Neonat Total Bilirubin Neonat Direct Bilirubin Neonat Indirect Bili AST ALT Alkaline Phosphatase Creatine Kinase CK-MB (CK-2) Troponin I NT-Pro-B Natriuret Pep Total Protein Albumin Urine Color Urine Appearance Urine pH Ur Specific [place] Urine Protein Urine Glucose (UA) Urine Ketones Urine Blood Urine Nitrite Urine Bilirubin Urine Urobilinogen Ur Leukocyte Esterase Urine WBC (Auto) Urine RBC (Auto) U Hyaline Cast (Auto) Squamous Epi Cells Auto Urine Mucus (Auto) Urine Ascorbic Acid Chest X-Ray 03/02/20 13:30 IMPRESSION: 1. Increasing consolidation in the left upper lobe consistent with a pneumonia. 2. At least mild pulmonary edema. Labs EKG: [Personally reviewed and conclusions drawn by me] SINUS RHYTHM [NATHAN] . LEFT ATRIAL ABNORMALITY [NIVCD] . NONSPECIFIC INTRAVENTRICULAR CONDUCTION DELAY IMPRESSION/RECOMMENDATION: 1. Acute on chronic systolic heart failure. Will continue diuretics. We will start the patient on beta-blockers and ARB. The patient's heart failure is improving. 2. COPD with acute exacerbation. Possible infective bronchitis: Strongly recommend antibiotics along with current bronchodilators. 3. Coronary artery disease: History of coronary bypass Surgery patient with no anginal symptoms. 4. Ischemic and dilated cardiomyopathy with severely reduced ejection fraction of 20% to 25% as per echocardiogram done in in the office on 02/12/2020. 5. History of ventricular tachycardia. No recurrence on amiodarone. We will decrease the amiodarone to 200 mg p.o. daily 6. Chronic kidney disease stage III: Avoid nephrotoxic drugs noted his GFR is now greater than 60. 7. Diabetes mellitus: Patient noncompliant with diet and medications. 8. Bilateral patchy infiltrates on the chest x-ray suggestive of pneumonia. Recommend starting antibiotics. 9. AICD placement: No firing of AICD. Would recommend getting the AICD checked. 10. History of hypertension: Blood pressure well controlled 11. Prior history of CVA with no recurrence. The patient almost fully recovered from his CVA except his speech is slightly slurred and he does have a slow mentation. 12. Prior history of polysubstance abuse. The patient is a ex-smoker. The patient in the past has had a history of street drug abuse. But none recently. Medications reviewed. Medical regimen and management plan discussed with attending provider. Medical decision making is of high complexity. 60 minutes spent as patient more than 50% of time spent in direct patient care. Will follow
[2020-03-03] MEDS: GABAPENTIN 100 MG CAPSULE PO SCH (21:32)
[2020-03-03] MEDS: ASPIRIN 81 MG TABLET, ENT COATED PO SCH (21:32)
[2020-03-03] MEDS: ATORVASTATIN CALCIUM 40 MG TABLET PO SCH (21:32)
[2020-03-03] MEDS: INSULIN GLARGINE,HUM.REC.ANLOG 1,000 UNIT/10 ML VIAL SUBCUT SCH (21:33)
[2020-03-03] MEDS ORDERED: DIAZEPAM INJ 10 MG/2 ML DISP.SYRIN ONE (22:34)
[2020-03-04] MEDS: LOSARTAN POTASSIUM 25 MG TABLET PO SCH ×2 (02:02→12:02)
[2020-03-04] MEDS: HEPARIN SOD (PORCINE) 5,000 UNIT/ML 1 ML VIAL SUBCUT SCH ×2 (06:06→13:37)
[2020-03-04 07:08] LABS: ANION GAP 7 (5-19); BLOOD UREA NITROGEN 19 mg/dL (7-20); CALCIUM 8.3 mg/dL (8.4-10.2); CARBON DIOXIDE 27 mmol/L (22-30); CHLORIDE 102 mmol/L (98-107); GLUCOSE 70 mg/dL (75-110); POTASSIUM 3.7 mmol/L (3.6-5.0)
[2020-03-04] MEDS ORDERED: AMIODARONE HCL 200 MG TABLET PO SCH (10:00)
[2020-03-04] MEDS ORDERED: METOPROLOL SUCCINATE 25 MG TAB.SR.24H PO SCH (10:00)
[2020-03-04] MEDS: INSULIN LISPRO 100 UNIT/ML 3 ML VIAL SUBCUT SCH ×3 (11:32→13:34)
--- NOTE | 2020-03-04 11:59 | PDOC PROGRESS REPORT ---
Subjective Progress Note for:: 03/04/20 Subjective:: The patient is improved and anxious for home. Review of Dr. Mccall's consult shows that new medications were initiated. The patient will remain in hospital for another day or 2 to ensure there is no adverse effect of the medicine. Reason For Visit: HEART FAILURE Physical Exam Vital Signs: Temp Pulse Resp BP Pulse Ox 97.6 F 71 22 H 117/90 H 96 03/04/20 08:07 03/04/20 08:07 03/04/20 08:07 03/04/20 08:07 03/04/20 08:07 Intake & Output 03/03/20 03/04/20 03/05/20 06:59 06:59 06:59 Output Total 450 Balance -450 Weight 85.4 kg 87.4 kg General appearance: PRESENT: no acute distress, cooperative, well-developed Ear exam: PRESENT: normal external ear exam. ABSENT: bleeding, drainage Mouth exam: PRESENT: moist, tongue midline Respiratory exam: PRESENT: rales, symmetrical, unlabored. ABSENT: tachypnea, wheezes Cardiovascular exam: PRESENT: RRR, +S1, +S2, systolic murmur GI/Abdominal exam: PRESENT: normal bowel sounds, soft. ABSENT: distended, tenderness Rectal exam: PRESENT: deferred Gentrourinary exam: ABSENT: indwelling catheter Extremities exam: PRESENT: pedal edema - Improved Musculoskeletal exam: PRESENT: ambulatory Neurological exam: PRESENT: alert, awake, oriented to person, oriented to place, oriented to time, oriented to situation, CN II-XII grossly intact. ABSENT: altered Psychiatric exam: PRESENT: appropriate affect. ABSENT: agitated, anxious Focused psych exam: ABSENT: delusional, paranoid, restlessness Skin exam: PRESENT: dry, normal color, warm Results Laboratory Results: 03/02/20 13:08 03/04/20 05:45 03/04/20 05:45 Sodium 135.7 L Potassium 3.7 Chloride 102 Carbon Dioxide 27 Anion Gap 7 BUN 19 Creatinine 1.18 Est GFR ( Amer) > 60 Glucose 70 L Calcium 8.3 L Magnesium 1.9 03/02/20 15:20 Blood Blood Culture (PCR) - Final Staphylococcus Species 03/02/20 03/02/20 03/02/20 13:08 13:08 13:08 Creatine Kinase 78 CK-MB (CK-2) Troponin I 0.023 NT-Pro-B Natriuret Pep 8000 H 03/02/20 03/02/20 03/02/20 17:57 17:57 22:38 Creatine Kinase 76 71 CK-MB (CK-2) 1.21 Troponin I 0.030 NT-Pro-B Natriuret Pep 03/02/20 03/03/20 03/03/20 22:38 04:38 04:38 Creatine Kinase 72 CK-MB (CK-2) 0.97 0.87 Troponin I 0.032 0.043 NT-Pro-B Natriuret Pep 91591 H Impressions: Chest X-Ray 03/02/20 13:30 IMPRESSION: 1. Increasing consolidation in the left upper lobe consistent with a pneumonia. 2. At least mild pulmonary edema. Assessment and Plan - Diagnosis (1) Acute on chronic systolic (congestive) heart failure Is this a current diagnosis for this admission?: Yes Plan: Clearly improved. Currently with a negative fluid balance. Will begin to decrease his furosemide. (2) Coronary artery disease Qualifiers: Coronary Disease-Associated Artery/Lesion type: [place] artery [place] vs. transplanted heart: [place] heart Associated angina: without angina Qualified Code(s): I25.10 - Atherosclerotic heart disease of [place] coronary artery without angina pectoris Is this a current diagnosis for this admission?: Yes Plan: Stable. No acute coronary syndrome symptoms (3) COPD (chronic obstructive pulmonary disease) Qualifiers: COPD type: unspecified COPD Qualified Code(s): J44.9 - Chronic obstructive pulmonary disease, unspecified Is this a current diagnosis for this admission?: Yes Plan: Currently with usual inhaler as needed. He does not appear to be on any chronic inhaler therapy at home. (4) Hypertension Qualifiers: Hypertension type: essential hypertension Qualified Code(s): I10 - Essential (primary) hypertension Is this a current diagnosis for this admission?: Yes Plan: We will need to monitor blood pressure with the addition of new medications (5) Hyperglycemia due to type 2 diabetes mellitus Qualifiers: Diabetes mellitus fpc insulin use: with long chain beamer use Qualified Co de(s): E11.65 - Type 2 diabetes mellitus with hyperglycemia; Z79.4 - FPC (current) use of insulin Is this a current diagnosis for this admission?: Yes Plan: Sugars are tending to be on the low side. I will adjust his insulin. I will decrease his Lantus and remove the 5 units of Humalog with meals. Continue sliding scale. (6) Gastroesophageal reflux Qualifiers: Esophagitis presence: without esophagitis Qualified Code(s): K21.9 - Gastro-esophageal reflux disease without esophagitis Is this a current diagnosis for this admission?: Yes Plan: Continue Pepcid (7) Hyperlipidemia Qualifiers: Hyperlipidemia type: unspecified Qualified Code(s): E78.5 - Hyperlipidemia, unspecified Is this a current diagnosis for this admission?: Yes Plan: Continue statin therapy (8) Iron deficiency anemia Qualifiers: Iron deficiency anemia type: unspecified iron deficiency Qualified Code(s): D50.9 - Iron deficiency anemia, unspecified Is this a current diagnosis for this admission?: Yes Plan: Hemoglobin was 11.3 on admission. Continue iron supplement (9) Chronic kidney disease, stage 3 (moderate) Is this a current diagnosis for this admission?: Yes Plan: Continue to monitor renal function with diuresis (10) Community acquired pneumonia Qualifiers: Laterality: left Lung location: upper lobe of lung Qualified Code(s): J18.9 - Pneumonia, unspecified organism Is this a current diagnosis for this admission?: Yes Plan: Rocephin and doxycycline. - Time Time Spent with patient: 15-24 minutes Medications reviewed and adjusted accordingly: Yes Anticipated Discharge Disposition: Home, Self Care Anticipated Discharge Timeframe: within 72 hours
[2020-03-04] MEDS ORDERED: CEFTRIAXONE 2 GM/D5W RTU 2 GM/50 ML RTUPB IV SCH (12:00)
[2020-03-04] MEDS: CYANOCOBALAMIN (VITAMIN B-12) 1,000 MCG TABLET PO SCH (12:01)
[2020-03-04] MEDS: FAMOTIDINE 20 MG TABLET PO SCH (12:01)
[2020-03-04] MEDS: FUROSEMIDE INJ/PF 40 MG/4 ML SDV IV SCH (12:01)
[2020-03-04] MEDS: FERROUS SULFATE 325 MG TABLET PO SCH (12:01)
[2020-03-04] MEDS: CLOPIDOGREL BISULFATE 75 MG TABLET PO SCH (12:01)
[2020-03-04] MEDS: CHOLECALCIFEROL (D3) 1,000 UNIT (25 MCG) TABLET PO SCH (12:02)
[2020-03-04] MEDS: MORPHINE SULFATE 10 MG/ML INJ IV PRN (12:02)
[2020-03-04] MEDS: FLUOXETINE HCL 20 MG CAPSULE PO SCH (12:02)
[2020-03-04] MEDS: RANOLAZINE 500 MG TAB.SR.12H PO SCH (12:03)
[2020-03-04 13:26] VITALS: BP 135/79
--- NOTE | 2020-03-04 13:39 | PDOC DISCHARGE SUMMARY ---
Impression - Admit/DC Date/PCP Admission Date/Primary Care Provider: 03/02/20 16:55 KENDRA VARELA MD Discharge Date: 03/04/20 - Discharge Diagnosis (1) Acute on chronic systolic (congestive) heart failure Is this a current diagnosis for this admission?: Yes (2) Coronary artery disease Is this a current diagnosis for this admission?: Yes (3) COPD (chronic obstructive pulmonary disease) Is this a current diagnosis for this admission?: Yes (4) Hypertension Is this a current diagnosis for this admission?: Yes (5) Hyperglycemia due to type 2 diabetes mellitus Is this a current diagnosis for this admission?: Yes (6) Gastroesophageal reflux Is this a current diagnosis for this admission?: Yes (7) Hyperlipidemia Is this a current diagnosis for this admission?: Yes (8) Iron deficiency anemia Is this a current diagnosis for this admission?: Yes (9) Chronic kidney disease, stage 3 (moderate) Is this a current diagnosis for this admission?: Yes (10) Community acquired pneumonia Is this a current diagnosis for this admission?: Yes - Additional Information Resuscitation Status: Full Code Discharge Diet: Cardiac, Diabetic Discharge Activity: Activity As Tolerated, Balance Activity w/Rest, Weigh Daily Referrals: KENDRA VARELA MD [Primary Care Provider] - Follow up as needed (sticker in book) Prescriptions: Losartan Potassium [Cozaar 25 mg Tablet] 25 mg PO Q12 #30 tablet Metoprolol Succinate [Toprol Xl 25 mg Tab.sr] 25 mg PO Q12 #30 tab.sr.24h Doxycycline Hyclate [Vibramycin 100 mg Tablet] 100 mg PO BID #16 tablet Doxycycline Hyclate [Vibramycin Inj 100 mg Vial] 100 mg IV Q12 #18 vial Home Medications: Clopidogrel Bisulfate [Plavix 75 mg Tablet] 75 mg PO DAILY 10/20/18 Aspirin [Ecotrin 81 mg EC Tablet] 81 mg PO DAILY tabec 10/23/18 Amiodarone HCl [Cordarone 200 mg Tablet] 200 mg PO DAILY 10/08/19 Atorvastatin Calcium [Lipitor 40 mg Tablet] 40 mg PO QHS 10/08/19 Cholecalciferol (Vitamin D3) [Vitamin D3 1000 Unit Tablet] 2,000 unit PO DAILY 10/08/19 Cyanocobalamin (Vitamin B-12) [Vitamin B-12 1000 mcg Tablet] 1,000 mcg PO DAILY 10/08/19 Ferrous Sulfate [Feosol 325 mg Tablet] 325 mg PO DAILY 10/08/19 Fluoxetine HCl 20 mg PO DAILY 10/08/19 [place]-3/Dha/Epa/Fish Oil [Fish Oil 1,000 mg Softgel] 1,000 mg PO DAILY 10/08/19 Ranolazine [Ranexa 500 mg Tab.sr] 500 mg PO Q12 10/08/19 Nitroglycerin 0.4 mg SL Q5MP PRN 03/02/20 Amiodarone HCl [Cordarone 200 mg Tablet] 200 mg PO DAILY tablet 03/04/20 Aspirin [Ecotrin 81 mg EC Tablet] 81 mg PO QHS tabec 03/04/20 Atorvastatin Calcium [Lipitor 40 mg Tablet] 40 mg PO QHS tablet 03/04/20 Cholecalciferol (Vitamin D3) [Vitamin D3 1000 Unit Tablet] 2,000 unit PO DAILY tablet 03/04/20 Clopidogrel Bisulfate [Plavix 75 mg Tablet] 75 mg PO DAILY tablet 03/04/20 Cyanocobalamin (Vitamin B-12) [Vitamin B-12 1000 mcg Tablet] 1,000 mcg PO DAILY tablet 03/04/20 Doxycycline Hyclate [Vibramycin 100 mg Tablet] 100 mg PO BID #16 tablet 03/04/20 Doxycycline Hyclate [Vibramycin Inj 100 mg Vial] 100 mg IV Q12 #18 vial 03/04/20 Ferrous Sulfate [Feosol 325 mg Tablet] 325 mg PO DAILY tablet 03/04/20 Fluoxetine HCl [Prozac 20 mg Capsule] 20 mg PO DAILY capsule 03/04/20 Furosemide [Lasix 20 mg Tablet] 60 mg PO QAM #0 03/04/20 Gabapentin [Neurontin 100 mg Capsule] 100 mg PO QHS capsule 03/04/20 Insulin Glargine,Hum.rec.anlog [Lantus Insulin 100 Unit/1 ml 10 ml] 18 unit SUBCUT QHS unit 03/04/20 Insulin Lispro [Humalog Insulin (Lispro) 100 unit/mL] 0 - 12 unit SUBCUT ACHS unit 03/04/20 Losartan Potassium [Cozaar 25 mg Tablet] 25 mg PO Q12 #30 tablet 03/04/20 Metoprolol Succinate [Toprol Xl 25 mg Tab.sr] 25 mg PO Q12 #30 tab.sr.24h 03/04/20 Nitroglycerin [Nitrostat 0.4 mg (1/150 Gr) Tabs 25/Bottle] 1 tab SL Q5MP PRN bottle 03/04/20 Ranolazine [Ranexa 500 mg Tab.sr] 500 mg PO Q12 tab.sr.12h 03/04/20 History of Present Illiness History of Present Illness: BUDDY TREJO is a 74 year old male Hospital Course Hospital Course: The patient had an unremarkable hospital course. He was much improved since admission. He still appeared to be short of breath with exertion however he felt he was stable enough. Dr. Valencia had started 2 new medications (losartan and metoprolol) and I was hoping that the patient would stay 1 more day. He insisted on discharging home. Perhaps it was because he was on the COVID unit. Incidentally his COVID serology was negative. Physical Exam Vital Signs: Temp Pulse Resp BP Pulse Ox 97.8 F 73 22 H 135/79 H 95 03/04/20 12:18 03/04/20 12:18 03/04/20 12:18 03/04/20 12:18 03/04/20 12:18 Intake & Output 03/03/20 03/04/20 03/05/20 06:59 06:59 06:59 Intake Total 240 Output Total 450 275 Balance -450 -35 Weight 85.4 kg 87.4 kg General appearance: PRESENT: no acute distress, cooperative, well-developed Eye exam: PRESENT: conjunctiva pink. ABSENT: scleral icterus Respiratory exam: PRESENT: clear to auscultation tracey, symmetrical, unlabored. ABSENT: tachypnea, wheezes Cardiovascular exam: PRESENT: RRR, +S1, +S2 GI/Abdominal exam: PRESENT: normal bowel sounds, soft. ABSENT: tenderness Extremities exam: PRESENT: pedal edema - Significantly improved from admission Neurological exam: PRESENT: alert, awake, oriented to person, oriented to place, oriented to time, oriented to situation, CN II-XII grossly intact. ABSENT: altered, motor sensory deficit Psychiatric exam: PRESENT: appropriate affect. ABSENT: agitated, anxious Results Laboratory Results: WBC 4.3 10^3/uL (4.0-10.5) 03/02/20 13:08 RBC 3.57 10^6/uL (4.35-5.55) L 03/02/20 13:08 Hgb 11.3 g/dL (13.5-17.0) L 03/02/20 13:08 Hct 34.5 % (37.9-51.0) L 03/02/20 13:08 MCV 97 fl (80-97) 03/02/20 13:08 MCH 31.8 pg (27.0-33.4) 03/02/20 13:08 MCHC 32.8 g/dL (32.0-36.0) 03/02/20 13:08 RDW 18.3 % (11.5-14.0) H 03/02/20 13:08 Plt Count 189 10^3/uL (150-450) 03/02/20 13:08 Lymph % (Auto) 11.0 % (13-45) L 03/02/20 13:08 [place] % (Auto) 9.0 % (3-13) 03/02/20 13:08 Eos % (Auto) 0.8 % (0-6) 03/02/20 13:08 Baso % (Auto) 0.7 % (0-2) 03/02/20 13:08 Absolute Neuts (auto) 3.4 10^3/uL (1.7-8.2) 03/02/20 13:08 Absolute Lymphs (auto) 0.5 10^3/uL (0.5-4.7) 03/02/20 13:08 Absolute Monos (auto) 0.4 10^3/uL (0.1-1.4) 03/02/20 13:08 Absolute Eos (auto) 0.0 10^3/uL (0.0-0.6) 03/02/20 13:08 Absolute Basos (auto) 0.0 10^3/uL (0.0-0.2) 03/02/20 13:08 Seg Neutrophils % 78.5 % (42-78) H 03/02/20 13:08 PT 15.1 SEC (11.4-15.4) 03/02/20 13:08 INR 1.17 03/02/20 13:08 Carbonic Acid 1.04 mmol/L (1.05-1.35) L 03/02/20 23:45 HCO3/H2CO3 Ratio 23:1 03/02/20 23:45 ABG pH 7.48 (7.35-7.45) H 03/02/20 23:45 ABG pCO2 34.4 mmHg (35-45) L 03/02/20 23:45 ABG pO2 59.8 mmHg (80-100) L 03/02/20 23:45 ABG HCO3 24.8 mmol/L (20-24) H 03/02/20 23:45 ABG Total CO2 25.8 mmol/L (23-27) 03/02/20 23:45 ABG O2 Saturation 92.7 % (94-98) L 03/02/20 23:45 ABG Base Excess 1.5 mmol/L 03/02/20 23:45 FiO2 ROOM AIR 03/02/20 23:45 Sodium 135.7 mmol/L (137-145) L 03/04/20 05:45 Potassium 3.7 mmol/L (3.6-5.0) 03/04/20 05:45 Chloride 102 mmol/L (98-107) 03/04/20 05:45 Carbon Dioxide 27 mmol/L (22-30) 03/04/20 05:45 Anion Gap 7 (5-19) 03/04/20 05:45 BUN 19 mg/dL (7-20) 03/04/20 05:45 Creatinine 1.18 mg/dL (0.52-1.25) 03/04/20 05:45 Est GFR ( Amer) > 60 (>60) 03/04/20 05:45 Est GFR (MDRD) Non-Af > 60 (>60) 03/04/20 05:45 Glucose 70 mg/dL (75-110) L 03/04/20 05:45 POC Glucose 99 mg/dL (70-110) 03/04/20 12:19 Calcium 8.3 mg/dL (8.4-10.2) L 03/04/20 05:45 Magnesium 1.9 mg/dL (1.6-2.3) 03/04/20 05:45 Total Bilirubin 1.3 mg/dL (0.2-1.3) 03/02/20 13:08 Direct Bilirubin 0.4 mg/dL (0.0-0.4) 03/02/20 13:08 Neonat Total Bilirubin Not Reportable 03/02/20 13:08 Neonat Direct Bilirubin Not Reportable 03/02/20 13:08 Neonat Indirect Bili Not Reportable 03/02/20 13:08 AST 47 U/L (17-59) 03/02/20 13:08 ALT 69 U/L (<50) H 03/02/20 13:08 Alkaline Phosphatase 475 U/L (38-126) H 03/02/20 13:08 Creatine Kinase 72 U/L (55-170) 03/03/20 04:38 CK-MB (CK-2) 0.87 ng/mL (<4.55) 03/03/20 04:38 Troponin I 0.043 ng/mL 03/03/20 04:38 NT-Pro-B Natriuret Pep 59047 pg/mL (<125) H 03/03/20 04:38 Total Protein 7.9 g/dL (6.3-8.2) 03/02/20 13:08 Albumin 3.6 g/dL (3.5-5.0) 03/02/20 13:08 Urine Color YELLOW 03/02/20 15:00 Urine Appearance CLEAR 03/02/20 15:00 Urine pH 5.0 (5.0-9.0) 03/02/20 15:00 Ur Specific [place] 1.018 03/02/20 15:00 Urine Protein >=500 mg/dL (NEGATIVE) H 03/02/20 15:00 Urine Glucose (UA) >=500 mg/dL (NEGATIVE) H 03/02/20 15:00 Urine Ketones NEGATIVE mg/dL (NEGATIVE) 03/02/20 15:00 Urine Blood NEGATIVE (NEGATIVE) 03/02/20 15:00 Urine Nitrite NEGATIVE (NEGATIVE) 03/02/20 15:00 Urine Bilirubin NEGATIVE (NEGATIVE) 03/02/20 15:00 Urine Urobilinogen 2.0 mg/dL (<2.0) H 03/02/20 15:00 Ur Leukocyte Esterase NEGATIVE (NEGATIVE) 03/02/20 15:00 Urine WBC (Auto) 1 /HPF 03/02/20 15:00 Urine RBC (Auto) 0 /HPF 03/02/20 15:00 U Hyaline Cast (Auto) 4 /LPF 03/02/20 15:00 Squamous Epi Cells Auto <1 /HPF 03/02/20 15:00 Urine Mucus (Auto) RARE /LPF 03/02/20 15:00 Urine Ascorbic Acid NEGATIVE (NEGATIVE) 03/02/20 15:00 03/02/20 03/02/20 03/02/20 13:08 13:08 17:57 CK-MB (CK-2) 1.21 Troponin I 0.023 0.030 NT-Pro-B Natriuret Pep 8000 H 03/02/20 03/03/20 22:38 04:38 CK-MB (CK-2) 0.97 0.87 Troponin I 0.032 0.043 NT-Pro-B Natriuret Pep 38815 H Impressions: Chest X-Ray 03/02/20 13:30 IMPRESSION: 1. Increasing consolidation in the left upper lobe consistent with a pneumonia. 2. At least mild pulmonary edema. Plan Health Concerns: Possible pneumonia in a patient with an acute exacerbation of his systolic heart failure with underlying COPD Plan of Treatment: Increased his Lasix to 60 mg each morning. He was discharged on doxycycline for potential community-acquired pneumonia His COVID serology was in fact negative Goals: Follow-up with Dr. Waters this week and as well as follow-up with his primary care provider (Dr. Varela) within the next 7 days Time Spent: Greater than 30 Minutes Stroke Is this a Stroke Patient?: No Acute Heart Failure - Is this a Heart Failure Patient?: Yes Documentation of LVEF assessment?: No, Document reason - Recent outpatient echo in Dr. Mccall's office LVEF - Reason: Recent echo in [facility] office. See [facility] consult note LVEF: LVEF Less Than or Equal to 35% Anticoagulant Therapy: No, document contraindications - Per [facility] Reason(s) not Discharged on Anticoagulant Therapy: Uncooperative/unreliable patient Discharged on Evidence-Based Beta Blockers: Yes Discharged on ARNI?: No-Document Contraindications Reason(s) not discharged on ARNI: Other - On losartan ARNI Reason - Other: Per [facility] Discharged on ARB?: Yes Discharged on ACEI?: N/A Discharged on ARB For LVEF <35%, discharged on Aldosterone Antagonist?: No-document contraincations - Per cardiology Reason(s) not discharged on Aldosterone Antagonist: Other - Per cardiology Aldosterone Antagonist Reason - Other: Per cardiology Follow-up Appointment scheduled within 7 days?: Yes
[2020-03-04] MEDS ORDERED: INSULIN GLARGINE,HUM.REC.ANLOG 1,000 UNIT/10 ML VIAL SUBCUT SCH (22:00)
[2020-03-04] MEDS ORDERED: DOXYCYCLINE HYCLATE 100 MG in DEXTROSE 5%-WATER 250 ML IV SCH (22:00)
[2020-03-05] MEDS ORDERED: FUROSEMIDE INJ/PF 100 MG/10 ML SDV IV SCH (10:00)
== END 2020-03-04 17:02 | disposition home or self-care (01) | DRG 291 ==
LOC: ER 12:48 → EH 16:55 → 3N 19:29
PROVIDERS: ADMIT Hospitalist; ATTEND Hospitalist
DX: I13.0 Hypertensive heart and chronic kidney disease with heart failure and stage 1 through stage 4 chronic kidney disease, or unspecified chronic kidney disease (principal); I50.23 Acute on chronic systolic (congestive) heart failure; J18.9 Pneumonia, unspecified organism; J44.1 Chronic obstructive pulmonary disease with (acute) exacerbation; I25.10 Atherosclerotic heart disease of native coronary artery without angina pectoris; E11.65 Type 2 diabetes mellitus with hyperglycemia; E11.22 Type 2 diabetes mellitus with diabetic chronic kidney disease; N18.3 Chronic kidney disease, stage 3 (moderate); D50.9 Iron deficiency anemia, unspecified; K21.9 Gastro-esophageal reflux disease without esophagitis; E78.00 Pure hypercholesterolemia, unspecified; I25.2 Old myocardial infarction; Z20.828 Contact with and (suspected) exposure to other viral communicable diseases; Z86.73 Personal history of transient ischemic attack (TIA), and cerebral infarction without residual deficits; Z79.01 Long term (current) use of anticoagulants; Z79.4 Long term (current) use of insulin; Z79.899 Other long term (current) drug therapy
CPT/HCPCS: 36415; 71045; 80048; 80053; 81001; 82550; 82553; 82803; 82962; 83735; 83880; 84484; 85025; 85610; 87040; 87077; 87150; 87186; 87635; 93005; 93010; 94640; 96374; 96375; 99285; C9803; J1644; J1815; J1940; J2270; J3490

== ENCOUNTER 2020-03-17 08:28 | Day surgery (SDC) | payer MEDICARE, OTHER ==
[~2020-03-17 08:28] MED LIST changes: -CALCIUM GLUCONATE 1000 MG/10 ML INJ IV ONE; +CEFAZOLIN 2 GM/D5W RTU 2 GM/50 ML RTUPB IV PRN; -EPINEPHRINE INJ 1 MG/10 ML DISP.SYRIN ONE; -SODIUM BICARBONATE 8.4% INJ 50 MEQ/50 ML DISP.SYRIN ONE
[2020-03-17] MEDS ORDERED: CEFAZOLIN 2 GM/D5W RTU 2 GM/50 ML RTUPB IV ONE (08:38)
[2020-03-17] MEDS ORDERED: KETAMINE HCL INJ 500 MG/10 ML VIAL ONE (11:00)
[2020-03-17] MEDS ORDERED: FENTANYL CITRATE INJ/PF 100 MCG/2 ML AMPUL ONE ×2 (11:00→12:44)
[2020-03-17] MEDS ORDERED: LIDOCAINE 2%/EPINEPHRINE INJ 1.7 ML CARTRIDGE ONE ×2 (11:00→11:52)
[2020-03-17] MEDS ORDERED: MIDAZOLAM 2 MG/2 ML INJ ONE (11:01)
[2020-03-17] MEDS ORDERED: LIDOCAINE 2%/EPINEPHRINE INJ 20 ML VIAL ONE (11:54)
[2020-03-17] MEDS ORDERED: OXYMETAZOLINE HCL 0.05% NASAL SPRAY 15 ML BOTTLE ONE (12:45)
[2020-03-17] MEDS ORDERED: DIPHENHYDRAMINE HCL 50 MG/ML VIAL IV PRN (12:52)
[2020-03-17] MEDS ORDERED: PROMETHAZINE HCL INJ 25 MG/1 ML VIAL IV PRN ×2 (12:52)
[2020-03-17] MEDS ORDERED: ACETAMINOPHEN 325 MG TABLET ONE (14:34)
--- NOTE | 2020-03-17 15:22 | Operative Report ---
Operative Report-[facility] Operative Report: Date: 17 March 2020 History: 74-year-old male with an upper lip mass that has been present for several months. The mass has eroded through the anterior skin of the lip just superior to the red line. 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 Prior to scheduling surgery, the mass was infected and treated appropriately. Presents today for excision of the upper lip mass. Informed sent was obtained from the patient Pre-operative diagnosis: 1. Deep mass upper lip 2. Minor salivary gland neoplasm Post operative diagnosis: Same as above Procedure: Excision minor salivary gland neoplasm, upper lip Surgeon: Jluis Jimenez MD, FACS, [facility] Anesthesia: MAC Procedure: After receiving informed consent from the patient, he was taken to the operating room and placed supine on the operating room table. After successful induction via MAC the proposed incision line was marked out. Since there was erosion through the skin of the upper lip an ellipse was marked around this area and the marking extended both laterally and medially along the red line. Area was then infiltrated with 2% lidocaine with 100,000 epinephrine. Patient then prepped and draped in a sterile fashion. A 15 blade used to make the incision. The mass was encountered below the muscle layer and using sharp dissection was dissected from surrounding tissue. It should be noted that there was intense fibrosis surrounding the mass. The mass was removed in toto. Hemostasis was obtained using bipolar electrocautery. The wound was then closed in layers using 5-0 Monocryl and 5-0 fast-absorbing gut. Dermabond, Mastisol and Steri-Strips applied along with a pressure dressing. Patient was then given back to anesthesia who awoken the patient from the anesthetic. Complications. Estimated blood loss: 5 mL Fluids: 200 mL The patient was then transported to the Post Anesthesia Care Unit in stable condition with spontaneous respiration. No complication.
--- NOTE | 2020-03-17 18:08 | RADIOLOGY REPORT (SQ) ---
EXAM DESCRIPTION: XR CHEST 1 VIEW COMPLETED DATE/TME: 03/17/2020 00:00 CLINICAL HISTORY: 74 years, Male, preop COMPARISON: 03/02/2020 NUMBER OF VIEWS: One TECHNIQUE: AP view the chest LIMITATIONS: None. FINDINGS: Mild pulmonary vascular congestion. The heart is enlarged with a left chest wall AICD. No pneumothorax or pleural effusion. Median sternotomy wires are noted. IMPRESSION: Mild pulmonary vascular congestion. copyright 2010 [employer]- All Rights Reserved
[2020-03-17 18:38] VITALS: BP 122/81
== END 2020-03-17 15:44 | disposition home or self-care (01) ==
LOC: OROUT 08:28
PROVIDERS: ATTEND Otolaryngology
DX: K13.0 Diseases of lips (principal); I25.10 Atherosclerotic heart disease of native coronary artery without angina pectoris; I24.9 Acute ischemic heart disease, unspecified; J20.9 Acute bronchitis, unspecified; I50.23 Acute on chronic systolic (congestive) heart failure; E78.5 Hyperlipidemia, unspecified; F17.210 Nicotine dependence, cigarettes, uncomplicated; R06.02 Shortness of breath; E11.22 Type 2 diabetes mellitus with diabetic chronic kidney disease; I13.0 Hypertensive heart and chronic kidney disease with heart failure and stage 1 through stage 4 chronic kidney disease, or unspecified chronic kidney disease; N18.3 Chronic kidney disease, stage 3 (moderate); I50.9 Heart failure, unspecified; Z79.4 Long term (current) use of insulin; Z79.899 Other long term (current) drug therapy; Z79.82 Long term (current) use of aspirin; Z79.02 Long term (current) use of antithrombotics/antiplatelets; Z95.810 Presence of automatic (implantable) cardiac defibrillator
CPT/HCPCS: 36415; 82962; 84132; 88305 ×2; 71045; 00100; 21011; A9270 ×2; J2250; J3490 ×3; J3010; J0690; 100

== ENCOUNTER 2020-03-19 07:59 | Emergency (ER) | payer MEDICARE, OTHER ==
[2020-03-19] MEDS ORDERED: LIDOCAINE 1%/EPINEPHRINE INJ 20 ML VIAL ONE (09:31)
--- NOTE | 2020-03-19 10:06 | ER Document Report ---
HPI - HPI Time Seen by Provider: 03/19/20 09:11 Pain Level: 1 Context: Patient is a 74-year-old male who presents emergency department with bleeding to his right upper lip. Patient had lip surgery for a mass on his right upper lip 2 days ago. This morning, the patient had some bleeding from the surgery site. Patient denies any difficulty breathing or shortness of breath. Significant other at bedside noted some swelling to his upper lip. Patient was on Plavix, but stopped prior to surgery. - ROS Systems Reviewed and Negative: Yes All other systems reviewed and negative - CONSTITUTIONAL Constitutional: DENIES: Fever, Chills - EENT EENT: DENIES: Sore Throat, Ear Pain - REPRODUCTIVE Reproductive: DENIES: : - MUSCULOSKELETAL Musculoskeletal: DENIES: Extremity pain, Back Pain - DERM Skin Color: Normal Skin Problems: Surgical Incision - Right upper lip; bleeding Past Medical History - General Information source: Patient, Relative - Social History Smoking Status: Former Smoker Family History: Reviewed & Not Pertinent, CAD Patient has homicidal ideation: No - Past Medical History Cardiac Medical History: Reports: Hx Congestive Heart Failure, Hx Coronary Artery Disease, Hx Heart Attack - 2003, Hx Hypercholesterolemia, Hx Hypertension Pulmonary Medical History: Reports: Hx Pneumonia Denies: Hx Asthma, Hx Bronchitis, Hx COPD Neurological Medical History: Reports: Hx Cerebrovascular Accident. Denies: Hx Seizures Endocrine Medical History: Reports: Hx Diabetes Mellitus Type 2 GI Medical History: Reports: Hx Gastroesophageal Reflux Disease Musculoskeletal Medical History: Reports Hx Arthritis Psychiatric Medical History: Denies: Hx Depression Past Surgical History: Reports: Hx Cardiac Surgery - triple bypass, Hx Coronary Artery Bypass Graft - triple Vertical Provider Document - CONSTITUTIONAL Agree With Documented VS: Yes Exam Limitations: No Limitations General Appearance: No Apparent Distress - INFECTION CONTROL TRAVEL OUTSIDE OF THE [place] IN LAST 30 DAYS: No - HEENT HEENT: Atraumatic, Normocephalic, PERRLA - NECK Neck: Normal Inspection - RESPIRATORY Respiratory: Breath Sounds Normal, No Respiratory Distress - CARDIOVASCULAR Cardiovascular: Regular Rate, Regular Rhythm Pulses: Normal: Radial - MUSCULOSKELETAL/EXTREMETIES Musculoskeletal/Extremeties: FROM - NEURO Level of Consciousness: Awake, Alert, Appropriate Motor/Sensory: No Motor Deficit, No Sensory Deficit - DERM Integumentary: Warm, Dry, No Rash Notes: See procedure note. Course - Re-evaluation Re-evalutation: 03/19/20 10:06 I initially reinforced the area with more Steri-Strips, but as soon as I walked away within 2 to 3 minutes, the patient's lip started bleeding again. I then took off the Steri-Strips completely and saw that there was Dermabond under th ere. I reinforced the Dermabond with more Dermabond. This worked well and the bleeding was controlled. Steri-Strips were then placed to the top of the patient's surgical incision. Patient tolerated the procedure well. Patient and significant other were thankful for care. - Vital Signs Vital signs: Temp Pulse Resp BP Pulse Ox 97.5 F 67 18 112/68 98 03/19/20 08:07 03/19/20 08:07 03/19/20 08:07 03/19/20 08:07 03/19/20 08:07 Procedures - Laceration/Wound Repair Right upper lip Wound length (cm): 1 Wound's Depth, Shape: Superficial Wound explored: Clean, No foreign body removed Wound Repaired With: Steri-strips, Dermabond Mouth/Teeth picture: 1 - Surgical wound Discharge - Discharge Clinical Impression: Postoperative bleeding from incision Condition: Stable Disposition: HOME, SELF-CARE Additional Instructions: You were seen today in the emergency department for bleeding from your surgical site. Dermabond was placed to the area to help control the bleeding. Steri- Strips were also placed. Please Tylenol [id number] for pain. Referrals: NIRAV STEWART MD [ACTIVE STAFF] - 03/21/20
[2020-03-19] MEDS ORDERED: LIDOCAINE 1.5%/EPINEPHRINE INJ-PF 30 ML SDV INJ ONE (10:08)
[2020-03-19 10:18] VITALS: BP 135/84
== END 2020-03-19 10:18 | disposition home or self-care (01) ==
LOC: ER 07:59
DX: L76.22 Postprocedural hemorrhage of skin and subcutaneous tissue following other procedure (principal); Y83.8 Other surgical procedures as the cause of abnormal reaction of the patient, or of later complication, without mention of misadventure at the time of the procedure; I25.10 Atherosclerotic heart disease of native coronary artery without angina pectoris; I10 Essential (primary) hypertension; E11.9 Type 2 diabetes mellitus without complications; Z95.1 Presence of aortocoronary bypass graft; Z87.891 Personal history of nicotine dependence
CPT/HCPCS: 99282; 12011; J3490

== ENCOUNTER 2020-03-31 13:34 | Emergency (ER) | payer MEDICARE, OTHER ==
--- NOTE | 2020-03-31 13:48 | ER Document Report ---
ED Medical Screen (RME) - General Chief Complaint: Feet Swelling Stated Complaint: FEET SWELLING Time Seen by Provider: 03/31/20 13:43 Primary Care Provider: KENDRA VARELA MD [Primary Care Provider] - Follow up as needed Mode of Arrival: Wheelchair Information source: Patient Notes: 74-year-old male presented to ED for pitting edema to bilateral feet. He states he does have CHF but his pills are not working. He also has diabetes. No obvious sores noted on either foot but they are both swollen. Patient is alert oriented respirations regular nonlabored speaking in full sentences. We will get chest x-ray EKG and lab work. His prior primary doctor is Dr. Varela. I have greeted and performed a rapid initial assessment of this patient. A co mprehensive ED assessment and evaluation of the patient, analysis of test results and completion of medical decision making process will be conducted by an additional ED providers. TRAVEL OUTSIDE OF THE [place] IN LAST 30 DAYS: No - Related Data Allergies/Adverse Reactions: iv dye Allergy (Uncoded 03/19/20 08:13) site burning Past Medical History - Past Medical History Cardiac Medical History: Reports: Hx Congestive Heart Failure, Hx Coronary Artery Disease, Hx Heart Attack - 2003, Hx Hypercholesterolemia, Hx Hypertension Pulmonary Medical History: Reports: Hx Pneumonia Denies: Hx Asthma, Hx Bronchitis, Hx COPD Neurological Medical History: Reports: Hx Cerebrovascular Accident. Denies: Hx Seizures Endocrine Medical History: Reports: Hx Diabetes Mellitus Type 2 GI Medical History: Reports: Hx Gastroesophageal Reflux Disease Musculoskeltal Medical History: Reports Hx Arthritis Psychiatric Medical History: Denies: Hx Depression Past Surgical History: Reports: Hx Cardiac Surgery - triple bypass, Hx Coronary Artery Bypass Graft - triple Physical Exam - Vital signs Vitals: Temp Pulse Resp BP Pulse Ox 98.7 F 74 16 126/73 H 100 03/31/20 13:39 03/31/20 13:39 03/31/20 13:39 03/31/20 13:39 03/31/20 13:39 Course - Vital Signs Vital signs: Temp Pulse Resp BP Pulse Ox 98.7 F 74 16 126/73 H 100 03/31/20 13:39 03/31/20 13:39 03/31/20 13:39 03/31/20 13:39 03/31/20 13:39 Doctor's Discharge - Discharge Referrals: KENDRA VARELA MD [Primary Care Provider] - Follow up as needed
[2020-03-31 14:35] LABS: ABSOLUTE BASOPHILS # (AUTO) 0.1 10^3/uL (0.0-0.2); ABSOLUTE EOSINOPHILS # (AUTO) 0.2 10^3/uL (0.0-0.6); ABSOLUTE LYMPHOCYTES (AUTO) 0.6 10^3/uL (0.5-4.7); ABSOLUTE MONOCYTES (AUTO) 0.4 10^3/uL (0.1-1.4); ABSOLUTE NEUT (AUTO) 2.4 10^3/uL (1.7-8.2); BASOPHILS % (AUTO) 1.5 % (0-2); EOSINOPHILS % (AUTO) 4.4 % (0-6); HEMATOCRIT 35.4 % (37.9-51.0); HEMOGLOBIN 11.8 g/dL (13.5-17.0); LYMPHOCYTES % (AUTO) 16.5 % (13-45); MEAN CORPUSCULAR HEMOGLOBIN 31.5 pg (27.0-33.4); MEAN CORPUSCULAR HGB CONC 33.4 g/dL (32.0-36.0); MEAN CORPUSCULAR VOLUME 94 fl (80-97); MONOCYTES % (AUTO) 11.8 % (3-13); PLATELET COUNT 188 10^3/uL (150-450); RED BLOOD COUNT 3.76 10^6/uL (4.35-5.55); RED CELL DISTRIBUTION WIDTH 17.9 % (11.5-14.0); SEGMENTED NEUTROPHILS % (AUTO) 65.8 % (42-78); TOTAL CELLS COUNTED % (AUTO) 100 %; WHITE BLOOD COUNT 3.6 10^3/uL (4.0-10.5)
[2020-03-31 14:36] LABS: INTERNATIONAL RATION (INR) 1.14; PROTHROMBIN TIME 14.8 SEC (11.4-15.4)
[2020-03-31 14:37] LABS: PARTIAL THROMBOPLASTIN TIME 30.1 SEC (23.5-35.8)
[2020-03-31 14:50] LABS: ALBUMIN 3.4 g/dL (3.5-5.0); ALKALINE PHOSPHATASE 416 U/L (38-126); ANION GAP 8 (5-19); ASPARTATE AMINO TRANSFERASE 37 U/L (17-59); BILIRUBIN,DIRECT 0.5 mg/dL (0.0-0.4); BLOOD UREA NITROGEN 17 mg/dL (7-20); CALCIUM 8.7 mg/dL (8.4-10.2); CARBON DIOXIDE 30 mmol/L (22-30); CHLORIDE 97 mmol/L (98-107); GLUCOSE 316 mg/dL (75-110); POTASSIUM 3.6 mmol/L (3.6-5.0); TOTAL PROTEIN 7.2 g/dL (6.3-8.2)
--- NOTE | 2020-03-31 15:00 | RADIOLOGY REPORT (SQ) ---
EXAM DESCRIPTION: CHEST 2 VIEWS IMAGES COMPLETED DATE/TIME: 03/31/2020 2:31 pm REASON FOR STUDY: short of breath hx of chf COMPARISON: None. EXAM PARAMETERS: NUMBER OF VIEWS: two views TECHNIQUE: Digital Frontal and Lateral radiographic views of the chest acquired. RADIATION DOSE: NA LIMITATIONS: none FINDINGS: LUNGS AND PLEURA: Pulmonary edema. MEDIASTINUM AND HILAR STRUCTURES: No hilar or mediastinal adenopathy or masses. HEART AND VASCULAR STRUCTURES: Cardiomegaly. Pulmonary edema. BONES: No acute findings. HARDWARE: Pacemaker/defibrillator. Sternotomy wires. Graft markers. OTHER: No other significant finding. IMPRESSION: NO ACUTE RADIOGRAPHIC FINDING IN THE CHEST. TECHNICAL DOCUMENTATION: JOB ID: [id number] 2010 [email or web address]- All Rights Reserved Reading location - IP/workstation name: [email or web address]
[2020-03-31 18:16] LABS: APPEARANCE,URINE CLEAR; BILIRUBIN,URINE NEGATIVE (NEGATIVE); COLOR,URINE STRAW; GLUCOSE, URINE >=500 mg/dL (NEGATIVE); KETONES,URINE NEGATIVE (NEGATIVE); LEUKOCYTE ESTERASE,URINE NEGATIVE (NEGATIVE); NITRITE,URINE NEGATIVE (NEGATIVE); PROTEIN,URINE 30 mg/dL (NEGATIVE); URINE SPECIFIC GRAVITY 1.007; UROBILINOGEN,URINE NEGATIVE mg/dL (<2.0)
--- NOTE | 2020-03-31 19:37 | ER Document Report ---
ED General - General Chief Complaint: Feet Swelling Stated Complaint: FEET SWELLING Time Seen by Provider: 03/31/20 13:43 Primary Care Provider: KENDRA VARELA MD [Primary Care Provider] - Follow up as needed Mode of Arrival: Wheelchair Information source: Patient Notes: 03/31/20 13:51 - ED Nursing Note by DANIELANJANAJORDANMARCO A Rosado Num: [id number] : 1945 Patient Age: 74 patient states he has had bilateral foot swelling for 2-3 weeks. patient states he has a hx of chf and takes lasix but its not helping. patient states hes short of breath at times. patient noted to have 1+ pitting edema to both feet ED Medical Screen ([facility] notes - General Chief Complaint: Feet Swelling Stated Complaint: FEET SWELLING Time Seen by Provider: 03/31/20 13:43 Primary Care Provider: KENDRA VARELA MD [Primary Care Provider] - Follow up as needed Mode of Arrival: Wheelchair Information source: Patient Notes: 74-year-old male presented to ED for pitting edema to bilateral feet. He states he does have CHF but his pills are not working. He also has diabetes. No obvious sores noted on either foot but they are both swollen. Patient is alert oriented respirations regular nonlabored speaking in full sentences. We will ge t chest x-ray EKG and lab work. His prior primary doctor is Dr. Varela. Patient reports he had a stroke heart attack and a left-sided pacer placed in August of this year. Patient advises when he takes his Lasix he does urinate a lot but he has bilateral ankle and leg edema. 1 TRAVEL OUTSIDE OF THE [place] IN LAST 30 DAYS: No - HPI Onset: Last week Onset/Duration: Gradual, Persistent Quality of pain: No pain Severity: None Pain Level: Denies Associated symptoms: Shortness of breath Exacerbated by: Movement Relieved by: Denies Similar symptoms previously: Yes Recently seen / treated by doctor: Yes - Related Data Allergies/Adverse Reactions: iv dye Allergy (Uncoded 03/19/20 08:13) site burning Home Medications: amiodarone, atorvastatin, pepcid, neurontin, losartan, metoprolol, plavix, lasix, ranolazine Past Medical History - General Information source: Patient - Social History Smoking Status: Current Some Day Smoker Cigarette use (# per day): Yes Chew tobacco use (# tins/day): No Smoking Education Provided: Yes Frequency of alcohol use: None Drug Abuse: None Lives with: Family Family History: Reviewed & Not Pertinent, CAD Patient has suicidal ideation: No Patient has homicidal ideation: No - Past Medical History Cardiac Medical History: Reports: Hx Congestive Heart Failure, Hx Coronary Artery Disease, Hx Heart Attack - 2004, Hx Hypercholesterolemia, Hx Hypertension Pulmonary Medical History: Reports: Hx Pneumonia Denies: Hx Asthma, Hx Bronchitis, Hx COPD Neurological Medical History: Reports: Hx Cerebrovascular Accident. Denies: Hx Seizures Endocrine Medical History: Reports: Hx Diabetes Mellitus Type 2 GI Medical History: Reports: Hx Gastroesophageal Reflux Disease Musculoskeletal Medical History: Reports Hx Arthritis Psychiatric Medical History: Denies: Hx Depression Past Surgical History: Reports: Hx Cardiac Surgery - triple bypass, Hx Coronary Artery Bypass Graft - triple Review of Systems - Review of Systems Constitutional: No symptoms reported EENT: No symptoms reported Cardiovascular: No symptoms reported Respiratory: No symptoms reported Gastrointestinal: No symptoms reported. denies: Vomiting, Constipation, Poor appetite, Poor fluid intake Genitourinary: No symptoms reported. denies: Flank pain Male Genitourinary: No symptoms reported Musculoskeletal: See HPI, Joint swelling, Leg swelling, Ankle swelling. denies: Muscle pain, Muscle stiffness Skin: No symptoms reported Hematologic/Lymphatic: No symptoms reported. denies: Easy bleeding, Easy bruising Neurological/Psychological: No symptoms reported. denies: Homicidal ideation, Gait changes, Paralysis, Seizure, Headaches Physical Exam - Vital signs Vitals: Temp Pulse Resp BP Pulse Ox 98.7 F 74 16 126/73 H 100 03/31/20 13:39 03/31/20 13:39 03/31/20 13:39 03/31/20 13:39 03/31/20 13:39 Interpretation: Hypertensive - HEENT Head: Normocephalic, Atraumatic Eyes: Normal Pupils: PERRL Sinus: Normal Nasal: Normal Mouth/Lips: Normal Mucous membranes: Normal Pharynx: Normal Neck: Normal - Respiratory Respiratory status: No respiratory distress Chest status: Nontender Breath sounds: Normal Chest palpation: Normal - Cardiovascular Rhythm: Regular Heart sounds: Normal auscultation Murmur: No - Abdominal Inspection: Normal Distension: No distension Bowel sounds: Normal Tenderness: Nontender Organomegaly: No organomegaly - Rectal Prostate: Other - deferred - Genitourinary Scrotum: Other - deferred - Back Back: Normal - Extremities General upper extremity: Normal inspection General lower extremity: Edema - +2 pitting edema tracey legs ankles - Neurological Neuro grossly intact: Yes Cognition: Normal Orientation: AAOx4 Erica Coma Scale Eye Opening: Spontaneous Erica Coma Scale Verbal: Oriented Erica Coma Scale Motor: Obeys Commands Erica Coma Scale Total: 15 Speech: Normal Motor strength normal: LUE, RUE, LLE, RLE Sensory: Normal - Psychological Associated symptoms: Normal affect - Skin Skin Temperature: Warm Skin Moisture: Dry Course - Vital Signs Vital signs: Temp Pulse Resp BP Pulse Ox 98.4 F 74 19 131/98 H 99 03/31/20 20:00 03/31/20 13:39 03/31/20 20:01 03/31/20 20:01 03/31/20 20:01 - Laboratory Result Diagrams: 03/31/20 14:15 03/31/20 14:15 Laboratory results interpreted by me: 03/31/20 03/31/20 03/31/20 14:15 14:15 14:15 WBC 3.6 L RBC 3.76 L Hgb 11.8 L Hct 35.4 L RDW 17.9 H Sodium 135.3 L Chloride 97 L Creatinine 1.26 H Est GFR (MDRD) Non-Af 56 L Glucose 316 H Direct Bilirubin 0.5 H ALT 54 H Alkaline Phosphatase 416 H NT-Pro-B Natriuret Pep 7030 H Albumin 3.4 L Urine Protein Urine Glucose (UA) 03/31/20 17:50 WBC RBC Hgb Hct RDW Sodium Chloride Creatinine Est GFR (MDRD) Non-Af Glucose Direct Bilirubin ALT Alkaline Phosphatase NT-Pro-B Natriuret Pep Albumin Urine Protein 30 H Urine Glucose (UA) >=500 H - Diagnostic Test Radiology reviewed: Reports reviewed - nad per rad Critical Care Note - Critical Care Note Comments: I discussed this case with patient and with his and she advised that she has taken him off of all salt and uses Mrs. Hutton. Patient has a 7000 BNP and I advised him and his of his lab reports. He appeared to understand advised him to use orthostatic precautions upon trying to stand quickly because if he uses the Zaroxolyn and Lasix he may easily get weak and from electrolyte imbalance. Discharge - Discharge Clinical Impression: Pedal edema, Acute on chronic systolic (congestive) heart failure Condition: Good Disposition: HOME, SELF-CARE Additional Instructions: Follow-up with personal doctor this week return to ER as needed take medicines as directed; continue to take Lasix but add Zaroxolyn to your diuretic regime 1 tablet daily. Prescriptions: Metolazone [Zaroxolyn 5 Mg Tablet] 5 mg PO DAILY PRN #7 tablet PRN Reason: Referrals: KENDRA VARELA MD [Primary Care Provider] - Follow up as needed
[2020-03-31] MEDS ORDERED: METOLAZONE 5 MG TABLET PO ONE (19:39)
[2020-03-31] MEDS ORDERED: FUROSEMIDE INJ/PF 20 MG/2 ML SDV IV ONE (19:39)
[2020-03-31] MEDS ORDERED: BUMETANIDE INJ/PF 1 MG/4 ML SDV IV ONE (19:39)
--- NOTE | 2020-03-31 21:02 | EKG REPORT ---
SEVERITY:- ABNORMAL ECG - SINUS RHYTHM PROBABLE LEFT ATRIAL ABNORMALITY NONSPECIFIC INTRAVENTRICULAR CONDUCTION DELAY LVH WITH SECONDARY REPOLARIZATION ABNORMALITY : Confirmed by: Alonzo Douglas 31-Mar-2020 21:00:48
[2020-03-31 21:39] VITALS: BP 127/91
== END 2020-03-31 21:39 | disposition home or self-care (01) ==
LOC: ER 13:34
DX: I11.0 Hypertensive heart disease with heart failure (principal); I50.23 Acute on chronic systolic (congestive) heart failure; R06.02 Shortness of breath; E11.9 Type 2 diabetes mellitus without complications; R60.0 Localized edema; I25.10 Atherosclerotic heart disease of native coronary artery without angina pectoris; E78.00 Pure hypercholesterolemia, unspecified; I25.2 Old myocardial infarction; F17.210 Nicotine dependence, cigarettes, uncomplicated; K21.9 Gastro-esophageal reflux disease without esophagitis; Z79.02 Long term (current) use of antithrombotics/antiplatelets; Z79.899 Other long term (current) drug therapy; Z95.0 Presence of cardiac pacemaker; Z95.1 Presence of aortocoronary bypass graft; Z86.73 Personal history of transient ischemic attack (TIA), and cerebral infarction without residual deficits; Z82.49 Family history of ischemic heart disease and other diseases of the circulatory system
CPT/HCPCS: 93005; 99285; 96374; 96375; 36415; 83690; 85025; 85610; 85730; 80053; 81001; 84484; 83880; 71046; 93010; J3490; J1940; A9270

== ENCOUNTER 2020-05-03 22:33 | Emergency (ER) | payer MEDICARE, OTHER ==
--- NOTE | 2020-05-03 22:58 | ER Document Report ---
ED General - General Chief Complaint: High Blood Sugar Stated Complaint: HIGH BLOOD SUGAR Time Seen by Provider: 05/03/20 22:53 Primary Care Provider: KENDRA VARELA MD [Primary Care Provider] - Follow up as needed TRAVEL OUTSIDE OF THE [place] IN LAST 30 DAYS: No - HPI Notes: 74-year-old male presents with high blood sugar. Patient states that this evening he ate 2-3 doughnuts, he states that "I couldn't resist eating them". He then checked his blood sugar and it was 576, this was around 7:30 PM. He states that he administered 14 units of insulin and called EMS. He states that when EMS checked his blood pressure they told him it was low. Patient currently denies complaints. He states "I'm doing good now". He denies chest pain, shortness of breath, dizziness or lightheadedness, vomiting or diarrhea. He reports that his sugars are often hard to control, he states they are "up and down", ranging from "alright" to "all over the place". He also mentions that he has lost about 10 pounds in the past two weeks because his doctors have increased his water pills. - Related Data Allergies/Adverse Reactions: iv dye Allergy (Uncoded 03/19/20 08:13) site burning Past Medical History - General Information source: Patient - Social History Smoking Status: Never Smoker Chew tobacco use (# tins/day): No Frequency of alcohol use: None Drug Abuse: None Family History: Reviewed & Not Pertinent, CAD - Past Medical History Cardiac Medical History: Reports: Hx Congestive Heart Failure, Hx Coronary Artery Disease, Hx Heart Attack - 2003, Hx Hypercholesterolemia, Hx Hypertension Pulmonary Medical History: Reports: Hx Pneumonia Denies: Hx Asthma, Hx Bronchitis, Hx COPD Neurological Medical History: Reports: Hx Cerebrovascular Accident. Denies: Hx Seizures Endocrine Medical History: Reports: Hx Diabetes Mellitus Type 2 GI Medical History: Reports: Hx Gastroesophageal Reflux Disease Musculoskeletal Medical History: Reports Hx Arthritis Psychiatric Medical History: Denies: Hx Depression Past Surgical History: Reports: Hx Cardiac Surgery - triple bypass, Hx Coronary Artery Bypass Graft - triple Review of Systems - Review of Systems Constitutional: No symptoms reported EENT: No symptoms reported Cardiovascular: denies: Chest pain Respiratory: denies: Short of breath Gastrointestinal: denies: Abdominal pain, Diarrhea, Vomiting Genitourinary: No symptoms reported Male Genitourinary: No symptoms reported Musculoskeletal: No symptoms reported Skin: No symptoms reported Hematologic/Lymphatic: No symptoms reported Neurological/Psychological: denies: Weakness Physical Exam - Vital signs Vitals: Resp BP Pulse Ox 20 106/51 L 96 05/03/20 22:38 05/03/20 22:38 05/03/20 22:38 - General General appearance: Appears well, Alert In distress: None - HEENT Head: Normocephalic, Atraumatic Extraocular movements intact: Yes Pupils: PERRL Mucous membranes: Dry - Respiratory Breath sounds: Normal - Cardiovascular Rhythm: Regular Heart sounds: Normal auscultation Murmur: Yes Normal capillary refill: Yes - Abdominal Distension: No distension Tenderness: Nontender - Extremities General lower extremity: No: Edema - Neurological Neuro grossly intact: Yes Cognition: Normal Orientation: AAOx4 Motor strength normal: LUE, RUE, LLE, RLE Sensory: Normal - Psychological Associated symptoms: Normal affect - Skin Skin Temperature: Warm Course - Re-evaluation Re-evalutation: 74-year-old male with hyperglycemia at home after consuming multiple donuts, self-administered insulin. He currently denies complaints. On exam he is well- appearing, lungs are clear, heart regular, abdomen soft, no peripheral edema. He actually does look quite dry, he has some dry mucous membranes and can easily palpate tibia on lower extremities. His blood pressure is low currently, he is alert and mentating appropriately. I suspect that he is volume down from over diuresis. Last EF per computer 45 to 50%. We will give 500cc LR. Additionally hyperglycemia could cause additional fluid losses as well. Will check basic labs. 05/04/20 00:10 Blood pressure has improved, 103/68. Hemoglobin 13, this is actually fairly higher than his usual values, suggest hemoconcentration. Mild hyponatremia, looks like his intermittent history of this. Creatinine is elevated 2.5, last checked was 1.26, suspecting this is due from over diuresis. Glucose 221. 05/04/20 00:17 Updated patient on his lab results. History to him please call his doctor in the morning to discuss potential over diuresis. Blood pressure in room 112/68. He continues to be well-appearing and without complaints. He is appropriate for discharge at this time. Return precautions given, stable at time of discharge. - Vital Signs Vital signs: Temp Pulse Resp BP Pulse Ox 98.1 F 62 21 H 103/68 97 05/03/20 22:47 05/03/20 22:47 05/03/20 23:30 05/03/20 23:30 05/03/20 23:30 - Laboratory Result Diagrams: 05/03/20 22:39 05/03/20 22:39 Laboratory results interpreted by me: 05/03/20 05/03/20 22:39 22:39 WBC 3.4 L RBC 4.09 L Hgb 13.0 L RDW 18.2 H Hendricks % (Auto) 13.2 H Eos % (Auto) 7.0 H Sodium 130.5 L Chloride 90 L Carbon Dioxide 31 H BUN 61 H Creatinine 2.50 H Est GFR ( Amer) 31 L Est GFR (MDRD) Non-Af 25 L Glucose 221 H Direct Bilirubin 0.5 H Alkaline Phosphatase 215 H Discharge - Discharge Clinical Impression: Hyperglycemia due to diabetes mellitus, Dehydration, Elevated serum creatinine Condition: Stable Disposition: HOME, SELF-CARE Additional Instructions: Please call your physician in the morning to discuss your water pills, I have concerned that you may need to have some dose reduction as there was some concern for dehydration and low blood pressure tonight. Continue to take your insulin as prescribed. Return to the emergency department for any concerning worsening symptoms. Referrals: KENDRA VARELA MD [Primary Care Provider] - Follow up as needed
[2020-05-03 23:08] LABS: ABSOLUTE LYMPHOCYTES (AUTO) 0.8 10^3/uL (0.5-4.7); TOTAL CELLS COUNTED % (AUTO) 100 %
[2020-05-03] MEDS ORDERED: RINGERS SOLUTION,LACTATED 500 ML IV ONE (23:11)
[2020-05-03 23:13] LABS: ABSOLUTE EOSINOPHILS # (AUTO) 0.2 10^3/uL (0.0-0.6)
[2020-05-03 23:16] LABS: ALBUMIN 3.9 g/dL (3.5-5.0); ALKALINE PHOSPHATASE 215 U/L (38-126); ANION GAP 10 (5-19); ASPARTATE AMINO TRANSFERASE 39 U/L (17-59); BILIRUBIN,DIRECT 0.5 mg/dL (0.0-0.4); BILIRUBIN,TOTAL 0.7 mg/dL (0.2-1.3); BLOOD UREA NITROGEN 61 mg/dL (7-20); CALCIUM 9.4 mg/dL (8.4-10.2); CARBON DIOXIDE 31 mmol/L (22-30); CHLORIDE 90 mmol/L (98-107); GLUCOSE 221 mg/dL (75-110); POTASSIUM 4.2 mmol/L (3.6-5.0); TOTAL PROTEIN 7.9 g/dL (6.3-8.2)
[2020-05-03 23:19] LABS: ABSOLUTE MONOCYTES (AUTO) 0.4 10^3/uL (0.1-1.4); ABSOLUTE NEUT (AUTO) 1.8 10^3/uL (1.7-8.2); BASOPHILS % (AUTO) 1.4 % (0-2); HEMATOCRIT 37.9 % (37.9-51.0); LYMPHOCYTES % (AUTO) 23.4 % (13-45); MEAN CORPUSCULAR HEMOGLOBIN 31.9 pg (27.0-33.4); MEAN CORPUSCULAR HGB CONC 34.4 g/dL (32.0-36.0); MEAN CORPUSCULAR VOLUME 93 fl (80-97); MONOCYTES % (AUTO) 13.2 % (3-13); RED BLOOD COUNT 4.09 10^6/uL (4.35-5.55); RED CELL DISTRIBUTION WIDTH 18.2 % (11.5-14.0); WHITE BLOOD COUNT 3.4 10^3/uL (4.0-10.5)
[2020-05-03 23:37] LABS: PLATELET COUNT 212 10^3/uL (150-450)
[2020-05-04 00:44] VITALS: BP 114/74
--- NOTE | 2020-05-04 18:02 | EKG REPORT ---
SEVERITY:- ABNORMAL ECG - SINUS RHYTHM FIRST DEGREE AV BLOCK PROBABLE LEFT ATRIAL ABNORMALITY NONSPECIFIC INTRAVENTRICULAR CONDUCTION DELAY LVH WITH SECONDARY REPOLARIZATION ABNORMALITY : Confirmed by: Andre Robins MD 04-May-2020 18:00:54
== END 2020-05-04 00:45 | disposition home or self-care (01) ==
LOC: ER 22:33
DX: E11.65 Type 2 diabetes mellitus with hyperglycemia (principal); E87.1 Hypo-osmolality and hyponatremia; E86.0 Dehydration; I95.9 Hypotension, unspecified; I11.0 Hypertensive heart disease with heart failure; I50.9 Heart failure, unspecified; I25.10 Atherosclerotic heart disease of native coronary artery without angina pectoris; Z79.899 Other long term (current) drug therapy; Z95.1 Presence of aortocoronary bypass graft; Z91.041 Radiographic dye allergy status
CPT/HCPCS: 93005; 99284; 96360; 36415; 85025; 80053; 93010; J7120

== ENCOUNTER 2020-05-04 23:39 | Emergency (ER) | payer MEDICARE ==
[2020-05-05 00:16] LABS: ABSOLUTE BASOPHILS # (AUTO) 0.1 10^3/uL (0.0-0.2); ABSOLUTE EOSINOPHILS # (AUTO) 0.2 10^3/uL (0.0-0.6); ABSOLUTE LYMPHOCYTES (AUTO) 0.7 10^3/uL (0.5-4.7); ABSOLUTE MONOCYTES (AUTO) 0.4 10^3/uL (0.1-1.4); ABSOLUTE NEUT (AUTO) 2.2 10^3/uL (1.7-8.2); BASOPHILS % (AUTO) 1.6 % (0-2); EOSINOPHILS % (AUTO) 6.5 % (0-6); HEMATOCRIT 37.5 % (37.9-51.0); HEMOGLOBIN 12.8 g/dL (13.5-17.0); LYMPHOCYTES % (AUTO) 19.2 % (13-45); MEAN CORPUSCULAR HGB CONC 34.2 g/dL (32.0-36.0); MEAN CORPUSCULAR VOLUME 94 fl (80-97); MONOCYTES % (AUTO) 11.9 % (3-13); PLATELET COUNT 208 10^3/uL (150-450); RED BLOOD COUNT 4.01 10^6/uL (4.35-5.55); RED CELL DISTRIBUTION WIDTH 17.7 % (11.5-14.0); SEGMENTED NEUTROPHILS % (AUTO) 60.8 % (42-78); TOTAL CELLS COUNTED % (AUTO) 100 %; WHITE BLOOD COUNT 3.6 10^3/uL (4.0-10.5)
[2020-05-05] MEDS ORDERED: NORMAL SALINE 1000 ML 500 ML IV ONE (00:16)
[2020-05-05 00:24] LABS: ALBUMIN 3.9 g/dL (3.5-5.0); ALKALINE PHOSPHATASE 187 U/L (38-126); ANION GAP 11 (5-19); ASPARTATE AMINO TRANSFERASE 37 U/L (17-59); BILIRUBIN,DIRECT 0.5 mg/dL (0.0-0.4); BILIRUBIN,TOTAL 0.8 mg/dL (0.2-1.3); BLOOD UREA NITROGEN 62 mg/dL (7-20); CALCIUM 9.6 mg/dL (8.4-10.2); CARBON DIOXIDE 29 mmol/L (22-30); CHLORIDE 93 mmol/L (98-107); CREATINE KINASE 52 U/L (55-170); GLUCOSE 84 mg/dL (75-110); POTASSIUM 4.7 mmol/L (3.6-5.0); TOTAL PROTEIN 7.8 g/dL (6.3-8.2)
[2020-05-05 00:35] LABS: CREATINE KINASE MB 0.74 ng/mL (<4.55)
[2020-05-05 00:47] LABS: TROPONIN I 0.033 ng/mL
[2020-05-05 01:15] LABS: APPEARANCE,URINE SLIGHTLY-CLOUDY; BILIRUBIN,URINE NEGATIVE (NEGATIVE); COLOR,URINE YELLOW; GLUCOSE, URINE 150 mg/dL (NEGATIVE); KETONES,URINE NEGATIVE (NEGATIVE); LEUKOCYTE ESTERASE,URINE NEGATIVE (NEGATIVE); NITRITE,URINE NEGATIVE (NEGATIVE); PROTEIN,URINE 100 mg/dL (NEGATIVE); URINE SPECIFIC GRAVITY 1.012; UROBILINOGEN,URINE NEGATIVE mg/dL (<2.0)
--- NOTE | 2020-05-05 02:35 | ER Document Report ---
ED General - General Chief Complaint: Low Blood Pressure Stated Complaint: LOW BLOOD PRESSURE Time Seen by Provider: 05/05/20 02:10 Primary Care Provider: KENDRA VARELA MD [Primary Care Provider] - Follow up as needed TRAVEL OUTSIDE OF THE [place] IN LAST 30 DAYS: No - HPI Context: This is a 74-year-old male with a history of hypertension presenting to the emergency department for evaluation of weakness, dizziness and low blood pressure. Patient reportedly had a blood pressure on scene that was 71/41 manually according to EMS. Patient was seen here in the emergency department yesterday reportedly for the same problem yesterday. The provider that saw him theorized that perhaps the patient was being over diuresed. Review of the patient's medication list by this MD reveals that the patient is on Lasix but the dosage is not listed and the patient is uncertain how much Lasix he is actually taking. Additionally the patient has history of diabetes, he is uncertain if he is urinating a normal amount or an excessive amount. Patient was instructed to follow-up with his PCP yesterday however the patient did not. Patient denies being in any pain, but he states that his lightheadedness and dizziness and weakness all seem to get worse when he changes positions, e specially from sitting to standing. Patient states laying flat and still seems to alleviate his symptoms. Patient denies fever, chills, shortness of breath, chest pain, abdominal pain, nausea, vomiting, dysuria, flank pain, polydipsia, loss of sense of taste or loss of sense of smell, history of Covid infection, known exposure to Covid positive persons or persons under investigation for COVID-19. Associated symptoms: Other - See HPI Exacerbated by: Other - See HPI Relieved by: Other - See HPI - Related Data Allergies/Adverse Reactions: iv dye Allergy (Uncoded 03/19/20 08:13) site burning Past Medical History - General Information source: Patient - Social History Smoking Status: Current Every Day Smoker Family History: Reviewed & Not Pertinent, CAD Patient has suicidal ideation: No Patient has homicidal ideation: No - Past Medical History Cardiac Medical History: Reports: Hx Congestive Heart Failure, Hx Coronary Artery Disease, Hx Heart Attack - 2003, 2019, Hx Hypercholesterolemia, Hx Hypertension Pulmonary Medical History: Reports: Hx Pneumonia Denies: Hx Asthma, Hx Bronchitis, Hx COPD Neurological Medical History: Reports: Hx Cerebrovascular Accident. Denies: Hx Seizures Endocrine Medical History: Reports: Hx Diabetes Mellitus Type 2 GI Medical History: Reports: Hx Gastroesophageal Reflux Disease Musculoskeletal Medical History: Reports Hx Arthritis Psychiatric Medical History: Denies: Hx Depression Past Surgical History: Reports: Hx Cardiac Surgery - triple bypass, Hx Coronary Artery Bypass Graft - triple Review of Systems - Review of Systems Constitutional: Weakness EENT: No symptoms reported Cardiovascular: See HPI, Dizziness, Lightheaded Respiratory: No symptoms reported Gastrointestinal: No symptoms reported Genitourinary: No symptoms reported Male Genitourinary: No symptoms reported Musculoskeletal: No symptoms reported Skin: No symptoms reported Hematologic/Lymphatic: No symptoms reported Neurological/Psychological: No symptoms reported -: Yes All other systems reviewed and negative Physical Exam - Vital signs Vitals: Resp BP 18 100/71 05/04/20 23:44 05/04/20 23:44 - Notes Notes: CONSTITUTIONAL [Vital signs reviewed, Patient appears comfortable, Alert and oriented X 3, Normal stature.] HEAD [Atraumatic, Normocephalic.] EYES [Eyes are normal to inspection, No discharge from eyes, Extraocular muscles intact, Sclera are normal, Conjunctiva are normal.] ENT , Nose examination normal, Posterior pharynx normal, Mouth normal to inspection.] NECK [Normal ROM, No jugular venous distention, No meningeal signs, no carotid bruit.] RESPIRATORY CHEST [Chest is nontender, Breath sounds normal, No respiratory distress.] CARDIOVASCULAR [RRR, No murmurs, Normal S1 S2, No rub, No gallop.] ABDOMEN [Abdomen is nontender, No pulsatile masses, No other masses, Bowel sounds normal, No distension, No peritoneal signs, No hernias.] BACK [There is no CVA Tenderness, There is no tenderness to palpation, Normal inspection.] UPPER EXTREMITY [Inspection normal, No cyanosis, No clubbing, No edema, 2+ radial pulses.] LOWER EXTREMITY [Inspection normal, No cyanosis, No clubbing, No edema, No calf tenderness, 2+ femoral pulses.] NEURO [No focal motor deficits, No focal sensory deficits, Speech normal.] SKIN [Skin is warm, Skin is dry, Skin is normal color.] PSYCHIATRIC [Normal affect. ] Course - Re-evaluation Re-evalutation: 05/05/20 02:42 Patient states he is feeling better since receiving a fluid bolus here in the emergency department. Patient's blood pressure is now 124/84 with a heart rate of 70. Patient is without complaint. This MD reiterated patient need to follow-up with his PCP today and discuss potential adjustments in his blood pressure medication. Results of ED MSE discussed with patient. All questions were answered prior to discharge. Emergency signs and symptoms, reasons to return to the emergency department discussed with patient. - Vital Signs Vital signs: Temp Pulse Resp BP Pulse Ox 97.5 F 17 119/85 99 05/04/20 23:45 05/05/20 02:01 05/05/20 02:01 05/05/20 02:01 - Laboratory Result Diagrams: 05/04/20 23:58 05/04/20 23:58 Laboratory results interpreted by me: 05/04/20 05/04/20 05/05/20 23:58 23:58 00:39 WBC 3.6 L RBC 4.01 L Hgb 12.8 L Hct 37.5 L RDW 17.7 H Eos % (Auto) 6.5 H Sodium 132.5 L Chloride 93 L BUN 62 H Creatinine 2.72 H Est GFR ( Amer) 28 L Est GFR (MDRD) Non-Af 23 L Direct Bilirubin 0.5 H Alkaline Phosphatase 187 H Creatine Kinase 52 L Urine Protein 100 H Urine Glucose (UA) 150 H - EKG Interpretation by Me Additional EKG results interpreted by me: 05/05/20 02:44 EKG obtained on 05/04/2020 at 2350 hrs. was interpreted by this MD. Findings sinus rhythm, rate 65, first-degree AV block is present, P waves proceed QRS complexes, QRS complexes appear narrow, QTC is 483, there are T wave inversions present in V2 through V6 that are also present on the patient's EKG from yesterday, 05/03/2020 at 2340 hrs. There are no obvious patterns of ST segment elevation or depression or reciprocal change present to suggest acute myocardial ischemia or infarction. Impression: Sinus rhythm with first-degree AV block T wave inversions in V2 through V6 which are pre-existing and nonspecific ST segments. Discharge - Discharge Clinical Impression: Hypotension Qualifiers: Hypotension type: unspecified hypotension type Qualified Code(s): I95.9 - Hypotension, unspecified Condition: Stable Disposition: HOME, SELF-CARE Additional Instructions: Return to the Emergency Department without delay if any worse. Be certain to follow-up with Dr. Varela today, 05/05/2020 to discuss your recent episodes of low blood pressure and discuss possible changes in your blood pressure medication regimen. HOME CARE INSTRUCTIONS & INFORMATION: Thank you for choosing us for your medical needs. We hope you're satisfied with the care you received. After you leave, you must properly care for your problem and, at the same time, observe its progress. Any condition can change. Some illnesses can change rapidly over hours or days. If your condition worsens, return to the Emergency Department or see your physician promptly. ABOUT YOUR X-RAYS AND EKG'S: If you had an EKG or X-rays taken, they have been read by the Emergency Physician. The X-rays and EKG's will also be read by a Radiologist or [facility] within 24 hours. If discrepancies are noted, you will be notified by telephone. Please be certain the ED has a correct telephone number & address where you can be reached. Also, realize that some fractures or abnormalities do not show up on initial X-rays. If your symptoms continue, see your physician. ABOUT YOUR LABORATORY TEST: If you had laboratory tests, the results have been reviewed by the Emergency Physician. Some test results (for example cultures) may not be available for several days. You will be contacted if any test result shows you need additional treatment. Please be certain the ED has a correct telephone number and address where you can be reached. ABOUT YOUR MEDICATIONS: You will receive instructions on how to take your medi cine on the prescription label you receive. Additional information may be provided by the Pharmacy. If you have questions afterwards, call the ED for clarification or further instructions. Some prescribed medications may cause drowsiness. Do not perform tasks such as driving a car or operating machinery without consulting your Pharmacist. If you feel you need a refill of pain medication, your condition will need re-evaluation. Please do not call for a refill of any medication. ABOUT YOUR SIGNATURE: Signature of this document acknowledges to followin. Understanding that you received emergency treatment and that you may be released before al medical problems are known or treated. Please be certain the ED has a correct phone number & address where you can be reached. 2. Acknowledgement that you will arrange for follow-up care as recommended. 3. Authorization for the Emergency Physician to provide information to your follow-up Physician in order to maximize your care. AT ANY TIME, IF YOUR SYMPTOMS CHANGE SIGNIFICANTLY OR WORSEN OR YOU DEVELOP NEW SYMPTOMS, RETURN TO THE EMERGENCY DEPARTMENT IMMEDIATELY FOR RE-EVALUATION. OUR GOAL IS TO PROVIDE EXCELLENT MEDICAL CARE! WE HOPE THAT WE HAVE MET YOUR EXPECTATIONS DURING YOUR EMERGENCY DEPARTMENT VISIT AND THAT YOU FEEL YOU HAVE RECEIVED EXCELLENT CARE! Referrals: KENDRA VARELA MD [Primary Care Provider] - Follow up as needed
[2020-05-05 03:20] VITALS: BP 127/86
--- NOTE | 2020-05-05 16:09 | EKG REPORT ---
SEVERITY:- ABNORMAL ECG - SINUS RHYTHM LVH WITH REPOLARIZTION ABNORMALITY FIRST DEGREE AV BLOCK PROBABLE LEFT ATRIAL ABNORMALITY IVCD : Confirmed by: Andre Robins MD 05-May-2020 16:08:48
== END 2020-05-05 03:16 | disposition home or self-care (01) ==
LOC: ER 23:39
DX: I95.9 Hypotension, unspecified (principal); I44.0 Atrioventricular block, first degree; R53.1 Weakness; R42 Dizziness and giddiness; F17.200 Nicotine dependence, unspecified, uncomplicated; I11.0 Hypertensive heart disease with heart failure; I50.9 Heart failure, unspecified; I25.10 Atherosclerotic heart disease of native coronary artery without angina pectoris; I25.2 Old myocardial infarction; E11.9 Type 2 diabetes mellitus without complications; Z79.899 Other long term (current) drug therapy; Z91.041 Radiographic dye allergy status
CPT/HCPCS: 93005; 99284; 96360; 36415; 82553; 82550; 85025; 80053; 81001; 84484; 93010; J7030

== ENCOUNTER → 2020-05-08 | Outpatient (CLI) | payer MEDICARE, OTHER ==
[2020-05-08 08:44] LABS: ALKALINE PHOSPHATASE 189 U/L (38-126); ANION GAP 7 (5-19); ASPARTATE AMINO TRANSFERASE 42 U/L (17-59); BILIRUBIN,DIRECT 0.4 mg/dL (0.0-0.4); BILIRUBIN,TOTAL 0.9 mg/dL (0.2-1.3); BLOOD UREA NITROGEN 36 mg/dL (7-20); CALCIUM 9.8 mg/dL (8.4-10.2); CARBON DIOXIDE 32 mmol/L (22-30); CHLORIDE 93 mmol/L (98-107); GLUCOSE 237 mg/dL (75-110); TOTAL PROTEIN 7.5 g/dL (6.3-8.2)
== END ==
LOC: OD 07:11
PROVIDERS: ATTEND Internal Medicine
DX: N18.30 Chronic kidney disease, stage 3 unspecified (principal); I25.10 Atherosclerotic heart disease of native coronary artery without angina pectoris; E11.9 Type 2 diabetes mellitus without complications
CPT/HCPCS: 36415; 80053; 83735

== ENCOUNTER → 2020-06-20 | Outpatient (CLI) | payer MEDICARE, OTHER ==
[2020-06-20 11:41] LABS: ALBUMIN 3.7 g/dL (3.5-5.0); ALKALINE PHOSPHATASE 267 U/L (38-126); ANION GAP 8 (5-19); ASPARTATE AMINO TRANSFERASE 31 U/L (17-59); BILIRUBIN,DIRECT 0.4 mg/dL (0.0-0.4); BLOOD UREA NITROGEN 22 mg/dL (7-20); CALCIUM 9.5 mg/dL (8.4-10.2); CARBON DIOXIDE 31 mmol/L (22-30); CHLORIDE 92 mmol/L (98-107); POTASSIUM 4.6 mmol/L (3.6-5.0); TOTAL PROTEIN 7.7 g/dL (6.3-8.2)
[2020-06-20 13:21] LABS: GLUCOSE 606 mg/dL (75-110)
== END ==
LOC: OD 10:41
PROVIDERS: ATTEND Internal Medicine
DX: N18.30 Chronic kidney disease, stage 3 unspecified (principal); E11.21 Type 2 diabetes mellitus with diabetic nephropathy
CPT/HCPCS: 36415; 80053